=== PATIENT | male | born 1975 | race Caucasian/White ===

== ENCOUNTER 2022-06-12 15:41 | Outpatient (CLI) | payer BC, SELFPAY ==
--- OUTSIDE RECORDS SUMMARY | 2022-06-12 15:42 | XMS_ITS | Clinical Summary ---
:1975 Author Organization [facility] Address [address] [place] [address] Care Team Providers Name Role Phone Unavailable Primary Care Provider Unavailable Source Comments Patient records contain information from all sites at [facility]. For routine questions regarding patient records, call [phone] during business hours, M-F 8:00 AM - 5:00 PM Central Time. Record requests for emergency care only can be directed to [phone] at any time.[facility] Immunizations Name Administration Dates Next Due SARS-COV-2 (COVID-19) - PFIZER (12 years or older) Social History Tobacco Use Types Packs/Day Years Used Date Smoking Tobacco: Never Assessed Sex Assigned at Date Recorded Not on file Plan of Treatment Health Maintenance Due Date Last Done Comments CT Colonography 1973 Cologuard 1975 Colonoscopy 1973 Colorectal Cancer Screening 1973 FIT 1973 HIV Screening 1973 Hepatitis C Screening 1973 Pneumococcal vaccine (0-64 years) (1 1979 - PCV) COVID-19 Vaccine (3 - Pfizer risk 06/12/2021 05/15/2021, series) Depression Screening (Annual PHQ-2) 08/11/2021 Influenza Vaccine (#1) 2022 05/16/2020, 05/22/2019 Fasting Glucose for Diabetes 09/09/2022 09/09/2019, 019, Screening 05/04/2019 DTaP,Tdap,and Td Vaccines (2 - Td or 09/16/2022 09/16/2012 Tdap) Lipid (Cholesterol) Screening 05/04/2024 05/04/2019, 2018, 08/14/2018 Hepatitis B Vaccines Completed 01/21/2007, 04/18/2006, 03/18/2006 Insurance Payer Benefit Plan Subscriber ID Effective Dates Phone Address Type / Group [facility] [id number] 2020-Joshua [phone] [address] [address] [address] [facility] [address] [place] [id number]
--- OUTSIDE RECORDS SUMMARY | 2022-06-12 15:42 | XMS_ITS | Encounter Summary ---
:1975 Author Organization [facility] Address [address] [place] [address] Care Team Providers Name Role Phone Unavailable Primary Care Provider Unavailable Reason for Referral Specialty Diagnoses / Procedures Referred By Contact Refer red To Contact [facility] [address] [place], [place] [address] Referral ID Status Reason Start Date Expiration Date Visits Requ ested Visits Authorized Encounter Details Date Type Department Care Team Description 04/24/2021 Immunization Department of [facility] er For COVID-19 Medicine, [facility] Vaccine I [facility], (P rimary Dx) in [facility] [address] [place] [address] Social History Tobacco Use Types Packs/Day Years Used Date Smoking Tobacco: Never Assessed Sex Assigned at Date Recorded Not on file documented as of this encounter Plan of Treatment Scheduled Referrals Name Type Priority Associated Diagnoses Order S chedule Covid immunization Outpatient Referral Routine Encounter For E xpected: office visit COVID-19 Vaccine 05/15/2021, Subsequent; Pfizer Immunization Expires: 04/24/2024 documented as of this encounter Visit Diagnoses Diagnosis Encounter For COVID-19 Vaccine Immunizat ion - Primary documented in this encounter
--- OUTSIDE RECORDS SUMMARY | 2022-06-12 15:43 | XMS_ITS | Encounter Summary ---
:1975 Author Organization [facility] Address [address] [place] [address] Care Team Providers Name Role Phone No Ref-Primary, Physician Primary Care Provider Encounter Details Date Type Department Care Team Description 10/18/2020 Travel Social History Tobacco Use Types Packs/Day Years Used Date Smoking Tobacco: Every Day Cigarettes 0.5 Alcohol Use Standard Drinks/Week Comments Yes 0 (1 standard drink = 0.6 oz pure alcoho l) occasionally Sex Assigned at Date Recorded Not on file COVID-19 Exposure Response Date Recorded In the last month, have you been in contact with No / Unsure 10/18/2020 12:00 AM CHIEF RADIOLOGY someone who was confirmed or suspected to have Coronavirus / COVID-19? documented as of this encounter Plan of Treatment Not on filedocumented as of this encounter Visit Diagnoses Not on filedocumented in this encounter Care Teams Electrician Helper Relationship Specialty Start Date End Date No Ref-Primary, Physician PCP - General 09/03/19 10/28/21 documented as of this encounter
--- OUTSIDE RECORDS SUMMARY | 2022-06-12 15:43 | XMS_ITS | Encounter Summary ---
:1975 Author Organization [facility] Address [address] [place] [address] Care Team Providers Name Role Phone Bharat Yañez Primary Care Provider Encounter Details Date Type Department Care Team Description 01/13/2019 Travel Social History Tobacco Use Types Packs/Day [...] on filedocumented in this encounter Care Teams Generation Engineering Technologist Relationship Specialty Start Date End Date Bharat Yañez PCP - General Family Practice 04/30/16 09/02/19 documented as of this encounter
--- OUTSIDE RECORDS SUMMARY | 2022-06-12 15:43 | XMS_ITS | Clinical Summary ---
:1975 Author Organization [facility] Address [address] [place], [place] [address]. [place] [address] Care Team Providers Name Role Phone [facility] Provi velvet Clinics- Allergies No known active allergies Medications Medication Sig Dispensed Refills Start Date End Date Status ibuprofen Take 800 mg by mouth 0 Active (ADVIL,MOTRIN) 800 every morning MG tablet APREMILAST PO Take 1 tablet by 0 Active mouth 2 times daily Blinded study drug from [facility], Dr Karen Mathew COSENTYX 0 10/25/2021 Active SENSOREADY, 300 MG, 150 MG/ML SOAJ Active Problems Problem Noted Date Ankylosing spondylitis lumbar region 09/11/2012 Overview: Formatting of this note might be differe nt from the original. 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 Now occasional palpitations after ablati on 1995. ; ANOMALOUS AV EXCITATION (WPW) Immunizations Name Administration Dates Next Due COVID-19,PF,Pfizer (12+ Yrs) 05/15/2021, 04/24/2021 Family History Medical History Relation Comments Unknown/Adopted No family hx of unknown Relation Status Comments Father car accident Maternal Grandfather Maternal Grandmother Mother Alive Paternal Grandfather Paternal Grandmother Social History Tobacco Use Types Packs/Day Years Used Date Smoking Tobacco: Every Day Cigarettes 0.5 Alcohol Use Standard Drinks/Week Comments Yes 0 (1 standard drink = 0.6 oz pure alcoho l) occasionally Sex Assigned at Date Recorded Not on file Last Filed Vital Signs Vital Sign Reading Time Taken Comments Blood Pressure 141/97 11/10/2021 8:00 PM CDT Pulse 83 11/10/2021 8:00 PM CDT Temperature 37.2 ??C (98.9 ??F) 11/10/2021 7:01 PM CDT Respiratory Rate 14 11/10/2021 8:00 PM CDT Oxygen Saturation 98% 11/10/2021 8:00 PM CDT Inhaled Oxygen Concentration - - Weight 102.1 kg (225 lb) 11/06/2021 3:07 PM CDT Height 188 cm (6' 2) 09/10/2021 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 Body Mass Index 28.89 09/10/2021 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 Plan of Treatment Health Maintenance Due Date Last Done Comments ADVANCE CARE PLANNING 1975 ANNUAL REVIEW OF HM ORDERS 1973 CT COLONOGRAPHY 1973 FIT-DNA (Cologuard) 1973 FIT 1973 FLEX SIG 1973 NICOTINE/TOBACCO CESSATION 1973 COUNSELING Q 1 YR Pneumococcal Vaccine: 1979 Pediatrics (0 to 5 Years) and At-Risk Patients (6 to 64 Years) (1 - PCV) COLONOSCOPY 1983 COLORECTAL CANCER SCREENING 1983 HIV SCREENING 02/18/1988 HEPATITIS C SCREENING 1991 YEARLY PREVENTIVE VISIT 06/28/2011 06/28/2010, 01/21/2007, 03/18/2006 COVID-19 Vaccine (3 - 07/10/2021 05/15/2021, 04/24/2021 Booster for Pfizer series) PHQ-2 (once per calendar 08/11/2021 year) INFLUENZA VACCINE (#1) 2022 05/16/2020, 05/22/2019 DTAP/TDAP/TD IMMUNIZATION 09/16/2022 09/16/2012, 02/15/2003 (2 - Td or Tdap) ZOSTER IMMUNIZATION (1 of 2023 2) LIPID 05/04/2024 05/04/2019, 11/26/2018, 08/14/2018, Additional history exists HEPATITIS B IMMUNIZATION Completed 01/21/2007, 04/18/2006, 03/18/2006 IPV IMMUNIZATION Aged Out No longer eligi ble based on patient 's age to complete this topic MENINGITIS IMMUNIZATION Aged Out No longe r eligible based on patient 's age to complete this topic Insurance Payer Benefit Plan / Subscriber ID Effective Dates Phone Addre ss Type Group BC[place] [id number] 2016-Joshua [phone] [address] [address] Indemnity t 0 [place] [id number] Advance Directives For more information, please contact: [phone] Latest Code Status on File Code Status Date Activated Date Inactivated Comments Full Code 04/30/2016 3:58 PM 05/01/2016 11:18 AM Care Teams Ruling Machine Set Up Operator Relationship Specialty Start Date End Date [facility] And PCP - General 10/29/21 [facility]- [address] [place] [address]
--- OUTSIDE RECORDS SUMMARY | 2022-06-12 15:43 | XMS_ITS | Encounter Summary ---
:1975 Author Organization [facility] Address [address] [place] [address] Care Team Providers Name Role Phone Bharat Yañez Primary Care Provider Encounter Details Date Type Department Care Team Description 11/26/2018 [facility] Vitamin D deficiency [address] [facility] [place], [place] [address] [phone] [address] [place], [place] [id number] Social History Tobacco Use Types Packs/Day Years Used Date Smoking Tobacco: Every Day Cigarettes 0.5 Alcohol Use Standard Drinks/Week Comments Yes 0 (1 standard drink = 0.6 oz pure alcoho l) occasionally Sex Assigned at Date Recorded Not on file documented as of this encounter Medications at Time of Discharge Medication Sig Dispensed Refills Start Date End Date APREMILAST PO Take 1 tablet by mouth 2 0 times daily Blinded study drug from [facility], Dr Karen Mathew ibuprofen Take 800 mg by mouth 0 (ADVIL,MOTRIN) 800 MG every morning tablet documented as of this encounter Plan of Treatment Not on filedocumented as of this encounter Procedures Procedure Name Priority Date/Time Associated Comments Diagnosis VITAMIN D DEFICIENCY Routine 11/26/2018 7:15 AM Lipid di sorder Results for this SCREENING CDT Vitamin D procedure are i n deficiency the results section. LIPID PROFILE Routine 11/26/2018 7:15 AM Lipid disorde r Results for this CDT Vitamin D procedure are i n deficiency the results section. HEMOGLOBIN Routine 11/26/2018 7:15 AM Lipid disorde r Results for this CDT Vitamin D procedure are i n deficiency the results section. ERYTHROCYTE Routine 11/26/2018 7:15 AM Lipid disorde r Results for this SEDIMENTATION RATE CDT Vitamin D procedure are in AUTO deficiency the results section. CRP INFLAMMATION Routine 11/26/2018 7:15 AM Lipid disord er Results for this CDT Vitamin D procedure are i n deficiency the results section. CREATININE Routine 11/26/2018 7:15 AM Lipid disorde r Results for this CDT Vitamin D procedure are i n deficiency the results section. documented in this encounter Results Vitamin D Deficiency (11/26/2018 7:15 AM CDT) P athologist Signature Vitamin D 40 20 - 75 11/26/2018 [facility] Deficiency ug/L 3:19 PM CDT [facility] [place] Comment: Season, race, dietary intake, and treatm ent affect the concentration of 76-ykotmxa-Gvxysrh D. Values may decreas e during winter months and increase during summer months. Values 20-29 ug/L may indicate Vitamin D insufficiency and values <20 ug/L may indicate Vitamin D deficiency. Vitamin D determination is routinely per formed by an immunoassay specific for 25 hydroxyvitamin D3. ??If an individual is on vitamin D2 (ergocalciferol) supplementation, please specify 25 OH vi tamin D2 and D3 level determination by LCMSMS test VITD23. Specimen Anatomical Collection Method Collection Time Receive d Time (Source) Location / / Volume Laterality Blood specimen 11/26/2018 7:15 AM 019 7:17 (specimen) CDT AM CDT Karen Shrestha LAB - BLOOD ORDERABLES Performing Organization Address City/State/ZIP Code Phon e Number [facility] [address] [place], [place] [id number] [place] [address] (ABNORMAL) Lipid Profile (Chol, Trig, HDL, LDL calc) (11/26/2018 7:15 AM CDT) P athologist Signature Cholesterol 238 (H) <200 mg/dL 11/26/2018 [facility] 7:36 AM CDT [facility] Comment: Desirable: <200 mg/dl Triglycerides 136 <150 mg/dL 11/26/2018 7:[address] [facility] HDL Cholesterol 55 >39 mg/dL 11/26/2018 7:38 AM [facility]W [facility] LDL Cholesterol 156 (H) <100 mg/dL 11/26/2018 7:38 AM [facility] Comment: Above desirable: ??100-129 mg/dl Borderline High: ??130-159 mg/dL High: ? 160-189 mg/dL Very high: ? >189 mg/dl Non HDL Cholesterol 183 (H) <130 mg/dL 11/26/2018 7:38 AM [facility] Comment: Above Desirable: ??130-159 mg/dl Borderline high: ??160-189 mg/dl High: ? 190-219 mg/dl Very high: ? >219 mg/dl Specimen Anatomical Collection Method Collection Time Receive d Time (Source) Location / / Volume Laterality Blood specimen 11/26/2018 7:15 AM 019 7:17 (specimen) CDT AM CDT Karen Chakraborty Fady LAB - BLOOD ORDERABLES Performing Organization Address City/[facility]/ZIP [facility] Phon [place] Number [facility] [address] [place], [place] [address] [facility] [address] [phone] Hemoglobin (11/26/2018 7:15 AM CDT) P athologist Signature Hemoglobin 15.3 13.3 - 17.7 11/26/2018 [facility] g/dL 7:22 AM CDT HOSPITAL Specimen Anatomical Collection Method Collection Time Receive d Time (Source) Location / / Volume Laterality Blood specimen 11/26/2018 7:15 AM 019 7:17 (specimen) CDT AM CDT Karen G Fady LAB - BLOOD ORDERABLES Performing Organization Address City/[facility]/ZIP [facility] Phon e Number [facility] [address] [place] [address] [facility] [address] [place], [place] [address], [facility] [phone] CRP, inflammation (11/26/2018 7:15 AM CDT) athologist Signature CRP Inflammation <2.9 0.0 - 8.0 11/26/2018 [place] mg/L 7:36 AM [facility] Specimen Anatomical Collection Method Collection Time Receive d Time (Source) Location / / Volume Laterality Blood specimen 11/26/2018 7:15 AM 019 7:17 (specimen) CDT AM CDT Karen Calvertta LAB - BLOOD ORDERABLES Performing Organization Address City/[facility]/ZIP [facility] Phon ozzy Osman [facility] [address] [place], [place] [address] [facility] [address] [place], [place] [address], [facility] [phone] ESR FUTURE anytime (11/26/2018 7:15 AM CDT) athologist [facility] Sed Rate 10 0 - 15 mm/h 11/26/2018 [facility] 7:59 AM [facility] Specimen Anatomical Collection Method Collection Time Receive d Time (Source) Location / / Volume Laterality Blood specimen 11/26/2018 7:15 AM 019 7:17 (specimen) CDT AM CDT Karen G Fady LAB - BLOOD ORDERABLES Performing Organization Address City/[facility]/ZIP [facility] Ph[place] e Dawson [facility] [address] [place], [place] [address] [facility] [address] [place], [place] [address], [facility] [phone] Creatinine (11/26/2018 7:15 AM CDT) athologist Signature Creatinine 0.73 0.66 - 1.25 11/26/2018 [place] mg/dL 7:36 AM [facility] GFR Estimate >90 >60 11/26/2018 [place] mL/min/{1.7 7:36 AM [facility] 3_m2[facility] Comment: Non GFR Calc Starting 07/28/2018, serum creatinine ba sed estimated GFR (eGFR) will be calculated using the Chronic Kidney Dise [facility] Epidemiology Collaboration (CKD-EPI) equation. GFR Estimate If >90 >60 mL/min/{1.73_m2} 11/26/2018 7: 36 AM [facility] Comment: GFR Calc Starting 07/28/2018, serum creatinine ba sed estimated GFR (eGFR) will be calculated using the Chronic Kidney Dise [facility] Epidemiology Collaboration (CKD-EPI) equation. Specimen Anatomical Collection Method Collection Time Receive d Time (Source) Location / / Volume Laterality Blood specimen 11/26/2018 7:15 AM 019 7:17 (specimen) CDT CDT Karen Shrestha LAB - BLOOD ORDERABLES Performing Organization Address City/State/ZIP Code Phon e Number M [address] [place] [address] [phone] documented in this encounter Visit Diagnoses Diagnosis Lipid disorder Unspecified disorder of lipoid metabolis m Vitamin D deficiency Unspecified vitamin D deficiency documented in this encounter Care Teams Hybrid Corn Breeder Relationship Specialty Start Date End Date Bharat Yañez PCP - General Family Practice 04/30/16 09/02/19 documented as of this encounter
--- OUTSIDE RECORDS SUMMARY | 2022-06-12 15:43 | XMS_ITS | Encounter Summary ---
:1975 Author Organization [facility] Address [address] [place] [address] Care Team Providers Name Role Phone Bharat Yañez Primary Care Provider Encounter Details Date Type Department Care Team Description 11/30/2018 Orders Only [facility] Karen Shrestha Polyarticular psoriatic arthritis (H) (P rimary Dx); [facility] Vitamin D deficiency; [address] [facility] RHEUMATOLOGY [place] use of drug [place], [place] [address] [facility] [place] [address] [address] [place], [place] [id number] Social History Tobacco Use Types Packs/Day Years Used Date Smoking Tobacco: Every Day Cigarettes 0.5 Alcohol Use Standard Drinks/Week Comments Yes 0 (1 standard drink = 0.6 oz pure alcoho l) occasionally Sex Assigned at Date Recorded Not on file documented as of this encounter Plan of Treatment Not on filedocumented as of this encounter Visit Diagnoses Diagnosis Polyarticular psoriatic arthritis (H) - Primary Psoriatic arthropathy Vitamin D deficiency Unspecified vitamin D deficiency long-term use of drug Encounter for long-term (current) use of other medications documented in this encounter Care Teams Vehicle Check In Clerk Relationship Specialty Start Date End Date Bharat Yañez PCP - General Family Practice 04/30/16 09/02/19 documented as of this encounter
--- OUTSIDE RECORDS SUMMARY | 2022-06-12 15:43 | XMS_ITS | Encounter Summary ---
:1975 Author Organization [place] Address [address] [place] [address] Care Team Providers Name Role Phone No Ref-Primary, Physician Primary Care Provider Encounter Details Date Type Department Care Team Description 09/09/[address] [facility] Pso riatic arthropathy (H); [facility] Vitamin D deficiency; [facility] for long-term (current) use of other medications [address] [place] [address] Social History Tobacco Use Types Packs/Day Years [...] Associated Comments Diagnosis VITAMIN D DEFICIENCY Routine 09/09/2019 8:26 AM Psoriatic R esults for this SCREENING FURNITURE SHAMPOOER arthropathy (H) procedure are in Vitamin D the results deficiency section. Encounter for long-term (current) use of other medications ERYTHROCYTE Routine 09/09/2019 8:26 AM Psoriatic Results f or this SEDIMENTATION RATE FURNITURE SHAMPOOER arthropathy ( H) procedure are in AUTO Vitamin D the results deficiency section. Encounter for long-term (current) use of other medications CRP INFLAMMATION Routine 09/09/2019 8:26 AM Psoriatic Resul ts for this FURNITURE SHAMPOOER arthropathy (H) procedure are in Vitamin D the results deficiency section. Encounter for long-term (current) use of other medications COMPREHENSIVE Routine 09/09/2019 8:26 AM Psoriatic Results for this METABOLIC PANEL FURNITURE SHAMPOOER arthropathy (H) procedure are in Vitamin D the results deficiency section. Encounter for long-term (current) use of other medications CBC WITH PLATELETS Routine 09/09/2019 8:26 AM Psoriatic Res ults for this FURNITURE SHAMPOOER arthropathy (H) procedure are in Vitamin D the results deficiency section. Encounter for long-term (current) use of other medications documented in this encounter Results Vitamin D Deficiency (09/09/2019 8:26 AM FURNITURE SHAMPOOER) P athologist Signature Vitamin D 26 20 - 75 09/10/2019 [facility] Deficiency ug/L 9:52 AM FURNITURE SHAMPOOER [facility] Comment: Season, race, dietary intake, and treatm ent affect the concentration of 89-hpecjea-Cmfrkuo D. Values may decreas e during winter [...] Location / / Volume Laterality Blood specimen 09/09/2019 8:26 AM 020 8:27 (specimen) FURNITURE SHAMPOOER AM FURNITURE SHAMPOOER Noah Gill MD LAB - BLOOD ORDERABLES Performing Organization Address City/[facility]/ZIP Code Phon e Number [address] CRP inflammation (09/09/2019 8:26 AM FURNITURE SHAMPOOER) Analysis Performed At Patho logist Time Signature CRP Inflammation <2.9 0.0 - 8.0 09/09/2019 [place] O F mg/L 8:[address] [facility] Specimen Anatomical Collection Method Collection Time Receive d Time (Source) Location / / Volume Laterality Blood specimen 09/09/2019 8:26 AM 020 8:27 (specimen) FURNITURE SHAMPOOER AM FURNITURE SHAMPOOER Noah Gill MD LAB - BLOOD ORDERABLES Performing Organization Address City/[facility]/ZIP Code Phon e Number [address] Comprehensive metabolic panel (BMP + Alb, Alk Phos, ALT, AST, Total. Bili, TP) (09/09/2019 8:26 AM [facility]) athologist Signature Sodium 140 133 - 144 09/10/2019 [facility] mmol/L 9:31 AM [facility] Potassium 4.3 3.4 - 5.3 09/10/2019 [facility] mmol/L 9:31 AM [facility] Chloride 109 94 - 109 09/10/2019 [facility] mmol/L 9:31 AM [facility] Carbon Dioxide 23 20 - 32 09/10/2019 [facility] mmol/L 9:41 AM [facility] Anion Gap 8 3 - 14 09/10/2019 [place] mmol/L 9:41 AM [facility] Glucose 95 70 - 99 09/10/2019 [place] mg/dL 9:41 AM [facility] Urea Nitrogen 15 7 - 30 09/10/2019 [facility] mg/dL 9:41 AM [facility] Creatinine 0.78 0.66 - 09/10/2019 [facility] 1.25 mg/dL 9:41 AM [facility] GFR Estimate >90 >60 09/10/2019 [place] mL/min/{1. 9:41 AM [facility] 73_m2} [facility] Comment: Non GFR Calc Starting 07/28/2018, serum creatinine ba sed estimated GFR (eGFR) will be calculated using the Chronic Kidney Dise [facility] Epidemiology Collaboration (CKD-EPI) equation. GFR Estimate If >90 >60 mL/min/{1.73_m2} 09/10/2019 9: 41 AM [facility] Black [facility] Comment: GFR Calc Starting 07/28/2018, serum creatinine ba sed estimated GFR (eGFR) will be calculated using the Chronic Kidney Dise [facility] Epidemiology Collaboration (CKD-EPI) equation. Calcium 9.4 8.5 - 10.1 09/10/2019 9:41 AM [place] [facility] mg/dL [facility] Bilirubin Total 0.6 0.2 - 1.3 mg/dL 09/10/2019 9:48 AM [place] [facility] Albumin 4.1 3.4 - 5.0 g/dL 09/10/2019 9:48 AM [facility] Protein Total 7.3 6.8 - 8.8 g/dL 09/10/2019 9:48 AM [facility] Alkaline Phosphatase 86 40 - 150 U/L 09/10/2019 9:48 AM [facility] ALT 25 0 - 70 U/L 09/10/2019 9:[address] [facility] AST 14 0 - 45 U/L 09/10/2019 9:[address] [facility] Specimen Anatomical Collection Method Collection Time Receive d Time (Source) Location / / Volume Laterality Blood specimen 09/09/2019 8:26 AM 020 8:27 (specimen) FURNITURE SHAMPOOER AM FURNITURE SHAMPOOER Noah Gill MD LAB - BLOOD ORDERABLES Performing Organization Address City/State/ZIP Code Phon e Number M [facility] [address] [address] [facility] [address] [facility] [place] [address] [facility] [address] [address], U [phone] CBC with platelets (09/09/2019 8:26 AM FURNITURE SHAMPOOER) P athologist Signature WBC 7.8 4.0 - 11.0 09/09/2019 [facility] 10e9/L 10:23 AM [facility] RBC Count 5.20 4.4 - 5.9 09/09/2019 [facility] 10e12/L 10:23 AM [facility] Hemoglobin 15.1 13.3 - 09/09/2019 [facility] 17.7 g/dL 10:23 AM [facility] Hematocrit 45.1 40.0 - 09/09/2019 [facility] 53.0 % 10:23 AM [facility] MCV 87 78 - 100 09/09/2019 [facility] fl 10:23 AM [facility] MCH 29.0 26.5 - 09/09/2019 [facility] 33.0 pg 10:23 AM [facility] MCHC 33.5 31.5 - 09/09/2019 [facility] 36.5 g/dL 10:23 AM [facility] RDW 12.0 10.0 - 09/09/2019 [place] 15.0 % 10:23 AM [facility] Platelet Count 238 150 - 450 09/09/2019 [place] 10e9/L 10:23 AM [facility] Specimen Anatomical Collection Method Collection Time Receive d Time (Source) Location / / Volume Laterality Blood specimen 09/09/2019 8:26 AM 020 8:27 (specimen) FURNITURE SHAMPOOER AM FURNITURE SHAMPOOER Noah Gill MD LAB - BLOOD ORDERABLES Performing Organization Address City/State/ZIP Code Phon e Number [facility] [place] [address] ESR FUTURE anytime (09/09/2019 8:26 AM FURNITURE SHAMPOOER) P athologist Signature Sed Rate 8 0 - 15 mm/h 09/09/2019 [facility] 10:35 AM [facility] Specimen Anatomical Collection Method Collection Time Receive d Time (Source) Location / / Volume Laterality Blood specimen 09/09/2019 8:26 AM 020 8:27 (specimen) FURNITURE SHAMPOOER AM FURNITURE SHAMPOOER Noah Gill MD LAB - BLOOD ORDERABLES Performing Organization Address City/[facility]/ZIP Code Phon e Number [facility] [place] [address] documented in this encounter Visit Diagnoses Diagnosis Psoriatic arthropathy (H) Psoriatic arthropathy Vitamin D deficiency Unspecified vitamin D deficiency Encounter for long-term (current) use of other medications documented in this encounter Care Teams Rivet Tapping Machine Operator Relationship Specialty Start Date End Date No Ref-Primary, Physician PCP - General 09/03/19 10/28/21 documented as of this encounter
--- OUTSIDE RECORDS SUMMARY | 2022-06-12 15:43 | XMS_ITS | Encounter Summary ---
:1975 Author Organization [place] Address [address] [place] [address] Care Team Providers Name Role Phone Bharat Yañez Primary Care Provider Encounter Details Date Type Department Care Team Description 11/26/2018 Travel Social History Tobacco Use Types Packs/Day [...] on filedocumented in this encounter Care Teams Field Reimbursement Manager Relationship Specialty Start Date End Date Bharat Yañez PCP - General Family Practice 04/30/16 09/02/19 documented as of this encounter
--- OUTSIDE RECORDS SUMMARY | 2022-06-12 15:43 | XMS_ITS | Encounter Summary ---
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); Clinic [facility] Screening for thyroid disorder; Laboratory RHEUMATOLOGY Screening for diabetes mellitus; [address] [facility], [address] [place] [address] of lipoprotein and lipid metabolism; [address] Polyarticular psoriatic arthritis (H); [place], [place] [address] Avitaminosis D; [phone] Encounter for long-term (cur rent) use of other medications Social History Tobacco Use Types Packs/Day Years Used Date Smoking Tobacco: Every Day Cigarettes 0.5 Alcohol Use Standard Drinks/Week Comments Yes 0 (1 standard drink = 0.6 oz pure alcoho l) occasionally Sex Assigned at Date Recorded Not on file documented as of this encounter Plan of Treatment Not on filedocumented as of this encounter Results (ABNORMAL) Lipid panel reflex to direct LDL Fasting (05/04/2019 7:52 AM CDT) athologist Signature Cholesterol 211 (H) <200 mg/dL 05/05/2019 [facility] 10:00 AM CDT [facility] Comment: Desirable: <200 mg/dl Triglycerides 98 <150 mg/dL 05/05/2019 10:00 AM [facility] Comment: Fasting specimen HDL Cholesterol 53 >39 mg/dL 05/05/2019 10:02 AM [facility] LDL Cholesterol 138 (H) <100 mg/dL 05/05/2019 10:02 AM MARIBEL BAUER [facility] Comment: Above desirable: ??100-129 mg/dl Borderline High: ??130-159 mg/dL High: ? 160-189 mg/dL Very high: ? >189 mg/dl Non HDL Cholesterol 158 (H) <130 mg/dL 05/05/2019 10:02 AM [facility] Comment: Above Desirable: ??130-159 mg/dl Borderline high: ??160-189 mg/dl High: ? 190-219 mg/dl Very high: ? >219 mg/dl Specimen Anatomical Collection Method Collection Time Receive d Time (Source) Location / / Volume Laterality Blood specimen 05/04/2019 7:52 AM 019 7:57 (specimen) CDT AM CDT Karen Shrestha LAB - BLOOD ORDERABLES Performing Organization Address City/State/ZIP Code Phon e Number [facility] [address] [place] [address] Hemoglobin A1c (05/04/2019 7:52 AM CDT) P athologist Signature Hemoglobin A1C 5.1 0 - 5.6 % 05/04/2019 [place] 8:55 AM CDT [facility] Comment: Normal <5.7% Prediabetes 5.7-6.4% ??Diab etes 6.5% or higher - adopted from ADA consensus guidelines. Specimen Anatomical Collection Method Collection Time Receive d Time (Source) Location / / Volume Laterality Blood specimen 05/04/2019 7:52 AM 019 7:57 (specimen) CDT AM CDT Karen Shrestha LAB - BLOOD ORDERABLES Performing Organization Address City/State/ZIP Code Phon e Number [facility] [address] [place] [address] Testosterone Free and Total FUTURE anytime (05/04/2019 7:52 AM CDT) Analysis Performed At Patho logist Time Signature Testosterone 587 240 - 950 05/06/2019 [facility] ng/dL 10:26 AM T [facility] Comment: This test was developed and its performa nce characteristics determined by the [facility], ??Special Chemistry Laboratory. It has not been cleared or approved by the FDA. The laboratory is regulated under CLIA as qualified to perform high-comple xity testing. This test is used for clinical purposes. It should not be rega rded as investigational or for research. Sex Hormone Binding 32 11 - 80 nmol/L 05/05/2019 8:52 AM [facility] Globulin T [facility] Free Testosterone 12.88 4.7 - 24.4 05/06/2019 10:26 AM [facility] Calculated ng/dL T [facility] Specimen Anatomical Collection Method Collection Time Receive d Time (Source) Location / / Volume Laterality Blood specimen 05/04/2019 7:52 AM 019 7:57 (specimen) [facility]rest[facility] LAB - BLOOD ORDERABLES Performing Organization Address City/State/ZIP Code Phon e Number [facility] [address] [place], [place] [id number] [place] [address] documented in this encounter Visit Diagnoses Diagnosis 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
--- OUTSIDE RECORDS SUMMARY | 2022-06-12 15:43 | XMS_ITS | Encounter Summary ---
:1975 Author Organization [place] Address [address] [place] [address] Care Team Providers Name Role Phone [facility]- Reason for Visit Reason Onset Date Comments Results 11/07/2021 Encounter Details Date Type Department Care Team Description 11/07/2021 Telephone [facility] Chadwick Rutherford sa, RN Results Emergency Dept [address] [place] [phone] Social History Tobacco Use Types Packs/Day Years Used Date Smoking Tobacco: Every Day Cigarettes 0.5 Alcohol Use Standard Drinks/Week Comments Yes 0 (1 standard drink = 0.6 oz pure alcoho l) occasionally Sex Assigned at Date Recorded Not on file COVID-19 Exposure Response Date Recorded In the last month, have you been in contact with No / Unsure 11/10/2021 6:31 PM CDT someone who was confirmed or suspected to have Coronavirus / COVID-19? documented as of this encounter Miscellaneous Notes Telephone Encounter - Florencia Rutherford RN - 11/07/2021 3:[address] [facility] Emergency Department Lab result notification: Reason for call Synovial fluid culture Lab Result [facility] Emergency Dept discharge antibiotic prescribed: Clindamycin (Cleocin) 300 mg PO capsule, 1 capsule (300 mg) by mouth 3 times daily for 10 days Incision and Drainage performed in [facility] Emergency Dept [Yes or No]: aspiration Recommendations in treatment per [facility] ED Lab Result culture protocol ED visit Date: 11/06/21 Symptoms reported at ED visit Elbow Pain ? HPI Felix Coppola is a 46 year old male who has a history of ankylosing spondylitis lumbar region and presents with elbow pain. The patient was seen on 10/29 for cellulitis of the right upper extremity. He had swelling and pain in the right arm with the fever. The fever subsided on Friday. He alsojust finished his course of antibiotics. He now has redness and swelling in the back of his right elbow. He cannot fully extend his arm. He has not taken anything for the pain recently. Miscellaneous information Patient presents with ongoing right elbow pain. There is no picture of of prior elbow cellulitis but patient's iPhone did describe quite a bit of erythema and bogginess posteriorly to the right elbow. Clinical suspicions are for likely septic bursitis patient continues to have pain and erythema in this region but markedly improved. An attempted aspiration was performed only got a small amount of drainage that looked serosanguineous and this was swabbed and sent for culture we will continue antibiotics as patient was only treated with 7 days of Keflex recommend she switching to clindamycin. Culture is pending at the time of discharge recommended follow-up with orthopedics for further evaluation of ongoing pain and olecranon bursitis, likely septic Current symptoms 3:09 Spoke with patient Relayed preliminary culture report. Patient notes improvement to the elbow. Is able to move it better and feels better as well. Patient will continue current antibiotics. He is aware to be seen in ER if worsening symptoms. Patient is aware to follow up with orthopedics as needed as well. Will call with final culture report. Contact your PCP clinic or return to the Emergency department if your: ?? Symptoms return. ?? Symptoms do not improved after 3 days on antibiotic. ?? Symptoms do not resolve after completing antibiotic. ?? Symptoms worsen or other concerning symptom's. Florencia Rutherford RN [facility] Lab Result RN Copy of Lab result Synovial fluid Aerobic Bacterial Culture Routine Order: [id number] Status: Preliminary result ?? Visible to patient: No (not released) ?? Specimen Information: Elbow, Right; Synovial fluid ?? 1 Result Note Culture Culture in progress 1+ Staphylococcus aureus??Abnormal?? Identification is preliminary, confirmation in progress Resulting Agency: [facility] Specimen Collected: 11/06/21 ??5:11 PM Last Resulted: 11/07/21 ??2:47 PM documented in this encounter Plan of Treatment Not on filedocumented as of this encounter Visit Diagnoses Not on filedocumented in this encounter Care Teams Director Of Restaurants Relationship Specialty Start Date End Date [facility] And PCP - General 10/29/21 [facility] [address] [place] [address] documented as of this encounter
--- OUTSIDE RECORDS SUMMARY | 2022-06-12 15:43 | XMS_ITS | Encounter Summary ---
:1975 Author Organization [facility] Address [address] [place] [address] Care Team Providers Name Role Phone No Ref-Primary, Physician Primary Care Provider Reason for Visit Reason Comments Mass Encounter Details Date Type Department Care Team Description 10/17/2020 - Emergency [facility] Antony Naranjo, Sialadenitis 10/18/2020 [facility] Emergency Dep t [address] [facility] [place], [place] [address] [address] [facility] [phone] [place], [place] [address] (Wo rk) Social History Tobacco Use Types Packs/Day Years Used Date Smoking Tobacco: Every Day Cigarettes 0.5 Alcohol Use Standard Drinks/Week Comments Yes 0 (1 standard drink = 0.6 oz pure alcoho l) occasionally Sex Assigned at Date Recorded Not on file COVID-19 Exposure Response Date Recorded In the last month, have you been in contact with No / Unsure 10/18/2020 12:00 AM CARDIOPULMONARY TECHNOLOGIST CHIEF someone who was confirmed or suspected to have Coronavirus / COVID-19? documented as of this encounter Last Filed Vital Signs Vital Sign Reading Time Taken Comments Blood Pressure 159/105 10/17/2020 9:20 PM CARDIOPULMONARY TECHNOLOGIST CHIEF Pulse 100 10/17/2020 9:20 PM CARDIOPULMONARY TECHNOLOGIST CHIEF Temperature 36.3 ??C (97.3 ??F) 10/17/2020 9:20 PM CARDIOPULMONARY TECHNOLOGIST CHIEF Respiratory Rate 18 10/17/2020 9:20 PM CARDIOPULMONARY TECHNOLOGIST CHIEF Oxygen Saturation 95% 10/17/2020 9:20 PM CARDIOPULMONARY TECHNOLOGIST CHIEF Inhaled Oxygen Concentration - - Weight 102.1 kg (225 lb) 10/17/2020 9:20 PM CARDIOPULMONARY TECHNOLOGIST CHIEF Height 190.5 cm (6' 3) 10/17/2020 9:20 PM CARDIOPULMONARY TECHNOLOGIST CHIEF Body Mass Index 28.12 10/17/2020 9:20 PM CARDIOPULMONARY TECHNOLOGIST CHIEF documented in this encounter Discharge Instructions Discharge InstructionsGoAntony self MD - 10/17/2020 11:56 PM CARDIOPULMONARY TECHNOLOGIST CHIEF Please use ice or heat to the right jaw. Suck on salivary stimulants like lemon drops. Use nonsteroidal anti-inflammatories like ibuprofen if you see worsening redness or swelling in the right jaw or return to the emergency room to consider imaging. IOPULMONARY TECHNOLOGIST CHIEF AttachmentsThe following attachments cannot be sent through Care Everywhere. Salivary Gland Swelling, Uncertain Cause (Egyptian)Neck, Local Lymph Node Swelling in the, No Antibiotic Treatment (Egyptian)documented in this encounter Medications at Time of Discharge Medication Sig Dispensed Refills Start Date End Date APREMILAST PO Take 1 tablet by mouth 2 0 times daily Blinded study drug from [facility], Dr Karen Mathew ibuprofen Take 800 mg by mouth 0 (ADVIL,MOTRIN) 800 MG every morning tablet documented as of this encounter ED Notes Rufus Iraheta RN - 10/17/2020 9:19 PM CST Here for concern of lump/swelling to behind/below right ear about 45 minutes ago. ABCs intact. IOPULMONARY TECHNOLOGIST CHIEF Antony Naranjo MD - 10/17/2020 9:12 PM CST History Chief Complaint: Mass HPI Felix Coppola is a 45 year old male who presents to the emergency department for evaluation of a mass. Patient states tonight he was eating peanuts when he noticed some pain in the right side of his jaw and felt a mass next to his jaw. The pain could occasionally radiate to the right cheek. He sub sequently presents for evaluation. Review of Systems HENT: Positive for facial swelling. All other systems reviewed and are negative. Allergies: No known drug allergies Medications: Apremilast Past Medical History: Concussion Lumbar disc disorder Migraines WPW syndrome Past Surgical History: Appendectomy Heart ablation T&A Social History: The patient presents to the emergency department alone. Physical Exam Patient Vitals for the past 24 hrs: BP Temp Temp src Pulse Resp SpO2 Height Weight 10/17/20 2120 (!) 159/105 97.3 ??F (36.3 ??C) Temporal 100 18 95 % 1.905 m (6' 3) 102.1 kg (225 lb) Physical Exam Vitals signs reviewed. HENT: Head: Normocephalic. Right Ear: Tympanic membrane normal. Left Ear: Tympanic membrane normal. Nose: Nose normal. Mouth/Throat: Mouth: Mucous membranes are moist. Eyes: Pupils: Pupils are equal, round, and reactive to light. Neck: Comments: There is a small pea-like mass just at the base and the angle of the right mandible. It is mobile and mildly tender with palpation. No redness of the skin no fluctuance Cardiovascular: Rate and Rhythm: Normal rate and regular rhythm. Pulses: Normal pulses. Pulmonary: Effort: Pulmonary effort is normal. Breath sounds: Normal breath sounds. Neurological: Mental Status: He is alert. Emergency Department Course Emergency Department Course: Reviewed: I reviewed the patient's nursing notes, vitals, past medical records, Care Everywhere. Assessments: [id number] I assessed the patient. Exam findings described above. Disposition: Discharged to home. Impression & Plan Medical Decision Making: Patient presents with swelling at the angle of the right mandible. There is no signs of dental swelling the ear canal and eardrum is normal there is no mastoid tenderness. It seems low for the buccal sial tinnitus could be submandibular cellulitis or buccal or a salivary duct stone other possibilitiesinclude adenopathy. Supraclavicular region is normal patient has no other symptoms no pain with swallowing and no other localizing signs for cervical adenopathy. Care was discussed with the patient do not feel imaging is required is patient's had symptoms for 3 or 4 hours. Would recommend anti-inflammatory sucking on lemon drops and if swelling and pain is worse return to consider CT imaging. Diagnosis: ICD-10-CM 1. Sialadenitis K11.20 Joshua Saini 10/17/2020 EMERGENCY DEPARTMENT Scribe Disclosure: I, Joshua Parveen, am serving as a scribe at 11:58 PM on 10/17/2020 to document services personally performed by Antony Naranjo MD based on my observations and the provider's statements to me. Antony Naranjo MD 10/18/20 0443 IOPULMONARY TECHNOLOGIST CHIEF documented in this encounter Plan of Treatment Not on filedocumented as of this encounter Visit Diagnoses Diagnosis Sialadenitis Sialoadenitis documented in this encounter Care Teams Seater Grinder Relationship Specialty Start Date End Date No Ref-Primary, Physician PCP - General 09/03/19 10/28/21 documented as of this encounter
--- OUTSIDE RECORDS SUMMARY | 2022-06-12 15:43 | XMS_ITS | Encounter Summary ---
:1975 Author Organization [facility] Address [address] [place] [address] Care Team Providers Name Role Phone [facility] Clinics- Encounter Details Date Type Department Care Team Description 10/29/2021 [facility] [address] [facility] [address] [phone] [place], [place] [address] (Wo rk) Social History Tobacco Use Types Packs/Day Years Used Date Smoking Tobacco: Every Day Cigarettes 0.5 Alcohol Use Standard Drinks/Week Comments Yes 0 (1 standard drink = 0.6 oz pure alcoho l) occasionally Sex Assigned at Date Recorded Not on file COVID-19 Exposure Response Date Recorded In the last month, have you been in contact with No / Unsure 10/29/2021 12:51 PM CDT someone who was confirmed or suspected to have Coronavirus / COVID-19? documented as of this encounter Plan of Treatment Not on filedocumented as of this encounter Procedures Procedure Name Priority Date/Time Associated Diagnosis Comme nts POC US SOFT TISSUE STAT 10/29/2021 3:48 PM Res ults for this CDT procedure are i n the results section. documented in this encounter Results POC US SOFT TISSUE (10/29/2021 3:48 PM CDT) Anatomical Region Laterality Modality Other Specimen (Source) Anatomical Location Collection Method / Collectio n Time Received Time / Laterality Volume Narrative 10/29/2021 3:48 PM CDT [facility] Procedure Note Limited Bedside ED Ultrasound of Soft Ti ssue: PROCEDURE: PERFORMED BY: Dr. Chintan zhu MD INDICATIONS/SYMPTOM: Skin redness, evalu ate for abscess, cellulitis or foreign body PROBE: High frequency linear probe BODY LOCATION: Soft tissue located on ex tremity FINDINGS: Cobblestoning of soft tissue: present Hypoechoic fluid (ie abscess) identifie d: absent INTERPRETATION: ??The soft tissue and mu scle layers were evaluated. ?? Findings indicate cellulitis IMAGE DOCUMENTATION: Images could not be archived due to lack of link from US to PACS. Chintan Davis MD IMG POCUS documented in this encounter Visit Diagnoses Not on filedocumented in this encounter Care Teams Controls Design Engineer Relationship Specialty Start Date End Date [facility] PCP - General 10/29/21 [facility] [address] [place] [address] documented as of this encounter
--- OUTSIDE RECORDS SUMMARY | 2022-06-12 15:43 | XMS_ITS | Encounter Summary ---
:1975 Author Organization [facility] Address [address] [place] [address] Care Team Providers Name Role Phone [facility] Clinics- Reason for Visit Reason Comments Elbow Pain Encounter Details Date Type Department Care Team Description 11/06/2021 Emergency [facility] Antony Naranjo Septic b ursitis of [facility] Emergency Dep t MD Geronimo elbow, right [address] [facility] [place], [place] [address] [address] [facility] [address] [phone] [place], [place] [address] (Wo rk) Social History Tobacco Use Types Packs/Day Years Used Date Smoking Tobacco: Every Day Cigarettes 0.5 Alcohol Use Standard Drinks/Week Comments Yes 0 (1 standard drink = 0.6 oz pure alcoho l) occasionally Sex Assigned at Date Recorded Not on file COVID-19 Exposure Response Date Recorded In the last month, have you been in contact with No / Unsure 11/06/2021 2:54 PM CDT someone who was confirmed or suspected to have Coronavirus / COVID-19? documented as of this encounter Last Filed Vital Signs Vital Sign Reading Time Taken Comments Blood Pressure 142/90 11/06/2021 5:31 PM CDT Pulse 92 11/06/2021 5:31 PM CDT Temperature 36.6 ??C (97.9 ??F) 11/06/2021 3:07 PM CDT Respiratory Rate 18 11/06/2021 3:07 PM CDT Oxygen Saturation 98% 11/06/2021 5:31 PM CDT Inhaled Oxygen Concentration - - Weight 102.1 kg (225 lb) 11/06/2021 3:07 PM CDT Height - - Body Mass Index 28.89 09/10/2021 6:10 PM ENVIRONMENTAL SERVICES LEAD documented in this encounter Discharge Instructions Discharge InstructionsAntony Naranjo MD - 11/06/2021 5:02 PM CDT We suspect you had and continue to have septic bursitis of the elbow. We have take a swab from the fluid from the bursa, but suspect the ongoing pain is due to scar tissue and inflammation from the infection. Please take your cell phone picture, and follow up with orthopedics, if your elbow does not respond to the second course of antibitoics and antiinflammatories. Return to ER if fever again or swelling of the elbow worsens. AttachmentsThe following attachments cannot be sent through Care Everywhere. Bursitis (Dutch)documented in this encounter Medications at Time of Discharge Medication Sig Dispensed Refills Start Date End Date APREMILAST PO Take 1 tablet by mouth 0 2 times daily Blinded study drug from [facility], Dr Karen Mathew COSENTYEvon SENSOREADY, 0 10/25/2021 300 MG, 150 MG/ML SOAJ ibuprofen Take 800 mg by mouth 0 (ADVIL,MOTRIN) 800 MG every morning tablet clindamycin (CLEOCIN) Take 1 capsule (300 30 capsule 0 11/0611/16/2021 300 MG capsule mg) by mouth 3 times daily for 10 days naproxen (NAPROSYN) Take 1 tablet (500 mg) 16 tablet 0 10/1011/14/2021 500 MG tablet by mouth 2 times daily (with meals) for 8 days documented as of this encounter ED Notes Veronique Gutierrez RN - 11/06/2021 3:06 PM CDT Seen here on 10/29 with right elbow swelling and pain. Was placed on an antibiotic which he completed. Back today because of continued pain and swelling to the area. Antony Naranjo MD - 11/06/2021 2:53 PM CDT Images from the original note were not included. History Chief Complaint: Elbow Pain JULIO CÉSAR Coppola is a 46 year old male [...] not taken anything for the pain recently. Review of Systems Musculoskeletal: Positive for joint swelling (elbow pain and swelling). All other systems reviewed and are negative. 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 Cardiovascular: Rate and Rhythm: Normal rate. Pulmonary: Effort: Pulmonary effort is normal. Abdominal: General: Abdomen is flat. Musculoskeletal: Comments: As the image there is a area of erythema around the olecranon process posteriorly to the right elbow. There is slight bogginess and tenderness with palpation. There is no joint effusion. There is slight increase in pain with extension at the elbow Skin: Capillary Refill: Capillary refill takes less than 2 seconds. Neurological: Mental Status: He is alert. Emergency Department Course Procedures: Procedure: Aspiration Performed by: Goodman Hardy MD LOCATION: Right elbow ANESTHESIA: Local field block using Lidocaine 1% with epinephrine, total of 3 mLs PREPARATION: Cleansed with Betadine PROCEDURE: Using a 18-gauge needle a attempted aspiration was performed with minimal success there was some drainage from the open wound but did not aspirate into the syringe. Fluid was swabbed using aculture swab. Procedure was aborted. Patient Status: Patient tolerated the procedure moderately well. There were no complications evident Emergency Department Course: Reviewed: I reviewed nursing notes, vitals, past history and care everywhere Assessments: 1637 I obtained history and examined the patient as noted above. 1644 I performed an ultrasound on the affected area to see if there was fluid that could possibly bedrained. Disposition: The patient was discharged to home. Impression & Plan Medical Decision Making: Patient presents with ongoing right elbow pain. There is no picture of of prior elbow cellulitis butpatient's iPhone did describe quite a bit of [...] follow-up with orthopedics for further evaluation of o ngoing pain and olecranon bursitis, likely septic Diagnosis: ICD-10-CM 1. Septic bursitis of elbow, right M71.121 Discharge Medications: New Prescriptions CLINDAMYCIN (CLEOCIN) 300 MG CAPSULE Take 1 capsule (300 mg) by mouth 3 times daily for 10 days NAPROXEN (NAPROSYN) 500 MG TABLET Take 1 tablet (500 mg) by mouth 2 times daily (with meals) for 8 days Scribe Disclosure: [employer], am serving as a scribe at 4:35 PM on 11/06/2021 to document services personally performed by Antony Naranjo MD based on my observations and the provider's statements to me. Antony Naranjo MD 11/06/21 [id number] documented in this encounter Miscellaneous Notes Result Encounter Note - Elgin Romero RN - 11/06/2021 5:32 PM CDT [facility] Emergency Dept discharge antibiotic prescribed: Clindamycin (Cleocin) 300 mg PO capsule, 1 capsule (300 mg) by mouth 3 times daily for 10 days Incision and Drainage performed in [facility] Emergency Dept [Yes or No]: aspiration Recommendations in treatment per [facility] ED Lab Result culture protocol Result Encounter Note - Elgin Romero RN - 11/06/2021 5:32 PM CDT Await final culture report per [facility] ED Lab Result protocol. Result Encounter Note - Elgin Romero RN - 11/06/2021 5:32 PM CDT Final Synovial fluid Aerobic Bacterial Culture (specimen - elbow, right) report on 11/09/21 [facility] Emergency Dept discharge antibiotic prescribed: Clindamycin (Cleocin) 300 mg PO capsule, 1 capsule (300 mg) by mouth 3 times daily for 10 days #1. Bacteria, Staphylococcus aureus, is [SUSCEPTIBLE] to antibiotic. Incision and Drainage performed in the [facility] ED: aspiration Recommendations in treatment per [facility] ED lab result culture protocol documented in this encounter Plan of Treatment Not on filedocumented as of this encounter Procedures Procedure Name Priority Date/Time Associated Diagnosis Comme nts AEROBIC BACTERIAL STAT 11/06/2021 5:11 PM Resu lts for this CULTURE ROUTINE CDT procedure ar e in the results section. documented in this encounter Results (ABNORMAL) Synovial fluid Aerobic Bacterial Culture Routine (11/06/2021 5:11 PM CDT) [facility] Method Time Signature Culture 1+ Staphylococcus JEWELS 11/09/2021 [facility] aureus (A) 3:53 AM CDT LABORATORY Specimen Anatomical Collection Method Collection Time Receive d Time (Source) Location / / Volume Laterality Synovial fluid RIGHT ELBOW REGION Non-blood 11/06/2021 5:11 PM 0 11/06/2021 5:15 STRUCTURE / Collection / CDT PM CDT Unknown Unknown Organism Antibiotic Method Susceptibility Staphylococcus aureus Oxacillin JEWELS <=0.25 ug/ mL: Susceptible Comment: Oxacillin susceptib le isolates are susceptible to cephalosporins (example: cefazolin and cephalexin) an d beta lactam combination agents. Oxacillin resistant isolates are resistant to th willard agents. Staphylococcus aureus Gentamicin JEWELS <=0.5 ug/m L: Susceptible Staphylococcus aureus Erythromycin JEWELS <=0.25 ug/ mL: Susceptible Staphylococcus aureus Clindamycin JEWELS <=0.25 ug/ mL: Susceptible Staphylococcus aureus Vancomycin JEWELS 1.0 ug/mL: Susceptible Staphylococcus aureus Tetracycline JEWELS <=1.0 ug/m L: Susceptible Staphylococcus aureus Trimethoprim/Sulfamethoxazole JEWELS <=0.5/9.5 ug/mL: Susceptible Antony Naranjo MD LAB - MICRO GENERAL ORDERABL ES Performing Organization Address City/State/ZIP Code Phon e Number [facility] [place] [place] [address] Diag. Lab [address] [facility], [address] documented in this encounter Visit Diagnoses Diagnosis Septic bursitis of elbow, right documented in this encounter Active and Recently Administered Medications Care Teams Assistant Store Manager Trainee Relationship Specialty Start Date End Date [facility] PCP - General 10/29/21 [facility] [address] [place] [address] documented as of this encounter
--- OUTSIDE RECORDS SUMMARY | 2022-06-12 15:43 | XMS_ITS | Encounter Summary ---
:1975 Author Organization [facility] Address [address] [place] [address] Care Team Providers Name Role Phone Bharat Yañez Primary Care Provider Encounter Details Date Type Department Care Team Description 08/14/2018 Travel Social History Tobacco Use Types Packs/Day [...] on filedocumented in this encounter Care Teams Ladle Handler Relationship Specialty Start Date End Date Bharat Yañez PCP - General Family Practice 04/30/16 09/02/19 documented as of this encounter
--- OUTSIDE RECORDS SUMMARY | 2022-06-12 15:43 | XMS_ITS | Encounter Summary ---
:1975 Author Organization [facility] Address [address] [place] [address] Care Team Providers Name Role Phone No Ref-Primary, Physician Primary Care Provider Encounter Details Date Type Department Care Team Description 09/09/2019 Travel Social History Tobacco Use Types Packs/Day [...] on filedocumented in this encounter Care Teams Body Team Member Relationship Specialty Start Date End Date No Ref-Primary, Physician PCP - General 09/03/19 10/28/21 documented as of this encounter
--- OUTSIDE RECORDS SUMMARY | 2022-06-12 15:43 | XMS_ITS | Encounter Summary ---
:1975 Author Organization [facility] Address [address] [place] [address] Care Team Providers Name Role Phone [facility] Clinics- Encounter Details Date Type Department Care Team Description 10/29/2021 Travel Social History Tobacco Use Types Packs/Day [...] on filedocumented in this encounter Care Teams Manpower Development Manager Relationship Specialty Start Date End Date [facility] PCP - General 10/29/21 [facility] [address] [place] [address] documented as of this encounter
--- OUTSIDE RECORDS SUMMARY | 2022-06-12 15:43 | XMS_ITS | Encounter Summary ---
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; [facility] Screening for diabetes lami tus; [facility], Disor velvet of lipoprotein and lipid metabolism; [address] Screening for thyroid disord er; [place] [address] Polyarticular psoriatic arth ritis (H); [phone] Avitaminosis D; Encounter for l sary-term (current) use of other medications Social History Tobacco [...] Name Priority Date/Time Associated Diagnosis Comme nts TESTOSTERONE FREE AND Routine 05/04/2019 7:52 3-oxo-5 alpha-st eroid Results for this TOTAL AM CDT delta 4-dehydrogenase proced ure are in deficiency the results Screening for thyroid sectio n. disorder Screening for diabetes mellitu s Disorder of lipoprotein and lipid metabolism VITAMIN D DEFICIENCY Routine 05/04/2019 7:52 Polyarticular Res ults for this SCREENING AM CDT psoriatic arthritis procedur e are in (H) the results Avitaminosis D section. Encounter for long-term (current) use of other medications LIPID REFLEX TO Routine 05/04/2019 7:52 3-oxo-5 alpha-steroid Results for this DIRECT LDL PANEL AM CDT delta 4-dehydrogenase pr ocedure are in deficiency the results Screening for section. diabetes mellitu s Disorder of lipoprotein and lipid metabolism HEMOGLOBIN A1C Routine 05/04/2019 7:52 3-oxo-5 alpha-steroid R esults for this AM CDT delta 4-dehydrogenase proced ure are in deficiency the results Screening for thyroid sectio n. disorder Screening for diabetes mellitu s Disorder of lipoprotein and lipid metabolism ERYTHROCYTE Routine 05/04/2019 7:52 Polyarticular Results for this SEDIMENTATION RATE AM CDT psoriatic arthritis pr ocedure are in AUTO (H) the results Avitaminosis D section. Encounter for long-term (current) use of other medications CRP INFLAMMATION Routine 05/04/2019 7:52 Polyarticular Results for this AM CDT psoriatic arthritis procedur e are in (H) the results Avitaminosis D section. Encounter for long-term (current) use of other medications COMPREHENSIVE Routine 05/04/2019 7:52 Polyarticular Results fo r this METABOLIC PANEL AM CDT psoriatic arthritis proce dure are in (H) the results Avitaminosis D section. Encounter for long-term (current) use of other medications CBC WITH PLATELETS Routine 05/04/2019 7:52 Polyarticular Resul ts for this AM CDT psoriatic arthritis procedur e are in (H) the results Avitaminosis D section. Encounter for long-term (current) use of other medications documented in this encounter Results Vitamin D Deficiency (05/04/2019 7:52 AM CDT) P athologist Signature Vitamin D 23 20 - 75 05/05/2019 [facility] Deficiency ug/L 8:52 AM CDT [facility] Comment: Season, race, dietary intake, and treatm ent affect the concentration of 89-aocfusk-Lmppemp D. Values may decreas e during winter [...] LAB - BLOOD ORDERABLES Performing Organization Address City/[facility]/ZIP [facility] Phon e Number [address] CRP inflammation (05/04/2019 7:52 AM CDT) Analysis Performed At Path logist Time Signature CRP Inflammation <2.9 0.0 - 8.0 05/04/2019 [place] [facility] mg/L 7:24 PM CDT [facility] Specimen Anatomical Collection Method Collection Time Receive d Time (Source) Location / / Volume Laterality Blood specimen 05/04/2019 7:52 AM 019 7:57 (specimen) CDT AM CDT Karen Shrestha LAB - BLOOD ORDERABLES Performing Organization Address City/[facility] Code Phon e Number [address] (ABNORMAL) Comprehensive metabolic panel (BMP + Alb, Alk Phos, ALT, AST, Total. Bili, TP) (05/04/2019 7:52 AM CDT) Analysis Performed At [facility] Time Signature Sodium 139 133 - 144 05/05/2019 [facility] mmol/L 9:[address] [facility] [place] Potassium 4.3 3.4 - 5.3 05/05/2019 [facility] mmol/L 9:08 AM CDT [facility] Chloride 110 (H) 94 - 109 05/05/2019 [facility] mmol/L 9:[address] [facility] [place] Carbon Dioxide 23 20 - 32 05/05/2019 [facility] mmol/L 9:[address] [facility] [place] Anion Gap 6 3 - 14 05/05/2019 [facility] mmol/L 9:[address] [facility] [place] Glucose 80 70 - 99 05/05/2019 [facility] mg/dL 9:[address] [facility] [place] Comment: Fasting specimen Urea Nitrogen 16 7 - 30 mg/dL 05/05/2019 9:54 AM [facility] Creatinine 0.78 0.66 - 1.25 mg/dL 05/05/2019 9:54 AM [facility] GFR Estimate >90 >60 05/05/2019 9:54 AM [facility] mL/min/{1.73_m2} [place] Comment: Non GFR Calc Starting 07/28/2018, serum creatinine ba sed estimated GFR (eGFR) will be calculated using the Chronic Kidney Dise [facility] Epidemiology Collaboration (CKD-EPI) equation. GFR Estimate If >90 >60 mL/min/{1.73_m2} 05/05/2019 9: 54 AM [facility] Black [place] [facility] Comment: GFR Calc Starting 07/28/2018, serum creatinine ba sed estimated GFR (eGFR) will be calculated using the Chronic Kidney Dise [facility] Epidemiology Collaboration (CKD-EPI) equation. Calcium 8.7 8.5 - 10.1 05/05/2019 9:54 AM [facility] mg/dL [place] [facility] Bilirubin Total 0.6 0.2 - 1.3 mg/dL 05/05/2019 10:[address] [facility] Albumin 4.2 3.4 - 5.0 g/dL 05/05/2019 10:00 AM [facility] Protein Total 7.3 6.8 - 8.8 g/dL 05/05/2019 10:00 AM [facility] Alkaline Phosphatase 99 40 - 150 U/L 05/05/2019 10:[address] [facility] ALT 25 0 - 70 U/L 05/05/2019 10:[address] [facility] AST 15 0 - 45 U/L 05/05/2019 10:[address] [facility] Specimen Anatomical Collection Method Collection Time Receive d Time (Source) Location / / Volume Laterality Blood specimen 05/04/2019 7:52 AM 019 7:57 (specimen) CDT AM CDT Karen Shrestha LAB - BLOOD ORDERABLES Performing Organization Address City/State/ZIP Code Phon e Number [facility] [place] [address] [place] [address] ESR FUTURE anytime (05/04/2019 7:52 AM CDT) athologist Signature Sed Rate 9 0 - 15 mm/h 05/04/2019 [facility] 8:55 AM CDT [place] Specimen Anatomical Collection Method Collection Time Receive d Time (Source) Location / / Volume Laterality Blood specimen 05/04/2019 7:52 AM 019 7:57 (specimen) CDT AM CDT Karen Shrestha LAB - BLOOD ORDERABLES Performing Organization Address City/State/ZIP Code Phon e Number [facility] [place] [place] [address] CBC with platelets (05/04/2019 7:52 AM CDT) athologist Signature WBC 8.6 4.0 - 11.0 05/04/2019 [place] 10e9/L 8:56 AM CDT [facility] RBC Count 5.03 4.4 - 5.9 05/04/2019 [place] 10e12/L 8:56 AM CDT [facility] Hemoglobin 15.1 13.3 - 05/04/2019 [place] 17.7 g/dL 8:56 AM CDT [facility] Hematocrit 44.0 40.0 - 05/04/2019 [place] 53.0 % 8:56 AM CDT [facility] MCV 88 78 - 100 05/04/2019 [place] 8:56 AM CDT [facility] [place] MCH 30.0 26.5 - 05/04/2019 [place] 33.0 pg 8:56 AM CDT [facility] [place] MCHC 34.3 31.5 - 05/04/2019 [place] 36.5 g/dL 8:56 AM CDT [facility] RDW 11.7 10.0 - 05/04/2019 [place] 15.0 % 8:56 AM CDT [facility] Platelet Count 248 150 - 450 05/04/2019 [place] 10e9/L 8:56 AM CDT [facility] Specimen Anatomical Collection Method Collection Time Receive d Time (Source) Location / / Volume Laterality Blood specimen 05/04/2019 7:52 AM 019 7:57 (specimen) CDT AM CDT Karen Chakraborty F[facility] LAB - BLOOD ORDERABLES Performing Organization Address City/State/ZIP Code Phon e Number [facility] [place] [address] Testosterone Free and Total FUTURE anytime (05/04/2019 7:52 AM CDT) Analysis Performed At Patho logist Time Signature Testosterone 587 240 - 950 05/06/2019 [facility] ng/dL 10:26 AM CDT [facility] Comment: This test was developed and its performa nce characteristics determined by the [facility], ??Special Chemistry Laboratory. It has not been cleared or approved by the FDA. The laboratory is regulated under CLIA as qualified to perform high-comple xity testing. This test is used for clinical purposes. It should not be rega rded as investigational or for research. Sex Hormone Binding 32 11 - 80 nmol/L 05/05/2019 8:52 AM [facility] Globulin CDT [facility] Free Testosterone 12.88 4.7 - 24.4 05/06/2019 10:26 AM [facility] [place] Calculated ng/dL CDT [facility] Specimen Anatomical Collection Method Collection Time Receive d Time (Source) Location / / Volume Laterality Blood specimen 05/04/2019 7:52 AM 019 7:57 (specimen) CDT AM CDT Karen Chakraborty F[facility] LAB - BLOOD ORDERABLES Performing Organization Address City/State/ZIP Code Phon e Number [facility] [address] [place] [address] [facility] Hemoglobin A1c (05/04/2019 7:52 AM CDT) P athologist Signature Hemoglobin A1C 5.1 0 - 5.6 % 05/04/2019 [place] 8:55 AM CDT [facility] Comment: Normal <5.7% Prediabetes 5.7-6.4% ??Diab etes 6.5% or higher - adopted from ADA consensus guidelines. Specimen Anatomical Collection Method Collection Time Receive d Time (Source) Location / / Volume Laterality Blood specimen 05/04/2019 7:52 AM 019 7:57 (specimen) CDT AM CDT Karen Shrestha LAB - BLOOD ORDERABLES Performing Organization Address City/[facility]/ZIP Code Phon e Number [facility] [place] [address] (ABNORMAL) Lipid panel reflex to direct LDL Fasting (05/04/2019 7:52 AM CDT) athologist Signature Cholesterol 211 (H) <200 mg/dL 05/05/2019 [facility] 10:00 AM T [facility] Comment: Desirable: <200 mg/dl Triglycerides 98 <150 mg/dL 05/05/2019 10:00 AM CD [facility] Comment: Fasting specimen HDL Cholesterol 53 >39 mg/dL 05/05/2019 10:02 AM [facility] LDL Cholesterol 138 (H) <100 mg/dL 05/05/2019 10:02 AM [facility] Calculated CDT [facility] Comment: Above desirable: ??100-129 mg/dl Borderline High: ??130-159 mg/dL High: ? 160-189 mg/dL Very high: ? >189 mg/dl Non HDL Cholesterol 158 (H) <130 mg/dL 05/05/2019 10:02 AM [facility] Comment: Above Desirable: ??130-159 mg/dl Borderline high: ??160-189 mg/dl High: ? 190-219 mg/dl Very high: ? >219 mg/dl Specimen Anatomical Collection Method Collection Time Receive d Time (Source) Location / / Volume Laterality Blood specimen 05/04/2019 7:52 AM 7:57 (specimen) CDT AM CDT Karen Shrestha LAB - BLOOD ORDERABLES Performing Organization Address City/State/ZIP Code Phon e Number 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
--- OUTSIDE RECORDS SUMMARY | 2022-06-12 15:43 | XMS_ITS | Encounter Summary ---
:1975 Author Organization [facility] Address [address] [place] [address] Care Team Providers Name Role Phone No Ref-Primary, Physician Primary Care Provider [facility]- Encounter Details Date Type Department Care Team Description 09/10/2021 Documentation Only INTERFACED REPORT Unknown, Provider Social History Tobacco Use Types Packs/Day Years Used Date Smoking Tobacco: Every Day Cigarettes 0.5 Alcohol Use Standard Drinks/Week Comments Yes 0 (1 standard drink = 0.6 oz pure alcoho l) occasionally Sex Assigned at Date Recorded Not on file COVID-19 Exposure Response Date Recorded In the last month, have you been in contact with Yes 09/10/2021 6:09 PM [employer] someone who was confirmed or suspected to have Coronavirus / COVID-19? documented as of this encounter Plan of Treatment Not on filedocumented as of this encounter Visit Diagnoses Not on filedocumented in this encounter Care Teams Spring Coiler Relationship Specialty Start Date End Date No Ref-Primary, Physician PCP - General 09/03/19 10/28/21 [facility] P[facility] - General 10/29/21 [facility] [address] [place] [address] documented as of this encounter
--- OUTSIDE RECORDS SUMMARY | 2022-06-12 15:43 | XMS_ITS | Encounter Summary ---
:1975 Author Organization [facility] Address [address] [place] [address] Care Team Providers Name Role Phone No Ref-Primary, Physician Primary Care Provider Reason for Visit Reason Comments Chest Pain Encounter Details Date Type Department Care Team Description 09/10/2021 Emergency [facility] Giovany Brito hest pain, [facility] Emergency Dep shandra Alaniz MD unspecified type [address] [facility] [place], [place] [address] [address] [phone] [address] [place], [place] [id number] (Wo rk) Social History Tobacco Use Types Packs/Day Years Used Date Smoking Tobacco: Every Day Cigarettes 0.5 Alcohol Use Standard Drinks/Week Comments Yes 0 (1 standard drink = 0.6 oz pure alcoho l) occasionally Sex Assigned at Date Recorded Not on file COVID-19 Exposure Response Date Recorded In the last month, have you been in contact with Yes 09/10/2021 6:09 PM TRACTOR OPERATOR HELPER someone who was confirmed or suspected to have Coronavirus / COVID-19? documented as of this encounter Last Filed Vital Signs Vital Sign Reading Time Taken Comments Blood Pressure 135/94 09/10/2021 7:33 PM TRACTOR OPERATOR HELPER Pulse 78 09/10/2021 7:45 PM TRACTOR OPERATOR HELPER Temperature 36.6 ??C (97.8 ??F) 09/10/2021 6:10 PM TRACTOR OPERATOR HELPER Respiratory Rate 20 09/10/2021 7:45 PM TRACTOR OPERATOR HELPER Oxygen Saturation 96% 09/10/2021 7:45 PM TRACTOR OPERATOR HELPER Inhaled Oxygen Concentration - - Weight 102.1 kg (225 lb) 09/10/2021 6:10 PM TRACTOR OPERATOR HELPER Height 188 cm (6' 2) 09/10/2021 6:10 PM TRACTOR OPERATOR HELPER Body Mass Index 28.89 09/10/2021 6:10 PM TRACTOR OPERATOR HELPER documented in this encounter Discharge Instructions AttachmentsThe following attachments cannot be sent through Care Everywhere. Chest Pain, Uncertain Cause (Greek)documented in this encounter Medications at Time of Discharge Medication Sig Dispensed Refills Start Date End Date APREMILAST PO Take 1 tablet by mouth 2 0 times daily Blinded study drug from [facility], Dr Karen Mathew ibuprofen Take 800 mg by mouth 0 (ADVIL,MOTRIN) 800 MG every morning tablet documented as of this encounter ED Notes Joelle Naranjo RN - 09/10/2021 6:07 PM CST Pt. Presents to ED with complaints of chest pain that started last night. Reports he didn't feel normal at work today. Pt. Reports he can feel his heart beating too fast. Pt. Reports he was COVID + 1 month ago. Pt. Denies SOB, but reports some numbness and tingling in L arm intermittently. Reports heartburn since last night as well. Pt. Hypertensive, OVSS on RA. TOR OPERATOR HELPER Giovany Brito MD - 09/10/2021 6:04 PM CST History Chief Complaint: Chest Pain JULIO CÉSAR Coppola is a 46 year old male with history of obesity who presents with chest pain. Last night, the patient developed mild left sided, non- radiating, chest pain with accompanying GERD. This pain continued throughout the day today with 4-5 episodes of palpitations lasting several minutes each. Additionally, he states his left arm would occasionally feel numb. Due to his continued symptoms he presented here. Currently, he rates his chest pain at 2.5/10 with mild pain due to GERD. He denies any diaphoresis, nausea, emesis, shortness of breath, cough, fever, chills, leg pain or leg swelling.Of note, he is a current smoker. He does not have a history of cardiac problems or diabetes. He doesnot have a family history of cardiac problems. He does not take any medications for blood pressure or cholesterol control. Review of Systems Constitutional: Negative for chills, diaphoresis and fever. Respiratory: Negative for cough and shortness of breath. Cardiovascular: Positive for chest pain and palpitations. Negative for leg swelling. Gastrointestinal: Negative for nausea and vomiting. Musculoskeletal: No leg pain Neurological: Positive for numbness (left upper extremity). All other systems reviewed and are negative. Allergies: The patient has no known allergies. Medications: Apremilast Past Medical History: Lumbar disc herniation Ankylosing spondylitis lumbar region Obesity Migraine Anomalous atrioventricular excitation Hepatitis A Concussion Varicella Past Surgical History: Appendectomy Heart ablation for WPW Adenoidectomy Social History: The patient was unaccompanied to the ED. The patient is a current smoker. Physical Exam Patient Vitals for the past 24 hrs: BP Temp Temp src Pulse Resp SpO2 Height Weight 09/10/215 -- -- -- -- 30 98 % -- -- 09/10/21 193 (!) 135/94 -- -- 77 -- -- -- -- 09/10/21 1829 -- -- -- 84 19 -- -- -- 09/10/21 1810 (!) 180/110 97.8 ??F (36.6 ??C) Temporal 88 16 97 % 1.88 m (6' 2) 102.1 kg (225 lb) Physical Exam General: Patient is awake, alert and interactive when I enter the room Head: The scalp, face, and head appear normal Neck: Normal range of motion. CV: Regular rate and rhythm. Peripheral pulses including radial pulses are symmetric. Resp: Lungs are clear without wheezes or rales. No respiratory distress. GI: Abdomen is soft, no rigidity, guarding, or rebound. No distension. No tenderness to palpation inany quadrant. MS: Chest wall is non tender to palpation. No asymmetric leg swelling, calf or thigh tenderness. Skin: No rash or lesions noted. Normal capillary refill noted Neuro: Speech is normal and fluent. Face is symmetric. Moving all extremities. Psych: Normal affect. Appropriate interactions. Emergency Department Course ECG: ECG taken at 1845, ECG read at 1849 Normal sinus rhythm Normal ECG RBBB no longer present compared to EKG dated 04/30/2016 Rate 72 bpm. MI interval 136 ms. QRS duration 90 ms. QT/QTc 370/405 ms. P-R-T axes 56 43 29. Imaging: XR Chest 2 Views Final Result IMPRESSION: Negative chest. Laboratory: Labs Ordered and Resulted from Time of ED Arrival to Time of ED Departure BASIC METABOLIC PANEL - Abnormal Result Value Sodium 138 Potassium 4.0 Chloride 110 (*) Carbon Dioxide (CO2) 23 Anion Gap 5 Urea Nitrogen 16 Creatinine 0.75 Calcium 9.0 Glucose 101 (*) GFR Estimate >90 TROPONIN I - Normal Troponin I High Sensitivity 5 CRP INFLAMMATION - Normal CRP Inflammation <2.9 CBC WITH PLATELETS AND DIFFERENTIAL WBC Count 10.9 RBC Count 4.87 Hemoglobin 14.5 Hematocrit 42.4 MCV 87 MCH 29.8 MCHC 34.2 RDW 11.7 Platelet Count 232 % Neutrophils 54 % Lymphocytes 30 % Monocytes 10 % Eosinophils 4 % Basophils 1 % Immature Granulocytes 1 NRBCs per 100 WBC 0 Absolute Neutrophils 6.0 Absolute Lymphocytes 3.3 Absolute Monocytes 1.0 Absolute Eosinophils 0.4 Absolute Basophils 0.1 Absolute Immature Granulocytes 0.1 Absolute NRBCs 0.0 Emergency Department Course: Reviewed: I reviewed nursing notes, vitals, past medical history and care everywhere Assessments: 1815 I obtained history and examined the patient as noted above. 1935 I rechecked and updated the patient regarding the imaging results, laboratory results and the plan for care. Interventions: 1847 GI Cocktail 30mL PO Disposition: The patient was discharged to home. Impression & Plan Medical Decision Making: Felix Coppola is a 46 year old male who presents with chest pain. Upon initial evaluation, he is well appearing and has minimal symptoms. He is hypertensive but otherwise HDS. EKG shows no evidence of ischemia or dysrhythmia. Troponin drawn after multiple hours of symptoms is within a low range. Unlikely that this represents ACS. I considered a broad differential diagnosis in this patient including life-threatening etiologies such as acute coronary syndrome, myocardial infarction, pulmonary embolism, acute aortic dissection, myocarditis, pericarditis, acute valvular insufficiency amongst others. Other causes considered for this patient included pneumonia, pneumothorax, chest wall source, pericarditis, pleurisy, esophageal spasm, etc. No serious etiology for the chest pain were detected todayduring this visit. Symptoms improved with GI cocktail. Certainly could be element of of gastritis/GERD. Close follow up with primary care is indicated should the pain continue, as further work up may be performed; this was made clear to the patient, who understands. Diagnosis: ICD-10-CM 1. Chest pain, unspecified type R07.9 Scribe Disclosure: I, Jay Jimenez, am serving as a scribe at 6:23 PM on 09/10/2021 to document services personally performed by Giovany Brito MD based on my observations and the provider's statements to me. Giovany Brito MD 09/10/211955 TOR OPERATOR HELPER documented in this encounter Plan of Treatment Not on filedocumented as of this encounter Procedures Procedure Name Priority Date/Time Associated Comments Diagnosis EKG 12-LEAD, TRACING STAT 09/10/2021 6:45 PM R esults for this ONLY TRACTOR OPERATOR HELPER procedure are i n the results section. XR CHEST 2 VIEWS STAT 09/10/2021 6:40 PM Resul ts for this TRACTOR OPERATOR HELPER procedure are i n the results section. EXTRA TUBE STAT 09/10/2021 6:25 PM Results f or this TRACTOR OPERATOR HELPER procedure are i n the results section. EXTRA RED TOP TUBE STAT 09/10/2021 6:25 PM Res ults for this TRACTOR OPERATOR HELPER procedure are i n the results section. EXTRA BLUE TOP TUBE STAT 09/10/2021 6:25 PM Re sults for this TRACTOR OPERATOR HELPER procedure are i n the results section. CBC WITH PLATELETS STAT 09/10/2021 6:25 PM Res ults for this AND DIFFERENTIAL TRACTOR OPERATOR HELPER procedure a re in the results section. CBC WITH PLATELETS & STAT 09/10/2021 6:25 PM R esults for this DIFFERENTIAL TRACTOR OPERATOR HELPER procedure are i n the results section. TROPONIN I STAT 09/10/2021 6:25 PM Results f or this TRACTOR OPERATOR HELPER procedure are i n the results section. CRP INFLAMMATION STAT 09/10/2021 6:25 PM Resul ts for this TRACTOR OPERATOR HELPER procedure are i n the results section. BASIC METABOLIC PANEL STAT 09/10/2021 6:25 PM Results for this TRACTOR OPERATOR HELPER procedure are i n the results section. documented in this encounter Results EKG 12-lead, tracing only (09/10/2021 6:45 PM TRACTOR OPERATOR HELPER) [facility] gist Method Time Signature Systolic Blood mmHg RADIOLOGY Pressure RESULTS Diastolic Blood mmHg RADIOLOGY Pressure RESULTS Ventricular Rate 72 BPM RADIOLOGY RESULTS Atrial Rate 72 BPM RADIOLOGY RESULTS MI Interval 136 ms RADIOLOGY RESULTS QRS Duration 90 ms RADIOLOGY RESULTS QT 370 ms RADIOLOGY RESULTS QTc 405 ms RADIOLOGY RESULTS P [place] 56 degrees RADIOLOGY RESULTS R AXIS 43 degrees RADIOLOGY RESULTS T [place] 29 degrees RADIOLOGY RESULTS Interpretation Sinus rhythm RADIOLOGY ECG Normal ECG RESULTS When compared with ECG of 01-MAY-2016 07:12, Right bundle branch block is no longer Present Confirmed by - EMERGENCY TUCKER Clara PHYSICIAN ([id number]), supervising editor trailer JOE BERMEO ([id number]) on 09/11/2021 7:38:28 AM Specimen Anatomical Collection Method Collection Time Receive d Time (Source) Location / / Volume Laterality 09/10/2021 6:45 PM 7:38 TRACTOR OPERATOR HELPER AM TRACTOR OPERATOR HELPER Giovany Brito MD ECG ORDERABLES Performing Organization Address City/State/ZIP Code Phon e Number RADIOLOGY RESULTS XR Chest 2 Views (09/10/2021 6:40 PM TRACTOR OPERATOR HELPER) Anatomical Region Laterality Modality Chest Digital Radiography Specimen (Source) Anatomical Collection Method Collection Time Re ceived Time Location / / Volume Laterality 09/10/2021 6:40 PM TRACTOR OPERATOR HELPER Impressions 09/10/2021 6:44 PM TRACTOR OPERATOR HELPER IMPRESSION: Negative chest. Narrative 09/10/2021 6:44 PM TRACTOR OPERATOR HELPER EXAM: XR CHEST 2 VW LOCATION: [facility] DATE/TIME: 09/10/2021 6:40 PM INDICATION: chest pain COMPARISON: 04/30/2016 Procedure Note Chintan Medina MD - 09/10/2021Formatt ing of this note might be different from the original. EXAM: XR CHEST 2 VW LOCATION: [facility] DATE/TIME: 09/10/2021 6:40 PM INDICATION: chest pain COMPARISON: 04/30/2016 IMPRESSION: Negative chest. Giovany Brito MD IMG DIAGNOSTIC IMAGING ORDERABLES Extra Red Top Tube (09/10/2021 6:25 PM TRACTOR OPERATOR HELPER) P athologist Signature Hold Specimen JIC 09/10/2021 [facility] 7:31 PM TRACTOR OPERATOR HELPER Specimen Anatomical Collection Method / Collection Time Recei cuco Time (Source) Location / Volume Laterality Blood STRUCTURE OF RIGHT Venipuncture / 09/10/2021 6:25 /08/2021 6:30 UPPER LIMB / Unknown PM TRACTOR OPERATOR HELPER PM TRACTOR OPERATOR HELPER Unknown Giovany Brito MD LAB - BLOOD ORDERABLES Performing Organization Address City/State/[place] [address] [facility] [address] Lab (1st floor, no room number) Extra Blue Top Tube (09/10/2021 6:25 PM TRACTOR OPERATOR HELPER) P athologist Signature Hold Specimen JIC 09/10/2021 [facility] 7:31 PM TRACTOR OPERATOR HELPER Specimen Anatomical Collection Method / Collection Time Recei cuco Time (Source) Location / Volume Laterality Blood STRUCTURE OF RIGHT Venipuncture / 09/10/2021 6:25 08/13 6:30 UPPER LIMB / Unknown PM TRACTOR OPERATOR HELPER PM TRACTOR OPERATOR HELPER Unknown Giovany Brito MD LAB - BLOOD ORDERABLES Performing Organization Address City/[facility]/ZIP Code Phon [place] [address] [facility] [address] Lab (1st floor, no room number) CBC with platelets and differential (09/10/2021 6:25 PM TRACTOR OPERATOR HELPER) Analysis Performed At Patho logist Time Signature WBC Count 10.9 4.0 - 11.0 09/10/2021 [facility] 10e3/uL 6:33 PM TRACTOR OPERATOR HELPER RBC Count 4.87 4.40 - 09/10/2021 [facility] 5.90 6:33 PM TRACTOR OPERATOR HELPER 10e6/uL Hemoglobin 14.5 13.3 - 09/10/2021 [facility] 17.7 g/dL 6:33 PM TRACTOR OPERATOR HELPER Hematocrit 42.4 40.0 - 09/10/2021 [facility] 53.0 % 6:33 PM TRACTOR OPERATOR HELPER MCV 87 78 - 100 09/10/2021 [facility] fL 6:33 PM TRACTOR OPERATOR HELPER MCH 29.8 26.5 - 09/10/2021 [facility] 33.0 pg 6:33 PM TRACTOR OPERATOR HELPER MCHC 34.2 31.5 - 09/10/2021 [facility] 36.5 g/dL 6:33 PM TRACTOR OPERATOR HELPER RDW 11.7 10.0 - 09/10/2021 [facility] 15.0 % 6:33 PM TRACTOR OPERATOR HELPER Platelet Count 232 150 - 450 09/10/2021 [facility] 10e3/uL 6:33 PM TRACTOR OPERATOR HELPER % Neutrophils 54 % 09/10/2021 [facility] 6:33 PM TRACTOR OPERATOR HELPER % Lymphocytes 30 % 09/10/2021 [facility] 6:33 PM TRACTOR OPERATOR HELPER % Monocytes 10 % 09/10/2021 [facility] 6:33 PM TRACTOR OPERATOR HELPER % Eosinophils 4 % 09/10/2021 [facility] 6:33 PM TRACTOR OPERATOR HELPER % Basophils 1 % 09/10/2021 [facility] 6:33 PM TRACTOR OPERATOR HELPER % Immature 1 % 09/10/2021 [facility] Granulocytes 6:33 PM TRACTOR OPERATOR HELPER NRBCs per 100 WBC 0 <1 /100 09/10/2021 [facility] RY 6:33 PM TRACTOR OPERATOR HELPER Absolute 6.0 1.6 - 8.3 09/10/2021 [facility] Neutrophils 10e3/uL 6:33 PM TRACTOR OPERATOR HELPER Absolute 3.3 0.8 - 5.3 09/10/2021 [facility] Lymphocytes 10e3/uL 6:33 PM TRACTOR OPERATOR HELPER Absolute 1.0 0.0 - 1.3 09/10/2021 [facility] Monocytes 10e3/uL 6:33 PM TRACTOR OPERATOR HELPER Absolute 0.4 0.0 - 0.7 09/10/2021 [facility] Eosinophils 10e3/uL 6:33 PM TRACTOR OPERATOR HELPER Absolute 0.1 0.0 - 0.2 09/10/2021 [facility] Basophils 10e3/uL 6:33 PM TRACTOR OPERATOR HELPER Absolute Immature 0.1 <=0.4 09/10/2021 [facility] RY Granulocytes 10e3/uL 6:33 PM TRACTOR OPERATOR HELPER Absolute NRBCs 0.0 10e3/uL 09/10/2021 [facility] 6:33 PM TRACTOR OPERATOR HELPER Specimen Anatomical Collection Method / Collection Time Recei cuco Time (Source) Location / Volume Laterality Blood STRUCTURE OF RIGHT Venipuncture / 09/10/2021 6:25 /3 08/2021 6:30 UPPER LIMB / Unknown PM TRACTOR OPERATOR HELPER PM TRACTOR OPERATOR HELPER Unknown Giovany Brito MD LAB - BLOOD ORDERABLES Performing Organization Address City/State/ZIP Code Phon [place] [phone] Care [facility] [address] Lab (1st floor, no room number) CRP inflammation (09/10/2021 6:25 PM TRACTOR OPERATOR HELPER) Analysis Performed At Patho logist Time Signature CRP Inflammation <2.9 0.0 - 8.0 09/10/2021 [facility] Y mg/L 6:52 PM TRACTOR OPERATOR HELPER Specimen Anatomical Collection Method / Collection Time Recei cuco Time (Source) Location / Volume Laterality Blood STRUCTURE OF RIGHT Venipuncture / 09/10/2021 6:25 /08/2021 6:30 UPPER LIMB / Unknown PM TRACTOR OPERATOR HELPER PM TRACTOR OPERATOR HELPER Unknown Giovany Brito MD LAB - BLOOD ORDERABLES Performing Organization Address City/State/ZIP Code Phon [place] [phone] Care [facility] [address] Lab (1st floor, no room number) Troponin I (09/10/2021 6:25 PM TRACTOR OPERATOR HELPER) P athologist Signature Troponin I High 5 <79 ng/L 09/10/2021 [facility] Sensitivity 6:54 PM TRACTOR OPERATOR HELPER Comment: This Troponin-I result was obta ined using a Siemens Dimension Plaza High Sensitivity Troponin-I assay (TNIH). Eff ective 07/03/21, nine labs/sites in the [facility] switched from a Siemens Plaza Contemporary Troponin I assay (CTNI) to a Siemens Plaza High-Sensitivity Troponi n I assay (TNIH). Specimen Anatomical Collection Method / Collection Time Recei cuco Time (Source) Location / Volume Laterality Blood STRUCTURE OF RIGHT Venipuncture / 09/10/2021 6:25 08/13 6:30 UPPER LIMB / Unknown PM TRACTOR OPERATOR HELPER PM TRACTOR OPERATOR HELPER Unknown Giovany Brito MD LAB - BLOOD ORDERABLES Performing Organization Address City/State/ZIP Code Phon [place] [phone] Care [facility] [address] Lab (1st floor, no room number) (ABNORMAL) Basic metabolic panel (09/10/2021 6:25 PM TRACTOR OPERATOR HELPER) Analysis Performed At Patho logist Time Signature Sodium 138 133 - 144 09/10/2021 LABORATORY mmol/L 6:52 PM TRACTOR OPERATOR HELPER Potassium 4.0 3.4 - 5.3 09/10/2021 LAB[facility] mmol/L 6:52 PM TRACTOR OPERATOR HELPER Chloride 110 (H) 94 - 109 09/10/2021 [facility] mmol/L 6:52 PM TRACTOR OPERATOR HELPER Carbon Dioxide 23 20 - 32 09/10/2021 LAB[facility]ORY (CO2) mmol/L 6:52 PM TRACTOR OPERATOR HELPER Anion Gap 5 3 - 14 09/10/2021 [facility] mmol/L 6:52 PM TRACTOR OPERATOR HELPER Urea Nitrogen 16 7 - 30 09/10/2021 LAB[facility]ORY mg/dL 6:52 PM TRACTOR OPERATOR HELPER Creatinine 0.75 0.66 - 09/10/2021 LAB[facility] 1.25 mg/dL 6:52 PM TRACTOR OPERATOR HELPER Calcium 9.0 8.5 - 10.1 09/10/2021 LAB[facility]ORY mg/dL 6:52 PM TRACTOR OPERATOR HELPER Glucose 101 (H) 70 - 99 09/10/2021 LAB[facility] mg/dL 6:52 PM TRACTOR OPERATOR HELPER GFR Estimate >90 >60 09/10/2021 LAB[facility]ORY mL/min/1.7 6:52 PM TRACTOR OPERATOR HELPER 3m2 Comment: Effective July 31, 2021 eGF Rcr in adults is calculated using the 2020 CKD-EPI creatinine equation which includ es age and gender (Abdulkadir et al., NEJM, DOI: 10.1056/TBOOqm4833038) Specimen Anatomical Collection Method / Collection Time Recei cuco Time (Source) Location / Volume Laterality Blood STRUCTURE OF RIGHT Venipuncture / 09/10/2021 6:25 08/13 6:30 UPPER LIMB / Unknown PM TRACTOR OPERATOR HELPER PM TRACTOR OPERATOR HELPER Unknown Giovany Brito MD LAB - BLOOD ORDERABLES Performing Organization Address City/State/ZIP Code [place] [phone] [facility] [address] Lab (1st floor, no room number) documented in this encounter Visit Diagnoses Diagnosis Chest pain, unspecified type documented in this encounter Administered Medications Inactive Administered Medications - up to 3 most recent administrations Medication Order MAR Action Action Date Dose Rate Site lidocaine (viscous) (XYLOCAINE) 2 Given 09/10/2021 6:48 PM TRACTOR OPERATOR HELPER 3 0 mLs % 15 mL, alum & mag hydroxide-simethicone (MAALOX) 15 mL GI Cocktail 30 mL, Oral, ONCE, On Fri09/10/21 at 1825, For 1 dose documented in this encounter Active and Recently Administered Medications Times are shown in TRACTOR OPERATOR HELPER. Scheduled Medication Order 09/08/2021 09/09/2021 09/10/2021 lidocaine (viscous) (XYLOCAINE) 2 % 15 m L, alum & mag hydroxide-simethicone (MAALOX) 15 mL GI Cocktail (COMPLETED) 1 848 (Given - Provider: Madison Cruz RN) 30 mL, Oral, ONCE, On Fri09/10/21 at 1825, For 1 dose documented in this encounter Care Teams Staffing Branch Manager Relationship Specialty Start Date End Date No Ref-Primary, Physician PCP - General 09/03/19 10/28/21 documented as of this encounter
--- OUTSIDE RECORDS SUMMARY | 2022-06-12 15:43 | XMS_ITS | Encounter Summary ---
:1975 Author Organization [facility] Address [address] [place] [address] Care Team Providers Name Role Phone [facility], [facility]- Reason for Visit Reason Onset Date Comments Results 11/10/2021 culture Encounter Details Date Type Department Care Team Description 11/10/2021 Telephone [facility] César Rutledge RN Results (culture) Emergency Dept [address] [place] [phone] Social History Tobacco Use Types Packs/Day Years [...] this encounter Miscellaneous Notes Telephone Encounter - César Rutledge RN - 11/10/2021 4:11 PM CDT [facility] Lab result notification: [facility] ED lab result protocol used Culture Protocol Reason for call Notify of lab results, assess symptoms, review ED providers recommendations/discharge instructions (if necessary) and advise per ED lab result f/u protocol Lab Result Final Synovial fluid Aerobic Bacterial Culture (specimen - elbow, right) report on 11/09/21 [facility] Emergency Dept discharge antibiotic prescribed: Clindamycin (Cleocin) 300 mg PO capsule, 1 capsule (300 mg) by mouth 3 times daily for 10 days #1. Bacteria, Staphylococcus aureus, ??is [SUSCEPTIBLE] to antibiotic. Incision and Drainage performed in the [facility] ED: aspiration Recommendations in treatment per [facility] ED lab result culture protocol Information table from Emergency Dept Provider visit on 11/06/21 Symptoms reported at ED visit (Chief complaint, HPI) Chief Complaint: Elbow Pain ?? HPI Felix Coppola is a 46 year [...] not taken anything for the pain recently. ED providers Impression and Plan (applicable information) Medical Decision Making: Patient presents with ongoing [...] ngoing pain and olecranon bursitis, likely septic Miscellaneous information NA residence director (Patient???s current Symptoms), include time called. 5:19A - elbow is still swollen, hurts a little bit, red, hard Fever: No Redness: Initially improved day 1 but for last week has continued to be the same, not spreading Pain: Has improved since Friday but otherwise the same Warmth: Warmer than other areas of skin Drainage: None Swelling: same Antibiotic start date: 11/06/21 RN Recommendations/Instructions per [facility] ED lab result protocol 5:46P - Patient notified of lab result and treatment recommendations. Per recommendations given by Dr. Best advised patient to please return to ED today 11/10/2021 for assessment - patient verbalizedunderstanding and is in agreement with this plan. S: Patient seen in ED 11/06 dx with olecranon bursitis, likely septic - Final Synovial fluid Aerobic bacterial culture of right elbow growing staphylococcus aureus susceptible to clindamycin - patient continues with persistent symptoms of infection seeking recommendation on treatment B: 46 yr male, NKA, . The patient was seen on 10/29 for cellulitis of the right upper extremity. A: see above Recommendation: Patient needs close follow up - If patient is not improving and no follow up has been scheduled he is appropriate candidate for return to ED for assessment and ED can then help facilitate appropriate follow up as needed Order: None Provider: Cate Best MD Date & Time: 11/10/2021 5:34 PM Please Contact your PCP clinic or return to the Emergency department if your: ??? Symptoms return. ??? Symptoms do not improve after 3 days on antibiotic. ??? Symptoms do not resolve after completing antibiotic. ??? Symptoms worsen or other concerning symptom's. PCP follow-up Questions asked: YES César Rutledge RN [facility] Emergency Dept Lab Result RN # [phone] Copy of Lab result Synovial fluid Aerobic Bacterial Culture Routine Order: [id number] Status: Final result ?? Visible to patient: Yes (not seen) ?? Specimen Information: Elbow, Right; Synovial fluid ?? 4 Result Notes Culture 1+ Staphylococcus aureus??Abnormal?? Resulting Agency: [facility] Susceptibility Staphylococcus aureus (1) Antibiotic Interpretation Sensitivity Method Status Oxacillin Susceptible <=0.25 ug/mL JEWELS Final Oxacillin susceptible isolates are susceptible to cephalosporins (example: cefazolin and cephalexin) and beta lactam combination agents. Oxacillin resistant isolates are resistant to these agents. Gentamicin Susceptible <=0.5 ug/mL JEWELS Final Erythromycin Susceptible <=0.25 ug/mL JEWELS Final Clindamycin Susceptible <=0.25 ug/mL JEWELS Final Vancomycin Susceptible 1.0 ug/mL JEWELS Final Tetracycline Susceptible <=1.0 ug/mL JEWELS Final Trimethoprim/Sulfamethoxazole Susceptible <=0.5/9.5 ug/mL JEWELS Final Specimen Collected: 11/06/21 ??5:11 PM Last Resulted: 11/09/21 ??3:53 AM documented in this encounter Plan of Treatment Not on filedocumented as of this encounter Visit Diagnoses Not on filedocumented in this encounter Care Teams Merchandise Clerk Relationship Specialty Start Date End Date [facility] And PCP - General 10/29/21 [facility]- [address] [place] [id number] documented as of this encounter
--- OUTSIDE RECORDS SUMMARY | 2022-06-12 15:43 | XMS_ITS | Encounter Summary ---
:1975 Author Organization [place] Address [address] [place] [address] Care Team Providers Name Role Phone Bharat Yañez Primary Care Provider Encounter Details Date Type Department Care Team Description 08/24/2019 Orders Only [facility] Noah Gill, Psoria tic arthropathy (H) (Primary Dx); Clinic Jamie KELLER Vitamin D deficiency; Laboratory [facility] Encounter for long-term (cur rent) use of other medications [facility], [address] [facility] [address] [place], [place] [address] [place], [place] [id number] Social History Tobacco Use Types Packs/Day Years Used Date Smoking Tobacco: Every Day Cigarettes 0.5 Alcohol Use Standard Drinks/Week Comments Yes 0 (1 standard drink = 0.6 oz pure alcoho l) occasionally Sex Assigned at Date Recorded Not on file documented as of this encounter Plan of Treatment Not on filedocumented as of this encounter Visit Diagnoses Diagnosis Psoriatic arthropathy (H) - Primary Psoriatic arthropathy Vitamin D deficiency Unspecified vitamin D deficiency Encounter for long-term (current) use of other medications documented in this encounter Care Teams Machine Repairer Maintenance Relationship Specialty Start Date End Date Bharat Yañez PCP - General Family Practice 04/30/16 09/02/19 documented as of this encounter
--- OUTSIDE RECORDS SUMMARY | 2022-06-12 15:43 | XMS_ITS | Encounter Summary ---
:1975 Author Organization [place] Address [address] [place] [address] Care Team Providers Name Role Phone [facility]- Reason for Visit Reason Comments Call Back Encounter Details Date Type Department Care Team Description 11/10/2021 Emergency [facility] Christopher Mojica, Cellulitis of right [facility] [facility] t DO elbow [address] [facility] [place] [address] 4307 Active EndpointsArnold STOKES [phone] [place], [place] [phone] (Wo rk) Social History Tobacco Use Types [...] CDT Inhaled Oxygen Concentration - - Weight - - Height - - Body Mass Index - - documented in this encounter Discharge Instructions Discharge Aura Morelos PA-C - 11/10/2021 7:40 PM CDT Please continue to take the clindamycin you were prescribed earlier. Follow-up with your primary care clinic in 2 days (on Friday) for a wound recheck. Return to the emergency department sooner if you have worsening symptoms including fever, nausea, vomiting, spreading redness, streaking up the arm, and increased pain with moving your arm. Discharge Instructions Cellulitis Cellulitis is an infection of the skin that occurs when bacteria enter the skin. Symptoms are generally redness, swelling, warmth and pain. Your infection appeared to be appropriate to treat at home with antibiotics. However, sometimes your infection may be worse than it seemed at first, or may worsenwith time. If you have new or worse symptoms, you may need to be seen again in the Emergency Department or by your primary provider. Generally, every Emergency Department visit should have a follow-up clinic visit with either a primary or a specialty clinic/provider. Please follow-up as instructed by your emergency provider today. Return to the Emergency Department if: The redness, pain, or swelling gets a lot worse. If the red area was marked, return if it is red significantly beyond the marked area. You are unable to get your antibiotics, or are vomiting (throwing up) these pills, or you cannot take them. You are feeling more ill, weak or lightheaded. You start to run a new fever (temperature >101??F). Anything else about the infection worries or concerns you. Treatment: Start your antibiotics right away, and take them as prescribed. Be sure to finish the whole prescription, even if you are better. Apply a heating pad, warm packs, or warm water soaks to the infected area for 15 minutes at a time, at least 3 times a day. Do not use a heating pad on your feet or legs if you have diabetes. Do not sleep with a heating pad on, since this can cause mojica or skin injury. Rest your injured area for at least 1-2 days. After that you may start using your extremity again aslong as there is not too much pain. Raise the injured area above the level of your heart as much as possible in the first 1-2 days. Tylenol?? (acetaminophen), Motrin?? (ibuprofen), or Advil?? (ibuprofen) may help may help reduce pain and fever and may help you feel more comfortable. Be sure to read and follow the package directions, and ask your provider if you have questions. If you were given a prescription for medicine here today, be sure to read all of the information (including the package insert) that comes with your prescription. This will include important information about the medicine, its side effects, and any warnings that you need to know about. The pharmacist who fills the prescription can provide more information and answer questions you may have about the medicine. If you have questions or concerns that the pharmacist cannot address, please call or return to the Emergency Department. Remember that you can always come back to the Emergency Department if you are not able to see your regular provider in the amount of time listed above, if you get any new symptoms, or if there is anything that worries you. documented in this encounter Medications at Time of Discharge Medication Sig Dispensed Refills Start Date End Date APREMILAST PO Take 1 tablet by mouth 0 2 times daily Blinded study drug from [facility], Dr Karen Mathew COSENTYX SENSOREADY, 0 10/25/2021 300 MG, 150 MG/ML [...] documented as of this encounter ED Notes Brenda Brewer, RN - 11/10/2021 6:33 PM CDT Patient called back to ER d/t positive blood cultures. Patient states infection is in right elbow. ABCs intact. Christopher Mojica, DO - 11/10/2021 6:31 PM CDT Images from the original note were not included. Emergency Department Attending Supervision Note 11/10/2021 7:07 PM I evaluated this patient in conjunction with Aura Oscar PA-C. I have participated in the care of the patient and personally performed lama elements of the history, exam, and medical decision making. Briefly, the patient presented with a positive culture (bursa aspiration). Was seen here on 10/29 forelbow pain/redness/swelling and fever. US did not show fluid collection. No aspiration attempted then. Placed on Keflex. Then patient returned on 11/06. Fever resolved. Had finished Abx. Still felt there was redness. Had pain with extension of the extremity. Aspiration attempted on 11/06, but did not get fluid aside from some bloody drainage which was sent for culture. He was ultimately discharged on Clindamycin. Culture returned positive for Staph aureus today. The patient was contacted and told that if he did not have reliable follow up or had other concerns, that he should return here. He notes more medial right elbow pain today compared with the 11/06 visit (there was more olecranon area pain then). On my exam, Patient Vitals for the past 24 hrs: BP Temp Temp src Pulse Resp SpO2 11/10/21 1901 -- 98.9 ??F (37.2 ??C) Oral 90 -- -- 11/10/21 1835 (!) 141/95 -- -- -- -- -- 11/10/21 1834 -- 97.4 ??F (36.3 ??C) Temporal 95 18 97 % HEENT: mmm. Normal phonation. Eyes: PERRL B/L CV: Peripheral pulses in tact and regular Resp: Speaking in full sentences without any respiratory distress Musculoskeletal: RUE Right olecranon tenderness. No severe medial or lateral elbow tenderness. Able to straighten and flex the elbow. Skin: Warm, dry, well perfused. Mild erythema at the right elbow. No streaking erythema noted. No drainage noted. See clinical image below. Neuro: Alert, no gross motor or sensory deficits Psych: Calm Results: No orders to display Labs Ordered and Resulted from Time of ED Arrival to Time of ED Departure - No data to display ED course: Medications - No data to display ED Course as of 11/10/211952 Sat Nov 10, [id number] Aura Chu PA-C, evaluation 1901 Dr. Mojica discussed the case with Aura Oscar PA-C. Discussed presentation, exam, ddx, plan. 1921 Dr. Sierra evaluation. 1942 Dr. Mojica' rechecked the patient. Based on my evaluation as well as chart review, I think this is likely a finding related to cellulitis rather than bursitis or septic arthritis. When the patient was seen on the , they were not able to aspirate any fluid. Findings that day indicated cobblestoning consistent with cellulitis on [id number] ultrasound. The wound created while attempting aspiration was then swabbed and that was sent to the lab for evaluation. This should indicate this is more of a skin and soft tissue infection rather than bursitis or septic arthritis. I think the patient can be safely discharged to continue his clindamycin as the culture shows sensitivity to it. I think that following up outpatient with primarycare and/orthopedics is very reasonable and the patient should continue to watch his wound for spreading redness or uncontrollable fever. Tylenol and ibuprofen can be taken for pain control and he should return if there are worsening symptoms such as uncontrollable fever, rapidly spreading redness, streaking redness up the arm, severe pain with range of motion, etc. Impression: ICD-10-CM 1. Cellulitis of right elbow L03.113 Christopher Mojica DO 11/10/2021 [facility] EM[facility] Christopher Mojica DO 11/10/211952 Christopher Mojica DO 11/10/212229 Christopher Mojica DO - 11/10/2021 6:31 PM CDT Images from the original note were not included. History Chief Complaint: Call Back The history is provided by the patient and the spouse. Felix Coppola is a 46 year old male who was called back to the ED for positive wound culture. patient was initially evaluated on 10/29/2021 for right elbow pain. He had a fever, tachycardia, and mild leukocytosis. He was treated with fluids and antibiotics in the department, and he was ultimately discharged home and was initiated on Keflex. Patient was evaluated again in the on ED 11/06/21, and patient had decreased range of motion of the right elbow. Tap of the right elbow was attempted, however only some bloody discharge was able to be cultured, and joint aspiration was unsuccessful. He was provided with a course of clindamycin and ultimately discharged home again. His cultures returned positive today for Streptococcus aureus. Patient says that in the days since his most recent visit, he has gained increased mobility of this elbow. Hereports the pain is now in the medial elbow rather than the olecranon area, as before. Patient was contacted earlier this evening that the aerobic culture of his synovial fluid from 11/06 showed 1+ Staph ylococcus aureus, and was instructed to return to the ED if he did not have reliable follow up or ifhe had other concerns. Patient has six days remaining of his Clindamycin course. Patient denies any fever, chills, shortness of breath, chest pain, nausea, vomiting, abdominal pain, confusion, weakness, numbness, and palpitations. Review of Systems Constitutional: Negative for chills and fever. Respiratory: Negative for shortness of breath. Cardiovascular: Negative for chest pain and palpitations. Gastrointestinal: Negative for abdominal pain, nausea and vomiting. Musculoskeletal: + elbow pain Neurological: Negative for weakness and numbness. Psychiatric/Behavioral: Negative for confusion. All other systems reviewed and are negative. Allergies: The patient has no known allergies. Medications: Apremilast Cleocin Cosentyx sensoready Naproyn Past Medical History: Ankylosing spondylitis of lumbar Lumbar disc herniation Anomalous atrioventricular excitation Obesity Migraines Concussion Hepatitis A Past Surgical History: Appendectomy open Heart radiofrequency ablation for WPW Adenoidectomy appendectomy Tonsillectomy Social History: Presents with . Physical Exam Patient Vitals for the past 24 hrs: BP Temp Temp src Pulse Resp SpO2 11/10/211999 (!) 141/97 -- -- 83 14 98 % 11/10/211929 -- -- -- -- -- 97 % 04/02/22 1901 -- 98.9 ??F (37.2 ??C) Oral 90 -- -- 11/10/21 1835 (!) 141/95 -- -- -- -- -- 11/10/21 1834 -- 97.4 ??F (36.3 ??C) Temporal 95 18 97 % Physical Exam Vitals: Reviewed, as above. General: Alert and oriented, in mild distress. Resting on bed. Skin: Warm and well-perfused. Erythema to right elbow with mild edema. HEENT: Head: Normocephalic, atraumatic. Facial features symmetric. Eyes: Conjunctiva pink, sclera white. EOMs grossly intact.Ears: Auricles without lesion, erythema, or edema. Mouth and throat: Lips are moist with no chapping, lesions, or edema, Buccal mucosa is pink and moist without lesions. Orophary ngeal mucosa is pink and moist with no erythema, edema, or exudate. Neck: Supple with no lymphadenopathy. Full ROM. Pulmonary: Chest wall expansion symmetric with no increased work of breathing. Lungs clear to auscultation bilaterally. Cardiovascular: Heart RRR with no murmurs, rubs, or gallops. 2+ radial and tibialis posterior pulsesbilaterally. No peripheral edema. Abdominal: Bowel sounds present and physiologic. Musculoskeletal: Moves all extremities spontaneously. Mildly tender to palpation of right elbow. No pain with ROM. Psych: Affect appropriate. Answers questions appropriately. Patient appears calm. Emergency Department Course Emergency Department Course: Reviewed: I reviewed nursing notes, vitals, past history and care everywhere Assessments/Consults: ED Course as of 11/10/21 2145 Sat Nov 10, 2021 185 Aura Chu PA-C, evaluation 1901 Dr. Mojica discussed the case with Aura Oscar PA-C. Discussed presentation, exam, ddx, plan. 1921 Dr. Mojica' evaluation. 1942 Dr. Mojica' rechecked the patient. Disposition: The patient was discharged to home. Impression & Plan Medical Decision Making: Felix is a 46 year old male who was called back to the ED for positive wound culture. Differential diagnosis included cellulitis, abscess, septic bursitis, septic arthritis, among others. Patient is vitally stable. He is afebrile and not tachycardic. He has had improvement in his pain and symptoms since initial evaluation on 10/29/2021 and interval evaluation on 11/06/2021. Based on my evaluation as well as chart review, I think this is likely a finding related to cellulitis rather than bursitis or septic arthritis. When the patient was seen on the , they were not able to aspirate any fluid. POC US findings indicated cobblestoning consistent with cellulitis. The wound created while attempting aspiration was then swabbed and that was sent to the lab for evaluation. This should indicate this is more of a skin and soft tissue infection rather than bursitis or septic arthritis. I think the patient can be safely discharged to continue his clindamycin as the culture shows sensitivity to it. I think that following up outpatient with primary care and/orthopedics is very reasonable and the patient should continue to watch his wound for spreading redness or uncontrollablefever. Tylenol and ibuprofen can be taken for pain control and he should return if there are worsening symptoms such as uncontrollable fever, rapidly spreading redness, streaking redness up the arm, severe pain with range of motion, etc. Patient expressed understanding of this plan. He was discharged to home in stable condition. Critical Care time: none Diagnosis: ICD-10-CM 1. Cellulitis of right elbow L03.113 Discharge Medications: None. Scribe Disclosure: I, Sharan Luis, am serving as a scribe at 6:46 PM on 11/10/2021 to document services personally performed by Aura Oscar PA-C based on my observations and the provider's statements to me. Aura Oscar PA-C 11/10/212144 Christopher Mojica DO 11/10/212230 documented in this encounter Plan of Treatment Not on filedocumented as of this encounter Visit Diagnoses Diagnosis Cellulitis of right elbow documented in this encounter Care Teams Director Speech And Hearing Relationship Specialty Start Date End Date [facility] And PCP - General 10/29/21 [facility]- [address] [place] [address] documented as of this encounter
--- OUTSIDE RECORDS SUMMARY | 2022-06-12 15:43 | XMS_ITS | Encounter Summary ---
:1975 Author Organization [place] Address [address] [place] [address] Care Team Providers Name Role Phone [facility] Clin[facility]- Encounter Details Date Type Department Care Team Description 10/29/2021 Documentation Only INTERFACED REPORT Unknown, Provider Social [...] on filedocumented in this encounter Care Teams Personnel Clerks Supervisor Relationship Specialty Start Date End Date [facility] And PCP - General 10/29/21 [facility]- [address] [place] [address] documented as of this encounter
--- OUTSIDE RECORDS SUMMARY | 2022-06-12 15:43 | XMS_ITS | Encounter Summary ---
:1975 Author Organization [place] Address [address] [place] [address]. [place] [address] Care Team Providers Name Role Phone No Ref-Primary, Physician Primary Care Provider Reason for Visit Reason Comments Back Pain Encounter Details Date Type Department Care Team Description 04/03/2021 Emergency [facility] Josselyn Barclay MD Acute bilateral [facility] [address] [place] [address] thoracic back pain [address] [place] [id number] [phone] Social History Tobacco Use Types Packs/Day Years Used Date Smoking Tobacco: Every Day Cigarettes 0.5 Alcohol Use Standard Drinks/Week Comments Yes 0 (1 standard drink = 0.6 oz pure alcoho l) occasionally Sex Assigned at Date Recorded Not on file documented as of this encounter Last Filed Vital Signs Vital Sign Reading Time Taken Comments Blood Pressure 128/94 04/03/2021 10:01 AM CDT Pulse 102 04/03/2021 10:01 AM CDT Temperature 36.3 ??C (97.4 ??F) 04/03/2021 10:01 AM CDT Respiratory Rate 18 04/03/2021 10:01 AM CDT Oxygen Saturation 98% 04/03/2021 10:01 AM CDT Inhaled Oxygen Concentration - - Weight - - Height - - Body Mass Index - - documented in this encounter Discharge Instructions Discharge InstructionsAlbina Barclay MD - 04/03/2021 10:33 AM CDT Discharge Instructions Back Pain You were seen today for back pain. Back pain can have many causes, but most will get better without surgery or other specific treatment. Sometimes there is a herniated (???slipped?? ) disc. We do not usually do MRI scans to look for these right away, since most herniated discs will get better on theirown with time. Today, we did not find any evidence that your back pain was caused by a serious condition. However, sometimes symptoms develop over time and cannot be found during an emergency visit, soit is very important that you follow up with your primary provider. Generally, every Emergency Department visit should have a follow-up clinic visit with either a primary or a specialty clinic/provider. Please follow-up as instructed by your emergency provider today. Return to the Emergency Department if: You develop a fever with your back pain. You have weakness or change in sensation in one or both legs. You lose control of your bowels or bladder, or cannot empty your bladder (cannot pee). Your pain gets much worse. Follow-up with your provider: Unless your pain has completely gone away, please make an appointment with your provider within one week. Most of the routine care for back pain is available in a clinic and not the Emergency Department. You may need further management of your back pain, such as more pain medication, imaging such as an X-ray or MRI, or physical therapy. What can I do to help myself? Remain Active -- People are often afraid that they will hurt their back further or delay recovery byremaining active, but this is one of the best things you can do for your back. In fact, staying in bed for a long time to rest is not recommended. Studies have shown that people with low back pain recover faster when they remain active. Movement helps to bring blood flow to the muscles and relieve muscle spasms as well as preventing loss of muscle strength. Heat -- Using a heating pad can help with low back pain during the first few weeks. Do not sleep with a heating pad, as you can be burned. Pain medications - You may take a pain medication such as Tylenol?? (acetaminophen), Advil??, Motrin?? (ibuprofen) or Aleve?? (naproxen). If you were given a prescription for [...] Date APREMILAST PO Take 1 tablet by 0 mouth 2 times daily Blinded study drug from [facility], Dr Karen Mathew ibuprofen (ADVIL,MOTRIN) Take 800 mg by mouth 0 800 MG tablet every morning cyclobenzaprine Take 1 tablet (10 mg) 20 tablet 0 1 04/10/2021 (FLEXERIL) 10 MG tablet by mouth 3 times daily as needed for muscle spasms lidocaine (LIDODERM) 5 % Place 1 patch onto 10 patch 0 04/13/2021 patch the skin every 24 hours for 10 days documented as of this encounter ED Notes Tita Cade RN - 04/03/2021 10:41 AM CDT All patient questions have been answered, no further questions at this time. Discharge paperwork wasgone over with patient. Patient verbalizes understanding of discharge teaching, medications, when toreturn and the importance of follow up. Patient verbalizes feeling safe returning home at this time. Jo-Ann Gutierrez RN - 04/03/2021 10:01 AM CDT Patient presents to the ED with mid back pain. Began last night. Denies known injury. Albina Barclay MD - 04/03/2021 9:58 AM CDT History Chief Complaint: Back Pain HPI Felix Coppola is a 46 year old male with history of ankylosing spondylitis of the lumbar regionwho presents with back pain. Patient complains of mid-back pain which began yesterday evening. He took an ibuprofen and Flexeril had had left from a past back pain exacerbation which mildly reduced hispain. He woke up this morning to worsening back pain and was unable to move without exacerbating thepain. He states he can feel the muscles in his back tighten. He did not take any muscle relaxant today. He denies any fevers, numbness, or recent trauma. Review of Systems Musculoskeletal: Positive for back pain. All other systems reviewed and are negative. Allergies: No known drug allergies Medications: Flexeril Past Medical History: Lumbar Disc Herniation, 2010 Ankylosing Spondylitis Lumbar Region Past Surgical History: Heart Ablation for WPW Appendectomy Social History: Arrives to the emergency department unaccompanied. Physical Exam Patient Vitals for the past 24 hrs: BP Temp Pulse Resp SpO2 04/03/21 1001 (!) 128/94 97.4 ??F (36.3 ??C) 102 18 98 % Physical Exam General: Patient is alert and interactive when I enter the room Head: The scalp, face, and head appear normal Eyes: Conjunctivae are normal ENT: The nose is normal Pinnae are normal External acoustic canals are normal Neck: Trachea midline CV: Pulses are normal RRR Resp: No respiratory distress, CTAB Musc: Normal muscular tone No major joint effusions No asymmetric leg swelling Mild mid thoracic tenderness in the paraspinal region Skin: No rash or lesions noted Neuro: Speech is normal and fluent. Face is symmetric. Moving all extremities well. 5/5 strength in upper and lower extremities. Psych: Awake. Alert. Normal affect. Appropriate interactions. Emergency Department Course Emergency Department Course: Reviewed: I reviewed nursing notes and vitals Assessments: 1030 I obtained history and examined the patient as noted above. Disposition: The patient was discharged to home. Impression & Plan Medical Decision Making: Felix Coppola is a 46 year old male who presents for evaluation of mid back pain. Findings on exam and by history are most consistent with back strain. With no direct trauma to the back and no midline tenderness, I do not feel x-rays are indicated and no findings to suggest the need for emergencyMRI. No evidence at this time to suggest any type of acute cord compromise or cauda equina syndrome. The patient has a normal neurologic exam of the lower extremities. The patient was counseled regarding the need for supportive care and close follow up with primary care.. Prescriptions for flexeril and lidocaine patches were provided. Discussed following up with PCP. Diagnosis: ICD-10-CM 1. Acute bilateral thoracic back pain M54.6 Discharge Medications: New Prescriptions CYCLOBENZAPRINE (FLEXERIL) 10 MG TABLET Take 1 tablet (10 mg) by mouth 3 times daily as needed for muscle spasms LIDOCAINE (LIDODERM) 5 % PATCH Place 1 patch onto the skin every 24 hours for 10 days Scribe Disclosure: Carlitos Bernal, am serving as a scribe at 10:33 AM on 04/03/2021 to document services personally performed by Albina Barclay MD based on my observations and the provider's statements to me. Albina Barclay MD 04/04/21 0724 documented in this encounter Plan of Treatment Not on filedocumented as of this encounter Visit Diagnoses Diagnosis Acute bilateral thoracic back pain documented in this encounter Care Teams Property Man Relationship Specialty Start Date End Date No Ref-Primary, Physician PCP - General 09/03/19 10/28/21 documented as of this encounter
--- OUTSIDE RECORDS SUMMARY | 2022-06-12 15:43 | XMS_ITS | Encounter Summary ---
:1975 Author Organization [place] Address [address] [place] [address] Care Team Providers Name Role Phone Bharat Yañez Primary Care Provider Encounter Details Date Type Department Care Team Description 01/13/2019 Hospital Encounter [facility] Karen Shrestha psoriatic arthritis (H); [facility] Laboratory G Vitamin D deficiency; [address] [facility] terminal operator use of drug [place], [place] [facility] [id number] [address] [facility] [address] [place] [address] Social History Tobacco Use Types Packs/Day Years [...] 0 times daily Blinded study drug from [facility], Dr Karen Mathew ibuprofen Take 800 mg by mouth 0 (ADVIL,MOTRIN) 800 MG every morning tablet documented as of this encounter Plan of Treatment Not on filedocumented as of this encounter Procedures Procedure Name Priority Date/Time Associated Diagnosis Comme nts VITAMIN D DEFICIENCY Routine 01/13/2019 7:29 Polyarticular Res ults for this SCREENING AM CDT psoriatic arthritis procedur e are in (H) the results Vitamin D defici ency section. [facility] use of drug ERYTHROCYTE Routine 01/13/2019 7:29 Polyarticular Results for this SEDIMENTATION RATE AM CDT psoriatic arthritis pr ocedure are in AUTO (H) the results Vitamin D defici ency section. terminal operator use of drug CRP INFLAMMATION Routine 01/13/2019 7:29 Polyarticular Results for this AM CDT psoriatic arthritis procedur e are in (H) the results Vitamin D defici ency section. terminal operator use of drug CREATININE Routine 01/13/2019 7:29 Polyarticular Results for this AM CDT psoriatic arthritis procedur e are in (H) the results Vitamin D defici ency section. terminal operator use of drug CALCIUM Routine 01/13/2019 7:29 Polyarticular Results for this AM CDT psoriatic arthritis procedur e are in (H) the results Vitamin D defici ency section. terminal operator use of drug AST Routine 01/13/2019 7:29 Polyarticular Results for this AM CDT psoriatic arthritis procedur e are in (H) the results Vitamin D defici ency section. [facility] use of drug ALT Routine 01/13/2019 7:29 Polyarticular Results for this AM CDT psoriatic arthritis procedur e are in (H) the results Vitamin D defici ency section. terminal operator use of drug ALBUMIN LEVEL Routine 01/13/2019 7:29 Polyarticular Results fo r this AM CDT psoriatic arthritis procedur e are in (H) the results Vitamin D defici ency section. [facility] use of drug CBC WITH PLATELETS Routine 01/13/2019 7:29 Polyarticular Resul ts for this AM CDT psoriatic arthritis procedur e are in (H) the results Vitamin D defici ency section. [facility] use of drug documented in this encounter Results Vitamin D Deficiency (01/13/2019 7:29 AM CDT) P athologist Signature Vitamin D 25 20 - 75 01/13/2019 [facility] Deficiency ug/L 4:24 PM CDT [place] MEDICAL screening [facility] Comment: Season, race, dietary intake, and treatm ent affect the concentration of 62-mgfurvl-Urbcidr D. Values may decreas e during winter [...] Location / / Volume Laterality Blood specimen 01/13/2019 7:29 AM 019 7:30 (specimen) CDT AM CDT Noah Gill MD LAB - BLOOD ORDERABLES Performing Organization Address City/State/ZIP Code Phon e Number [id number] [place] [address] ESR: Erythrocyte sedimentation rate (01/13/2019 7:29 AM CDT) athologist Signature Sed Rate 8 0 - 15 mm/h 01/13/2019 [facility] 7:46 AM [facility] Specimen Anatomical Collection Method Collection Time Receive d Time (Source) Location / / Volume Laterality Blood specimen 01/13/2019 7:29 AM 7:30 (specimen) CDT AM CDT Noah Gill MD LAB - BLOOD ORDERABLES Performing Organization Address City/[facility]/ZIP [facility] Phon e Number M [facility] [address] [place], [place] [address] [facility] [address] [place], [place] [address], [facility] [phone] CRP, inflammation (01/13/2019 7:29 AM CDT) athologist Signature CRP Inflammation <2.9 0.0 - 8.0 01/13/2019 [place] mg/L 7:51 AM T [facility] Specimen Anatomical Collection Method Collection Time Receive d Time (Source) Location / / Volume Laterality Blood specimen 01/13/2019 7:29 AM 019 7:30 (specimen) CDT AM CDT Noah Gill MD LAB - BLOOD ORDERABLES Performing Organization Address City/[facility]/ZIP Code Phon e Number M [facility] [address] [place], [place] [address] [facility] [address] [place], [place] [address] [phone] Creatinine (01/13/2019 7:29 AM CDT) athologist Signature Creatinine 0.82 0.66 - 1.25 01/13/2019 [place] mg/dL 7:51 AM [facility] GFR Estimate >90 >60 01/13/2019 [place] mL/min/{1.7 7:51 AM [facility] 3_m2} HOSPITAL Comment: Non GFR Calc Starting 07/28/2018, serum creatinine ba sed estimated GFR (eGFR) will be calculated using the Chronic Kidney Dise [facility] Epidemiology Collaboration (CKD-EPI) equation. GFR Estimate If >90 >60 mL/min/{1.73_m2} 01/13/2019 7: 51 AM [facility] Comment: GFR Calc Starting 07/28/2018, serum creatinine ba sed estimated GFR (eGFR) will be calculated using the Chronic Kidney Dise [facility] Epidemiology Collaboration (CKD-EPI) equation. Specimen Anatomical Collection Method Collection Time Receive d Time (Source) Location / / Volume Laterality Blood specimen 01/13/2019 7:29 AM 019 7:30 (specimen) CDT AM CDT Noah Gill MD LAB - BLOOD ORDERABLES Performing Organization Address City/State/ZIP Code Phon e Number [place] [address] [place], [place] [address] [facility] [address] [place], [place] [address] [facility] [phone] CBC with platelets (01/13/2019 7:29 AM CDT) athologist Signature WBC 8.7 4.0 - 11.0 01/13/2019 [place] 10e9/L 7:32 AM [facility] RBC Count 5.38 4.4 - 5.9 01/13/2019 [place] 10e12/L 7:32 AM [facility] Hemoglobin 16.1 13.3 - 01/13/2019 [place] 17.7 g/dL 7:32 AM [facility] Hematocrit 48.9 40.0 - 01/13/2019 [place] 53.0 % 7:32 AM [facility] MCV 91 78 - 100 01/13/2019 [facility] fl 7:32 AM [facility] MCH 29.9 26.5 - 01/13/2019 [facility] 33.0 pg 7:32 AM [facility] MCHC 32.9 31.5 - 01/13/2019 [facility] 36.5 g/dL 7:32 AM [facility] RDW 12.1 10.0 - 01/13/2019 [facility] 15.0 % 7:32 AM [facility] Platelet Count 232 150 - 450 01/13/2019 [place] 10e9/L 7:32 AM [facility] Specimen Anatomical Collection Method Collection Time Receive d Time (Source) Location / / Volume Laterality Blood specimen 01/13/2019 7:29 AM 019 7:30 (specimen) CDT AM CDT Noah Gill MD LAB - BLOOD ORDERABLES Performing Organization Address City/[facility]/ZIP [facility] Phon e Number [facility] [address] [place] [address] [facility] [address] [place], [place] [address], [facility] [phone] Calcium (01/13/2019 7:29 AM CDT) P athologist Signature Calcium 8.7 8.5 - 10.1 01/13/2019 [facility] mg/dL 7:51 AM T HOSPITAL Specimen Anatomical Collection Method Collection Time Receive d Time (Source) Location / / Volume Laterality Blood specimen 01/13/2019 7:29 AM 019 7:30 (specimen) CDT AM CDT Noah Gill MD LAB - BLOOD ORDERABLES Performing Organization Address City/State/ZIP [facility] Phon e Number [facility] [address] [place], [place] [address] [facility] [address] [place], [place] [address], [facility] [phone] AST (01/13/2019 7:29 AM CDT) P athologist Signature AST 15 0 - 45 U/L 01/13/2019 [facility] 7:51 AM CDT HOSPITAL Specimen Anatomical Collection Method Collection Time Receive d Time (Source) Location / / Volume Laterality Blood specimen 01/13/2019 7:29 AM 019 7:30 (specimen) CDT AM CDT Noah Gill MD LAB - BLOOD ORDERABLES Performing Organization Address City/[facility]/ZIP Code Phon e Number M [facility] [address] [place], [place] [address] [facility] [address] [place], [place] [address], [facility] [phone] ALT (01/13/2019 7:29 AM CDT) P athologist Signature ALT 25 0 - 70 U/L 01/13/2019 [facility] 7:51 AM CDT HOSPITAL Specimen Anatomical Collection Method Collection Time Receive d Time (Source) Location / / Volume Laterality Blood specimen 01/13/2019 7:29 AM 019 7:30 (specimen) CDT AM CDT Noah Gill MD LAB - BLOOD ORDERABLES Performing Organization Address City/[facility]/ZIP Code Phon e Number [facility] [address] [place], [place] [address] [facility] [address] [place], [place] [address], [facility] [phone] Albumin level (01/13/2019 7:29 AM CDT) P athologist Signature Albumin 4.0 3.4 - 5.0 01/13/2019 [facility] g/dL 7:51 AM CDT HOSPITAL Specimen Anatomical Collection Method Collection Time Receive d Time (Source) Location / / Volume Laterality Blood specimen 01/13/2019 7:29 AM 019 7:30 (specimen) CDT AM CDT Noah Gill MD LAB - BLOOD ORDERABLES Performing Organization Address City/[facility]/ZIP Code Phon e Number M [facility] [address] [place], [place] [address] [facility] [address] [place], [place] [address], [place] [phone] documented in this encounter Visit Diagnoses Diagnosis Polyarticular psoriatic arthritis (H) Psoriatic arthropathy Vitamin D deficiency Unspecified vitamin D deficiency [facility] use of drug Encounter for long-term (current) use of other medications documented in this encounter Care Teams Candles Pourer Relationship Specialty Start Date End Date Bharat Yañez PCP - General Family Practice 04/30/16 09/02/19 documented as of this encounter
--- OUTSIDE RECORDS SUMMARY | 2022-06-12 15:43 | XMS_ITS | Encounter Summary ---
:1975 Author Organization [facility] Address [address] [place] [address] Care Team Providers Name Role Phone [facility], [facility] Clinics- Reason for Visit Reason Comments Wound Check Encounter Details Date Type Department Care Team Description 10/29/2021 Emergency [facility] joe Graham MD [facility] [address] [place], [place] [id number] Cellulitis of right [place] [facility] Antony Hughes MD [facility] [address] [facility] [address] [place] [phone] upper extremity [address] [place] [address] Social History Tobacco Use Types Packs/Day Years [...] Sign Reading Time Taken Comments Blood Pressure 123/75 10/29/2021 5:21 PM CDT Pulse 100 10/29/2021 5:21 PM CDT Temperature 37.4 ??C (99.3 ??F) 10/29/2021 5:21 PM CDT Respiratory Rate 18 10/29/2021 12:59 PM CDT Oxygen Saturation 95% 10/29/2021 5:21 PM CDT Inhaled Oxygen Concentration - - Weight - - Height - - Body Mass Index - - documented in this encounter Discharge Instructions Discharge InstructionsAura Oscar PA-C - 10/29/2021 3:58 PM CDT Discharge Instructions Cellulitis Cellulitis is an infection [...] 2 times daily Blinded study drug from [facility], Dr Karen Mathew COSENTYX SENSOREADY, 0 10/25/2021 300 MG, 150 MG/ML SOAJ ibuprofen Take 800 mg by mouth 0 (ADVIL,MOTRIN) 800 MG every morning tablet cephALEXin (KEFLEX) Take 1 capsule (500 mg) 28 capsule 0 11/05/2021 500 MG capsule by mouth 4 times daily for 7 days documented as of this encounter ED Notes Jo-Ann Gutierrez RN - 10/29/2021 12:58 PM CDT Patient presents to the ED with right elbow swelling and redness. Symptoms x 24 hours. Also reports fever and chills. Chintan Davis MD - 10/29/2021 12:51 PM CDT Images from the original note were not included. Emergency Department Attending Supervision Note I evaluated this patient with [facility]. Briefly, the patient presented with ~24 hours of painful redness to the right elbow and proximal ulnar forearm associated with a healing excoriation ~2.5 weeks old. He has no history of MRSA or other soft tissue infection. Notably, exam shows no evidence of bursitis and there is no ultrasound evidenceof abscess or fluid collection at the olecranon bursa. It is concerning that the patient presents with fever tachycardia and mild leukocytosis. However he is adamant that he wished to be discharged. After initiation of antipyretics and fluid bolus, tachycardia is improving. I am reassured by his nontoxic appearance, that he is well-hydrated, well-appearing, and he has a normal lactic acid. Patient will be handed off to my partner pending recheck with plan for admission should patient remain persistently tachycardic or decompensate, and discharge. Patient strongly wishes to be discharged if tachycardia continues to improve. He understands he must return immediately for spreading redness, persistentfever, weakness, or any other concerns. Plan outpatient treatment for MSSA given absence of purulentdrainage and history of MRSA. No systemic toxicity, pain or proportion to exam, or other findings suggest necrotizing infection. In summary, my impression is Visit Diagnosis, Associated Orders, and Comments ICD-10-CM 1. Cellulitis of right upper extremity L03.113 Chintan Davis MD [facility] Emergency Department History Chief Complaint: Wound Check JULIO CÉSAR Coppola is a 46 year old male who presents with right elbow pain and redness. Patient reports he first noted the redness on his right elbow yesterday, and 24 hours prior to arrival. He denies trauma or history of gout or cellulitis. He does have a 2 mm scab on the right elbow, which he states is from an injury on October 10. He does note he had a pimple on the right elbow last night, which he attempted to pop. He developed chills and fevers today. He reports pain with range of motion of the right elbow. Denies nausea, vomiting, abdominal pain, or diarrhea. Denies recent illness. ROS: Review of Systems Constitutional: Positive for chills and fever. HENT: Negative for rhinorrhea and sore throat. Respiratory: Negative for cough and shortness of breath. Cardiovascular: Negative for chest pain and leg swelling. Gastrointestinal: Negative for abdominal pain, blood in stool, nausea and vomiting. Genitourinary: Negative for hematuria. Musculoskeletal: Positive for arthralgias (right elbow) and joint swelling (right elbow). Negative for back pain. Skin: Positive for color change (erythema to right elbow). Neurological: Negative for light-headedness and numbness. All other systems reviewed and are negative. Allergies: No Known Allergies Medications: cephALEXin (KEFLEX) 500 MG capsule APREMILAST PO COSENTYX SENSOREADY, 300 MG, 150 MG/ML SOAJ ibuprofen (ADVIL,MOTRIN) 800 MG tablet Past Medical History: No past medical history on file. Patient Active Problem List Diagnosis ??? Lumbar disc herniation ??? Ankylosing spondylitis lumbar region (H) ??? Anomalous atrioventricular excitation Past Surgical History: Past Surgical History: Procedure Laterality Date ??? APPENDECTOMY OPEN ??? heart ablation for WPW 1995 Family History: family history is not on file. Social History: reports that he has been smoking cigarettes. He has been smoking about 0.50 packs per day. He does not have any smokeless tobacco history on file. He reports current alcohol use. He reports that he does not use drugs. PCP: No Ref-Primary, Physician Physical Exam Patient Vitals for the past 24 hrs: BP Temp Temp src Pulse Resp SpO2 10/29/21 1555 -- (!) 102.6 ??F (39.2 ??C) Oral 108 -- -- 10/29/21 1437 -- (!) 103 ??F (39.4 ??C) Oral -- -- -- 10/29/21 1259 (!) 167/97 (!) 100.8 ??F (38.2 ??C) Temporal 118 18 96 % Physical Exam Vitals: Reviewed, as above. Notable for fever and tachycardia. General: Alert and oriented, in moderate distress. Resting on bed. Skin: Warm and well-perfused. 10 cm x 8 cm area of erythema to left elbow with warmth and tenderness. 2 mm scab medial to olecranon process. Please see wound photo. HEENT: Head: Normocephalic, atraumatic. Facial features symmetric. Eyes: Conjunctiva pink, sclera white. EOMs grossly intact. Mouth and throat: Lips are moist with no chapping, lesions, or edema, Buccal mucosa is pink and moist without lesions. Oropharyngeal mucosa is pink and moist with no erythema, edema, or exudate. Neck: Supple with no lymphadenopathy. Full ROM. Pulmonary: Chest wall expansion symmetric with no increased work of breathing. Lungs clear to auscultation bilaterally. Cardiovascular: Heart RRR with no murmurs, rubs, or gallops. 2+ radial and tibialis posterior pulsesbilaterally. No peripheral edema. Abdominal: Bowel sounds present and physiologic. Abdomen is soft and nontender to palpation in all 4quadrants with no guarding or rebound. No masses or organomegaly. Musculoskeletal: Moves all extremities spontaneously. Pain with ROM of right elbow. Mildly edematousdiffusely around the right olecranon process. Psych: Affect appropriate. Answers questions appropriately. Patient appears calm. Emergency Department Course Imaging: POC US SOFT TISSUE Final Result FINDINGS: Cobblestoning of soft tissue: present Hypoechoic fluid (ie abscess) identified: absent INTERPRETATION: The soft tissue and muscle layers were evaluated. Findings indicate cellulitis Report per Dr. Davis Laboratory: Labs Ordered and Resulted from Time of ED Arrival to Time of ED Departure CBC WITH PLATELETS AND DIFFERENTIAL - Abnormal Result Value WBC Count 12.2 (*) RBC Count 4.84 Hemoglobin 14.5 Hematocrit 43.6 MCV 90 MCH 30.0 MCHC 33.3 RDW 12.2 Platelet Count 191 % Neutrophils 79 % Lymphocytes 11 % Monocytes 8 % Eosinophils 1 % Basophils 0 % Immature Granulocytes 1 NRBCs per 100 WBC 0 Absolute Neutrophils 9.7 (*) Absolute Lymphocytes 1.3 Absolute Monocytes 0.9 Absolute Eosinophils 0.1 Absolute Basophils 0.0 Absolute Immature Granulocytes 0.1 Absolute NRBCs 0.0 ISTAT GASES LACTATE VENOUS POCT - Abnormal Lactic Acid POCT 1.8 Bicarbonate Venous POCT 23 O2 Sat, Venous POCT 85 (*) pCO2V Venous POCT 33 (*) pH Venous POCT 7.44 (*) pO2 Venous POCT 47 BASIC METABOLIC PANEL - Normal Sodium 138 Potassium 3.8 Chloride 106 Carbon Dioxide (CO2) 23 Anion Gap 9 Urea Nitrogen 16 Creatinine 0.94 Calcium 8.8 Glucose 98 GFR Estimate >90 ISTAT GASES LACTATE VENOUS POCT BLOOD CULTURE BLOOD CULTURE Emergency Department Course: Reviewed: I reviewed nursing notes, vitals and past medical history Assessments: 1438 I obtained history and examined the patient as noted above. 1442 Dr. Davis's evaluation. 1553 I rechecked the patient. He reports he feels better. Temperature 102.6. HR 108. Interventions: Medications 0.9% sodium chloride BOLUS (1,000 mLs Intravenous New Bag 10/29/21 1530) acetaminophen (TYLENOL) tablet 1,000 mg (1,000 mg Oral Given 10/29/21 1529) ceFAZolin (ANCEF) intermittent infusion 2 g in 100 mL dextrose PRE-MIX (2 g Intravenous New Bag 10/29/21 1543) ibuprofen (ADVIL/MOTRIN) tablet 600 mg (600 mg Oral Given 10/29/21 1608) Disposition: Care of the patient was transferred to my colleague Dr. Hughes pending completion of fluids and IVantibiotics. Impression & Plan [facility] Diagnoses: None Medical Decision Making: Felix is a 46-year-old male who presents for evaluation of right elbow pain and erythema. Please seeHPI and physical exam for full details. Differential diagnosis included gout, septic bursitis, cellulitis, MRSA cellulitis, abscess, necrotizing fasciiitis etc. [id number] ultrasound was negative for abscess or bursitis. Exam is consistent with cellulitis. There are no findings concerning for necrotizing fasciitis. Patient has no history of MRSA, and there is no purulence on exam. Patient is treated in the department with Tylenol, ibuprofen, and Ancef, and he was rehydrated with 1 L normal saline. Laboratory evaluation revealed a mild leukocytosis of 12.2. Lactate is not elevated. Patient's vitals have begun to stabilize following initiation of IV antibiotics and fluids. The patient was signed out to Dr. Hughes pending completion of IV fluids and antibiotics. If he remains vitally stable, patient is stable for discharge home for outpatient treatment with Keflex. Please see note from Dr. Hughes for final disposition. Critical Care time: was 0 minutes for this patient excluding procedures. Diagnosis: ICD-10-CM 1. Cellulitis of right upper extremity L03.113 Discharge Medications: New Prescriptions CEPHALEXIN (KEFLEX) 500 MG CAPSULE Take 1 capsule (500 mg) by mouth 4 times daily for 7 days Aura Oscar PA-C 10/29/21 2969 Aura Oscar PA-C 10/29/21 1614 Chintan Davis MD 10/29/21 1837 documented in this encounter Plan of Treatment Not on filedocumented as of this encounter Procedures Procedure Name Priority Date/Time Associated Comments Diagnosis POC US SOFT TISSUE STAT 10/29/2021 3:48 PM Res ults for this CDT procedure are i n the results section. BLOOD CULTURE STAT 10/29/2021 3:44 PM Results for this CDT procedure are i n the results section. ISTAT GASES LACTATE STAT 10/29/2021 3:34 PM Re sults for this VENOUS POCT CDT procedure are i n the results section. CBC WITH PLATELETS STAT 10/29/2021 3:21 PM Res ults for this AND DIFFERENTIAL CDT procedure a re in the results section. CBC WITH PLATELETS & STAT 10/29/2021 3:21 PM R esults for this DIFFERENTIAL CDT procedure are i n the results section. BLOOD CULTURE STAT 10/29/2021 3:21 PM Results for this CDT procedure are i n the results section. BASIC METABOLIC PANEL STAT 10/29/2021 3:21 PM Results for this CDT procedure are i n the results section. documented in this encounter Results POC US SOFT TISSUE (10/29/2021 3:48 PM CDT) Anatomical Region Laterality Modality Other Specimen (Source) Anatomical Location Collection Method / Collectio n Time Received Time / Laterality Volume Narrative 10/29/2021 3:48 PM CDT [facility] Procedure Note Limited Bedside ED Ultrasound of Soft Ti ssue: PROCEDURE: PERFORMED BY: Dr. Chintna zhu MD INDICATIONS/SYMPTOM: Skin redness, evalu ate [...] to PACS. Chintan Davis MD IMG POCUS Blood Culture Arm, Right (10/29/2021 3:44 PM CDT) P athologist Signature Culture No Growth 11/03/2021 [facility] 7:16 PM CDT LABORATORY Specimen Anatomical Collection Method / Collection Time Recei cuco Time (Source) Location / Volume Laterality Blood STRUCTURE OF RIGHT Venipuncture / 10/29/2021 3:44 /2 08/2021 3:47 UPPER LIMB / Unknown PM CDT PM CDT Unknown Aura Oscar PA-C LAB - MICRO GENERAL ORDERABL ES Performing Organization Address City/State/ZIP Code Phon e Number [facility]ORATORY [facility] [place] [place] [phone] [facility], Room [address]297 (ABNORMAL) iStat Gases (lactate) venous, POCT (10/29/2021 3:34 PM CDT) Patholo gist Method Time Signature Lactic Acid POCT 1.8 <=2.0 10/29/2021 [facility] Y mmol/L 3:38 PM CDT POC Bicarbonate 23 21 - 28 10/29/2021 [facility] Venous POCT mmol/L 3:38 PM CDT POC O2 Sat, Venous 85 (L) 94 - 100 10/29/2021 [facility] POCT % 3:38 PM CDT POC pCO2V Venous 33 (L) 40 - 50 10/29/2021 [facility] POCT mm Hg 3:38 PM CDT POC pH Venous POCT 7.44 (H) 7.32 - 10/29/2021 [facility] 7.43 3:38 PM CDT POC pO2 Venous POCT 47 25 - 47 10/29/2021 [facility] mm Hg 3:38 PM CDT POC Specimen Anatomical Collection Method Collection Time Receive d Time (Source) Location / / Volume Laterality Blood, venous BLOOD SPECIMEN / 10/29/2021 3:34 PM 10/10 3:38 Unknown CDT PM CDT Chintan Davis MD LAB - BEAKER POCT Performing Organization Address City/State/ZIP Code Phon e Number [facility] [place] [address] Care Lab [address] Lab (1st floor, no room number) (ABNORMAL) CBC with platelets and differential (10/29/2021 3:21 PM CDT) [facility] Method Time Signature WBC Count 12.2 (H) 4.0 - 10/29/2021 [facility] 11.0 3:29 PM CDT 10e3/uL RBC Count 4.84 4.40 - 10/29/2021 [facility] 5.90 3:29 PM CDT 10e6/uL Hemoglobin 14.5 13.3 - 10/29/2021 [facility] 17.7 g/dL 3:29 PM CDT Hematocrit 43.6 40.0 - 10/29/2021 [facility] 53.0 % 3:29 PM CDT MCV 90 78 - 100 10/29/2021 [facility] fL 3:29 PM CDT MCH 30.0 26.5 - 10/29/2021 [facility] 33.0 pg 3:29 PM CDT MCHC 33.3 31.5 - 10/29/2021 [facility] 36.5 g/dL 3:29 PM CDT RDW 12.2 10.0 - 10/29/2021 [facility] 15.0 % 3:29 PM CDT Platelet Count 191 150 - 450 10/29/2021 [facility] 10e3/uL 3:29 PM CDT % Neutrophils 79 % 10/29/2021 [facility] 3:29 PM CDT % Lymphocytes 11 % 10/29/2021 [facility] 3:29 PM CDT % Monocytes 8 % 10/29/2021 [facility] 3:29 PM CDT % Eosinophils 1 % 10/29/2021 [facility] 3:29 PM CDT % Basophils 0 % 10/29/2021 [facility] 3:29 PM CDT % Immature 1 % 10/29/2021 [facility] Granulocytes 3:29 PM CDT NRBCs per 100 0 <1 /100 10/29/2021 [facility] WBC 3:29 PM CDT Absolute 9.7 (H) 1.6 - 8.3 10/29/2021 [facility] Neutrophils 10e3/uL 3:29 PM CDT Absolute 1.3 0.8 - 5.3 10/29/2021 [facility] Lymphocytes 10e3/uL 3:29 PM CDT Absolute 0.9 0.0 - 1.3 10/29/2021 [facility] Monocytes 10e3/uL 3:29 PM CDT Absolute 0.1 0.0 - 0.7 10/29/2021 [facility] Eosinophils 10e3/uL 3:29 PM CDT Absolute 0.0 0.0 - 0.2 10/29/2021 [facility] Basophils 10e3/uL 3:29 PM CDT Absolute 0.1 <=0.4 10/29/2021 [facility] Immature 10e3/uL 3:29 PM CDT Granulocytes Absolute NRBCs 0.0 10e3/uL 10/29/2021 [facility] 3:29 PM CDT Specimen Anatomical Collection Method / Collection Time Recei cuco Time (Source) Location / Volume Laterality Blood STRUCTURE OF LEFT Venipuncture / 10/29/2021 3:21 10/29 3:27 UPPER LIMB / Unknown PM CDT PM CDT Unknown Aura Oscar PA-C LAB - BLOOD ORDERABLES Performing Organization Address City/State/ZIP Code [place] [address] Care Lab [address] Lab (1st floor, no room number) Blood Culture Peripheral Blood (10/29/2021 3:21 PM CDT) athologist Signature Culture No Growth 11/03/2021 [facility] 7:16 PM CDT LABORATORY Specimen Anatomical Collection Method / Collection Time Recei cuco Time (Source) Location / Volume Laterality Blood BLOOD SPECIMEN / Venipuncture / 10/29/2021 3:21 2021 3:27 Unknown Unknown PM CDT PM CDT Aura Oscar PA-C LAB - MICRO GENERAL ORDERABL ES Performing Organization Address City/State/ZIP Code Phon e Number [facility] [place] [place] [address] [facility], [address] Basic metabolic panel (10/29/2021 3:21 PM CDT) P athologist Signature Sodium 138 133 - 144 10/29/2021 [facility] mmol/L 3:48 PM CDT Potassium 3.8 3.4 - 5.3 10/29/2021 LABORATORY mmol/L 3:48 PM CDT Chloride 106 94 - 109 10/29/2021 LABORATORY mmol/L 3:48 PM CDT Carbon Dioxide 23 20 - 32 10/29/2021 LABORATORY (CO2) mmol/L 3:48 PM CDT Anion Gap 9 3 - 14 10/29/2021 LABORATORY mmol/L 3:48 PM CDT Urea Nitrogen 16 7 - 30 10/29/2021 LABORATORY mg/dL 3:48 PM CDT Creatinine 0.94 0.66 - 10/29/2021 LABORATORY 1.25 mg/dL 3:48 PM CDT Calcium 8.8 8.5 - 10.1 10/29/2021 LABORATORY mg/dL 3:48 PM CDT Glucose 98 70 - 99 10/29/2021 LABORATORY mg/dL 3:48 PM CDT GFR Estimate >90 >60 10/29/2021 LABORATORY mL/min/1.7 3:48 PM CDT 3m2 Comment: Effective July 31, 2021 eGF Rcr in adults is calculated using the 2020 CKD-EPI creatinine equation which includ es age and gender (Abdulkadir et al., NEJM, DOI: 10.1056/BVOZkb9712072) Specimen Anatomical Collection Method / Collection Time Recei cuco Time (Source) Location / Volume Laterality Blood STRUCTURE OF LEFT Venipuncture / 10/29/2021 3:21 10/29 3:27 UPPER LIMB / Unknown PM CDT PM CDT Unknown Aura Oscar PA-C LAB - BLOOD ORDERABLES Performing Organization Address City/State/ZIP Code [place] [phone] Care Lab [address] Lab (1st floor, no room number) documented in this encounter Visit Diagnoses Diagnosis Cellulitis of right upper extremity Cellulitis and abscess of upper arm and forearm documented in this encounter Administered Medications Inactive Administered Medications - up to 3 most recent administrations Medication Order MAR Action Action Date Dose Rate Site 0.9% sodium chloride BOLUS New Bag 10/29/2021 3:30 PM CDT 1,000 mLs 1000 mL/hr Intravenous, 1,000 mL, ONCE, at 1,000 mL/hr, Administer over 1 Hours, On Fri10/29/21 at 1445, For 1 dose acetaminophen (TYLENOL) tablet 1,000 mg Given 10/29/2021 3:29 PM CDT 1,000 mg 1,000 mg, Oral, EVERY 4 HOURS PRN, fever, Starting on Fri10/29/21 at 1442, Maximum acetaminophen dose from all sources = 75 mg/kg/day not to exceed 4 gram ceFAZolin (ANCEF) intermittent New Bag 10/29/2021 3:43 PM CDT 2 g 200 mL/hr infusion 2 g in 100 mL dextrose PRE-MIX STAT, 2 g, Intravenous, ONCE, On Fri10/29/21 at 1450, For 1 dose, Indications: Skin and Soft Tissue Infection ibuprofen (ADVIL/MOTRIN) tablet 600 mg Given 10/29/2021 4:08 PM CDT 600 mg 600 mg, Oral, ONCE, On Fri10/29/21 at 1600, For 1 dose, Give with food. documented in this encounter Active and Recently Administered Medications Times are shown in CDT. Scheduled Medication Order 10/27/2021 10/28/2021 10/29/2021 0.9% sodium chloride BOLUS (COMPLETED) 1530 (New Bag - Provider: Chloé Evans RN)1723 (Stopped - Provider: Chloé Evans RN) Intravenous, 1,000 mL, ONCE, at 1,000 mL /hr, Administer over 1 Hours, On Fri10/29/21 at 1445, For 1 dose ceFAZolin (ANCEF) intermittent infusion 2 g in 100 mL dextrose PRE-MIX (COMPLETED) 1543 (New Bag - Prov ider: Chloé Evans RN)1723 (Stopped - Provider: Chloé Evans RN) STAT, 2 g, Intravenous, ONCE, On 10/10 at 1450, For 1 dose, Indications: Skin and Soft Tissue Infection ibuprofen (ADVIL/MOTRIN) tablet 600 mg (COMPLETED) 1608 (Given - Provider: Chloé Evans RN) 600 mg, Oral, ONCE, On Fri10/29/21 at 1600, For 1 dose, Give wit h food. PRN Medication Order 10/27/2021 10/28/2021 10/29/2021 acetaminophen (TYLENOL) tablet 1,000 mg 1529 (Given - Provider: Chloé Evans RN) 1,000 mg, Oral, EVERY 4 HOURS PRN, fever , Starting on Fri10/29/21 at 1442, Maximum acetaminophen dose from all sources = 75 mg/kg/day not to exceed 4 gram documented in this encounter Care Teams Health Care Facilities Inspector Relationship Specialty Start Date End Date [facility] PCP - General 10/29/21 [facility]- [address] [place] [id number] documented as of this encounter
--- OUTSIDE RECORDS SUMMARY | 2022-06-12 15:43 | XMS_ITS | Encounter Summary ---
:1975 Author Organization [facility] Address [address] [place] [address] Care Team Providers Name Role Phone Bharat Yañez Primary Care Provider Encounter Details Date Type Department Care Team Description 04/28/2019 Travel Social History Tobacco Use Types Packs/Day [...] on filedocumented in this encounter Care Teams Communications Equipment Supervisor Relationship Specialty Start Date End Date Bharat Yañez PCP - General Family Practice 04/30/16 09/02/19 documented as of this encounter
--- OUTSIDE RECORDS SUMMARY | 2022-06-12 15:43 | XMS_ITS | Encounter Summary ---
:1975 Author Organization [facility] Address [address] [place] [address] Care Team Providers Name Role Phone No Ref-Primary, Physician Primary Care Provider Encounter Details Date Type Department Care Team Description 09/10/2021 Travel Social History Tobacco Use Types Packs/Day Years Used Date Smoking Tobacco: Every Day Cigarettes 0.5 Alcohol Use Standard Drinks/Week Comments Yes 0 (1 standard drink = 0.6 oz pure alcoho l) occasionally Sex Assigned at Date Recorded Not on file COVID-19 Exposure Response Date Recorded In the last month, have you been in contact with Yes 09/10/2021 6:09 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 documented as of this encounter Plan of Treatment Not on filedocumented as of this encounter Visit Diagnoses Not on filedocumented in this encounter Care Teams Demand Planning Manager Relationship Specialty Start Date End Date No Ref-Primary, Physician PCP - General 09/03/19 10/28/21 documented as of this encounter
--- OUTSIDE RECORDS SUMMARY | 2022-06-12 15:43 | XMS_ITS | Encounter Summary ---
:1975 Author Organization [facility] Address [address] [place] [address] Care Team Providers Name Role Phone [facility]- Encounter Details Date Type Department Care Team Description 11/06/2021 Travel Social History Tobacco Use Types Packs/Day [...] on filedocumented in this encounter Care Teams Visual Supervisor Relationship Specialty Start Date End Date [facility] And PCP - General 10/29/21 [facility]- [address] [place] [address] documented as of this encounter
--- OUTSIDE RECORDS SUMMARY | 2022-06-12 15:43 | XMS_ITS | Encounter Summary ---
:1975 Author Organization [facility] Address [address] [place] [address] Care Team Providers Name Role Phone Bharat Yañez Primary Care Provider Encounter Details Date Type Department Care Team Description 05/04/2019 Travel Social History Tobacco Use Types Packs/Day [...] on filedocumented in this encounter Care Teams Lead Generator Relationship Specialty Start Date End Date Bharat Yañez PCP - General Family Practice 04/30/16 09/02/19 documented as of this encounter
--- OUTSIDE RECORDS SUMMARY | 2022-06-12 15:43 | XMS_ITS | Encounter Summary ---
:1975 Author Organization [facility] Address [address] [place] [address] Care Team Providers Name Role Phone [facility] Primary [facility] Clin[facility]- Encounter Details Date Type Department Care Team Description 11/10/2021 Travel Social History Tobacco Use Types Packs/Day [...] on filedocumented in this encounter Care Teams Dental Hygienist Mobile Coordinator Relationship Specialty Start Date End Date [facility] And PCP - General 10/29/21 [facility]- [address] [place] [address] documented as of this encounter
--- OUTSIDE RECORDS SUMMARY | 2022-06-12 15:44 | XMS_ITS | Clinical Summary ---
:1975 [facility] Address [address] [place] [address] Care Team Providers Name Role Phone Rigoberto Lira PA-C Primary Care Provider Source Comments You are receiving this document as you are listed as the primary care provider,follow-up provider, or the patient has been referred to you for consultation.This is in compliance with the Medicare and Medicaid EHR Incentive Program,which states Providers who transition their patient to another setting of careor provider of care or refers their patient to another provider of care shouldprovide summarycare record for each transition of care or referral. 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 Allow it without mention of to dissolve, then status migrainosus swallow with saliva. May repeat with one tablet in 2 hours if headache recurs. VICODIN 5-500 MG OR Take 1-2 tablets 0 Active TABS by mouth every 4-6 hours as needed for pain. Do not take more than 8 tablets in one day. ibuprofen (AKA MOTRIN) Take 800 mg by 0 10/03/2015 Active 800 MG tablet mouth 2 times daily. DRUG NOT IN Take 1 Dose by 0 10/03/2015 Ac tive COMPUTERIndications: mouth 2 times celgene daily. Indications: celgene OTEZLA 30 MG TABS 0 01/23/2021 A ctive atorvastatin (LIPITOR) 0 11/13/2020 Active 20 MG tablet gemfibrozil (LOPID) 0 01/19/2021 Active 600 MG tablet erythromycin 5 MG/GM Place 0.5 Inches 3.5 g 0 02/06/2021 Active (0.5%) eye ointment into right eye every 6 hours. Active Problems Problem Noted Date Ankylosing spondylitis lumbar region 09/11/2012 Overview: Followed by non-[facility] ticket marker Disc disorder of lumbar region 01/09/2011 Overview: L5/S1 disc herniation no surgery ; Lumbar Disc Disorder NOS Last Assessment & Plan: Lumbar Disc Disorder NOS - Assessment & Plan Note by Rigoberto Lira PA-C at 09/16/12917 Author: Rigoberto Lira PA-C Service: (no ne) Author Type: Physician Painter Mirror Filed: 09/16/12917 Note Time: 917 Status: Written Drawer In: Rigoberto Lira PA-C (Physician Melinda gan) Has been seeing a chiropractor for a few years now for his chronic back pain. Recently had a LS MRI, and the Radiologist found pathology suggestive of ankylosing spondylitis. He has a consult appointmen t with a non-[facility] ticket marker on , and was asked to get an HLA-B27 prior to his appointment. Obesity 03/18/2006 Overview: Ht: 6' 1.75 Body Mass Index (BMI) 32.3 at 250 pounds on 03/18/2006. 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 ; ANOMALOUS AV EXCITATION (WPW) Immunizations Name Administration Dates Next Due HepB Adult (Engerix-B, 20+ yrs, 3 dose 01/21/2007, 6, 03/18/2006 09/18/2006 series) TDAP (BOOSTRIX) 09/16/2012 Td 02/15/2003 Family History Medical History Relation Name Comments Cancer, Breast Maternal Aunt Cancer, Breast Other aunt Alcohol/Drug Abuse Negative Family History Anesthesia Reaction Negative Family History Asthma Negative Family History Bleeding Disorder Negative Family History Cerebrovascular Disease Negative Family History Coronary Artery Disease Negative Family History Diabetes Negative Family History Diabetes, Type II Negative Family History Hyperlipidemia Negative Family History Hypertension Negative Family History Relation Name Status Comments Father (Age 58) MVA in 2004 Mother Alive Born 1948 Brother 1 Alive Born 1974 Brother 2 Alive Born 1978 Daughter 1 Alive Cristina, born 1993 Daughter 2 Alive Camila, born 19 97 Maternal Aunt Other Social History Tobacco Use Types Packs/Day Years Used Date Smoking Tobacco: Every Day Cigarettes 0.5 13 Smokeless Tobacco: Never Comments: Smoking History Packs/day: Alcohol Use Standard Drinks/Week Comments Yes 5 (1 standard drink = 0.6 oz pure alcoho l) Sex Assigned at Date Recorded Not on file Last Filed Vital Signs Vital Sign Reading Time Taken Comments Blood Pressure 141/87 02/06/2021 8:08 AM CDT Pulse 84 02/06/2021 8:08 AM CDT Temperature 36.8 ??C (98.2 ??F) 02/06/2021 8:08 AM CDT Respiratory Rate 20 02/06/2021 8:08 AM CDT Oxygen Saturation 97% 02/06/2021 8:08 AM CDT Inhaled Oxygen Concentration - - Weight 103.9 kg (229 lb) 10/03/2015 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 Height 188 cm (6' 2) 10/03/2015 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 Body Mass Index 29.4 10/03/2015 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 Plan of Treatment Health Maintenance Due Date Last Done Comments Colon Cancer Screening Plan 1975 Due Hep C Screening (Preventive 1975 Services) COVID-19 Vaccine (#1) 1975 Pneumococcal (1 - PCV) 1979 HIV Screening (Preventive 1989 Services) Adult Preventive Visit 01/22/2008 01/21/2007, 03/18/2006 Cholesterol 10/03/2020 10/03/2015, 09/16/2012, 01/14/2011, Additional history exists Influenza (#1) 2022 DTaP/Tdap/Td (2 - Tdap) 09/16/2022 09/16/2012, 02/15/2003 Zoster/Shingles (1 of 2) 2023 HepB Completed 01/21/2007, 04/18/2006, 03/18/2006 HepA Aged Out No longer eligib le based on patient 's age to complete this topic Hib Aged Out No longer eligib le based on patient 's age to complete this topic IPV (Polio) Aged Out No longer eligib le based on patient 's age to complete this topic MCV4 Aged Out No longer eligib le based on patient 's age to complete this topic Insurance Payer Benefit Plan / Subscriber ID Effective Dates Phone Addre ss Type Group [place] [id number] 2020-Present [address] [address] [place] [address] (Work) [id number] Felix Coppola Personal/Famil Self 1975 [address] [phone] [place] (Work) [id number] Felix Coppola Personal/Famil Self 1975 [address] [phone] [place] (Work) [phone] Felix Coppola Workers Comp Self 1975 [address] [phone] [place], [place] (Work) [phone] Care Teams Project Manager Relationship Specialty Start Date End Date Rigoberto Lira PA-C PCP - General 04/11/16 [address] [place] [id number]
--- OUTSIDE RECORDS SUMMARY | 2022-06-12 15:44 | XMS_ITS | Encounter Summary ---
:1975 Author Organization [facility] Address [address] [place] [id number] Care Team Providers Name Role Phone Bharat Yañez Primary Care Provider Reason for Visit Reason Comments Chest Pain Encounter Details Date Type Department Care Team Description 04/30/2016 - Emergency [facility] Shawn Gordon MD [facility] [address] [place], [place] [id number] Chest pain, 05/01/2016 Reece Lind MD [address] [place] [address] unspecified type Dept [address] [place] [address] Social History Tobacco Use Types Packs/Day Years Used Date Smoking Tobacco: Every Day Cigarettes 0.5 Alcohol Use Standard Drinks/Week Comments Yes 0 (1 standard drink = 0.6 oz pure alcoho l) occasionally Sex Assigned at Date Recorded Not on file documented as of this encounter Last Filed Vital Signs Vital Sign Reading Time Taken Comments Blood Pressure 140/90 05/01/2016 8:44 AM CDT Pulse 82 05/01/2016 8:44 AM CDT Temperature 35.8 ??C (96.5 ??F) 05/01/2016 8:44 AM CDT Respiratory Rate 16 05/01/2016 8:44 AM CDT Oxygen Saturation 94% 05/01/2016 8:44 AM CDT Inhaled Oxygen Concentration - - Weight - - Height - - Body Mass Index - - documented in this encounter Discharge Summaries Breanna Roblero PA-C - 05/01/2016 9:11 AM CDT [facility] Outpatient / Observation Unit Discharge Summary Felix Coppola Date of : 1975 Age: [age] year old Date of Admission: 04/30/2016 Date of Discharge: 05/01/2016 9:11 AM Admitting Physician: Reece Mas MD Discharge Physician: Breanna Roblero PA-C Discharging Service: Hospitalist Primary Provider: Bharat Yañez Primary Care Physician Phone Number: None Primary Discharge Diagnoses: Felix Coppola was admitted on 04/30/2016 for concerns of acute chest pain. 1. Chest pain: Ruled out ACS. -Suspect non-cardiac in nature, possibly musculoskeletal spasm as patient reports some left chest wall soreness, though not tender to palpation on exam. Recommended trial of ibuprofen and tylenol to take as needed for pain to see if it helps. Secondary Discharge Diagnoses: History reviewed. No pertinent past medical history. Code Status: Full Code Brief Hospital Summary: Reason for your hospital stay You were evaluated in the hospital for left arm and chest pain/tightness. There is not a cardiac reason for your pain. Based on your labs and stress test, you have not had a heart attack and there is no evidence of coronary artery disease contributing to your chest pain. This may have been a muscle spasm or may be related to a pinched nerve. You can take up to 600 mg ibuprofen every 8 hours and 1000 mg tylenol every 8 hours for muscle pain, so you can try taking this if the pain is bothersome. Follow up with your primary care physician in the next 1-2 weeks. Please refer to initial admission history and physical for further details. Briefly, Felix Coppola was admitted on 04/30/2016 for concerns of acute chest pain. Initial work up in the ED did not reveal evidence of STEMI or findings consistent with unstable angina or acute coronary ischemia. Pt was registered to the Observation Unit for further evaluation. Pt ruled out with serial troponins, underwent Stress Echo that did not show evidence of significant coronary ischemia. Labs were reviewed and significant results addressed. On the day of discharge, pt was pain free, with no complaints of pain. Medications were reviewed and adjustments made as necessary. Pt is instructed to follow up as below. Significant Labs & Imaging During Hospitalization: Results for orders placed or performed during the hospital encounter of 04/30/16 XR Chest 2 Views Narrative XR CHEST 2 VW 04/30/2016 12:26 PM HISTORY: Chest pain. COMPARISON: None. FINDINGS: No airspace consolidation, pleural effusion or pneumothorax. Normal heart size. Impression IMPRESSION: No acute cardiopulmonary abnormality. FLASH BURDEN MD CBC with platelets differential Result Value Ref Range WBC 7.8 4.0 - 11.0 10e9/L RBC Count 4.87 4.4 - 5.9 10e12/L Hemoglobin 14.3 13.3 - 17.7 g/dL Hematocrit 42.5 40.0 - 53.0 % MCV 87 78 - 100 fl MCH 29.4 26.5 - 33.0 pg MCHC 33.6 31.5 - 36.5 g/dL RDW 11.6 10.0 - 15.0 % Platelet Count 243 150 - 450 10e9/L Diff Method Automated Method % Neutrophils 57.6 % % Lymphocytes 30.8 % % Monocytes 8.1 % % Eosinophils 2.6 % % Basophils 0.5 % % Immature Granulocytes 0.4 % Nucleated RBCs 0 0 /100 Absolute Neutrophil 4.5 1.6 - 8.3 10e9/L Absolute Lymphocytes 2.4 0.8 - 5.3 10e9/L Absolute Monocytes 0.6 0.0 - 1.3 10e9/L Absolute Eosinophils 0.2 0.0 - 0.7 10e9/L Absolute Basophils 0.0 0.0 - 0.2 10e9/L Abs Immature Granulocytes 0.0 0 - 0.4 10e9/L Absolute Nucleated RBC 0.0 Troponin I Result Value Ref Range Troponin I ES 0.000 - 0.045 ug/L <0.015 The 99th percentile for upper reference range is 0.045 ug/L. Troponin values in the range of 0.045 - 0.120 ug/L may be associated with risks of adverse clinical events. Comprehensive metabolic panel Result Value Ref Range Sodium 136 133 - 144 mmol/L Potassium 3.7 3.4 - 5.3 mmol/L Chloride 105 94 - 109 mmol/L Carbon Dioxide 24 20 - 32 mmol/L Anion Gap 7 3 - 14 mmol/L Glucose 93 70 - 99 mg/dL Urea Nitrogen 17 7 - 30 mg/dL Creatinine 0.78 0.66 - 1.25 mg/dL GFR Estimate >90 Non GFR Calc >60 mL/min/1.7m2 GFR Estimate If Black >90 GFR Calc >60 mL/min/1.7m2 Calcium 9.0 8.5 - 10.1 mg/dL Bilirubin Total 0.6 0.2 - 1.3 mg/dL Albumin 4.1 3.4 - 5.0 g/dL Protein Total 7.4 6.8 - 8.8 g/dL Alkaline Phosphatase 82 40 - 150 U/L ALT 35 0 - 70 U/L AST 19 0 - 45 U/L Troponin I - Now then in 4 hours x 2 Result Value Ref Range Troponin I ES 0.000 - 0.045 ug/L <0.015 The 99th percentile for upper reference range is 0.045 ug/L. Troponin values in the range of 0.045 - 0.120 ug/L may be associated with risks of adverse clinical events. Troponin I - Now then in 4 hours x 2 Result Value Ref Range Troponin I ES 0.000 - 0.045 ug/L <0.015 The 99th percentile for upper reference range is 0.045 ug/L. Troponin values in the range of 0.045 - 0.120 ug/L may be associated with risks of adverse clinical events. EKG 12 lead Result Value Ref Range Interpretation ECG Click View Image link to view waveform and result Troponin POCT Result Value Ref Range Troponin I 0.00 0.00 - 0.10 ug/L Exercise Stress Echocardiogram Narrative Interpretation Summary [facility] [address] [place] [id number] Name: FELIX COPPOLA : 1975 Study Date: 05/01/2016 07:05 AM Age: 41 yrs Gender: Male Patient Location: [facility] Reason For Study: Chest Pain Ordering Physician: JUANA TIDWELL Performed By: Obed Muniz RDCS BSA: 2.3 m2 Height: 74.5 in Weight: 230 lb HR: 85 BP: 110/72 mmHg Procedure Stress Echo Complete. Interpretation Summary The Austin treadmill score was low risk ( >5 Austin score). This was a normal stress echocardiogram with no evidence of stress-induced ischemia. Stress The patient exhibited no chest pain during exercise. Exercise was stopped due to fatigue. There was a normal BP response to exercise. The patient did not exhibit any symptoms during exercise. The Austin treadmill score was low risk ( >5 Austin score). Target Heart Rate was achieved. The EKG portion of this stress test was negative for inducible ischemia (see echo results below). A treadmill exercise test according to the Donta protocol was performed. There were no ST segment changes observed with stress. Normal resting wall motion and no stress-induced wall motion abnormality. The visual ejection fraction is estimated at >70%. Left ventricular cavity size decreases with exercise. Global LV systolic function augments with exercise. Baseline The patient is in normal sinus rhythm. RBBB Normal resting blood pressure. No regional wall motion abnormalities noted. The visual ejection fraction is estimated at 55-60%. No hemodynamically significant valvular abnormalities on 2D or color flow imaging. Stress Results Protocol: Donta Maximum Predicted HR: 177 bpm Target HR: 150 bpm % Maximum Predicted HR: 88 % +---------+--------+ +------+ + : Stage :Duration:Heart Rate: BPCom ment : : :(mm:ss) : (bpm) : : : +---------+--------+ +------+ + : Stage 1 : 3:00 11 1 :140/72: : +---------+--------+ +------+ + : Stage 2 : 3:00 12 2 :148/72: : +---------+--------+ +------+ + : Stage 3 : 3:00 14 6 :152/72: : +---------+--------+ +------+ + : Stage 4 : 1:01 15 5 : / RPP : 32491: +---------+--------+ +------+ + :Recovery : 6:00 10 6 :122/80: : +---------+--------+ +------+ + Stress Duration: 10:01 mm:ss * Recovery Time: 6:00 mm:ss Maximum Stress HR: 155 bpm *ME TS: 11 Aortic Valve No aortic regurgitation is present. Report approved by: Eduardo Simmons 05/01/2016 08:09 AM Pending Results: Unresulted Labs Ordered in the Past 30 Days of this Admission No orders found from 03/02/2016 to 05/01/2016. Consultations This Hospital Stay: No consultations were requested during this admission Discharge Instructions and Follow-Up: Follow-up Appointments Follow-up and recommended labs and tests Follow up with primary care provider, Bharat Morales, within 7-14 days for hospital follow- up. No follow up labs or test are needed. Pt instructed to follow up with PCP in 7 days and with House Cleaner if indicated. Follow-up Labs None Discharge Disposition: Discharged to home Discharge Medications: Discharge Medication List as of 05/01/2016 9:01 AM CONTINUE these medications which have NOT CHANGED Details ibuprofen (ADVIL,MOTRIN) 800 MG tablet Take 800 mg by mouth every morning, Historical APREMILAST PO Take 1 tablet by mouth 2 times daily Blinded study drug from [facility], Dr Karen Mathew, Historical Allergies: No Known Allergies Condition and Physical on Discharge: Discharge condition: Stable Vitals: Blood pressure 140/90, pulse 82, temperature 96.5 ??F (35.8 ??C), temperature source Oral, resp. rate 16, SpO2 94 %. 0 lbs 0 oz GENERAL: Comfortable. PSYCH: pleasant, oriented, No acute distress. HEENT: PERRLA. Normal conjunctiva, normal hearing, nasal mucosa and Oropharynx are normal. NECK: Supple, no neck vein distention, adenopathy or bruits, normal thyroid. HEART: Normal S1, S2 with no murmur, no pericardial rub, gallops or S3 or S4. LUNGS: Clear to auscultation, normal Respiratory effort. No wheezing, rales or ronchi. ABDOMEN: Soft, no hepatosplenomegaly, normal bowel sounds. Non-tender, non distended. EXTREMITIES: No pedal edema, +2 pulses bilateral and equal. SKIN: Dry to touch, No rash, wound or ulcerations. NEUROLOGIC: CN 2-12 intact, BL 5/5 symmetric upper and lower extremity strength, sensation is intactwith no focal deficits. Associated attestation - Reece Mas MD - 05/02/2016 1:49 PM CDT Physician Attestation I, Reece Mas, have reviewed and discussed with the advanced practice provider their discharge plan for Felix Coppola. I did not participate in a shared visit by interviewing or examining thepatient and this should be billed as an advanced practice provider only discharge. Reece Mas Date of Service (when I saw the patient): I did not personally see this patient today. documented in this encounter Medications at Time of Discharge Medication Sig Dispensed Refills Start Date End Date APREMILAST PO Take 1 tablet by mouth 2 0 times daily Blinded study drug from [facility], Dr Karen Mathew ibuprofen Take 800 mg by mouth 0 (ADVIL,MOTRIN) 800 MG every morning tablet documented as of this encounter Progress Notes Aleyda Narvaez - 05/01/2016 9:11 AM CDT Stress echo completed. documented in this encounter H&P Notes Juana Tidwell PA-C - 04/30/2016 3:58 PM CDT History and Physical Felix Coppola Date of : 1975 Age: [age] year old Date of Admission: 04/30/2016 Primary care provider: Bharat Yañez Assessment and Plan: Felix Coppola is a 41 year old male with a PMH significant for ankylosing spondylitis who presents with atypical chest dullness. ED sign out by Dr. Gordon and chart review performed: Afebrile, non tachycardic pressure 141/87 and normal respirations with no hypoxia. Labs completely unremarkable including negative troponin. Care everywhere at revealed total cholesterol of 223 and fasting glucose 102. 1. 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 The discomfort would radiated into his left chest and left jaw lasting seconds. This happened multiple times and then the discomfort started to only be in his left chest and left jaw line. There was some lightheadedness with this but no diaphoresis, nausea or shortness of breath. Symptoms started at 930 am and came went until this afternoon. He has never had this happen before and can not reproduce it. He slightly high chol at 223 but no dx of HTN or DM II. He denies family hx but smokes about 5 cigs per day. ECG shows a RBBB and we are unsure if it is new. If this is non cardiac possible that sxs areoriginating from cervical etiology given symptoms into arms?? -Tele -Aspirin -Trend troponins -Stress echo in AM 2. Ankylosing spondylitis Followed by rheumatology and has been on a study drug for 2+ years. Will continue here. Code: Full code discussed with patient VTE prophylaxis: Ambulation Disposition: Observation Chief Complaint: Atypical chest pain History of Present Illness: Felix Coppola is a 41 year old male who presents with dull aching in chest. 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 This happened a few times only lasting seconds but then the chest dullness started lingering and radiated into his left jaw. He felt lightheaded with this but no shortness of breath, nausea or diaphoresis. Symptoms began at 9:30 and have been intermittent since. He says sometimes he has chest pains but he has never thought about them before because they last seconds. He has never had pain like today before. He denies hx of GERD and recent heavy lifting. He does not exercise currentlybut when he did he had no chest pains. He has no recent infections, cough, diarrhea, vomiting or urinary symptoms. He has been on a study drug for ankylosing spondylitis for 2 years but otherwise denies new meds. Past Medical History: Ankylosing spondylitis Past Surgical History: Past Surgical History Procedure Laterality Date ??? Appendectomy open ??? Heart ablation for wpw 1995 Social History: Social History Social History ??? Marital Status: Spouse Name: N/A ??? Number of Children: N/A ??? Years of Education: N/A Occupational History ??? Not on file. Social History Main Topics ??? Smoking status: Current Every Day Smoker -- 0.50 packs/day Types: Cigarettes ??? Smokeless tobacco: Not on file ??? Alcohol Use: Yes Comment: occasionally ??? Drug Use: No ??? Sexual Activity: Not on file Other Topics Concern ??? Not on file Social History Narrative Family History: Family History Problem Relation Age of Onset ??? Unknown/Adopted No family hx of unknown Allergies: No Known Allergies Medications: Prior to Admission medications Medication Sig Last Dose Taking? Auth Provider ibuprofen (ADVIL,MOTRIN) 800 MG tablet Take 800 mg by mouth every morning 04/30/2016 at am Yes Unknown, Entered By History APREMILAST PO Take 1 tablet by mouth 2 times daily Blinded study drug from [facility], Dr Karen aMthew 04/30/2016 at am Yes Unknown, Entered By History Review of Systems: A Comprehensive greater than 10 system review of systems was carried out. Pertinent positives and negatives are noted above. Otherwise negative for contributory information. Physical Exam: Blood pressure 141/87, temperature 96.6 ??F (35.9 ??C), temperature source Oral, resp. rate 16, RrK124 %. Exam: GENERAL: Comfortable. PSYCH: pleasant, oriented, No acute distress. HEENT: PERRLA. Normal conjunctiva, normal hearing, nasal mucosa and Oropharynx are normal. NECK: Supple, no neck vein distention, adenopathy or bruits, normal thyroid. HEART: Normal S1, S2 with no murmur, no pericardial rub, gallops or S3 or S4. LUNGS: Clear to auscultation, normal Respiratory effort. No wheezing, rales or ronchi. ABDOMEN: Soft, no hepatosplenomegaly, normal bowel sounds. Non-tender, non distended. EXTREMITIES: No pedal edema, +2 pulses bilateral and equal. SKIN: Dry to touch, No rash, wound or ulcerations. NEUROLOGIC: CN 2-12 intact, BL 5/5 symmetric upper and lower extremity strength, sensation is intactwith no focal deficits. Data: Recent Labs Lab 04/30/16 1156 WBC 7.8 HGB 14.3 HCT 42.5 MCV 87 PLT 243 Recent Labs Lab 04/30/16 1156 NA 136 POTASSIUM 3.7 CHLORIDE 105 CO2 24 ANIONGAP 7 GLC 93 BUN 17 CR 0.78 GFRESTIMATED >90Non GFR Calc GFRESTBLACK >90African Bahamian GFR Calc ARCHANA 9.0 Recent Labs Lab 04/30/16 1207 04/30/16 1156 TROPONIN 0.00 -- TROPI -- <0.015The 99th percentile for upper reference range is 0.045 ug/L. Troponin values in the range of 0.045 - 0.120 ug/L may be associated with risks of adverse clinical events. Recent Results (from the past 24 hour(s)) XR Chest 2 Views Narrative XR CHEST 2 VW 04/30/2016 12:26 PM HISTORY: Chest pain. COMPARISON: None. FINDINGS: No airspace consolidation, pleural effusion or pneumothorax. Normal heart size. Impression IMPRESSION: No acute cardiopulmonary abnormality. MD Juana WHALEN PA-C Associated attestation - Reece Mas MD - 05/02/2016 1:50 PM CDT Physician Attestation I, Reece Mas, have reviewed and discussed with the advanced practice provider their history, physical and plan for Felix Y Tomasevich. I did not participate in a shared visit by interviewing or examining the patient and this should be billed as an advanced practice provider only visit. Reece Mas Date of Service (when I saw the patient): I did not personally see this patient today. documented in this encounter ED Notes Deandra Heller RN - 05/01/2016 9:10 AM CDT Discharge instructions discussed and given to pt. Questions answered. Pt ready for discharge. OBSERVATION patient END time: 909 Deandra Heller RN - 05/01/2016 9:02 AM CDT Expand All Collapse All PRIMARY DIAGNOSIS: CHEST PAIN OUTPATIENT/OBSERVATION GOALS TO BE MET BEFORE DISCHARGE: 1. Negative Serial Troponin: Negative x 3 2. Resolution of chest pain: Yes, denies now 3. Pain status: denies chest pain 4. Negative stress test:Yes 5. Stable vital signs: yes 6. ADLs back to baseline? Yes 7. Activity and level of assistance: independent with cares 8. Barriers to discharge noted: stress test and troponin results 9.Interpretation of rhythm per occupational health technician: NSR, HR 79 Is patient a falls risk? No Falls armband on? No Within Arm's Reach? No Bed alarm turned on? NA Personal alarm in place and turned on? NA Vitals stable. Pt alert and oriented x4. Independent with cares. Denies chest pain/SOB/dizziness/numbness or tingling. Troponin negative x3. Stress test complete, see results. Plan for discharge this am. Will continue to monitor and provide supportive cares. Cammie Feldman RN - 05/01/2016 4:00 AM CDT Cammie Feldman, RN Registered Nurse Signed ED Notes 05/01/2016 12:00 AM Expand All Collapse All PRIMARY DIAGNOSIS: CHEST PAIN OUTPATIENT/OBSERVATION GOALS TO BE MET BEFORE DISCHARGE: 1. Negative Serial Troponin: Negative x 3 2. Resolution of chest pain: Yes, denies now 3. Pain status: denies chest pain ?? 4. Negative stress test: stress test scheduled in am 5. Stable vital signs: yes 6. ADLs back to baseline? Yes 7. Activity and level of assistance: independent with cares 8. Barriers to discharge noted: stress test and troponin results 9.Interpretation of rhythm per occupational health technician: NSR, HR 79 ? Is patient a falls risk? No Falls armband on? No Within Arm's Reach? No Bed alarm turned on? NA Personal alarm in place and turned on? NA Vitals stable. Pt alert and oriented x4. Independent with cares. Denies chest pain/SOB/dizziness/numbness or tingling. Troponin negative x1. Pt resting comfortably, ordering lunch. Plan for stress testin the am. Will continue to monitor and provide supportive cares. ?? Cammie Feldman RN - 05/01/2016 12:00 AM CDT PRIMARY DIAGNOSIS: CHEST PAIN OUTPATIENT/OBSERVATION GOALS TO BE MET BEFORE DISCHARGE: 1. Negative Serial Troponin: Negative x 3 2. Resolution of chest pain: Yes, denies now 3. Pain status: denies chest pain ?? 4. Negative stress test: stress test scheduled in am 5. Stable vital signs: yes 6. ADLs back to baseline? Yes 7. Activity and level of assistance: independent with cares 8. Barriers to discharge noted: stress test and troponin results 9.Interpretation of rhythm per occupational health technician: NSR, HR 79 ? Is patient a falls risk? No Falls armband on? No Within Arm's Reach? No Bed alarm turned on? NA Personal alarm in place and turned on? NA Vitals stable. Pt alert and oriented x4. Independent with cares. Denies chest pain/SOB/dizziness/numbness or tingling. Troponin negative x1. Pt resting comfortably, ordering lunch. Plan for stress testin the am. Will continue to monitor and provide supportive cares. Cammie Feldman RN - 04/30/2016 8:00 PM CDT PRIMARY DIAGNOSIS: CHEST PAIN OUTPATIENT/OBSERVATION GOALS TO BE MET BEFORE DISCHARGE: 1. Negative Serial Troponin: Negative x2 2. Resolution of chest pain: Yes, denies now 3. Pain status: denies chest pain ?? 4. Negative stress test: stress test scheduled for tomorrow 5. Stable vital signs: yes 6. ADLs back to baseline? Yes 7. Activity and level of assistance: independent with cares 8. Barriers to discharge noted: stress test and troponin results 9.Interpretation of rhythm per occupational health technician: NSR, HR 79 ? Is patient a falls risk? No Falls armband on? No Within Arm's Reach? No Bed alarm turned on? NA Personal alarm in place and turned on? NA Vitals stable. Pt alert and oriented x4. Independent with cares. Denies chest pain/SOB/dizziness/numbness or tingling. Troponin negative x1. Pt resting comfortably, ordering lunch. Plan for stress testin the am. Will continue to monitor and provide supportive cares. Deandra Heller RN - 04/30/2016 4:03 PM CDT PRIMARY DIAGNOSIS: CHEST PAIN OUTPATIENT/OBSERVATION GOALS TO BE MET BEFORE DISCHARGE: 1. Negative Serial Troponin: Negative x1 2. Resolution of chest pain: Yes, denies now 3. Pain status: denies chest pain 4. Negative stress test: stress test scheduled for tomorrow 5. Stable vital signs: yes 6. ADLs back to baseline? Yes 7. Activity and level of assistance: independent with cares 8. Barriers to discharge noted: stress test and troponin results 9.Interpretation of rhythm per occupational health technician: NSR, HR 79 Is patient a falls risk? No Falls armband on? No Within Arm's Reach? No Bed alarm turned on? NA Personal alarm in place and turned on? NA Vitals stable. Pt alert and oriented x4. Independent with cares. Denies chest pain/SOB/dizziness/numbness or tingling. Troponin negative x1. Pt resting comfortably, ordering lunch. Plan for stress testin the am. Will continue to monitor and provide supportive cares. Dayna Farah RN - 04/30/2016 3:25 PM CDT Bed: 0227-01 Expected date: 04/30/16 Expected time: Means of arrival: Comments: Ed admit Deandra Heller RN - 04/30/2016 3:25 PM CDT OBSERVATION patient IN TIME: 1525 ROOM # 227 Living Situation (if not independent, order SW consult): with family Facility name: NA Activity level at baseline: independent Activity level on admit: independent Is patient a falls risk? No Falls armband on? No Within Arm's Reach? No Bed alarm turned on? No Personal alarm in place and turned on? NA Patient registered to observation; given Patient Bill of Rights; given the opportunity to ask questions about observation status and their plan of care. Patient has been oriented to the observation room, bathroom, and call light is in place. personnel clerk: Yomaira Grewal RN - 04/30/2016 2:33 PM CDT Pt shown obs video and given handout Jaz Bhardwaj RN - 04/30/2016 12:34 PM CDT Patient with complete resolution of left sided chest pain that was 3/10 after nitro 0.4 mg x 1 dose.BP 125/70. Shawn Gordon MD - 04/30/2016 11:45 AM CDT History Chief Complaint: Chest Pain The history is provided by the patient. Felix Coppola is a 41 year old male who presents to the emergency department today for evaluation of left sided chest pain. 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 It started in his left elbow and upper arm but has now radiated to chest. He went to urgent care before the ED and was given 324 mg aspirin. In the ED he reports his pain is only about a 3/10 and down from a 7/10 before. However, he does have some lightheadedness but denies nausea or shortness of breath. Allergies: No Known Drug Allergies Medications: Robaxin Ultram Past Medical History: History reviewed. No pertinent past medical history. Past Surgical History: Appendectomy Heart ablation Family History: History reviewed. No pertinent family history. Social History: Smoking Status: current every day smoker Alcohol Use: positive, occasionally Marital Status: [2] Review of Systems Respiratory: Negative for shortness of breath. Cardiovascular: Positive for chest pain. Gastrointestinal: Negative for nausea. Neurological: Positive for light-headedness. All other systems reviewed and are negative. Physical Exam Vitals: Patient Vitals for the past 24 hrs: BP Temp Temp src Heart Rate Resp SpO2 04/30/16 1245 124/75 mmHg - - 76 16 96 % 04/30/16 1234 - - - 85 20 95 % 04/30/16 1233 125/70 mmHg - - - - 96 % 04/30/16 1230 143/76 mmHg - - - - - 04/30/16 1215 (!) 152/102 mmHg - - 79 - 94 % 04/30/16 1200 (!) 152/99 mmHg - - 86 - 96 % 04/30/16 1156 (!) 158/104 mmHg - - 88 - 98 % 04/30/16 1146 (!) 170/108 mmHg 98.1 ??F (36.7 ??C) Oral 88 16 98 % 04/30/16 1145 - - - - - 96 % Physical Exam Constitutional: Oriented to person, place, and time. Well appearing. HENT: Head: Normocephalic. Mouth/Throat: Oropharynx is clear and moist. Eyes: EOM are normal. Pupils are equal, round, and reactive to light. Neck: Neck supple. Cardiovascular: Normal rate, regular rhythm and normal heart sounds. Exam reveals no gallop and no friction rub. No murmur heard. Pulmonary/Chest: Effort normal and breath sounds normal. No respiratory distress. No wheezes. No rales. No reproducible chest wall pain. Abdominal: Soft. No distension. No tenderness. No rebound and no guarding. Musculoskeletal: Normal range of motion. 2+ distal equal pulses. No leg calf tenderness, swelling or edema. Neurological: Alert and oriented to person, place, and time. Moves all 4 extremities spontaneously Skin: No rash noted. No pallor. Emergency Department Course ECG: ECG taken at 1142, ECG read at 1143 Normal sinus rhythm Right bundle branch block Possible inferior infarct, age undetermined Abnormal ECG Rate 81 bpm. MI interval 140. QRS duration 140. QT/QTc 406/471. P-R-T axes 55 23 4. Imaging: Radiology findings were communicated with the patient who voiced understanding of the findings. Chest x-ray: IMPRESSION: No acute cardiopulmonary abnormality. Reading per radiology Laboratory: Laboratory findings were communicated with the patient who voiced understanding of the findings. Troponin (Collected 1207): 0.00 CBC: AWNL. (WBC 7.8, HGB 14.3, PLT 243) CMP: AWNL (Creatinine: 0.78) Interventions: 1228 Nitrostat 0.4 mg sublingual Emergency Department Course: Nursing notes and vitals reviewed. I performed an exam of the patient as documented above. IV was inserted and blood was drawn for laboratory testing, results above. The patient was sent for a chest x-ray while in the emergency department, results above. I discussed the treatment plan with the patient. They expressed understanding of this plan and consented to admission. I discussed the patient with PA , who will admit the patient to a monitored bed for further evaluation and treatment. I personally reviewed the laboratory results with the patient and answered all related questions prior to admission. Impression & Plan Medical Decision Making: The patient is a 41 year old male who presents to the ED with complaints of chest pain. Differentialincludes ACS, PE, pneumothorax, costochondritis and other causes . He is PERC negative therefore PE work up was not done. He did get relief after Nitroglycerin. He is known to by hypertensive here, andis a smoker with typical symptoms for potential ACS. Troponin is negative. I do believe he is a goodcandidate for observation for repeat troponin and consideration of stress testing. Patient will be admitted to observation. Diagnosis: ICD-10-CM 1. Chest pain, unspecified type R07.9 Disposition: Admit Scribe Disclosure: I, Humphrey Gutiérrez, am serving as a scribe at 11:46 AM on 04/30/2016 to document services personally performed by Shawn Gordon MD, based on my observations and the provider's statements to me. 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 Sharp pain in left chest that radiated to left jaw and left elbow also noticed some lightheadedness. No SOB or nausea. CP 11/18. Went to [facility], given ASA 324 mg at clinic. Hx WPW, had ablation done in 1995. ABC intact. A&O x4. documented in this encounter Miscellaneous Notes Pharmacy-Admission Medication History - Valerie Curtis RPH - 04/30/2016 2:05 PM CDT Admission medication history interview status for this patient is complete. See [facility] admission navigator for allergy information, prior to admission medications and immunization status. Medication history interview source(s):Patient Medication history resources (including written lists, pill bottles, clinic record):None Primary pharmacy:[facility] Changes made to [employer] medication list: Added: ibuprofen, apremilast Deleted: methocarbamol tid prn, tramadol 50mg qhs prn Changed: --- Actions taken by pharmacist (provider contacted, etc): Phone rheumatology clinic. pt on blinded study med through [facility], dr Karen Mathew is his MD. Clinic number [phone]. Spoke to Jl Cota RN, pt is on either apremilast 20 or 30mg po bid (blinded study). Indication :ankylosing spondylitis. Additional medication history information:None Medication reconciliation/reorder completed by provider prior to medication history? No Prior to Admission medications Medication Sig Last Dose Taking? Auth Provider ibuprofen (ADVIL,MOTRIN) 800 MG tablet Take 800 mg by mouth every morning 04/30/2016 at am Yes Unknown, Entered By History APREMILAST PO Take 1 tablet by mouth 2 times daily Blinded study drug from [facility], Dr Karen Mathew 04/30/2016 at am Yes Unknown, Entered By History documented in this encounter Plan of Treatment Not on filedocumented as of this encounter Procedures Procedure Name Priority Date/Time Associated Comments Diagnosis ECHO STRESS TEST Routine 05/01/2016 7:21 AM Resul ts for this CDT procedure are i n the results section. TROPONIN I Timed 04/30/2016 8:17 PM Chest pain, Results f or this CDT unspecified type procedure a re in the results section. TROPONIN I Timed 04/30/2016 4:25 PM Chest pain, Results f or this CDT unspecified type procedure a re in the results section. EKG 12-LEAD, TRACING Routine 04/30/2016 4:06 PM R esults for this ONLY CDT procedure are i n the results section. XR CHEST 2 VIEWS STAT 04/30/2016 12:26 Results for this PM CDT procedure are i n the results section. TROPONIN POCT Routine 04/30/2016 12:07 Results fo r this PM CDT procedure are i n the results section. CBC WITH PLATELETS & STAT 04/30/2016 11:56 Res ults for this DIFFERENTIAL AM CDT procedure are i n the results section. TROPONIN I STAT 04/30/2016 11:56 Results for this AM CDT procedure are i n the results section. COMPREHENSIVE STAT 04/30/2016 11:56 Results fo r this METABOLIC PANEL AM CDT procedure ar e in the results section. EKG 12-LEAD, TRACING STAT 04/30/2016 11:42 Res ults for this ONLY AM CDT procedure are i n the results section. documented in this encounter Results Exercise Stress Echocardiogram (05/01/2016 7:21 AM CDT) Anatomical Region Laterality Modality Echocardiography Specimen (Source) Anatomical Collection Method Collection Time Re ceived Time Location / / Volume Laterality 05/01/2016 7:05 AM CDT Narrative 05/01/2016 8:09 AM CDT Interpretation Summary [facility] Echocardiography Laboratory [address] [place] [id number] Name: FELIX COPPOLA : 1975 Study Date: 05/01/2016 07:05 AM Age: 41 yrs Gender: Male Patient Location: [facility] Reason For Study: Chest Pain Ordering Physician: JUANA TIDWELL Performed By: Obed Muniz RDCS BSA: 2.3 m2 Height: 74.5 in Weight: 230 lb HR: 85 BP: 110/72 mmHg Procedure Stress Echo Complete. Interpretation Summary The Austin treadmill score was low risk ( >5 Austin score). This was a normal stress echocardiogram with no evidence of stress-induced ischemia. Stress The patient exhibited no chest pain duri ng exercise. Exercise was stopped due to fatigue. There was a normal BP response to exerci se. The patient did not exhibit any symptoms during exercise. The Austin treadmill score was low risk ( >5 Austin score). Target Heart Rate was achieved. The EKG portion of this stress test was negative for inducible ischemia (see echo results below). A treadmill exercise test according to t he Donta protocol was performed. There were no ST segment changes observe d with stress. Normal resting wall motion and no stress -induced wall motion abnormality. The visual ejection fraction is estimate d at >70%. Left ventricular cavity size decreases w ith exercise. Global LV systolic function augments wit h exercise. Baseline The patient is in normal sinus rhythm. RBBB Normal resting blood pressure. No regional wall motion abnormalities no linda. The visual ejection fraction is estimate d at 55-60%. No hemodynamically significant valvular abnormalities on 2D or color flow imaging. Stress Results ?Protocol: ?? Donta ?Maximum Predicted HR: ??177 bpm ?Target HR: 150 bpm ?% Maximum Predicted HR: ??88 % ?+---------+-------- + +------+ + ?: ??Stage ??:[place] on:Heart Rate: ??BPCom ?ment ??: ?: ? :(mm: ss) : ??(bpm) ?? : ?: ?: ?+---------+-------- + +------+ + ?: Stage 1 : ??3:00 11 ? 1 ?:140/72: ?: ?+---------+-------- + +------+ + ?: Stage 2 : ??3:00 12 ? 2 ?:148/72: ?: ?+---------+-------- + +------+ + ?: Stage 3 : ??3:00 14 ? 6 ?:152/72: ?: ?+---------+-------- + +------+ + ?: Stage 4 : ??1:01 15 ? 5 ?: ??/ RPP ?? : 258[address]: ?+---------+-------- + +------+ + ?:Recovery : ??6:00 10 ? 6 ?:122/80: ?: ?+---------+-------- + +------+ + ? Stress Duration: ??10:01 mm:ss * ?Recovery Time: 6:00 mm:ss ?Maximum Stress HR: ?? 155 bpm * ME ?TS: ?11 Aortic Valve No aortic regurgitation is present. Report approved by: Eduardo Simmons 05/01 08:09 AM Procedure Note Antony Díaz MD - 05/01/2016Forma tting of this note might be different from the original. Interpretation Summary [facility] Echocardiography Laboratory [address] [facility] [place] [address] Name: FELIX COPPOLA : 1975 Study Date: 05/01/2016 07:05 AM Age: 41 yrs Gender: Male Patient Location: [facility] Reason For Study: Chest Pain Ordering Physician: JUANA TIDWELL Performed By: Obed Muniz RDCS BSA: 2.3 m2 Height: 74.5 in Weight: 230 lb HR: 85 BP: 110/72 mmHg Procedure Stress Echo Complete. Interpretation Summary The Austin treadmill score was low risk ( >5 Austin score). This was a normal stress echocardiogram with no evidence of stress-induced ischemia. Stress The patient exhibited no chest pain duri ng exercise. Exercise was stopped due to fatigue. There was a normal BP response to exerci se. The patient did not exhibit any symptoms during exercise. The Austin treadmill score was low risk ( >5 Austin score). Target Heart Rate was achieved. The EKG portion of this stress test was negative for inducible ischemia (see echo results below). A treadmill exercise test according to shandra jean Donta protocol was performed. There were no ST segment changes observe d with stress. Normal resting wall motion and no stress -induced wall motion abnormality. The visual ejection fraction is estimate d at >70%. Left ventricular cavity size decreases w ith exercise. Global LV systolic function augments wit h exercise. Baseline The patient is in normal sinus rhythm. RBBB Normal resting blood pressure. No regional wall motion abnormalities no linda. The visual ejection fraction is estimate d at 55-60%. No hemodynamically significant valvular abnormalities on 2D or color flow imaging. Stress Results Protocol: Donta Maximum Predicted HR: 1 77 bpm Target HR: 150 bpm % Maximum Predicted HR: 88 % +---------+--------+ +------+- ---------+ : Stage :Duration:Heart Rate: BPCom men t : : :(mm:ss) : (bpm) : : : +---------+--------+ +------+- ---------+ : Stage 1 : 3:00 11 1 :140/72: : +---------+--------+ +------+- ---------+ : Stage 2 : 3:00 12 2 :148/72: : +---------+--------+ +------+- ---------+ : Stage 3 : 3:00 14 6 :152/72: : +---------+--------+ +------+- ---------+ : Stage 4 : 1:01 15 5 : / [facility] : [address]: +---------+--------+ +------+- ---------+ :Recovery : 6:00 10 6 :122/80: : +---------+--------+ +------+- ---------+ Stress Duration: 10:01 mm:ss * Recovery Time: 6:00 mm:ss Maximum Stress HR: 155 bpm *ME TS: 11 Aortic Valve No aortic regurgitation is present. Report approved by: Eduardo Simmons 05/01 08:09 AM Juana Tidwell PA-C CV ECHO ORDERABLES Troponin I - Now then in 4 hours x 2 (04/30/2016 8:17 PM CDT) [facility] Method Time Signature Troponin I ES <0.015 0.000 - [facility] The 99th percentile for uppe r reference range is 0.045 ug/L. ??Troponin values in 0.045 [place] the range of 0.045 - 0.120 ug/L may be associated wit h risks of adverse ug/L HOSPITAL clinical events. Specimen Anatomical Collection Method Collection Time Receive d Time (Source) Location / / Volume Laterality Blood specimen 04/30/2016 8:17 PM 016 8:21 (specimen) CDT PM CDT Juana Tidwell PA-C LAB - BLOOD ORDERABLES Performing Organization Address City/State/ZIP Code Phon e Number [facility] [address], [place] [address] [facility] [address] [place], [place] [address], [facility] [phone] Troponin I - Now then in 4 hours x 2 (04/30/2016 4:25 PM CDT) [facility] Method Time Signature Troponin I ES <0.015 0.000 - [place] The 99th percentile for uppe r reference range is 0.045 ug/L. ??Troponin values in 0.045 [place] the range of 0.045 - 0.120 ug/L may be associated wit h risks of adverse ug/L HOSPITAL clinical events. Specimen Anatomical Collection Method Collection Time Receive d Time (Source) Location / / Volume Laterality Blood specimen 04/30/2016 4:25 PM 016 4:47 (specimen) CDT PM CDT Juana Tidwell PA-C LAB - BLOOD ORDERABLES Performing Organization Address City/[facility]/ZIP Code Phon e Number [facility] [address], [place] [address] [facility] [address] [place], [place] [address], [facility] [phone] EKG 12-lead, tracing only (04/30/2016 4:06 PM CDT) [facility] Method Time Signature Interpretation ECG Click View RADIOLOGY Image link RESULTS to view waveform and result Specimen (Source) Anatomical Collection Method Collection Time Re ceived Time Location / / Volume Laterality 04/30/2016 4:06 PM CDT Juana EMMANUEL-Carolyn ECG ORDERABLES Performing Organization Address City/[facility]/ZIP [facility] Phon e Number RADIOLOGY RESULTS XR Chest 2 Views (04/30/2016 12:26 PM CDT) Anatomical Region Laterality Modality Chest Computed Radiography Specimen (Source) Anatomical Location Collection Method / Collectio n Time Received Time / Laterality Volume Impressions 04/30/2016 12:39 PM CDT IMPRESSION: No acute cardiopulmonary abnormality. FLASH BURDEN MD Narrative 04/30/2016 12:39 PM CDT XR CHEST 2 VW 04/30/2016 12:26 PM HISTORY: Chest pain. COMPARISON: None. FINDINGS: No airspace consolidation, ple ural effusion or pneumothorax. Normal heart size. Procedure Note Flash Burden MD - 04/30/2016For matting of this note might be different from the original. XR CHEST 2 VW 04/30/2016 12:26 PM HISTORY: Chest pain. COMPARISON: None. FINDINGS: No airspace consolidation, ple ural effusion or pneumothorax. Normal heart size. IMPRESSION: No acute cardiopulmonary abn ormality. FLASH BURDEN MD Shawn Gordon MD IMG DIAGNOSTIC IMAGING ORDER LO Troponin POCT (04/30/2016 12:07 PM CDT) athologist Signature Troponin I 0.00 0.00 - 0.10 POINT OF CARE ug/L TEST, HANDHELD METER Specimen Anatomical Collection Method Collection Time Receive d Time (Source) Location / / Volume Laterality 04/30/2016 12:07 04/30/2016 PM CDT 12:19 PM CDT Shawn Gordon MD LAB - ENTER/EDIT POCT Performing Organization Address City/State/ZIP Code Phon e Number [facility] POINT OF CARE TEST, HANDHELD METER POINT OF CARE TEST, HANDHELD METER Comprehensive metabolic panel (04/30/2016 11:56 AM CDT) [facility] gist Method Time Signature Sodium 136 133 - 144 [place] mmol/L [facility] Potassium 3.7 3.4 - 5.3 [place] mmol/L [facility] Chloride 105 94 - 109 [place] mmol/L [facility] Carbon Dioxide 24 20 - 32 [place] mmol/L [facility] Anion Gap 7 3 - 14 [place] mmol/L [facility] Glucose 93 70 - 99 [place] mg/dL [facility] Urea Nitrogen 17 7 - 30 [place] mg/dL [facility] Creatinine 0.78 0.66 [facility].25 [facility] mg/dL HOSPITAL GFR Estimate >90 >60 [place] Non GFR Calc mL/min/1. [place] [address] [facility] GFR Estimate If >90 >60 [place] Black GFR Calc mL/min/1. [place] ES 7m2 [facility] Calcium 9.0 8.5 - [place] 10.1 [facility] mg/dL [facility] Bilirubin Total 0.6 0.2 - 1.3 [place] mg/dL [facility] Albumin 4.1 3.4 - 5.0 [place] g/dL [facility] Protein Total 7.4 6.8 - 8.8 [place] g/dL [facility] Alkaline 82 40 - 150 [place] Phosphatase U/L [facility] ALT 35 0 - 70 [place] U/L [facility] AST 19 0 - 45 [place] U/L [facility] Specimen Anatomical Collection Method Collection Time Receive d Time (Source) Location / / Volume Laterality Blood specimen 04/30/2016 11:56 6 (specimen) AM CDT 12:12 PM CDT Shawn Gordon MD LAB - BLOOD ORDERABLES Performing Organization Address [facility] e Number [facility] [address], [place] [address] [place] [address] [address] [place], [place] [address], [facility] [phone] Troponin I (04/30/2016 11:56 AM CDT) [facility] Method Time [facility] Troponin I ES <0.015 0.000 - [place] The 99th percentile for uppe r reference range is 0.045 ug/L. ??Troponin values in 0.045 [facility] the range of 0.045 - 0.120 ug/L may be associated wit h risks of adverse ug/L HOSPITAL clinical events. Specimen Anatomical Collection Method Collection Time Receive d Time (Source) Location / / Volume Laterality Blood specimen 04/30/2016 11:56 6 (specimen) AM CDT 12:12 PM CDT Shawn Gordon MD LAB - BLOOD ORDERABLES Performing Organization Address [facility] e Number [facility] [address], [place] [address] [place] [address] [address] [place], [place] [address], [facility] [phone] CBC with platelets differential (04/30/2016 11:56 AM CDT) [facility] gist Method Time Signature WBC 7.8 4.0 - [place] 11.0 [facility] RBC Count 4.87 4.4 - 5.9 [place] 10e12/L [facility] Hemoglobin 14.3 13.3 - [place] 17.7 g/dL [facility] Hematocrit 42.5 40.0 - [place] 53.0 % [facility] MCV 87 78 - 100 [place] fl [facility] MCH 29.4 26.5 - [place] 33.0 pg [facility] MCHC 33.6 31.5 - [place] 36.5 g/dL [facility] RDW 11.6 10.0 - [place] 15.0 % [facility] Platelet Count 243 150 - [address] Diff Method Automated [facility] % Neutrophils 57.6 % [facility] % Lymphocytes 30.8 % [facility] % Monocytes 8.1 % [facility] % Eosinophils 2.6 % [facility] % Basophils 0.5 % [facility] % Immature 0.4 % [place] Granulocytes [facility] Nucleated RBCs 0 0 /100 [facility] Absolute 4.5 1.6 - 8.3 [place] Neutrophil [facility] Absolute 2.4 0.8 - 5.[address] [place] Lymphocytes [address] [place] [address] Absolute 0.6 0.0 - 1.[address] [place] Monocytes [address] [place] [address] Absolute 0.2 0.0 - 0.7 [place] Eosinophils [address] [place] [address] Absolute 0.0 0.0 - 0.2 [place] Basophils [address] [place] [address] Abs Immature 0.0 0 - 0.4 [place] Granulocytes [address] [place] [address] Absolute 0.0 [place] Nucleated RBC [facility] Specimen Anatomical Collection Method Collection Time Receive d Time (Source) Location / / Volume Laterality Blood specimen 04/30/2016 11:56 6 (specimen) AM CDT 12:12 PM CDT Shawn Gordon MD LAB - BLOOD ORDERABLES Performing Organization Address City/State/ZIP Code Phon e Number [facility] [address] [place] [address] [facility] [address] [place] [id number] [facility] [phone] EKG 12 lead (04/30/2016 11:42 AM CDT) [facility] gist Method Time Signature Interpretation ECG Click View RADIOLOGY Image link RESULTS to view waveform and result Specimen (Source) Anatomical Collection Method Collection Time Re ceived Time Location / / Volume Laterality 04/30/2016 11:42 AM CDT Shawn Gordon MD ECG ORDERABLES Performing Organization Address City/State/ZIP Code Phon e Number RADIOLOGY RESULTS documented in this encounter Visit Diagnoses Diagnosis Chest pain, unspecified type documented in this encounter Administered Medications Inactive Administered Medications - up to 3 most recent administrations Medication Order MAR Action Action Date Dose Rate Site nitroglycerin (NITROSTAT) SL Given 04/30/2016 12:28 PM CDT 0.4 m g tablet 0.4 mg 0.4 mg, Sublingual, EVERY 5 MIN PRN, chest pain, Maximum 3 doses in 15 minutes, if needed., Starting on Fri04/30/16 at 1159, Notify provider if no relief after 3 doses. Hold for Systolic Blood Pressure less than 90 mmHg (Hold nitroglycerin if sildenafil (VIAGRA/REVATIO) or avanafil (STENDRA) has been taken within 8 hours; vardenafil (LEVITRA/STAXYN)has been taken within 18 hours;tadalafil (CIALIS/ADCIRCA) has been taken within 36 hours). sodium chloride (PF) 0.9% PF flush 3 mL Given 04/30/2016 6:10 PM CDT 3 mLs 3 mL, Intracatheter, EVERY 8 HOURS, First dose on Fri04/30/16 at 1559, And Q1H PRN, to lock peripheral IV dormant line. documented in this encounter Active and Recently Administered Medications Times are shown in CDT. Scheduled Medication Order 04/29/2016 04/30/2016 05/01/2016 sodium chloride (PF) 0.9% PF flush 3 mL (CANCELED) 1810 (Given - Provider: Deandra Heller, FRANCIS) 0365 (Not Given - Provider: Cammie pacheco RN - Reason: Patient sleeping)0857 (Not Given - Provider: Deandra Heller RN - Reason: Loss of IV access) 3 mL, Intracatheter, EVERY 8 HOURS, Firs t dose on Fri04/30/16 at 1559, And Q1H PRN, to lock peripheral IV dormant line. PRN Medication Order 04/29/2016 04/30/2016 05/01/2016 nitroglycerin (NITROSTAT) SL tablet 0.4 mg (CANCELED) 1228 (Given - Provider: Jaz Bhardwaj RN - Comment: 10/18, BP 152/102) 0.4 mg, Sublingual, EVERY 5 MIN PRN, siri st pain, Maximum 3 doses in 15 minutes, if needed., Starting Fri04/30/16 at 1159, Notify provider if no relief after 3 doses. Hold for Systolic Blood Pressure les s than 90 mmHg (Hold nitroglycerin if si ldenafil (VIAGRA/REVATIO) or avanafil (STENDRA) has been taken within 8 hours; vardenafil (LEVITRA/STAXYN)has been taken within 18 hours;tadalafil (CIALIS/ADCIRCA) has been taken within 36 hours). documented in this encounter Care Teams Pipe Fitter Marine Relationship Specialty Start Date End Date Bharat Yañez PCP - General Family Practice 04/30/16 09/02/19 documented as of this encounter
--- OUTSIDE RECORDS SUMMARY | 2022-06-12 15:44 | XMS_ITS | Encounter Summary ---
:1975 Author Organization [facility] Address [address] [place] [address] Care Team Providers Name Role Phone Bharat Yañez Primary Care Provider Encounter Details Date Type Department Care Team Description 03/09/2018 Orders Only [facility] Karen Shrestha Polyarticular psoriatic arthritis (H) (P rimary Dx); [facility] Vitamin D deficiency; [address] [facility] RHEUMATOLOGY Encounter for long-term (current) use of medications [place] [id number] [address] [facility] [phone] [place], [place] [id number] Social History Tobacco Use Types Packs/Day Years [...] deficiency Encounter for long-term (current) use of medications Encounter for long-term (current) use of other medications documented in this encounter Care Teams Mill Crane Operator Relationship Specialty Start Date End Date Bharat Yañez PCP - General Family Practice 04/30/16 09/02/19 documented as of this encounter
--- OUTSIDE RECORDS SUMMARY | 2022-06-12 15:44 | XMS_ITS | Encounter Summary ---
:1975 Author Organization [facility] Address [address] [place] [address] Care Team Providers Name Role Phone Bharat Yañez Primary Care Provider Encounter Details Date Type Department Care Team Description 06/02/2018 [facility] Avitaminosis D; [address] RHEUMATOLOGY Lipid disorder; [place], [place] [address] [place] Encounter for long-term (current) use of medications [id number] [address] [place] [id number] Social History Tobacco Use Types Packs/Day Years Used Date Smoking Tobacco: Every Day Cigarettes 0.5 Alcohol Use Standard Drinks/Week Comments Yes 0 (1 standard drink = 0.6 oz pure alcoho l) occasionally Sex Assigned at Date Recorded Not on file documented as of this encounter Plan of Treatment Not on filedocumented as of this encounter Results ESR: Erythrocyte sedimentation rate (08/14/2018 8:10 AM TRADE SHOW MANAGER) athologist Signature Sed Rate 8 0 - 15 mm/h 08/14/2018 [facility] 10:03 AM TRADE SHOW MANAGER HOSPITAL Specimen Anatomical Collection Method Collection Time Receive d Time (Source) Location / / Volume Laterality Blood specimen 08/14/2018 8:10 AM 019 8:18 (specimen) TRADE SHOW MANAGER AM TRADE SHOW MANAGER Karen Shrestha LAB - BLOOD ORDERABLES Performing Organization Address City/State/[facility] Phon e Number Clara [facility] [address], [place] [address] [place] [address] [address] [place], [place] [address], [facility] [phone] Creatinine (08/14/2018 8:10 AM TRADE SHOW MANAGER) athologist Signature Creatinine 0.81 0.66 - 1.25 08/14/2018 [place] mg/dL 8:37 AM [facility] GFR Estimate >90 >60 08/14/2018 [place] mL/min/{1.7 8:37 AM [facility] 3_m2} [facility] Comment: Non GFR Calc Starting 07/28/2018, serum creatinine ba sed estimated GFR (eGFR) will be calculated using the Chronic Kidney Dise [facility] Epidemiology Collaboration (CKD-EPI) equation. GFR Estimate If >90 >60 mL/min/{1.73_m2} 08/14/2018 8: [address] [facility] Comment: GFR Calc Starting 07/28/2018, serum creatinine ba sed estimated GFR (eGFR) will be calculated using the Chronic Kidney Dise [facility] Epidemiology Collaboration (CKD-EPI) equation. Specimen Anatomical Collection Method Collection Time Receive d Time (Source) Location / / Volume Laterality Blood specimen 08/14/2018 8:10 AM 019 8:18 (specimen) TRADE SHOW MANAGER AM TRADE SHOW MANAGER Karentrent Shrestha LAB - BLOOD ORDERABLES Performing Organization Address City/[facility]/ZIP [facility] Phon e Dawson Elizabeth [facility] [address], [place] [address] [place] [address] [address] [place], [place] [address], [facility] [phone] Hemoglobin (08/14/2018 8:10 AM TRADE SHOW MANAGER) athologist Signature Hemoglobin 15.8 13.3 - 17.7 08/14/2018 [facility] g/dL 8:22 AM [facility] Specimen Anatomical Collection Method Collection Time Receive d Time (Source) Location / / Volume Laterality Blood specimen 08/14/2018 8:10 AM 019 8:18 (specimen) TRADE SHOW MANAGER AM TRADE SHOW MANAGER Karen Shrestha LAB - BLOOD ORDERABLES Performing Organization Address City/[facility]/ZIP Code Phon e Number M [facility] [address], [place] [address] [facility] [address] [place], [place] [address] [phone] (ABNORMAL) Lipid Profile (Chol, Trig, HDL, LDL calc) (08/14/2018 8:10 AM TRADE SHOW MANAGER) athologist Signature Cholesterol 248 (H) <200 mg/dL 08/14/2018 [place] 8:37 AM [facility] Comment: Desirable: <200 mg/dl Triglycerides 286 (H) <150 mg/dL 08/14/2018 8:37 AM [facility] Comment: Borderline high: ??150-199 mg/dl High: ? 200-499 mg/dl Very high: ? >499 mg/dl HDL Cholesterol 64 >39 mg/dL 08/14/2018 8:38 AM [facility] LDL Cholesterol 127 (H) <100 mg/dL 08/14/2018 8:38 AM [facility] Comment: Above desirable: ??100-129 mg/dl Borderline High: ??130-159 mg/dL High: ? 160-189 mg/dL Very high: ? >189 mg/dl Non HDL Cholesterol 184 (H) <130 mg/dL 08/14/2018 8:38 AM [facility] Comment: Above Desirable: ??130-159 mg/dl Borderline high: ??160-189 mg/dl High: ? 190-219 mg/dl Very high: ? >219 mg/dl Specimen Anatomical Collection Method Collection Time Receive d Time (Source) Location / / Volume Laterality Blood specimen 08/14/2018 8:10 AM 019 8:18 (specimen) TRADE SHOW MANAGER AM TRADE SHOW MANAGER Karen Calvertta LAB - BLOOD ORDERABLES Performing Organization Address City/[facility]/ZIP Code Phon e Number M [facility] [address], [place] [address] [place] [address] [address] [place], [place] [address], [facility] [phone] CRP, inflammation (08/14/2018 8:10 AM TRADE SHOW MANAGER) P athologist Signature CRP Inflammation <2.9 0.0 - 8.0 08/14/2018 [place] mg/L 8:37 AM [facility] Specimen Anatomical Collection Method Collection Time Receive d Time (Source) Location / / Volume Laterality Blood specimen 08/14/2018 8:10 AM 019 8:18 (specimen) TRADE SHOW MANAGER AM TRADE SHOW MANAGER Karen Shrestha LAB - BLOOD ORDERABLES Performing Organization Address City/State/ZIP Code Phon e Number Clara [facility] [address], [place] [address] [place] [address] [address] [place], [place] [address], [facility] [phone] documented in this encounter Visit Diagnoses Diagnosis Psoriasis - Primary Other psoriasis Avitaminosis D Unspecified vitamin D deficiency Lipid disorder Unspecified disorder of lipoid metabolis m Encounter for long-term (current) use of medications Encounter for long-term (current) use of other medications documented in this encounter Care Teams Clinical Biochemical Geneticist Relationship Specialty Start Date End Date Bharat Yañez PCP - General Family Practice 04/30/16 09/02/19 documented as of this encounter
--- OUTSIDE RECORDS SUMMARY | 2022-06-12 15:44 | XMS_ITS | Encounter Summary ---
:1975 Author Organization [facility] Address [address] [place] [address]. [place] [address] Care Team Providers Name Role Phone Unavailable Primary Care Provider Unavailable Reason for Referral Referral not Required - Closed Specialty Diagnoses / Procedures Referred By Contact Refer red To Contact Diagnoses Lumbar disc herniation Jacqueline Xiong [facility] [address] [address] [address] [place] [address] [address] [place] [address] Phone: Referral ID Status Reason Start Date Expiration Date Visits Requ ested Visits Authorized [id number] Closed 06/28/2010 06/28/2010 1 1 DECK TENDER Reason for Visit Reason Comments Physical Blood Draw Labs. Patient is fasting. Encounter Details Date Type Department Care Team Description [facility]/28[facility] Routine general medical examination at a health care facility (Primary Dx); Clinic Jamie Hinojosa MD Fatigue; [place] [address] [address], [address] [place] [address] [place], [place] [phone] (Wo rk) [address] [phone] Social History Tobacco Use Types Packs/Day Years Used Date Smoking Tobacco: Every Day Cigarettes 0.5 Alcohol Use Standard Drinks/Week Comments Yes 0 (1 standard drink = 0.6 oz pure alcoho l) occasionally Sex Assigned at Date Recorded Not on file documented as of this encounter Last Filed Vital Signs Vital Sign Reading Time Taken Comments Blood Pressure 122/86 06/28/2010 8:13 AM LOG DECK TENDER Pulse 82 06/28/2010 8:13 AM LOG DECK TENDER Temperature 36.5 ??C (97.7 ??F) 06/28/2010 8:13 AM LOG DECK TENDER Respiratory Rate 16 06/28/2010 8:13 AM LOG DECK TENDER Oxygen Saturation 96% 06/28/2010 8:13 AM LOG DECK TENDER Inhaled Oxygen Concentration - - Weight 104.7 kg (230 lb 12.8 oz) 06/28/2010 8:13 AM LOG DECK TENDER Height 188.6 cm (6' 2.25) 06/28/2010 8:13 AM LOG DECK TENDER Body Mass Index 29.43 06/28/2010 8:13 AM LOG DECK TENDER documented in this encounter Progress Notes Jacqueline Xiong - 06/28/2010 8:11 AM CST CC: Felix Coppola is an 35 year old male who presents for preventative health visit. Besides routine health maintenance, he would like to discuss Lower/Upper back pain x1-2 years. Hx ofherniated disc-lower back. Healthy Habits: Do you get at least three servings of dairy daily (milk, cheese, yogurt, etc.)? yes and no, taking calcium and/or vitamin D supplement: no Outside of work or daily activities, how many days per week do you exercise for 30 minutes or longer? 2-3 Have you had an eye exam in the past two years? no Do you see a dentist twice per year? yes Staff Signature Ora Camargo CMA PHQ-2 Over the last two weeks- Have you been bothered by little interest or pleasure in doing things? No Over the last two weeks- Have you been feeling down, depressed, or hopeless? No Abuse: Current or Past(Physical, Sexual or Emotional)- NO Do you feel safe in your environment - YES History Substance Use Topics ??? Tobacco Use: Not on file ??? Alcohol Use: Not on file The patient does not drink >3 drinks per day nor >7 drinks per week. Reviewed orders with patient. Reviewed health maintenance and updated orders accordingly - No Staff Signature Ora Camargo CMA All Histories reviewed and updated in [facility]. ROS: C: NEGATIVE for fever, chills, change in weight I: NEGATIVE for worrisome rashes, moles or lesions E: NEGATIVE for vision changes or irritation ENT: NEGATIVE for ear, mouth and throat problems R: NEGATIVE for significant cough or SOB CV: NEGATIVE for chest pain, palpitations or peripheral edema GI: NEGATIVE for nausea, abdominal pain, heartburn, or change in bowel habits male: negative for dysuria, hematuria, decreased urinary stream, erectile dysfunction, urethral discharge M: NEGATIVE for significant arthralgias or myalgia N: NEGATIVE for weakness, dizziness or paresthesias P: NEGATIVE for changes in mood or affect OBJECTIVE: There were no vitals taken for this visit. GENERAL APPEARANCE: healthy, alert and no distress EYES: Eyes grossly normal to inspection, PERRL and conjunctivae and sclerae normal HENT: ear canals and TM's normal, nose and mouth without ulcers or lesions, oropharynx clear and oral mucous membranes moist NECK: no adenopathy, no asymmetry, masses, or scars and thyroid normal to palpation RESP: lungs clear to auscultation - no rales, rhonchi or wheezes CV: regular rates and rhythm, normal S1 S2, no S3 or S4, no murmur, click or rub, no peripheral edema and peripheral pulses strong ABDOMEN: soft, nontender, no hepatosplenomegaly, no masses and bowel sounds normal MS: no musculoskeletal defects are noted and gait is age appropriate without ataxia SKIN: no suspicious lesions or rashes NEURO: Normal strength and tone, sensory exam grossly normal, mentation intact and speech normal PSYCH: mentation appears normal and affect normal/bright Counseling: regular exercise weight management self testicular exam ATP III Guidelines ICSI Preventive Guidelines ASSESSMENT/PLAN: 1. Routine general medical examination at a health care facility (V70.0) Lipid panel reflex to direct LDL 2. Fatigue (780.79B) TSH with free T4 reflex, CBC with platelets, Basic metabolic panel 3. Lumbar disc herniation (722.10AT) ORTHO WOOD LAST MAKER REFERRAL, methocarbamol (ROBAXIN) 750 MG tablet, tramadol (ULTRAM) 50 MG tablet Jacqueline Xiong Family Medicine, DECK TENDER documented in this encounter Nursing Notes 06/28/2010 8:15 AM CST >> ORA CAMARGO [facility] Jun 28, 2010 8:19 AM Patient presents with: Physical Blood Draw - Labs. Patient is fasting. Initial BP 122/86 Pulse 82 Temp(Src) 97.7 ??F (36.5 ??C) (Oral) Resp 16 Ht 6' 2.25 (1.886 m) Wt 230 lb 12.8 oz (104.69 kg) SpO2 96% Estimated Body mass index is 29.43 kg/(m^2) as calculated from the following: Height as of this encounter: 6' 2.25(1.886 m). Weight as of this encounter: 230 lb 12.8 oz(104.69 kg). BP completed using cuff size large right arm. Ora Camargo CMA documented in this encounter Plan of Treatment Pending Results Name Type Priority Associated Diagnoses Date/Ti me ORTHO WOOD LAST MAKER REFERRAL Referral Routine Lumbar disc mik iation 07/04/2010 documented as of this encounter Procedures Procedure Name Priority Date/Time Associated Diagnosis Comme nts TSH WITH FREE T4 Routine 06/28/2010 8:57 AM [place] Resul ts for this REFLEX LOG DECK TENDER procedure are i n the results section. LIPID REFLEX TO Routine 06/28/2010 8:57 AM Routine general Res ults for this DIRECT LDL PANEL LOG DECK TENDER medical examination proc edure are in at a [facility] the results facility section. BASIC METABOLIC Routine 06/28/2010 8:57 AM [place] Result s for this PANEL LOG DECK TENDER procedure are i n the results section. CBC WITH PLATELETS Routine 06/28/2010 8:57 AM [place] Res ults for this LOG DECK TENDER procedure are i n the results section. documented in this encounter Results Basic metabolic panel (06/28/2010 8:57 AM LOG DECK TENDER) athologist Signature Sodium 142 133 - 144 [place] [facility] mmol/L [facility] Potassium 4.5 3.4 - 5.3 [place] [facility] mmol/L [facility] Chloride 107 94 - 109 [place] [facility] mmol/L [facility] Carbon Dioxide 24 20 - 32 [facility] mmol/L [facility] Anion Gap 12 6 - 17 [facility] mmol/L [facility] Glucose 93 60 - 99 [place] [facility] mg/dL [facility] Urea Nitrogen 12 5 - 24 [place] [facility] mg/dL [facility] Creatinine 0.74 0.66 - [facility] 1.25 mg/dL CLINIC LAB Comment: New IDMS-traceable calibration beginning 12/10/07 GFR Estimate >90 >60 mL/min/1.7m2 [facility] GFR Estimate If Black >90 >60 mL/min/1.7m2 [facility] Calcium 9.0 8.5 - 10.4 mg/dL [place] [facility] Specimen Anatomical Collection Method Collection Time Receive d Time (Source) Location / / Volume Laterality Blood specimen 06/28/2010 8:57 AM 010 8:59 (specimen) LOG DECK TENDER AM LOG DECK TENDER Jacqueline Xiong MD LAB - BLOOD ORDERABLES Performing Organization Address City/[facility]/ZIP Code Phon e Number [facility] [address] [place] [address] [facility] CBC with platelets (06/28/2010 8:57 AM LOG DECK TENDER) P athologist Signature WBC 8.8 4.0 - 11.0 [place] 10e9/L [facility] RBC Count 5.03 4.4 - 5.9 [place] 10e12/L [facility] Hemoglobin 14.8 13.3 - [facility] 17.7 g/dL [facility] Hematocrit 43.7 40.0 - [place] 53.0 % [facility] MCV 87 78 - 100 [facility] MCH 29.4 26.5 - [facility] 33.0 pg [facility] MCHC 33.9 31.5 - [place] 36.5 g/dL [facility] RDW 11.8 10.0 - [place] 15.0 % [facility] Platelet Count 294 150 - 450 [place] 10e9/L [facility] Specimen Anatomical Collection Method Collection Time Receive d Time (Source) Location / / Volume Laterality Blood specimen 06/28/2010 8:57 AM 010 8:59 (specimen) LOG DECK TENDER AM LOG DECK TENDER Jacqueline Xiong MD LAB - BLOOD ORDERABLES Performing Organization Address City/State/ZIP Code Phon e Number [facility] [place] [address] [facility] TSH with free T4 reflex (06/28/2010 8:57 AM LOG DECK TENDER) athologist Signature TSH 0.78 0.4 - 5.0 [facility] mU/L [facility] Specimen Anatomical Collection Method Collection Time Receive d Time (Source) Location / / Volume Laterality Blood specimen 06/28/2010 8:57 AM 010 8:59 (specimen) LOG DECK TENDER AM LOG DECK TENDER Jacqueline Xiong MD LAB - BLOOD ORDERABLES Performing Organization Address City/[facility]/ZIP Code Phon e Number [facility] [address] [place] [address] [facility] LAB (ABNORMAL) Lipid panel reflex to direct LDL (06/28/2010 8:57 AM LOG DECK TENDER) athologist Signature Cholesterol 221 (H) 0 - 200 [facility] mg/dL CLINIC LAB Comment: LDL Cholesterol is the primary guide to therapy. The NCEP recommends further evaluation of: patients with cholesterol <200 mg/dL if additional risk factors are present, cholesterol >240 mg/dL, triglycerides >150 mg/dL, or HDL <40 mg/dL. Triglycerides 109 0 - 150 mg/dL [facility] HDL Cholesterol 54 40 - 110 mg/dL [facility] LDL Cholesterol Calculated 146 (H) 0 - 129 mg/dL [facility] Comment: LDL Cholesterol is the primary guide to therapy: LDL-cholesterol goal in high risk patients is <100 mg/dL and in very high risk patients is <70 mg/dL. VLDL-Cholesterol 22 0 - 30 mg/dL [facility] Cholesterol/HDL Ratio 4.1 0.0 - 5.0 [facility] Specimen Anatomical Collection Method Collection Time Receive d Time (Source) Location / / Volume Laterality Blood specimen 06/28/2010 8:57 AM 010 8:59 (specimen) LOG DECK TENDER AM LOG DECK TENDER Jacqueline Xiong MD LAB - BLOOD ORDERABLES Performing Organization Address City/State/ZIP Code Phon e Number [facility] [address] [place] [address] [facility] documented in this encounter Visit Diagnoses Diagnosis Routine general medical examination at a health care facility - Primary Fatigue Other malaise and fatigue Lumbar disc herniation Displacement of lumbar intervertebral di sc without myelopathy documented in this encounter
--- OUTSIDE RECORDS SUMMARY | 2022-06-12 15:44 | XMS_ITS | Encounter Summary ---
:1975 Author Organization [facility] Address [address] [place] [address] Care Team Providers Name Role Phone Bharat Yañez Primary Care Provider Encounter Details Date Type Department Care Team Description 08/14/2018 [facility] G Psoriasis; [address] [facility] Avitaminosis D; [place], [place] RHEUMATOLOGY Lipid disorder; [phone] Encounter for long-term (cur rent) use of medications; [phone] [address] Vitamin D deficiency [address] [address] Social History Tobacco Use Types Packs/Day Years [...] 0 times daily Blinded study drug from [facility], Dr Karen Mathew ibuprofen Take 800 mg by mouth 0 (ADVIL,MOTRIN) 800 MG every morning tablet documented as of this encounter Plan of Treatment Not on filedocumented as of this encounter Procedures Procedure Name Priority Date/Time Associated Comments Diagnosis VITAMIN D DEFICIENCY Routine 08/14/2018 8:10 AM Psoriasis R esults for this SCREENING FITTER TYPE BAR AND SEGMENT procedure are i n the results section. LIPID PROFILE Routine 08/14/2018 8:10 AM Psoriasis Results for this FITTER TYPE BAR AND SEGMENT Avitaminosis D procedure are in Lipid disorder the results Encounter for section. long-term (current) use of medications HEMOGLOBIN Routine 08/14/2018 8:10 AM Psoriasis Results for this FITTER TYPE BAR AND SEGMENT Avitaminosis D procedure are in Lipid disorder the results Encounter for section. long-term (current) use of medications ERYTHROCYTE Routine 08/14/2018 8:10 AM Psoriasis Results for this SEDIMENTATION RATE FITTER TYPE BAR AND SEGMENT Avitaminosis D procedure are in AUTO Lipid disorder the results Encounter for section. long-term (current) use of medications CRP INFLAMMATION Routine 08/14/2018 8:10 AM Psoriasis Results for this FITTER TYPE BAR AND SEGMENT Avitaminosis D procedure are in Lipid disorder the results Encounter for section. long-term (current) use of medications CREATININE Routine 08/14/2018 8:10 AM Psoriasis Results for this FITTER TYPE BAR AND SEGMENT Avitaminosis D procedure are in Lipid disorder the results Encounter for section. long-term (current) use of medications documented in this encounter Results (ABNORMAL) Vitamin D Deficiency (08/14/2018 8:10 AM FITTER TYPE BAR AND SEGMENT) athologist Signature Vitamin D 77 (H) 20 - 75 08/14/2018 [facility] ug/L 1:58 PM [facility] Comment: Season, race, dietary intake, and treatm ent affect the concentration of 11-ljetwjq-Sjqcgzs D. Values may decreas e during winter [...] Time (Source) Location / / Volume Laterality 08/14/2018 8:10 AM 9 8:18 FITTER TYPE BAR AND SEGMENT AM FITTER TYPE BAR AND SEGMENT Karen Shrestha LAB - BLOOD ORDERABLES Performing Organization Address City/State/ZIP Code Phon e Number [facility] [address] [place], [place] [id number] [place] [address] CRP, inflammation (08/14/2018 8:10 AM FITTER TYPE BAR AND SEGMENT) athologist Signature CRP Inflammation <2.9 0.0 - 8.0 08/14/2018 YANDEL mg/L 8:37 AM [facility] Specimen Anatomical Collection Method Collection Time Receive d Time (Source) Location / / Volume Laterality Blood specimen 08/14/2018 8:10 AM 019 8:18 (specimen) FITTER TYPE BAR AND SEGMENT AM FITTER TYPE BAR AND SEGMENT Karen Shrestha LAB - BLOOD ORDERABLES Performing Organization Address City/State/ZIP Code Phon e Number [facility] [address] [address] [facility] [address] [phone] (ABNORMAL) Lipid Profile (Chol, Trig, HDL, LDL calc) (08/14/2018 8:10 AM FITTER TYPE BAR AND SEGMENT) athologist Signature Cholesterol 248 (H) <200 mg/dL 08/14/2018 YANDEL 8:37 AM [facility] Comment: Desirable: <200 mg/dl Triglycerides 286 (H) <150 mg/dL 08/14/2018 8:37 AM [facility] Comment: Borderline high: ??150-199 mg/dl High: ? 200-499 mg/dl Very high: ? >499 mg/dl HDL Cholesterol 64 >39 mg/dL 08/14/2018 8:38 AM [facility] LDL Cholesterol 127 (H) <100 mg/dL 08/14/2018 8:[address] [facility] Comment: Above desirable: ??100-129 mg/dl Borderline High: ??130-159 mg/dL High: ? 160-189 mg/dL Very high: ? >189 mg/dl Non HDL Cholesterol 184 (H) <130 mg/dL 08/14/2018 8:38 AM [facility] Comment: Above Desirable: ??130-159 mg/dl Borderline high: ??160-189 mg/dl High: ? 190-219 mg/dl Very high: ? >219 mg/dl Specimen Anatomical Collection Method Collection Time Receive d Time (Source) Location / / Volume Laterality Blood specimen 08/14/2018 8:10 AM 019 8:18 (specimen) FITTER TYPE BAR AND SEGMENT AM FITTER TYPE BAR AND SEGMENT Karen Shrestha LAB - BLOOD ORDERABLES Performing Organization Address City/[facility]/ZIP [facility] Phon e Number [facility] [address], [place] [address] [facility] [address] [place], [place] [address], [facility] [phone] Hemoglobin (08/14/2018 8:10 AM FITTER TYPE BAR AND SEGMENT) athologist Signature Hemoglobin 15.8 13.3 - 17.7 08/14/2018 [facility] g/dL 8:22 AM [facility] Specimen Anatomical Collection Method Collection Time Receive d Time (Source) Location / / Volume Laterality Blood specimen 08/14/2018 8:10 AM 019 8:18 (specimen) FITTER TYPE BAR AND SEGMENT AM FITTER TYPE BAR AND SEGMENT Karen Shrestha LAB - BLOOD ORDERABLES Performing Organization Address City/[facility] Phon e Number [facility] [address], [place] [address] [facility] [address] [place], [place] [address], [facility] [phone] Creatinine (08/14/2018 8:10 AM FITTER TYPE BAR AND SEGMENT) athologist Signature Creatinine 0.81 0.66 - 1.25 08/14/2018 [place] mg/dL 8:37 AM [facility] GFR Estimate >90 >60 08/14/2018 [place] mL/min/{1.7 8:37 AM [facility] 3_m2} HOSPITAL Comment: Non GFR Calc Starting 07/28/2018, serum creatinine ba sed estimated GFR (eGFR) will be calculated using the Chronic Kidney Dise ase Epidemiology Collaboration (CKD-EPI) equation. GFR Estimate If >90 >60 mL/min/{1.73_m2} 08/14/2018 8: 37 AM [facility] Comment: GFR Calc Starting 07/28/2018, serum creatinine ba sed estimated GFR (eGFR) will be calculated using the Chronic Kidney Dise ase Epidemiology Collaboration (CKD-EPI) equation. Specimen Anatomical Collection Method Collection Time Receive d Time (Source) Location / / Volume Laterality Blood specimen 08/14/2018 8:10 AM 019 8:18 (specimen) FITTER TYPE BAR AND SEGMENT AM FITTER TYPE BAR AND SEGMENT Karen Calvertta LAB - BLOOD ORDERABLES Performing Organization Address City/[facility]/ZIP [facility] Phon e Number [facility] [address], [place] [address] [address], [facility] [phone] ESR: Erythrocyte sedimentation rate (08/14/2018 8:10 AM FITTER TYPE BAR AND SEGMENT) P athologist Signature Sed Rate 8 0 - 15 mm/h 08/14/2018 [facility] 10:03 AM FITTER TYPE BAR AND SEGMENT HOSPITAL Specimen Anatomical Collection Method Collection Time Receive d Time (Source) Location / / Volume Laterality Blood specimen 08/14/2018 8:10 AM 019 8:18 (specimen) FITTER TYPE BAR AND SEGMENT AM FITTER TYPE BAR AND SEGMENT Karen Shrestha LAB - BLOOD ORDERABLES Performing Organization Address City/[facility] Phon e Number 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
--- OUTSIDE RECORDS SUMMARY | 2022-06-12 15:44 | XMS_ITS | Encounter Summary ---
:1975 Author Organization [facility] Address [address] [place] [address] Care Team Providers Name Role Phone Bharat Yañez Primary Care Provider Encounter Details Date Type Department Care Team Description 05/28/2018 Hospital Encounter [facility] Karen Shresthartjoe psoriatic arthritis (H); [facility] Laboratory G Vitamin D deficiency; [address] [facility] Encounter for long-term (cur rent) use of medications [place], [place] RHEUMATOLOGY [address] 285[address] [facility] [address] [place], [place] [id number] Social History Tobacco Use Types Packs/Day Years [...] 0 times daily Blinded study drug from [facility], Dr Karen Mathew ibuprofen Take 800 mg by mouth 0 (ADVIL,MOTRIN) 800 MG every morning tablet documented as of this encounter Plan of Treatment Not on filedocumented as of this encounter Procedures Procedure Name Priority Date/Time Associated Diagnosis Comme nts VITAMIN D DEFICIENCY Routine 05/28/2018 7:24 Polyarticular Res ults for this SCREENING AM CDT psoriatic arthritis procedur e are in (H) the results Vitamin D defici ency section. Encounter for long-term (current) use of medications ERYTHROCYTE Routine 05/28/2018 7:24 Polyarticular Results for this SEDIMENTATION RATE AM CDT psoriatic arthritis pr ocedure are in AUTO (H) the results Vitamin D defici ency section. Encounter for long-term (current) use of medications CRP INFLAMMATION Routine 05/28/2018 7:24 Polyarticular Results for this AM CDT psoriatic arthritis procedur e are in (H) the results Vitamin D defici ency section. Encounter for long-term (current) use of medications CREATININE Routine 05/28/2018 7:24 Polyarticular Results for this AM CDT psoriatic arthritis procedur e are in (H) the results Vitamin D defici ency section. Encounter for long-term (current) use of medications CALCIUM Routine 05/28/2018 7:24 Polyarticular Results for this AM CDT psoriatic arthritis procedur e are in (H) the results Vitamin D defici ency section. Encounter for long-term (current) use of medications AST Routine 05/28/2018 7:24 Polyarticular Results for this AM CDT psoriatic arthritis procedur e are in (H) the results Vitamin D defici ency section. Encounter for long-term (current) use of medications ALT Routine 05/28/2018 7:24 Polyarticular Results for this AM CDT psoriatic arthritis procedur e are in (H) the results Vitamin D defici ency section. Encounter for long-term (current) use of medications ALBUMIN LEVEL Routine 05/28/2018 7:24 Polyarticular Results fo r this AM CDT psoriatic arthritis procedur e are in (H) the results Vitamin D defici ency section. Encounter for long-term (current) use of medications CBC WITH PLATELETS Routine 05/28/2018 7:24 Polyarticular Resul ts for this AM CDT psoriatic arthritis procedur e are in (H) the results Vitamin D defici ency section. Encounter for long-term (current) use of medications documented in this encounter Results Erythrocyte sedimentation rate auto (05/28/2018 7:24 AM CDT) P athologist Signature Sed Rate 10 0 - 15 mm/h 05/28/2018 [facility] 7:54 AM CDT HOSPITAL Specimen Anatomical Collection Method Collection Time Receive d Time (Source) Location / / Volume Laterality Blood specimen 05/28/2018 7:24 AM 018 7:27 (specimen) CDT AM CDT Karen Shrestha LAB - BLOOD ORDERABLES Performing Organization Address City/[facility] Phon e Number [facility] [address] [place], [place] [address] [facility] [address] [place], [place] [address] [place] [address] CBC with platelets (05/28/2018 7:24 AM CDT) athologist Signature WBC 7.1 4.0 - 11.0 05/28/2018 [facility] 10e9/L 7:36 AM [facility] RBC Count 5.24 4.4 - 5.9 05/28/2018 [facility] 10e12/L 7:36 AM [facility] Hemoglobin 15.0 13.3 - 05/28/2018 [facility] 17.7 g/dL 7:36 AM [facility] Hematocrit 46.3 40.0 - 05/28/2018 [facility] 53.0 % 7:36 AM [facility] MCV 88 78 - 100 05/28/2018 [facility] fl 7:36 AM [facility] MCH 28.6 26.5 - 05/28/2018 [facility] 33.0 pg 7:36 AM [facility] MCHC 32.4 31.5 - 05/28/2018 [facility] 36.5 g/dL 7:36 AM [facility] RDW 11.6 10.0 - 05/28/2018 [facility] 15.0 % 7:36 AM [facility] Platelet Count 244 150 - 450 05/28/2018 [facility] 10e9/L 7:36 AM [facility] Specimen Anatomical Collection Method Collection Time Receive d Time (Source) Location / / Volume Laterality Blood specimen 05/28/2018 7:24 AM 018 7:27 (specimen) CDT AM CDT Karen Shrestha LAB - BLOOD ORDERABLES Performing Organization Address City/[facility] Phon e Number M [facility] [address] [place], [place] [address] [facility] [address] [place], [place] [address], [facility] [phone] Albumin level (05/28/2018 7:24 AM CDT) athologist Signature Albumin 4.0 3.4 - 5.0 05/28/2018 [facility] g/dL 7:47 AM CDT HOSPITAL Specimen Anatomical Collection Method Collection Time Receive d Time (Source) Location / / Volume Laterality Blood specimen 05/28/2018 7:24 AM 018 7:27 (specimen) CDT AM CDT Karen Palmer Fady LAB - BLOOD ORDERABLES Performing Organization Address City/[facility]/ZIP [facility] [place]on [place] Number [facility] [address] [place], [place] [address] [place] [address] [address] [place], [place] [address], [facility] [phone] Creatinine (05/28/2018 7:24 AM CDT) athologist Signature Creatinine 0.87 0.66 - 1.25 05/28/2018 [place] mg/dL 7:47 AM [facility] GFR Estimate >90 >60 05/28/2018 [place] mL/min/1.7m 7:[address] Comment: Non GFR Calc GFR Estimate If >90 >60 mL/min/1.7m2 05/28/2018 7:[address] [facility] Comment: GFR Calc Specimen Anatomical Collection Method Collection Time Receive d Time (Source) Location / / Volume Laterality Blood specimen 05/28/2018 7:24 AM 018 7:27 (specimen) CDT AM CDT Karen Calvertta LAB - BLOOD ORDERABLES Performing Organization Address [facility] Phon e Number M [facility] [address] [place], [place] [address] [facility] [address] [place], [place] [address], [facility] [phone] AST (05/28/2018 7:24 AM CDT) athologist Signature AST 17 0 - 45 U/L 05/28/2018 [facility] 7:47 AM CDT HOSPITAL Specimen Anatomical Collection Method Collection Time Receive d Time (Source) Location / / Volume Laterality Blood specimen 05/28/2018 7:24 AM 018 7:27 (specimen) CDT AM CDT Karentonny Calvertta LAB - BLOOD ORDERABLES Performing Organization Address City/[facility] Phon e Number M [facility] [address] [place], [place] [address] [place] [address] [address] [place] [id number] [address], [facility] [phone] ALT (05/28/2018 7:24 AM CDT) athologist Signature ALT 35 0 - 70 U/L 05/28/2018 [facility] 7:47 AM CDT HOSPITAL Specimen Anatomical Collection Method Collection Time Receive d Time (Source) Location / / Volume Laterality Blood specimen 05/28/2018 7:24 AM 018 7:27 (specimen) CDT AM CDT Karen Palmer Calvertta LAB - BLOOD ORDERABLES Performing Organization Address City/[facility] Code Phon e Number [facility] [address] [place], [place] [address] [place] [address] [address] [place], [place] [address], [facility] [phone] CRP, inflammation (05/28/2018 7:24 AM CDT) athologist Signature CRP Inflammation <2.9 0.0 - 8.0 05/28/2018 [place] mg/L 7:47 AM CDT [facility] Specimen Anatomical Collection Method Collection Time Receive d Time (Source) Location / / Volume Laterality Blood specimen 05/28/2018 7:24 AM 018 7:27 (specimen) CDT AM CDT Karen Palmer Calvertta LAB - BLOOD ORDERABLES Performing Organization Address City/[facility] Phon e Number M [facility] [address] [place], [place] [address] [facility] [address] [place], [place] [address], [facility] [phone] (ABNORMAL) Vitamin D Deficiency (05/28/2018 7:24 AM CDT) athologist Signature Vitamin D 18 (L) 20 - 75 05/28/2018 [facility] ug/L 3:26 PM CDT [place] [facility] Comment: Season, race, dietary intake, and treatm ent affect the concentration of 15-coszsaw-Yhtruod D. Values may decreas e during winter [...] Location / / Volume Laterality Blood specimen 05/28/2018 7:24 AM 018 7:27 (specimen) CDT AM CDT Karen Shrestha LAB - BLOOD ORDERABLES Performing Organization Address City/State/ZIP Code Phon e Number [address] [address] [facility] Calcium (05/28/2018 7:24 AM CDT) athologist Signature Calcium 8.5 8.5 - 10.1 05/28/2018 [facility] mg/dL 7:47 AM CDT HOSPITAL Specimen Anatomical Collection Method Collection Time Receive d Time (Source) Location / / Volume Laterality Blood specimen 05/28/2018 7:24 AM 018 7:27 (specimen) CDT AM CDT Karen Shrestha LAB - BLOOD ORDERABLES Performing Organization Address City/State/ZIP Code Phon e Number [facility] [address] [place], [place] [address] [facility] [address] [place], [place] [address], [facility] [phone] documented in this encounter Visit Diagnoses Diagnosis Polyarticular psoriatic arthritis (H) Psoriatic arthropathy Vitamin D deficiency Unspecified vitamin D deficiency Encounter for long-term (current) use of medications Encounter for long-term (current) use of other medications documented in this encounter Care Teams Leather Coater Relationship Specialty Start Date End Date Bharat Yañez PCP - General Family Practice 04/30/16 09/02/19 documented as of this encounter
--- OUTSIDE RECORDS SUMMARY | 2022-06-12 15:45 | XMS_ITS | Encounter Summary ---
:1975 [address] [facility] Address [address] [place] [address] Care Team Providers Name Role Phone Veronique Oneill MD Primary Care Provider Encounter Details Date Type Department Care Team Description 01/09/2011 PN Conversion Only CONVERSION CONVERSION Social History Tobacco Use Types Packs/Day Years Used Date Smoking Tobacco: Former Cigarettes 0.5 13 Quit : 12/08/2005 Alcohol Use Standard Drinks/Week Comments Yes 0 (1 standard drink = 0.6 oz pure alcoho l) couple drinks per week Sex Assigned at Date Recorded Not on file documented as of this encounter Plan of Treatment Not on filedocumented as of this encounter Visit Diagnoses Not on filedocumented in this encounter Care Teams Workers' Compensation Magistrate Relationship Specialty Start Date End Date Veronique Oneill MD PCP - General 02/17/07 10/02/[address] [place] [address] documented as of this encounter
--- OUTSIDE RECORDS SUMMARY | 2022-06-12 15:45 | XMS_ITS | Encounter Summary ---
:1975 Author Organization [facility] Address [address] [place] [address] Care Team Providers Name Role Phone Otoniel Nevarez MD Primary Care Provider [phone] Encounter Details Date Type Department Care Team Description 10/10/2003 Correspondence None Unknown, Physici an CONSENT AND RELEASE [address] [place], [place] [address] (Wo rk) Social History Tobacco Use Types Packs/Day Years Used Date Smoking Tobacco: Every Day Cigarettes 0.5 13 Alcohol Use Standard Drinks/Week Comments Not Asked 0 (1 standard drink = 0.6 oz pure alcoho l) Sex Assigned at Date Recorded Not on file documented as of this encounter Progress Notes Unknown, Physician - 10/10/2003 12:00 AM CUSTOMER SOLUTIONS COORDINATOR documented in this encounter Plan of Treatment Not on filedocumented as of this encounter Visit Diagnoses Not on filedocumented in this encounter Care Teams Student Truck Driver Relationship Specialty Start Date End Date Otoniel Nevarez MD PCP - General 03/15/03 02/25/[address] [place], [place] [address] documented as of this encounter
--- OUTSIDE RECORDS SUMMARY | 2022-06-12 15:45 | XMS_ITS | Encounter Summary ---
:1975 Author Organization [facility] Address [address] [place] [address] Care Team Providers Name Role Phone Veronique Oneill MD Primary Care Provider Encounter Details Date Type Department Care Team Description 01/14/2011 PN Conversion Only SUSAN CONVERSION Flavia Cid, [address], [place] [id number] [address] [place] [address] (Wo rk) Social History Tobacco Use Types [...] Name Priority Date/Time Associated Diagnosis Comme nts LIPID PANEL AND Routine 01/14/2011 10:33 AM Resul ts for this DIRECT LDL(IF CDT procedure are in NEEDED) the results section. documented in this encounter Results (ABNORMAL) Lipid Panel and Direct LDL(If Needed) (01/14/2011 10:33 AM CDT) [facility] Method Time Signature Cholesterol 187 0 - 200 HP CONVERSION mg/dL Triglycerides 151 (H) 0 - 149 HP CONVERSION mg/dL HDL Cholesterol 43 >39 mg/dL HP CONVERSION Cholesterol/HDL 4.3 No normal HP CONVERSION Ratio Screen range LDL Calculated 114 19 - 130 HP CONVERSION mg/dL Length Of Fast 12 No normal HP CONVERSION range Specimen (Source) Anatomical Collection Method Collection Time Re ceived Time Location / / Volume Laterality 01/14/2011 10:33 AM CDT Flavia Cid PA-C LAB_1 Performing Organization Address City/State/ZIP Code Phon e Number [facility] CONVERSION documented in this encounter Visit Diagnoses Not on filedocumented in this encounter Care Teams Fitness Services Manager Relationship Specialty Start Date End Date Veronique Oneill MD PCP - General 02/17/07 10/02/[address] [place] [address] documented as of this encounter
--- OUTSIDE RECORDS SUMMARY | 2022-06-12 15:45 | XMS_ITS | Encounter Summary ---
:1975 Author Organization [facility] Address [address] [place] [address] Care Team Providers Name Role Phone Ronen Alvarado MD Primary Care Provider Encounter Details Date Type Department Care Team Description 01/28/2007 Orders Only [facility] Screening for Endocrine, Nut ritional, Metabolic and Immunity Disorder; [address] [facility] [place], [place] [address] Social History Tobacco Use Types Packs/Day Years [...] Priority Date/Time Associated Diagnosis Comme nts LIPID PANEL, FAST > Routine 01/28/2007 8:18 AM Screening for R esults for this 12 HOUR CDT Endocrine, procedure are i n Nutritional, the results Metabolic and section. Immunity Disorde r OBESITY GLUCOSE - FASTING > Routine 01/28/2007 8:18 AM Screening for R esults for this 8 HRS FASTING CDT Endocrine, procedure are in Nutritional, the results Metabolic and section. Immunity Disorde r OBESITY documented in this encounter Results (ABNORMAL) CHOLESTEROL LIPID PANEL FAST >12HR (01/28/2007 8:18 AM CDT) athologist Signature Cholesterol 225 (H) <200 mg/dl [facility] Comment: Result should not be interpreted without the patient's history of cardiovascular risk factors. Triglyceride 160 <200 mg/dl [facility] HDL 43 >35 mg/dl [facility] LDL, Calc. 150 mg/dl [facility] Hours Fasting 12 hours [facility] Specimen Anatomical Collection Method Collection Time Receive d Time (Source) Location / / Volume Laterality 01/28/2007 8:18 AM 7 8:19 CDT AM CDT Veronique Oneill MD LAB_1 Performing Organization Address City/[facility]/ZIP Code Phon e Number [facility] [employer] [phone] [facility] [address] [place] [phone] GLUCOSE - FASTING > 8 HRS FASTING (V77.1) (01/28/2007 8:18 AM CDT) P athologist Signature Glucose 96 70 - 100 [facility] mg/dl Hours Fasting 12 hours [facility] Specimen Anatomical Collection Method Collection Time Receive d Time (Source) Location / / Volume Laterality 01/28/2007 8:18 AM 7 8:19 CDT AM CDT Veronique Oneill MD LAB_1 Performing Organization Address City/[facility] Phon e Number [facility] [phone] [phone] documented in this encounter Visit Diagnoses Diagnosis Screening for endocrine, nutritional, me tabolic and immunity disorder Screening for other and unspecified endo crine, nutritional, metabolic, and immunity disorders OBESITY Obesity, unspecified documented in this encounter Care Teams Botany Technician Relationship Specialty Start Date End Date Ronen Alvarado MD PCP - General 02/26/05 02/16/[address] [place] [address] documented as of this encounter
--- OUTSIDE RECORDS SUMMARY | 2022-06-12 15:45 | XMS_ITS | Encounter Summary ---
:1975 Author Organization [facility] Address [address] [place] [address] Care Team Providers Name Role Phone Otoniel Nevarez MD Primary Care Provider [phone] Encounter Details Date Type Department Care Team Description 11/15/2003 Office Visit [facility] [facility] [address] [address] [address] [place] [place] [address] [place], [place] [phone] (Wo rk) Social History Tobacco Use Types Packs/Day Years Used Date Smoking Tobacco: Every Day Cigarettes 0.5 13 Alcohol Use Standard Drinks/Week Comments Not Asked 0 (1 standard drink = 0.6 oz pure alcoho l) Sex Assigned at Date Recorded Not on file documented as of this encounter Last Filed Vital Signs Vital Sign Reading Time Taken Comments Blood Pressure 116/78 11/15/2003 12:40 PM CDT Pulse 96 11/15/2003 12:40 PM CDT Temperature - - Respiratory Rate - - Oxygen Saturation - - Inhaled Oxygen Concentration - - Weight 110.2 kg (243 lb) 11/15/2003 12:40 PM CDT Height - - Body Mass Index 31.63 03/16/2003 1:20 PM CDT documented in this encounter Progress Notes 11/15/2003 12:40 PM CDT Felix Coppola is here today forf/u of back and leg pain unrelieved with PT who are suggesting MRI. . Are you having other pain today, that you want to discuss with the provider? -NO Do you need refills on any of your medications today? -NO Preventive Services up to date? -NO Immunizations up to date? -YES Do you ever feel physically threatened or emotionally afraid? -NOT ASKED Tobacco Status reviewed? (see History Social-Substance) -YES slide attendant offered? 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 Aspirin taken daily? -NO BP was taken on the RIGHT arm. BP cuff size used? -Adult Large Health Education given? -NO. Contact phone number [phone] (home) [phone] (work), alternate phone number- Yesenia HALEIGH Donohue 11/15/2003 12:50 PM Current outpatient prescriptions: NAPROXEN (NAPROSYN) 500MG ORAL TABS,1 Tab PO BID for LB,Disp: 60,Rfl: 12 Jenny Ronen G - 11/15/2003 12:00 AM CDTCHIEF COMPLAINT: Chronic low back pain. S: Patient as noted previously, has had chronic low back pain for approximately 80 years, now with intermittent right sciatica. Sometimes occasionally also left. Has completed a course of physical therapy without much improvement and therapist herself feels that this is probably discogenic pain. He is currently taking Naprosyn 500 mg b.i.d. and started this after his previous appointment with me on 10/10/03. He himself notes minimal change either in the back pain or radiation into his legs. There is no problem with bowels, urination, abdominal pain, weakness or numbness of the legs. 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 OBJECTIVE: No apparent distress. 243 pounds, a bit overweight but he is also above average height. Blood pressure 116/78. Moves about freely. There is minimal tenderness in the right low paraspinal muscle region. Spine itself normal contours and no direct tenderness. Fairly good range of motion. Rotation towards the left causes him increased pain on the right, otherwise he has no particular pain on movement. Abdomen is benign. Negative straight leg raising aside from some pain in the right lumbar region when raising the left leg. Normal sensation and deep tendon reflexes in knees and ankles. 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 P: Will limit to no more than 40 pounds lifting. Continue Naprosyn 500 mg b.i.d. Discontinue the physical therapy and order an MRI scan of the lumbar spine, follow up after the scan is completed. 11:08 A cc: Ronen Alvarado - 11/15/2003 12:00 AM CDT documented in this encounter Plan of Treatment Not on filedocumented as of this encounter Visit Diagnoses Diagnosis Thoracic or lumbosacral neuritis or radi culitis, unspecified documented in this encounter Care Teams Wall Washer Relationship Specialty Start Date End Date Otoniel Nevarez MD PCP - General 03/15/03 02/25/05 [facility] [place] [address] [place] [address] documented as of this encounter
--- OUTSIDE RECORDS SUMMARY | 2022-06-12 15:45 | XMS_ITS | Encounter Summary ---
:1975 Author Organization [facility] Address [address] [place] [address] Care Team Providers Name Role Phone Veronique Oneill MD Primary Care Provider Encounter Details Date Type Department Care Team Description 11/10/2003 Therapy External to Ronen Alvarado MD [address] [place] [address] (Wo rk) Social History Tobacco Use Types Packs/Day Years Used Date Smoking Tobacco: Every Day Cigarettes 0.5 13 Alcohol Use Standard Drinks/Week Comments Not Asked 0 (1 standard drink = 0.6 oz pure alcoho l) Sex Assigned at Date Recorded Not on file documented as of this encounter Progress Notes Ronen Alvarado - 11/10/2003 12:00 AM RESTAURANT MANAGING PARTNER AURANT MANAGING PARTNER documented in this encounter Plan of Treatment Not on filedocumented as of this encounter Visit Diagnoses Not on filedocumented in this encounter Care Teams Housekeeping Attendant Relationship Specialty Start Date End Date Veronique Oneill MD PCP - General 02/17/07 10/02/[address] [id number] documented as of this encounter
--- OUTSIDE RECORDS SUMMARY | 2022-06-12 15:45 | XMS_ITS | Encounter Summary ---
:1975 Author Organization [facility] Address [address] [place] [address] Care Team Providers Name Role Phone Ronen Alvarado MD Primary Care Provider Reason for Referral Specialty Diagnoses / Procedures Referred By Contact Refer red To Contact Ronen Alvarado M D [address] [place], [place] [address] Referral ID Status Reason Start Date Expiration Date Visits Requ ested Visits Authorized Reason for Visit Reason Comments REFERRAL REQUEST acupuncture for low back so reness for 2 months Encounter Details Date Type Department Care Team Description 03/05/2005 Office Visit [facility] Ronen Alvarado LO W BACK PAIN Practice MD (CHRONIC)>6 WEEKS [address] [facility] [address] (Primary Dx) [place] [address] [phone] Social History Tobacco Use Types Packs/Day Years Used Date Smoking Tobacco: Every Day Cigarettes 0.5 13 Alcohol Use Standard Drinks/Week Comments Not Asked 0 (1 standard drink = 0.6 oz pure alcoho l) Sex Assigned at Date Recorded Not on file documented as of this encounter Last Filed Vital Signs Vital Sign Reading Time Taken Comments Blood Pressure 132/86 03/05/2005 9:25 AM CDT Pulse 80 03/05/2005 9:25 AM CDT Temperature - - Respiratory Rate 20 03/05/2005 9:25 AM CDT Oxygen Saturation - - Inhaled Oxygen Concentration - - Weight 104.3 kg (230 lb) 03/05/2005 9:25 AM CDT Height - - Body Mass Index 29.93 03/16/2003 1:20 PM CDT documented in this encounter Patient Instructions Patient Azfagqeypqyw22/26/2005 9:20 AM CDT Rx Naproxen. Back care book. Ice as needed. Refer to Acupuncture at Pt request. Call or return to clinic if these symptoms worsen or fail to improve as anticipated. documented in this encounter Progress Notes 03/05/2005 9:20 AM CDT Chief complaint: Chronic low back pain SUBJECTIVE: Chronic low back pain several months. No injury or unusual activity. 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 Intensity, mild. No radiation. Worst in AM for 1-2 hours. No weakness or numbness. No meds taken. OBJECTIVE: BP 132/86 Pulse 80 Resp 20 Wt 230 lbs (104.3kg) no apparent distress Abdomen: the abdomen is soft without tenderness, guarding, mass, rebound or organomegaly. Bowel sounds are normal. No CVA tenderness or inguinal adenopathy noted. Lumbar spine has full painless range of motion without local tenderness or masses. SI joints nontender. Straight leg raise negative bilaterally. Neurologic: DTRs symmetric; Sensation intact to light touch ASSESSMENT: Chronic muscular low back pain PLAN: Rx Naproxen. Back care book. Refer to Acupuncture at Pt request. documented in this encounter Nursing Notes 03/05/2005 9:20 AM CDT >> KRISTY GOMES 03/05/2005 9:28 am Pulse is irregular documented in this encounter Plan of Treatment Scheduled Referrals Name Type Priority Associated Diagnoses Order S chedule ACUPUNCTURE Referral Routine Low Back Pain (Chronic)>6 We eks Ordered: 03/05/2005 documented as of this encounter Visit Diagnoses Diagnosis Other unspecified back disorder - Primar y documented in this encounter Care Teams Seed Expert Relationship Specialty Start Date End Date Ronen Alvarado MD PCP - General 02/26/05 02/16/07 [address] [place] [address] documented as of this encounter
--- OUTSIDE RECORDS SUMMARY | 2022-06-12 15:45 | XMS_ITS | Encounter Summary ---
:1975 Author Organization [facility] Address [address] [place] [address] Care Team Providers Name Role Phone Veronique Oneill MD Primary Care Provider Reason for Visit Reason Comments Annual Exam Encounter Details Date Type Department Care Team Description 09/16/2012 Office Visit Rigoberto Marcelino, Annual physical exam (Primar y Dx); [address] [place] [address] PA-C Chronic low back pain; [address] [address] [address] Need for dvgmncwsba-xhuydrv-zgxwveqry (T dap) vaccine; [phone] [address] [address] Screening cholesterol level; [phone] Screening for d iabetes mellitus (Work) Social History Tobacco Use Types Packs/Day Years Used Date Smoking Tobacco: Former Cigarettes 0.5 13 Quit : 12/08/2005 Alcohol Use Standard Drinks/Week Comments Yes 0 (1 standard drink = 0.6 oz pure alcoho l) couple drinks per week Sex Assigned at Date Recorded Not on file documented as of this encounter Last Filed Vital Signs Vital Sign Reading Time Taken Comments Blood Pressure 128/78 09/16/2012 8:48 AM BONE CHAR KILN TENDER Pulse 56 09/16/2012 8:48 AM BONE CHAR KILN TENDER Temperature - - Respiratory Rate - - Oxygen Saturation - - Inhaled Oxygen Concentration - - Weight 109.8 kg (242 lb) 09/16/2012 8:48 AM BONE CHAR KILN TENDER Height 188 cm (6' 2) 09/16/2012 8:48 AM BONE CHAR KILN TENDER Body Mass Index 31.07 09/16/2012 8:48 AM BONE CHAR KILN TENDER documented in this encounter Patient Instructions Patient InstructionsDara Nova LPN - 09/16/2012 8:50 AM CST Patient Followup Plan: Provided patient with Healthy Weight Matters brochure. CHAR KILN TENDER documented in this encounter Progress Notes Rigoberto Lira PA-C - 09/16/2012 9:21 AM CST Male Preventive Exam IMPRESSION: Encounter Diagnoses Name Primary? Annual physical exam Yes ??? Chronic low back pain ??? Need for ckladbpaft-sbzbprd-yrsppgxtc (Tdap) vaccine ??? Screening cholesterol level ??? Screening for diabetes mellitus SUBJECTIVE: 37 y/o patient presents for a routine preventive physical exam. Lumbar Disc Disorder NOS - Rigoberto Lira PA-C 09/16/12 09:18 AM Signed Has been seeing a chiropractor for a few years now for his chronic back pain. Recently had a LS MRI,and the Radiologist found pathology suggestive of ankylosing spondylitis. He has a consult appointment with a non-[facility] carbon sequestration plant manager on 10/15/2012, and was asked to get an HLA-B27 prior to his appointment. Medications Requested: Prescription Refills No medications selected for refill. Past Medical/Surgical/Family History: Reviewed and updated today under History tab in Electronic Medical Record. STD History: He has not been diagnosed with STD. Social History: History Social History ??? Marital Status: Spouse Name: Renae Coppola Number of Children: 2 ??? 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 Smoking status: Current Everyday Smoker Types: Cigarettes ??? Smokeless tobacco: Never Used Comment: Smoking History Packs/day: ??? Alcohol Use: 6.0 oz/week 10 Shots of liquor per week ??? Drug Use: No ??? Sexually Active: Yes -- Female partner(s) Other Topics Concern ??? None Social History Narrative ??? None Preventive Health Assessment: Exercise: He does not report regular physical activity, though his job is very active. Calcium intake is adequate. He does perform monthly self testicular exam. He, his friend, and his are all talking about quitting smoking together. They are thinking of setting a quit date in a couple of weeks. His plan is to quit cold turkey, does not desire any cessation aids. Written brochure on quitting smoking is given. Review of Systems: A comprehensive review of systems is reviewed and negative except for what is noted above. OBJECTIVE: BP 128/78 Pulse 56 Ht 6' 2 (1.88 m) Wt 242 lb (109.77 kg) BMI 31.07 kg/m2 General appearance: alert, cooperative, no distress, appears stated age, Eyes: conjunctivae/corneas clear. PERRL, EOM's intact. Fundi benign, Ears: normal TM's and external ear canals AU, Throat: lips,mucosa, and tongue normal; teeth and gums normal, Neck: supple, symmetrical, trachea midline, no adenopathy, thyroid: not enlarged, symmetric, no tenderness/mass/nodules and no carotid bruit, Lungs: clear to auscultation bilaterally, Heart: regular rate and rhythm, S1, S2 normal, no murmur, click, rubor gallop, Abdomen: soft, non-tender; bowel sounds normal; no masses, no organomegaly, Extremities: extremities normal, atraumatic, no cyanosis or edema, Pulses: 2+ and symmetric, Skin: Skin color, texture, turgor normal. No rashes or lesions and Lymph nodes: Cervical, supraclavicular, and axillary nodes normal. ASSESSMENTPLAN: Felix was seen today for annual exam. Diagnoses and associated orders for this visit: Annual physical exam Chronic low back pain - HLA B27; Future Need for fxvafmshnb-bctcajb-chtsoqqpn (tdap) vaccine - Tdap (BOOSTRIX) Screening cholesterol level - Cholesterol Fraction-LDLD If Trig High; Future Screening for diabetes mellitus - Glucose; Future Counseling completed for all immunization components that were given to the patient today. Patient Active Problem List Diagnoses Code ??? Lumbar Disc Disorder NOS 722.93 Discharged ambulatory and in stable condition. documented in this encounter Miscellaneous Notes Assessment & Plan Note - Rigoberto Lira PA-C - 09/16/2012 9:18 AM CST Lumbar Disc Disorder NOS - Assessment & Plan Note by Rigoberto Lira PA-C at 09/16/12917 Author: Rigoberto Lira PA-C Service: (none) Author Type: Physician Remote Sensing Technician Filed: 09/16/12917 Note Time: 09/16/12917 Status: Written Bacon Skinner: Rigoberto Lira PA-C (Physician Remote Sensing Technician) Has been seeing a chiropractor for a few years now for his chronic back pain. Recently had a LS MRI,and the Radiologist found pathology suggestive of ankylosing spondylitis. He has a consult appointment with a non-[facility] carbon sequestration plant manager on 10/15/2012, and was asked to get an HLA-B27 prior to his appointment. CHAR KILN TENDER documented in this encounter Plan of Treatment Not on filedocumented as of this encounter Visit Diagnoses Diagnosis Annual physical exam - Primary Routine general medical examination at a health care facility Chronic low back pain Lumbago Need for kmxgsxiybt-rblibub-zedbkyipy (T dap) vaccine Need for prophylactic vaccination with c ombined uozkiyurui-gcevqrd-yrxiilonp (DTP) vaccine Screening cholesterol level Screening for lipoid disorders Screening for diabetes mellitus documented in this encounter Care Teams Abe Teacher Relationship Specialty Start Date End Date Veronique Oneill MD PCP - General 02/17/07 10/02/[address] [place] [address] documented as of this encounter
--- OUTSIDE RECORDS SUMMARY | 2022-06-12 15:45 | XMS_ITS | Encounter Summary ---
:1975 Author Organization [facility] Address [address] [place] [address] Care Team Providers Name Role Phone Ronen Alvarado MD Primary Care Provider Reason for Visit Reason Comments ARM PAIN arm muscle strain from [facility] ER 06-04-05 W/C right arm Encounter Details Date Type Department Care Team Description 06/07/2005 Office Visit [facility] Ronen Alvarado EL B/FOREARM/WRST Practice INJURY NOS (Primary [address] [facility] [address] Dx) [place] [id number] Social History Tobacco Use Types Packs/Day Years Used Date Smoking Tobacco: Every Day Cigarettes 0.5 13 Alcohol Use Standard Drinks/Week Comments Not Asked 0 (1 standard drink = 0.6 oz pure alcoho l) Sex Assigned at Date Recorded Not on file documented as of this encounter Last Filed Vital Signs Vital Sign Reading Time Taken Comments Blood Pressure 104/72 06/07/2005 11:24 AM CDT Pulse 76 06/07/2005 11:24 AM CDT Temperature - - Respiratory Rate 24 06/07/2005 11:24 AM CDT Oxygen Saturation - - Inhaled Oxygen Concentration - - Weight 106.4 kg (234 lb 9.6 oz) 06/07/2005 11:24 AM CDT Height - - Body Mass Index 30.53 03/16/2003 1:20 PM CDT documented in this encounter Patient Instructions Patient Tngtlomcabvf49/28/2005 11:20 AM CDT Avoid heavy lifting as much as possible although no specific work restrictions. Ice area as needed. over the counter (non-prescription) ibuprofen as needed. Not fully recovered but with such a minor injury I expect full recovery soon. No follow up requiredunless pain persists beyond next 2 weeks. documented in this encounter Progress Notes 06/07/2005 11:20 AM CDT Chief complaint: arm injury SUBJECTIVE: Several days (06/04/05) ago at work was manipulating a large mandril with a roll of paper. Weight was about 120# lifted by right hand and arm. [place] pain in distal upper arm and elbow about an hour later. Seen at [facility] ER and X-ray taken was reported negative. OBJECTIVE: BP 104/72 Pulse 76 Resp 24 Wt 234 lbs 10 oz (106.4kg) No apparent distress Very well muscled. Right arm: appears normal. Slight tenderness in soft tissue at medial aspect of elbow. Normal stability and range of motion of elbow. Normal distal sensation, strength, and DTRs. ASSESSMENT: Minor strain muscles around right elbow. PLAN: Avoid heavy lifting as much as possible although no specific work restrictions. Ice area as needed. over the counter (non-prescription) ibuprofen as needed. Not fully recovered but with such a minor injury I expect full recovery soon. No follow up requiredunless pain persists beyond next 2 weeks. documented in this encounter Plan of Treatment Not on filedocumented as of this encounter Visit Diagnoses Diagnosis Injury, other and unspecified, elbow, fo rearm, and wrist - Primary documented in this encounter Care Teams Chief Marketing Officer Relationship Specialty Start Date End Date Ronen Alvarado MD PCP - General 02/26/05 02/16/[address] [place] [address] documented as of this encounter
--- OUTSIDE RECORDS SUMMARY | 2022-06-12 15:45 | XMS_ITS | Encounter Summary ---
:1975 Author Organization [email or web address] Address [address] [place] [address] Care Team Providers Name Role Phone Rigoberto Lira PA-C Primary Care Provider Encounter Details Date Type Department Care Team Description 10/03/2015 Imaging [facility] [address] [place] [address] Social History Tobacco Use Types Packs/Day Years [...] Name Priority Date/Time Associated Diagnosis Comme nts XR CHEST 2 VIEWS Routine 10/03/2015 11:28 AM Cough Resu lts for this DECK CADET procedure are i n the results section. documented in this encounter Results XR Chest 2 Views (10/03/2015 11:28 AM DECK CADET) Anatomical Region Laterality Modality Chest, Lung Other Specimen (Source) Anatomical Location Collection Method / Collectio n Time Received Time / Laterality Volume Narrative 10/03/2015 11:45 AM DECK CADET COMPARISON: ??None. FINDINGS: ??Two views were obtained. ??T he lungs and costophrenic angles are clear. ??Heart size and pulmonary vascularity are within normal limits. ??There is no evidence of pneumothorax or pleural effusion. Bony thorax is unremarkable. Procedure Note Gal Carmona MD - 01/28/2016Formatti ng of this note might be different from the original. COMPARISON: None. FINDINGS: Two views were obtained. The l ungs and costophrenic angles are clear. Heart size and pulmonary vascularity are within normal limits. There is no evidence of pneumothorax or pleural effusion. Bony thorax is unremarkable. Rigoberto Lira PA-C RAD GD documented in this encounter Visit Diagnoses Diagnosis Cough documented in this encounter Care Teams Orthopaedic General Relationship Specialty Start Date End Date Rigoberto Lira PA-C PCP - General 10/03/15 04/10/16 [address], [address] [address] documented as of this encounter
--- OUTSIDE RECORDS SUMMARY | 2022-06-12 15:45 | XMS_ITS | Encounter Summary ---
:1975 Author Organization [employer] Address [address] [place] [address] Care Team Providers Name Role Phone Otoniel Nevarez MD Primary Care Provider [phone] Reason for Visit Reason Onset Date Comments REFERRAL REQUEST 02/20/2005 Encounter Details Date Type Department Care Team Description 02/20/2005 Telephone [facility] Mikhail Alvarado MD REFERRAL REQUEST Practice [address] [address] [place] [address] [place], [place] [address] [phone] Social History Tobacco Use Types Packs/Day Years Used Date Smoking Tobacco: Every Day Cigarettes 0.5 13 Alcohol Use Standard Drinks/Week Comments Not Asked 0 (1 standard drink = 0.6 oz pure alcoho l) Sex Assigned at Date Recorded Not on file documented as of this encounter Nursing Notes 02/20/2005 11:59 PM CDT >> ELISE BALLESTEROS [facility] Feb 21, 2005 3:50 PM Pt returned call, informed he needs to sched appt with phys. before a referral is given for acupunct ure. Pt needs a sched'g order for acupuncture, and he will contact [facility] when ready to make appt. >> YELITZA VEGAS [facility] Feb 21, 2005 2:42 PM LM TO CALL CLINIC BACK FOR MESSAGE FROM >> YAKOV ALVARADO [facility] Feb 20, 2005 5:10 PM MOA please call and schedule clinic appointment. Last visit was in 11/12. Needs to be seen in clinic prior to any additional referrals. >> POPPY HOWELL FriFeb 20, 2005 1:38 PM Patient is requesting a referral to accupuncture at [place] to see Awa Carlos as back pain and has been to PT documented in this encounter Plan of Treatment Not on filedocumented as of this encounter Visit Diagnoses Not on filedocumented in this encounter Care Teams Computer Help Desk Representative Relationship Specialty Start Date End Date Geri, Otoniel Orellana MD PCP - General 03/15/03 02/25/05 [facility] [place], [place] [id number] documented as of this encounter
--- OUTSIDE RECORDS SUMMARY | 2022-06-12 15:45 | XMS_ITS | Encounter Summary ---
:1975 Author Organization [facility] Address [address] [place] [address] Care Team Providers Name Role Phone Veronique Oneill MD Primary Care Provider Encounter Details Date Type Department Care Team Description 03/26/2006 Notes/Orders [facility] Ronen Alvarado [place] REEN FOR LIPID DISORDERS; Practice MD PREVENTIVE CARE EXAM [address] [place] [address] [place] [address] [phone] Social History Tobacco Use Types Packs/Day Years Used Date Smoking Tobacco: Former Cigarettes 0.5 13 Quit : 12/08/2005 Alcohol Use Standard Drinks/Week Comments Not Asked 0 (1 standard drink = 0.6 oz pure alcoho l) Sex Assigned at Date Recorded Not on file documented as of this encounter Plan of Treatment Not on filedocumented as of this encounter Procedures Procedure Name Priority Date/Time Associated Diagnosis Comme nts LIPID PANEL, FAST > Routine 03/26/2006 8:47 AM Screen For Lipi d Results for this 12 HOUR CDT Disorders procedure are in Preventive Care Exam the res ults section. documented in this encounter Results (ABNORMAL) Fasting Lipid Panel (03/26/2006 8:47 AM CDT) P athologist Signature Cholesterol 211 (H) <200 mg/dl [facility] Comment: Result should not be interpreted without the patient's history of cardiovascular risk factors. Triglyceride 190 <200 mg/dl [facility] HDL 45 >35 mg/dl [facility] LDL, Calc. 128 mg/dl [facility] Hours Fasting 12 hours [facility] Specimen Anatomical Collection Method Collection Time Receive d Time (Source) Location / / Volume Laterality 03/26/2006 8:47 AM 6 8:49 CDT AM CDT Ronen Alvarado MD LAB_1 Performing Organization Address City/State/ZIP Code Phon e Number [facility] [phone] [facility] [address] [address] documented in this encounter Visit Diagnoses Diagnosis Screening for lipoid disorders Routine general medical examination at [facility] Routine general medical examination at [facility] documented in this encounter Care Teams Production Grip Relationship Specialty Start Date End Date Veronique Oneill MD PCP - General 02/17/07 10/02/[address] [place] [address] documented as of this encounter
--- OUTSIDE RECORDS SUMMARY | 2022-06-12 15:45 | XMS_ITS | Encounter Summary ---
:1975 Author Organization [employer] Address [address] [place] [address] Care Team Providers Name Role Phone Yakov Alvarado MD Primary Care Provider Reason for Visit Reason Comments PE Encounter Details Date Type Department Care Team Description 03/18/2006 Office Visit [facility] Yakov Alvarado, [place] EVENTIVE CARE EXAM (Primary Dx); Practice MD SCREEN FOR LIPID DISORDERS; [address] [facility] [address] VACCINE FOR VIRAL HEPATITIS; [place], [place] OBESITY; [id number] MIGRAINE; [phone] LUMBAR DISC DIS PLACEMENT; (Work) ANOMALOUS AV EXCITATION (WPW) Social History Tobacco Use Types Packs/Day Years Used Date Smoking Tobacco: Former Cigarettes 0.5 13 Quit : 12/08/2005 Alcohol Use Standard Drinks/Week Comments Not Asked 0 (1 standard drink = 0.6 oz pure alcoho l) Sex Assigned at Date Recorded Not on file documented as of this encounter Last Filed Vital Signs Vital Sign Reading Time Taken Comments Blood Pressure 104/76 03/18/2006 8:00 AM CDT Pulse 92 03/18/2006 8:00 AM CDT Temperature 36.4 ??C (97.5 ??F) 03/18/2006 8:00 AM CDT Respiratory Rate 20 03/18/2006 8:00 AM CDT Oxygen Saturation - - Inhaled Oxygen Concentration - - Weight 113.4 kg (250 lb) 03/18/2006 8:00 AM CDT Height 187.3 cm (6' 1.75) 03/18/2006 8:00 AM CDT Body Mass Index 32.32 03/18/2006 8:00 AM CDT documented in this encounter Patient Instructions Patient Zjlhtbnsuypx72/08/2006 8:00 AM CDT EKG today. Fasting lipids in near future (requires 12 hour fast). Discussed the importance of: Low fat, high fiber diet, Regular exercise and weight loss. For migraine Maxalt WILLOW ANALYST tabs for Migraine and Vicodin for extreme LBP. Follow-up in 1 Years for preventive care and as needed for problems. 45 of the Smartest Diet Tips Ever By Top Dietitians of the [employer] 1. Add just one fruit or veggie serving daily. Get comfortable with that, and then add an extra serving until you reach 8 to 10 a day. 2. Eat at least two servings of a fruit or veggie at every meal. 3. Resolve never to supersize your food portions--unless you want to supersize your clothes. 4. Make eating purposeful, not mindless. Whenever you put food in your mouth, peel it, unwrap it, plate it, and sit. Engage all of the senses in the pleasure of nourishing your body. 5. Start eating a big breakfast. It helps you eat fewer total calories throughout the day. 6. Make sure your plate is half veggies and/or fruit at both lunch and dinner. Are there Any Easy Tricks to Help Me Cut Calories? 7. Eating out? Halve it, and bag the rest. A typical restaurant entree has 1,000 to 2,000 calories,not even counting the bread, appetizer, beverage, and dessert. 8. When dining out, make it automatic: Order one dessert to share. 9. Use a salad plate instead of a dinner plate. 10. See what you eat. Plate your food instead of eating out of the jar or bag. 11. Eat the low-raquel items on your plate first, and then graduate. Start with salads, veggies, and broth soups, and eat meats and starches last. By the time you get to them, you'll be full enough to becontent with smaller portions of the high-calorie choices. 12. Instead of whole milk, switch to 1 percent. If you drink one 8-oz glass a day, you'll lose 5 lbin a year. 13. Juice has as many calories, ounce for ounce, as soda. Set a limit of one 8- oz glass of fruit juice a day. 14. Get calories from foods you chew, not beverages. Have fresh fruit instead of fruit juice. 15. Keep a food journal. It really works wonders. 16. Follow the Omani saying: Eat until you are eight tenths full. 17. Use mustard instead of yanez. 18. Eat more soup. The non-creamy ones are filling but low-raquel. 19. Cut back on or cut out caloric drinks such as soda, sweet tea, lemonade, etc. People have lost weight by making just this one change. If you have a 20-oz bottle of Coca-Cola every day, switch to Diet Coke. You should lose 25 lb in a year. 20. Take your lunch to work. 21. Sit when you eat. 22. Dilute juice with water. 23. Have mostly veggies for lunch. 24. Eat at home. 25. Limit alcohol to weekends. How Can I Eat More Veggies? 26. Have a V8 or tomato juice instead of a Diet Coke at 3 pm. 27. Doctor your veggies to make them delicious: Dribble maple syrup over carrots, and sprinkle chopped nuts on green beans. 28. Mix three different cans of beans and some diet Icelandic dressing. Eat this three-russell salad allweek. 29. Don't forget that vegetable soup counts as a vegetable. 30. Rediscover the sweet potato. 31. Use pre-bagged baby spinach everywhere: as lettuce in sandwiches, heated in soups, wilted in hot pasta, and added to salads. 32. Spend the extra few dollars to buy vegetables that are already washed and cut up. 33. Really hate veggies? Relax. If you love fruits, eat plenty of them; they are just as healthy (especially colorful ones such as oranges, mangoes, and melons). 34. Keep seven bags of your favorite frozen vegetables on hand. Mix any combination, microwave, andtop with your favorite low-fat dressing. Enjoy 3 to 4 cups a day. Makes a great quick dinner. Can You Give Me a Mantra that will Help Me Stick to My Diet? 35. The best portion of high-calorie foods is the smallest one. The best portion of vegetables is the largest one. Period. 36. I'll ride the wave. My cravings will disappear after 10 minutes if I turn my attention elsewhere. 37. I want to be around to see my grandchildren, so I can forgo a cookie now. 38. I am a work in progress. 39. It's more stressful to continue being fat than to stop overeating. I Eat Healthy, but I'm Overweight. What Mistakes Could I Be Making without Realizing It? 40. Skipping meals. Many healthy eaters diet by day and binge by night. 41. Don't graze yourself fat. You can easily munch 600 calories of pretzels or cereal without realizing it. 42. Eating pasta like crazy. A serving of pasta is 1 cup, but some people routinely eat 4 cups. 43. Eating supersize bagels of 400 to 500 calories for snacks. 44. Ignoring Serving Size on the Nutrition Facts panel. 45. Snacking on bowls of nuts. Nuts are healthy but dense with calories. Put those bowls away, and use nuts as a garnish instead of a snack. The [employer] RDs serve as media spokespersons or heads of specialty practice groups for the ADA. URL: http://articles.health.[employer].com/id/040941793/?EJ8=6424 documented in this encounter Progress Notes 03/18/2006 8:00 AM CDT Addended by: YAKOV ALVARADO on: 03/18/2006 12:53:47 PM Comment: EKG reviewed: normal Chief complaint: HME and complaint of headache S: Felix Coppola is in for routine checkup. He feels generally well. Current concerns: HME and headache. Headaches: occasional MUNIZ, dull ache. Recently developed more severe frontal, unilateral with photophobia and some accustaphobia. Pain can be very severe. Some nausea, no vomiting. No aura. Onset in about 30 mins. Will last up to hours never more than a day. Gets this type MUNIZ about every other month. Denies visual changes or paralysis, or sensory changes. Sexual activity: monogamous in a stable relationship and heterosexual . Cardiovascular risk factors: Total # of Risk Factors for this patient = zero Nutrition/diet/weight concerns: wants to weigh about 200 pounds Present dietary habits: does not pay much attention to dietary recommendations. Present exercise habits: does some activities which elevate heart rate several times a week. Domestic violence concerns (per ICSI guideline): denies any concern I have asked the patient and reviewed the following history(ies): Family, Medical, Social and Surgical Review of systems include: CONSTITUTIONAL: Negative EYES: no visual blurring, no double vision, no glaucoma, no cataracts, no eye pain, no color blindness ENT: no abnormally frequent URIs, no decrease in hearing, no persistently sore throat RESPIRATORY: no shortness of breath, no cough, no sputum, no wheezing CARDIOVASCULAR: no tachycardia, no irregular heart beats, no chest pain, no exertional chest pain or pressure, (Positive for palpitations and with history of WPW and ablation) GASTROINTESTINAL: normal appetite, no dysphagia, no nausea, no abdominal pain, no melena GENITOURINARY: no dysuria, no frequency, no hematuria MUSCULOSKELETAL: no weakness, no nocturnal cramping, no muscle pains, no arthritis, (Positive for chronic or episodic back pain, herniated disc, some sciatica to legs) SKIN: no rash, no itch, no scaling, no hair changes, no nail changes, no pigmentation change, (Positive for small bump right forearm, lipoma) NEUROLOGIC: no numbness or tingling of hands, no numbness or tingling of feet, no tremor, no syncope, (Positive for headaches) O: BP 104/76 Pulse 92 Temp (Src) 97.5 (Oral) Resp 20 Ht 6' 1.75 (1.87m) Wt 250 lbs (113.4kg) General: 31 yr pleasant male who appears his stated age. Eyes: no lesions of lids, mattering or redness Head: normocephalic Mouth and throat: without erythema or lesions of the mucosa Nose: without septal or mucosal abnormalities Ears: external canals and TMs free of lesions or abnormalities Neck: supple, without adenopathy or thyromegaly. Lungs: clear to auscultation, no wheezes or rales CV: regular rate and rhythm, normal S1 and S2 without murmur or click, femoral pulses present and carotids without bruits Abd: soft, non-tender, no masses, no hepatomegaly or splenomegaly. : Negative scrotum and testicles are non tender, no masses or enlargement noted, uncircumcised and testes descended MS: extremities: no sign of deformity, atrophy, tenderness, asymmetry or edema, normal muscle tone & symmetry, normal alignment of lower extremities Skin: No lesions on visual exam or to palpation and small lipoma right forearm Neuro: motor and sensory function grossly normal with cranial nerves intact. EKG: normal EKG, normal sinus rhythm, unchanged from previous tracings. A: V70.0 PREVENTIVE CARE EXAM V77.91 SCREEN FOR LIPID DISORDERS V05.3 VACCINE FOR VIRAL HEPATITIS 278.00 OBESITY 346.90 MIGRAINE 722.10 LUMBAR DISC DISPLACEMENT 426.7 ANOMALOUS AV EXCITATION (WPW) P: EKG today. Fasting lipids in near future (requires 12 hour fast). Discussed the importance of: Low fat, high fiber diet, Regular exercise and weight loss. For migraine Maxalt WILLOW ANALYST tabs for Migraine and Vicodin for extreme LBP. Follow-up in 1 Years for preventive care and as needed for problems. Yakov Alvarado MD 03/18/2006 documented in this encounter Plan of Treatment Not on filedocumented as of this encounter Results (ABNORMAL) Fasting Lipid Panel (03/26/2006 8:47 AM CDT) P athologist Signature Cholesterol 211 (H) <200 mg/dl [facility] Comment: Result should not be interpreted without the patient's history of cardiovascular risk factors. Triglyceride 190 <200 mg/dl [facility] HDL 45 >35 mg/dl [facility] LDL, Calc. 128 mg/dl [facility] Hours Fasting 12 hours [facility] Specimen Anatomical Collection Method Collection Time Receive d Time (Source) Location / / Volume Laterality 03/26/2006 8:47 AM 6 8:49 CDT AM CDT Yakov Alvarado MD LAB_1 Performing Organization Address City/State/ZIP Code Phon e Number [facility] [phone] [facility] [address] [address] documented in this encounter Visit Diagnoses Diagnosis Routine general medical examination at [facility] - Primary Routine general medical examination at [facility] facility Screening for lipoid disorders Need for prophylactic vaccination and in oculation against viral hepatitis OBESITY Obesity, unspecified MIGRAINE Migraine, unspecified, without mention o f intractable migraine without mention of status migrainosus Displacement of lumbar intervertebral di sc without myelopathy (HRC) Displacement of lumbar intervertebral di sc without myelopathy 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
--- OUTSIDE RECORDS SUMMARY | 2022-06-12 15:45 | XMS_ITS | Encounter Summary ---
:1975 Author Organization [facility] Address [address] [place] [address] Care Team Providers Name Role Phone Rigoberto Lira PA-C Primary Care Provider Reason for Visit Reason Comments Annual Exam Encounter Details Date Type Department Care Team Description 10/03/2015 Office Visit [facility] Rigoberto Lira, Annual physical exam (Primar y Dx); [address] PA-C Cough; [place] [address] [address] Cutaneous skin tags [phone] [place] [id number] Social History Tobacco Use Types Packs/Day Years Used Date Smoking Tobacco: Former Cigarettes 0.5 13 Quit : 12/08/2005 Alcohol Use Standard Drinks/Week Comments Yes 0 (1 standard drink = 0.6 oz pure alcoho l) couple drinks per week Sex Assigned at Date Recorded Not on file documented as of this encounter Last Filed Vital Signs Vital Sign Reading Time Taken Comments Blood Pressure 132/82 10/03/2015 10:36 AM CHERRY DIPPER Pulse - - Temperature - - Respiratory Rate - - Oxygen Saturation - - Inhaled Oxygen Concentration - - Weight 103.9 kg (229 lb) 10/03/2015 10:36 AM CHERRY DIPPER Height 188 cm (6' 2) 10/03/2015 10:36 AM CHERRY DIPPER Body Mass Index 29.4 10/03/2015 10:36 AM CHERRY DIPPER documented in this encounter Progress Notes Rigoberto Lira PA-C - 10/03/2015 1:05 PM CST Male Preventive Exam IMPRESSION: Encounter Diagnoses Name Primary? Annual physical exam Yes ??? Cough SUBJECTIVE: 40 y/o patient presents for a routine preventive physical exam. Patient voices the following concern(s): 1. Has had a cough since July. Started off with cold symptoms, which have resolved. Cough has been persistent, though has improved a bit over time. No wheezing, but chest sounds a little raspy or rattly when he is lying down. He has been able to complete his normal cardio work-outs without difficulty. No coughing up blood, no chest pain, no shortness of breath, no fever, no night sweats. Currently smokes about 1/2 ppd. 2. Multiple skin tags that get caught on clothing and on his necklace/chain. Would like them removed. Since our last visit, in 2012, he has been definitively diagnosed with Ankylosing spondylitis. He isfollowed by [facility], and feels much better on his medication regimen than he did prior to diagnosis and treatment. Maintains current weight by exercising consistently, which also helps decrease his chronic back pain. Medications Requested: Requested Prescriptions No prescriptions requested or ordered in this encounter Past Medical/Surgical/Family History: Reviewed and updated today [...] 0.50 packs/day Types: Cigarettes ??? Smokeless tobacco: Never Used Comment: Smoking History Packs/day: ??? Alcohol Use: 3.0 oz/week 5 Shots of liquor per week ??? Drug Use: No ??? Sexual Activity: Partners: Female Other Topics Concern ??? None Social History Narrative Preventive Health Assessment: Exercise: He does report regular physical activity. Calcium intake is adequate. He does perform monthly self testicular exam. Screening cholesterol: Due Screening PSA: N/A Screening colonoscopy: N/A Review of Systems: A comprehensive review of systems is reviewed and negative except for what is noted above. OBJECTIVE: BP 132/82 mmHg Ht 6' 2 (1.88 m) Wt 229 lb (103.874 kg) BMI 29.39 kg/m2 General appearance: alert, cooperative, no distress, [...] or edema, Pulses: 2+ and symmetric, Skin: Benign-appearing skin tags posterior neck, and under each arm and Lymph nodes: Cervical, supraclavicular, and axillary nodes normal. ASSESSMENTPLAN: Felix was seen today for annual exam. Diagnoses and associated orders for this visit: Annual physical exam - Cholesterol Fraction-LDLD If Trig High; Future - Glucose; Future Cough - XR Chest * PA and Left Lateral (Standard); Future - I will let him know results as soon as available. Reassurance given that lungs sound clear. Discussed smoking cessation, and he would like to quit, but is not ready to quit currently. Cutaneous skin tags - DESTRUCT BENIGN SKIN LESIONS UP TO 14 [id number] - Each of his skin tags is treated in two 10-second freeze-thaw cycles with liquid nitrogen. Discussed course of recovery from this type of procedure. Return for re-treatment as needed. Patient Active Problem List Diagnosis ??? Lumbar Disc Disorder NOS ??? Ankylosing spondylitis lumbar region (HRC) Discharged ambulatory and in stable condition. RY DIPPER documented in this encounter Plan of Treatment Not on filedocumented as of this encounter Visit Diagnoses Diagnosis Annual physical exam - Primary Routine general medical examination at a health care facility Cough Cutaneous skin tags Unspecified hypertrophic and atrophic co ndition of skin documented in this encounter Care Teams Radiology Nurse Relationship Specialty Start Date End Date Rigoberto Lira PA-C PCP - General 10/03/15 04/[address] [place] [address] documented as of this encounter
--- OUTSIDE RECORDS SUMMARY | 2022-06-12 15:45 | XMS_ITS | Encounter Summary ---
:1975 Author Organization [facility] Address [address] [place] [address] Care Team Providers Name Role Phone Rigoberto Lira PA-C Primary Care Provider Encounter Details Date Type Department Care Team Description 02/09/2020 Orders Only Initial Department Provider, Isidro, [facility] MIKEL BACON MD [place], [place] [address] Interface provider [phone] [place] [address] Social History Tobacco Use Types Packs/Day Years [...] Name Priority Date/Time Associated Diagnosis Comme nts BONE DENSITY 02/09/2020 Results for thi s procedure are in the resu lts section. documented in this encounter Results BONE DENSITY (02/09/2020) Anatomical Region Laterality Modality Other Narrative This result has an attachment that is no t available. Interface Provider DUMMY/OTHER/AR documented in this encounter Visit Diagnoses Not on filedocumented in this encounter Care Teams Street Inspector Relationship Specialty Start Date End Date Rigoberto Lira PA-C PCP - General 04/11/16 [address] [place] [id number] documented as of this encounter
--- OUTSIDE RECORDS SUMMARY | 2022-06-12 15:45 | XMS_ITS | Encounter Summary ---
:1975 Author Organization [facility] [address] [facility] [place] [address] Care Team Providers Name Role Phone Veronique Oneill MD Primary Care Provider Encounter Details Date Type Department Care Team Description 12/22/2003 Therapy [facility] [place] [id number] [place], [place] [address] [place] [address] [phone] (Wo rk) Social History Tobacco Use Types Packs/Day Years Used Date Smoking Tobacco: Every Day Cigarettes 0.5 13 Alcohol Use Standard Drinks/Week Comments Not Asked 0 (1 standard drink = 0.6 oz pure alcoho l) Sex Assigned at Date Recorded Not on file documented as of this encounter Progress Notes Ronen Alvarado - 12/22/2003 12:00 AM CDT documented in this encounter Plan of Treatment Not on filedocumented as of this encounter Visit Diagnoses Not on filedocumented in this encounter Care Teams Airline Ticket Agent Relationship Specialty Start Date End Date Veronique Oneill MD PCP - General 02/17/07 10/02/[address] [id number] documented as of this encounter
--- OUTSIDE RECORDS SUMMARY | 2022-06-12 15:45 | XMS_ITS | Encounter Summary ---
:1975 Author Organization [facility] Address [address] [place] [address] Care Team Providers Name Role Phone Ronen Alvarado MD Primary Care Provider Reason for Visit Reason Comments PE IMMUNIZATIONS Encounter Details Date Type Department Care Team Description 01/21/2007 Office Visit [facility] Veronique Oneill [facility] (Primary Dx); MD Ivan Romano; [address] [facility] [address] [place] [address] [address] [place]; [place], [place] [address] Screening for Endocrine, Nutritional, Me tabolic and Immunity Disorder; [address] OBESITY; Vacc for Viral Hepatitis Social History Tobacco Use Types Packs/Day Years Used Date Smoking Tobacco: Former Cigarettes 0.5 13 Quit : 12/08/2005 Alcohol Use Standard Drinks/Week Comments Yes 0 (1 standard drink = 0.6 oz pure alcoho l) couple drinks per week Sex Assigned at Date Recorded Not on file documented as of this encounter Last Filed Vital Signs Vital Sign Reading Time Taken Comments Blood Pressure 124/92 01/21/2007 8:20 AM CDT Pulse 92 01/21/2007 8:20 AM CDT Temperature 36.2 ??C (97.1 ??F) 01/21/2007 8:20 AM CDT Respiratory Rate 20 01/21/2007 8:20 AM CDT Oxygen Saturation - - Inhaled Oxygen Concentration - - Weight 112.9 kg (249 lb) 01/21/2007 8:20 AM CDT Height 188 cm (6' 2) 01/21/2007 8:20 AM CDT Body Mass Index 31.97 01/21/2007 8:20 AM CDT documented in this encounter Progress Notes Veronique Oneill - 01/21/2007 9:09 AM CDT Patient Active Problem List Diagnoses Code ??? OBESITY 278.00 ??? MIGRAINE 346.90 ??? LUMBAR DISC DISPLACEMENT 722.10 ??? 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 He feels generally well. Current concerns: 1) history of chronic sciatica, interested in participating in a study. 2) recently has developed multiple small flat bumps on hands over the last couple weeks, not painfulor irritating 3) small lump on right forearm, present for years, stable in size Sexual activity: monogamous in a stable relationship . Cardiovascular risk factors: obesity Nutrition/diet/weight concerns: wants a healthier diet Present dietary habits: does not pay much attention to dietary recommendations. Present exercise habits: does some activities which elevate heart rate several times a week. Domestic violence concerns (per LISA briseno):denies any concern I have asked the patient and reviewed the following history(ies): Family, Medical, Social and Surgical Review of systems include: CONSTITUTIONAL: Negative RESPIRATORY: no shortness of breath, no cough, no sputum CARDIOVASCULAR: no palpitations, no irregular heart beats, no chest pain, no exertional chest pain or pressure All other Review of Systems negative O> General: 31 yr pleasant male who appears his stated age. Today's vital signs were reviewed by me. HEENT: Eyes: no lesions of lids, mattering or redness Head: normocephalic Mouth and throat: without erythema or lesions of the mucosa Nose: without septal or mucosal abnormalities Ears: external canals and TMs free of lesions or abnormalities Neck: supple, without adenopathy or thyromegaly. Lungs: clear to auscultation, no wheezes or rales CV: regular rate and rhythm, normal S1 and S2 without murmur or click Abd: soft, non-tender, no masses, no hepatomegaly or splenomegaly. : not examined MS: normal muscle tone & symmetry, right forearm with fleshy subcutaneous lump which is mobile, nontender, no surrounding or overlying abnormalities Skin: A few scattered benign appearing nevi and multiple flat skin colored papules on hands which disrupt normal skin lines, several in clusters, consistent with warts Neuro: motor and sensory function grossly normal with cranial nerves intact. A> 1) Preventive Evaluation and Exam 2) flat warts on hands 3) chronic sciatica 4) lipoma on forearm 5) overweight, Body mass index is 31.97 kg/(m^2). P> See today's orders for details Discussed the importance of: Low fat, high fiber diet and Regular exercise Follow-up in 2 Years for preventive care. Wart etiology, prognosis, and treatment options discussed. He opts to have warts frozen with liquid nitrogen and follow up with home wart compound. Warts frozen for 10-15 seconds x2, tolerated well Reassured regarding lipoma, no action needed Encouraged patient to call regarding study if he is interested. Veronique Oneill MD 9:01 AM 01/21/2007 documented in this encounter Plan of Treatment Not on filedocumented as of this encounter Results (ABNORMAL) CHOLESTEROL LIPID PANEL FAST >12HR (01/28/2007 8:18 AM CDT) P athologist Signature Cholesterol 225 (H) <200 mg/dl [facility] Comment: Result should not be interpreted without the patient's history of cardiovascular risk factors. Triglyceride 160 <200 mg/dl [facility] HDL 43 >35 mg/dl [facility] LDL, Calc. 150 mg/dl [facility] Hours Fasting 12 hours [facility] Specimen Anatomical Collection Method Collection Time Receive d Time (Source) Location / / Volume Laterality 01/28/2007 8:18 AM 7 8:19 CDT AM CDT Veronique Oneill MD LAB_1 Performing Organization Address City/State/ZIP Code Phon e Number [facility] [phone] [facility] [address] [address] GLUCOSE - FASTING > 8 HRS FASTING (V77.1) (01/28/2007 8:18 AM CDT) P athologist Signature Glucose 96 70 - 100 [facility] mg/dl Hours Fasting 12 hours [facility] Specimen Anatomical Collection Method Collection Time Receive d Time (Source) Location / / Volume Laterality 01/28/2007 8:18 AM 7 8:19 CDT AM CDT Veronique Oneill MD LAB_1 Performing Organization Address City/State/ZIP Code Phon e Number [facility] [phone] [facility] [address] [address] documented in this encounter Visit Diagnoses Diagnosis Preventative health care - Primary Routine general medical examination at a health care facility Flat wart Other specified viral warts Lipoma Lipoma of unspecified site Screening for endocrine, nutritional, me tabolic and immunity disorder Screening for other and unspecified endo crine, nutritional, metabolic, and immunity disorders OBESITY Obesity, unspecified Need for prophylactic vaccination and in oculation against viral hepatitis documented in this encounter Care Teams Skates Operator Relationship Specialty Start Date End Date Ronen Alvarado MD PCP - General 02/26/05 02/16/07 [address], [place] [address] documented as of this encounter
--- OUTSIDE RECORDS SUMMARY | 2022-06-12 15:45 | XMS_ITS | Encounter Summary ---
:1975 Author [facility] Address [address] [place] [address] Care Team Providers Name Role Phone Rigoberto Lira PA-C Primary Care Provider Encounter Details Date Type Department Care Team Description 02/18/2020 Orders Only Initial Department Provider, Isidro, [facility] MIKEL BACON MD [place], [place] [address] Interface provider [phone] [place] [address] Social History Tobacco Use Types Packs/Day Years [...] Name Priority Date/Time Associated Diagnosis Comme nts LABORATORY REPORT 02/18/2020 Results fo r this procedure are in the resu lts section. documented in this encounter Results LABORATORY REPORT (02/18/2020) Narrative This result has an attachment that is no t available. Interface Provider DUMMY/OTHER/AR documented in this encounter Visit Diagnoses Not on filedocumented in this encounter Care Teams Tariff Inspector Relationship Specialty Start Date End Date Rigoberto Lira PA-C PCP - General 04/11/16 [address] [place] [id number] documented as of this encounter
--- OUTSIDE RECORDS SUMMARY | 2022-06-12 15:45 | XMS_ITS | Encounter Summary ---
:1975 Author Organization [facility] Address [address], [place] [address] Care Team Providers Name Role Phone Veronique Oneill MD Primary Care Provider Encounter Details Date Type Department Care Team Description [facility] [place] [address] [address] [phone] [place], [place] [address] (Wo rk) Social History Tobacco Use Types Packs/Day Years Used Date Smoking Tobacco: Former Cigarettes 0.5 13 Quit : 12/08/2005 Alcohol Use Standard Drinks/Week Comments Yes 0 (1 standard drink = 0.6 oz pure alcoho l) couple drinks per week Sex Assigned at Date Recorded Not on file documented as of this encounter Progress Notes Flavia Cid PA-C - 01/09/2011 12:01 AM CDT Subjective: 35-year-old male presents to the clinic today for routine health maintenance examination. Additional concerns: 3 months ago he slipped down the stairs. After the fall he had some left-sided low back pain. Sometimes he feels like he has a lump in the low back. It does not radiate down the legs. It has gradually improved. He has a medical history of having a herniated disc at the L5-S1 area. Again he denies radicular symptoms. Denies loss of bladder or bowel control. 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 He is happily . Children are 17 and 14. He is a smoker. Alcohol use is minimal. ROS: complete review of systems is negative today Vital Signs: Reviewed and current in todays [facility] Health Profile Objective: Psyche: Patient is pleasant and oriented to person place and time. Skin is warm and dry to touch without lesions or abnormal nevi. HEENT: head normocephalic, External ears, canals and TMS are normal, Eyes Perrla, nose normal, posterior oropharnyx is clear. Neck: without thyroid enlargement ,adenopathy or carotid bruits Lungs: Without rhonchi, rales or wheezes heart: RRR, w/o mm, gallops or rubs : Both testicals are descended without masses bilaterally, no inguinal hernias noted. No sores or penile lesions. Rectal: Deferred. Muscoloskelatal and neruo exams: unremarkable. He is mildly tender to palpation of the soft tissue in the left low back area. No gross deformities are appreciated. No spinous process tenderness is noted. Reflexes and strength in the lower extremities are equal bilaterally. Assessment: Routine health maintenance examination. Left-sided low back pain. Plan: Patient is refusing tetanus shot. Cholesterol with fractionation is currently pending. Recommend gentle range of motion exercises and stretching for the low back. Followup p.r.n. *SH~DNS~SOAP documented in this encounter Plan of Treatment Not on filedocumented as of this encounter Visit Diagnoses Not on filedocumented in this encounter Care Teams Jackhammer Operator Relationship Specialty Start Date End Date Veronique Oneill MD PCP - General 02/17/07 10/02/[address] [place] [address] documented as of this encounter
--- OUTSIDE RECORDS SUMMARY | 2022-06-12 15:45 | XMS_ITS | Encounter Summary ---
:1975 Author [facility] Address [address] [place] [address] Care Team Providers Name Role Phone Rigoberto Lira PA-C Primary Care Provider Encounter Details Date Type Department Care Team Description 02/18/2020 Orders Only Initial Department Provider, Isidro, [facility] MIKEL BACON MD [place], [place] [address] Interface provider [phone] [place] [address] Social History Tobacco Use Types Packs/Day Years [...] on filedocumented in this encounter Care Teams Head Sugar Reprocess Operator Relationship Specialty Start Date End Date Rigoberto Lira PA-C PCP - General 04/11/16 [address] [place] [id number] documented as of this encounter
--- OUTSIDE RECORDS SUMMARY | 2022-06-12 15:45 | XMS_ITS | Encounter Summary ---
:1975 Author Organization [facility] Address [address] [place] [address] Care Team Providers Name Role Phone Rigoberto Lira PA-C Primary Care Provider Encounter Details Date Type Department Care Team Description 10/03/2015 Lab Visit [facility] Annual physical exam [address] [place] [address] Social History Tobacco Use Types Packs/Day Years [...] Name Priority Date/Time Associated Diagnosis Comme nts GLUCOSE Routine 10/03/2015 11:06 AM Annual physical exam Results for this TRANSIT SURVEY WORKER procedure are i n the results section. LIPID PANEL AND Routine 10/03/2015 11:06 AM Annual physical ex am Results for this DIRECT LDL(IF TRANSIT SURVEY WORKER procedure are in NEEDED) the results section. documented in this encounter Results (ABNORMAL) GLUCOSE (10/03/2015 11:06 AM TRANSIT SURVEY WORKER) P athologist Signature Lab Glucose 102 (H) 60 - 100 HP CONVERSION mg/dL Specimen Anatomical Collection Method Collection Time Receive d Time (Source) Location / / Volume Laterality 10/03/2015 11:06 10/03/2015 2:32 AM TRANSIT SURVEY WORKER PM TRANSIT SURVEY WORKER Narrative HP CONVERSION - 10/03/2015 3:34 PM TRANSIT SURVEY WORKER Performed at [facility], [address] [place] [address] CLIA number [id number] Rigoberto Lira PA-C LAB_1 Performing Organization Address [facility] Phon e Number HP CONVERSION (ABNORMAL) Lipid Panel and Direct LDL(If Needed) (10/03/2015 11:06 AM TRANSIT SURVEY WORKER) [facility] gist Method Time Signature Cholesterol 223 (H) 0 - 199 HP CONVERSION mg/dL Triglycerides 150 (H) 4 - 149 HP CONVERSION mg/dL HDL Cholesterol 50 >39 mg/dL HP CONVERSION Cholesterol/HDL 4.5 HP CONVERSION Ratio Screen LDL Calculated 143 (H) 19 - 130 HP CONVERSION mg/dL Length Of Fast 12.0 HP CONVERSION Specimen Anatomical Collection Method Collection Time Receive d Time (Source) Location / / Volume Laterality 10/03/2015 11:06 10/03/2015 2:32 AM TRANSIT SURVEY WORKER PM TRANSIT SURVEY WORKER Narrative HP CONVERSION - 10/03/2015 3:34 PM TRANSIT SURVEY WORKER Performed at [facility], [facility] [address] [place] [address] CLIA number [id number] Rigoberto Lira PA-C LAB_1 Performing Organization Address [facility] Phon e Number HP CONVERSION documented in this encounter Visit Diagnoses Diagnosis Annual physical exam Routine general medical examination at a health care facility documented in this encounter Care Teams Wardrobe Mistress Relationship Specialty Start Date End Date Rigoberto Lira PA-C PCP - General 10/03/15 04/10/16 [address] [place] [address] documented as of this encounter
--- OUTSIDE RECORDS SUMMARY | 2022-06-12 15:45 | XMS_ITS | Encounter Summary ---
:1975 Author Organization [facility] Address [address] [place] [address] Care Team Providers Name Role Phone Ronen Alvarado MD Primary Care Provider Encounter Details Date Type Department Care Team Description 03/18/2006 Correspondence None Edie, Provider consent to release Social History Tobacco Use Types Packs/Day Years Used Date Smoking Tobacco: Former Cigarettes 0.5 13 Quit : 12/08/2005 Alcohol Use Standard Drinks/Week Comments Not Asked 0 (1 standard drink = 0.6 oz pure alcoho l) Sex Assigned at Date Recorded Not on file documented as of this encounter Progress Notes Dejan Irizarry Provider - 03/18/2006 12:00 AM CDT documented in this encounter Plan of Treatment Not on filedocumented as of this encounter Visit Diagnoses Not on filedocumented in this encounter Care Teams Business Trainer Relationship Specialty Start Date End Date Ronen Alvarado MD PCP - General 02/26/05 02/16/[address] [place] [address] documented as of this encounter
--- OUTSIDE RECORDS SUMMARY | 2022-06-12 15:45 | XMS_ITS | Encounter Summary ---
:1975 Author Organization [facility] Address [address] [place] [address] Care Team Providers Name Role Phone Ronen Alvarado MD Primary Care Provider Reason for Visit Reason Comments IMMUNIZATIONS Encounter Details Date Type Department Care Team Description 04/18/2006 Office Visit [facility], Adult Av Vacc for Viral Department Hepatitis (Primary Dx) [address] [place], [place] [address] Social History Tobacco Use [...] Reading Time Taken Comments Blood Pressure 104/76 04/18/2006 9:00 AM CDT Pulse - - Temperature 37.1 ??C (98.7 ??F) 04/18/2006 9:00 AM CDT Respiratory Rate - - Oxygen Saturation - - Inhaled Oxygen Concentration - - Weight 113.4 kg (250 lb) 04/18/2006 9:00 AM CDT Height - - Body Mass Index 32.32 03/18/2006 8:00 AM CDT documented in this encounter Progress Notes 04/18/2006 9:00 AM CDT Felix Coppola here for injection(s). ordered per Jenny. See orders. Contraindications and side effects discussed with patient patient verbalized understanding of risks, possible side effects, and benefits of the injection andgave permission to administer the stated immunization(s). No precautions or contraindications noted. Tolerated injection well. See immunization/injection report for administration documentation. Brianda Arrieta LPN 04/18/2006 9:31 AM' documented in this encounter Plan of Treatment Not on filedocumented as of this encounter Visit Diagnoses Diagnosis Need for prophylactic vaccination and in oculation against viral hepatitis - Primary documented in this encounter Care Teams Cnc Supervisor Relationship Specialty Start Date End Date Ronen Alvarado MD PCP - General 02/26/05 02/16/[address] [place] [address] documented as of this encounter
--- OUTSIDE RECORDS SUMMARY | 2022-06-12 15:45 | XMS_ITS | Encounter Summary ---
:1975 Author Organization [facility] Address [address] [place] [address] Care Team Providers Name Role Phone Veronique Oneill MD Primary Care Provider Encounter Details Date Type Department Care Team Description 01/08/2011 PN Conversion Only [place] CONVERSION [address] [address] Social History Tobacco Use Types Packs/Day Years [...] on filedocumented in this encounter Care Teams Blade Bender Furnace Tender Relationship Specialty Start Date End Date Veronique Oneill MD PCP - General 02/17/07 10/02/[address] [place] [address] documented as of this encounter
--- OUTSIDE RECORDS SUMMARY | 2022-06-12 15:45 | XMS_ITS | Encounter Summary ---
:1975 Author Organization [facility] Address [address] [place] [address] Care Team Providers Name Role Phone Rigoberto Lira PA-C Primary Care Provider Reason for Visit Reason Comments Eye Problem Encounter Details Date Type Department Care Team Description 02/06/2021 Hospital Encounter [facility] Garrison Christianson MD Coloboma of lid of [place] [facility] [address] [facility] [address] [address] [place], [place] [address] [address] [place], [place] [phone] (Work) [phone] Social History Tobacco Use Types Packs/Day Years [...] Index - - documented in this encounter Medications at Time of Discharge Medication Sig Dispensed Refills Start Date End Date atorvastatin (LIPITOR) 20 0 11/13/2020 MG tablet DRUG NOT IN Take 1 Dose by mouth 0 10/03/2015 COMPUTERIndications: 2 times daily. celgene Indications: celgene erythromycin 5 MG/GM Place 0.5 Inches into 3.5 g 0 01/10 (0.5%) eye ointment right eye every 6 hours. gemfibrozil (LOPID) 600 MG 0 1 tablet ibuprofen (AKA MOTRIN) 800 Take 800 mg by mouth 0 10/03/2015 MG tablet 2 times daily. MAXALT-PREVENTIVE MEDICINE OFFICER [address] one tablet 6 03/18/2006 TBDPIndications: Migraine, placed on the tongue unspecified, without at the onset of a mention of intractable headache. Allow it to migraine without mention dissolve, then of status migrainosus swallow with saliva. May repeat with one tablet in 2 hours if headache recurs. OTEZLA 30 MG TABS 0 01/23/2021 VICODIN 5-500 MG OR TABS Take 1-2 tablets by 0 mouth every 4-6 hours as needed for pain. Do not take more than 8 tablets in one day. documented as of this encounter ED Notes Garrison Diaz MD - 02/06/2021 8:32 AM CDT Pt has right eye redness and swelling. Eye feels irritated. Pt notices pimple like lesion under upper lid. Pt noticed sx Friday. Denies fb or injury. SUBJECTIVE: Felix Coppola is a 45 y.o.male Chief Complaint: Chief Complaint Patient presents with ??? Eye Problem HPI: 45 years old [place] descended male presented today to clinic with concern about his under his rightupper eyelid redness is swollen irritation it looked like pimple inside of his eyelid. Symptom persist duration 3-4 days no headache no fever no vision change. Vision on the both side 2019. He did not use any medication patient stated it gets irritated with the son but no itching or tearing. His smoker. ROS: Complete ROS was negative other than what was cited above. Social History: Social History Tobacco Use ??? Smoking status: Current Every Day Smoker Packs/day: 0.50 Years: 13.00 Pack years: 6.50 Types: Cigarettes ??? Smokeless tobacco: Never Used ??? Tobacco comment: Smoking History Packs/day: Substance Use Topics ??? Alcohol use: Yes Alcohol/week: 5.0 standard drinks Types: 5 Shots of liquor per week ??? Drug use: No Past Medical History: Patient Active Problem List Diagnosis ??? Obesity (HRC) ??? Migraine ??? Displacement of lumbar intervertebral disc without myelopathy (HRC) ??? Anomalous atrioventricular excitation ??? Disc disorder of lumbar region (HRC) ??? Ankylosing spondylitis lumbar region (HRC) Adverse Drug Reactions: Patient has no known allergies. Medications: Apremilast, HYDROcodone-acetaminophen, atorvastatin, drug not in computer, erythromycin, gemfibrozil, ibuprofen, and rizatriptan OBJECTIVE: Vital Signs: BP (!) 141/87 (BP Location: Left Arm, BP Cuff Size: Large) Pulse 84 Temp 36.8 ??C (98.2 ??F) (Oral) Resp 20 SpO2 97% . General: Vital signs stable alert oriented no distress, facial symmetrical, eye pupil equal round reactive to the light extraocular muscle intact conjunctiva both side clear. Under his right upper eyelid on the lateral side kind of irritated swollen the cranial plan tissue type. No purulent discharge the left side is clear again no headache no any other symptom. He denied that he know any allergy HEENT: Negative Lymphatic: Negative Chest: No enlarged lymph Heart: Clear Abdomen: Benign Musculoskeletal: Upper and lower extremity joints symmetrical for range of motion Skin: No rash Neurological: No focal deficits normal reflex Psychiatric: Negative Labs: Labs Reviewed - No data to display X-Rays: No results found. ASSESSMENT: 1. Coloboma of lid of eye PLAN: I am going to use erythromycin eye ointment and use the sunglasses as protection and avoid irritation. Avoid itching . If not improved additional symptom concern we will send him to eye doctors there is no indication of abscess. He understands except that Medications - No data to display Medications Prescribed this Visit Disp Refills Start End erythromycin 5 MG/GM (0.5%) eye ointment 3.5 g 0 02/06/2021 Place 0.5 Inches into right eye every 6 hours. Right Eye Discharge instructions are on file. The patient was discharged ambulatory and in stable condition. 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 Eye feels irritated. Pt notices pimple like lesion under upper lid. Pt noticed sx Friday. Denies fb or injury. documented in this encounter Care Teams Cnc Router Operator Relationship Specialty Start Date End Date Rigoberto Lira PA-C PCP - General 04/11/16 [address] [place] [address] documented as of this encounter
--- OUTSIDE RECORDS SUMMARY | 2022-06-12 15:45 | XMS_ITS | Encounter Summary ---
:1975 Author Organization On license of [facility] Address [address] [place] [address] Care Team Providers Name Role Phone Ronen Alvarado MD Primary Care Provider Encounter Details Date Type Department Care Team Description 03/18/2006 Orders Only [facility] Unknown, Physician [address] [facility] [address] [place], [place] [address] [place] [address] [phone] (Wo rk) Social History Tobacco Use Types Packs/Day Years Used Date Smoking Tobacco: Former Cigarettes 0.5 13 Quit : 12/08/2005 Alcohol Use Standard Drinks/Week Comments Not Asked 0 (1 standard drink = 0.6 oz pure alcoho l) Sex Assigned at Date Recorded Not on file documented as of this encounter Procedure Notes Ronen Alvarado - 03/18/2006 12:00 AM CDTAssociated Order(s): EKG documented in this encounter Plan of Treatment Not on filedocumented as of this encounter Procedures Procedure Name Priority Date/Time Associated Diagnosis Comme nts EKG 03/18/2006 12:00 AM Results for this CDT procedure are i n the results section . ECG TRACING 03/18/2006 Results for thi s procedure are i n the results section . documented in this encounter Results EKG (03/18/2006 12:00 AM CDT) Narrative 03/18/2006 12:00 AM CDT This result has an attachment that is no t available. Ordered by an unspecified provider. Transcriptions Ronen Alvarado - 03/18/2006 12:00 AM CDT Physician Unknown EKG documented in this encounter Visit Diagnoses Not on filedocumented in this encounter Care Teams Vamp Wetter Relationship Specialty Start Date End Date Ronen Alvarado MD PCP - General 02/26/05 02/16/[address] [place] [address] documented as of this encounter
--- OUTSIDE RECORDS SUMMARY | 2022-06-12 15:45 | XMS_ITS | Encounter Summary ---
:[address] [facility] Address [address] [place] [address] Care Team Providers Name Role Phone Veronique Oneill MD Primary Care Provider Encounter Details Date Type Department Care Team Description 11/17/2003 Orders Only External to Unknown, Physici an [address] [place], [place] [address] (Wo rk) Social History Tobacco Use Types Packs/Day Years Used Date Smoking Tobacco: Every Day Cigarettes 0.5 13 Alcohol Use Standard Drinks/Week Comments Not Asked 0 (1 standard drink = 0.6 oz pure alcoho l) Sex Assigned at Date Recorded Not on file documented as of this encounter Procedure Notes Ronen Alvarado - 11/17/2003 12:00 AM CDTAssociated Order(s): MRI SPINE SC documented in this encounter Plan of Treatment Not on filedocumented as of this encounter Procedures Procedure Name Priority Date/Time Associated Diagnosis Comme nts MRI SPINE SC 11/17/2003 12:00 AM Results for this CDT procedure are i n the results section . documented in this encounter Results MRI SPINE SC (11/17/2003 12:00 AM CDT) Anatomical Region Laterality Modality Other Narrative 11/17/2003 12:00 AM CDT This result has an attachment that is no t available. Ordered by an unspecified provider. Transcriptions Ronen Alvarado - 11/17/2003 12:00 AM CDT Physician Unknown DUMMY/OTHER/AR documented in this encounter Visit Diagnoses Not on filedocumented in this encounter Care Teams Garbage Stoker Relationship Specialty Start Date End Date Veronique Oneill MD PCP - General 02/17/07 10/02/[address] [place] [address] documented as of this encounter
--- OUTSIDE RECORDS SUMMARY | 2022-06-12 15:45 | XMS_ITS | Encounter Summary ---
:1975 Author Organization [facility] Address [address] [place] [address] Care Team Providers Name Role Phone Veronique Oneill MD Primary Care Provider Encounter Details Date Type Department Care Team Description 10/27/2003 Therapy External to Ronen Alvarado MD [address] [place] [address] (Wo rk) Social History Tobacco Use Types Packs/Day Years Used Date Smoking Tobacco: Every Day Cigarettes 0.5 13 Alcohol Use Standard Drinks/Week Comments Not Asked 0 (1 standard drink = 0.6 oz pure alcoho l) Sex Assigned at Date Recorded Not on file documented as of this encounter Progress Notes Ronen Alvarado - 10/27/2003 12:00 AM RELEASE OF INFORMATION SPECIALIST ASE OF INFORMATION SPECIALIST documented in this encounter Plan of Treatment Not on filedocumented as of this encounter Visit Diagnoses Not on filedocumented in this encounter Care Teams Sound Controller Relationship Specialty Start Date End Date Veronique Oneill MD PCP - General 02/17/07 10/02/[address] [id number] documented as of this encounter
--- OUTSIDE RECORDS SUMMARY | 2022-06-12 15:45 | XMS_ITS | Encounter Summary ---
:1975 Author Organization [facility] [employer] Address [address] [place] [address] Care Team Providers Name Role Phone Veronique Oneill MD Primary Care Provider Encounter Details Date Type Department Care Team Description 09/16/2012 Lab Visit [facility] Chronic low back pain; [address] Screening cholesterol level; [place] [address] Screening for diabetes [facility] [phone] Social History Tobacco Use Types Packs/Day Years [...] Date/Time Associated Diagnosis Comme nts GLUCOSE Routine 09/16/2012 9:36 AM Screening for Results for this CAR RESTORER diabetes mellitus procedure are in the results section. HLA B27 Routine 09/16/2012 9:36 AM Chronic low back Resul ts for this CAR RESTORER pain procedure are i n the results section. LIPID PANEL AND Routine 09/16/2012 9:36 AM Screening Result s for this DIRECT LDL(IF CAR RESTORER cholesterol level procedure are in NEEDED) the results section. documented in this encounter Results GLUCOSE (09/16/2012 9:36 AM CAR RESTORER) athologist Signature Lab Glucose 87 60 - 100 HP CONVERSION mg/dL Specimen Anatomical Collection Method Collection Time Receive d Time (Source) Location / / Volume Laterality 09/16/2012 9:36 AM 3 3:51 CAR RESTORER PM CAR RESTORER Rigoberto Crow Soraya [facility] Performing Organization Address [facility] Code Phon e Number HP CONVERSION (ABNORMAL) Lipid Panel and Direct LDL(If Needed) (09/16/2012 9:36 AM CAR RESTORER) Patholo gist Method Time Signature Cholesterol 196 0 - 200 HP CONVERSION mg/dL Triglycerides 206 (H) 0 - 149 HP CONVERSION mg/dL HDL Cholesterol 52 >39 mg/dL HP CONVERSION Cholesterol/HDL 3.8 HP CONVERSION Ratio Screen LDL Calculated 103 19 - 130 HP CONVERSION mg/dL Length Of Fast 11.0 HP CONVERSION Specimen Anatomical Collection Method Collection Time Receive d Time (Source) Location / / Volume Laterality 09/16/2012 9:36 AM 3 3:51 CAR RESTORER PM CAR RESTORER Rigoberto L Soraya [facility] Performing Organization Address [facility] Phon e Number HP CONVERSION (ABNORMAL) HLA B27 (09/16/2012 9:36 AM CAR RESTORER) Analysis Performed At Patho logist Time Signature HLA B27 Positive (A) HP CONVERSION Comment: Reference range: ??Negative A positive HLA B27 is associated with an kylosing spondylitis. Note: ??This test was developed and its performance characteristics determined by [facility]. It has not been cleared or approved by the [place] and Drug administration. The FDA has determined that such clearan ce or approval is not necessary. This test is used for cli nical purposes. It should not be regarded as investigationa l or for research. Specimen Anatomical Collection Method Collection Time Receive d Time (Source) Location / / Volume Laterality 09/16/2012 9:36 AM 3 1:35 CAR RESTORER PM CAR RESTORER Rigoberto Tristin Soraya [facility] Performing Organization Address [facility] Phon e Number HP CONVERSION documented in this encounter Visit Diagnoses Diagnosis Chronic low back pain Lumbago Screening cholesterol level Screening for lipoid disorders Screening for diabetes mellitus documented in this encounter Care Teams Maritime Guard Relationship Specialty Start Date End Date Veronique Oneill MD PCP - General 02/17/07 10/02/[address] [place] [address] documented as of this encounter
--- OUTSIDE RECORDS SUMMARY | 2022-06-12 15:46 | XMS_ITS | Encounter Summary ---
:1975 Author Organization [employer] Address [address] [place] [address] Care Team Providers Name Role Phone Otoniel Nevarez MD Primary Care Provider [phone] Encounter Details Date Type Department Care Team Description 03/16/2003 Office Visit [facility] Otoniel Nevarez GASTRKRISTIAN S/DUODEN NOS W/O HEMORRH; Practice MD Esteban LIPOMA NOS; [address] ABDOMINAL PAIN UNSPEC SITE [place], [place] [address] [facility] [address] [place], [place] [address] Social History Tobacco Use Types Packs/Day Years Used Date Smoking Tobacco: Every Day Cigarettes 0.5 Alcohol Use Standard Drinks/Week Comments Not Asked 0 (1 standard drink = 0.6 oz pure alcoho l) Sex Assigned at Date Recorded Not on file documented as of this encounter Last Filed Vital Signs Vital Sign Reading Time Taken Comments Blood Pressure 122/70 03/16/2003 1:20 PM CDT Pulse 100 03/16/2003 1:20 PM CDT Temperature 36.7 ??C (98 ??F) 03/16/2003 1:20 PM CDT Respiratory Rate 12 03/16/2003 1:20 PM CDT Oxygen Saturation - - Inhaled Oxygen Concentration - - Weight 104.3 kg (230 lb) 03/16/2003 1:20 PM CDT Height 186.7 cm (6' 1.5) 03/16/2003 1:20 PM CDT Body Mass Index 29.93 03/16/2003 1:20 PM CDT documented in this encounter Progress Notes 03/16/2003 1:20 PM CDT Felix Coppola is here today for a physical. no medications/no drug allergies Are you having other pain today, that you want to discuss with the provider? -NO Preventive Services up to date? -YES Immunizations up to date? -YES Do you ever feel physically threatened or emotionally afraid? -NO Tobacco Status reviewed? 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 Aspirin taken daily? -NO BP was taken on the RIGHT arm. BP cuff size used? -Adult Large Health Education given? -NO. Contact phone number [phone] (home) [phone] (work), alternate phone number . Ronaldo Hamilton, [place] 03/16/2003 1:18 PM Otoniel Nevarez - 03/16/2003 12:00 AM CDTS: New patient to [facility], initially here for PE. However, he wishes instead to discuss his stomach problems. He states over the last 3 years he has had intermittent upset stomach on a wkly basis. Denies any significant change with food or activity. When he does get the upset stomach, he will have small bowel movements 2-3X and then symptoms will resolve. Denies any bloody diarrhea, fever or chills. No vomiting. States he has heartburn type symptoms perhaps once a month. He smokes 1/2 pack of cigarettes a day. Drinks very little alcohol. Is on no medications. Has no allergies. Otherwise states he has been in good health. Also wishes to have his skin lesions checked. He states he has had lumps on his right arm, right leg and abdomen for quite some time. These have been unchanged. They are not painful. O: Alert, no acute distress. Weight 230. Blood pressure 122/70. Afebrile. Throat is clear. Neck is supple without adenopathy. Examination of the right arm reveals a freely movable, subcutaneous 2 centimeter diameter lesion consistent with lipoma. No overlying skin changes. Examination of the abdomen reveals no distention, no tenderness to palpation, no hepatosplenomegaly. There are two similar 2 centimeter diameter subcutaneous lesions in the epigastric and right upper quadrant areas. Similar lesion on the anterior right thigh. A: 1. Nonspecific abdominal symptoms of uncertain etiology. Possibilities include gastritis or irritable bowel. 2. Lipomas right arm, mid abdomen, right thigh. P: Extensive discussion with the patient with regards to his symptoms. Screening labs today. He is to follow-up in 2 weeks with diary of his symptoms as well as recheck of his labs. [place] diet. P cc: documented in this encounter Plan of Treatment Not on filedocumented as of this encounter Visit Diagnoses Diagnosis Unspecified gastritis and gastroduodenit is without mention of hemorrhage Lipoma of unspecified site Abdominal pain, unspecified site documented in this encounter Care Teams Stamping Mill Tender Relationship Specialty Start Date End Date Otoniel Nevarez MD PCP - General 03/15/03 02/25/[address] [place] [address] [place] [address] documented as of this encounter
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
--- OUTSIDE RECORDS SUMMARY | 2022-06-12 15:46 | XMS_ITS | Encounter Summary ---
:1975 Author Organization [facility] [address], [place] [address] Care Team Providers Name Role Phone Otoniel Nevarez MD Primary Care Provider [phone] Encounter Details Date Type Department Care Team Description 08/23/2003 Telephone [facility] [place] [address] [address] [address] [address] [place], [place] [address] [place] [address] [phone] (Wo rk) Social History Tobacco Use Types Packs/Day Years Used Date Smoking Tobacco: Every Day Cigarettes 0.5 13 Alcohol Use Standard Drinks/Week Comments Not Asked 0 (1 standard drink = 0.6 oz pure alcoho l) Sex Assigned at Date Recorded Not on file documented as of this encounter Nursing Notes Ronen Alvarado - 08/23/2003 12:00 AM CSTPHONE MESSAGE: Regarding lumbar spine disease. S: The patient has had chronic low back pain with radiation into the legs, particularly the right. Just had an MRI scan done after my last visit with him. Scan was completed on 11/17/03 and report is now available. He continues with pain with the pain unchanged. O: Herniated L5, S1 disk with particularly impingement at the right S1 nerve root origin and also lesser degenerative changes at L4-5. A: L5-S1 disk herniation and secondary sciatica. P: As he has already completed physical therapy and been taking medications and work restrictions. Will now refer to orthopedic consultants. Specifically Dr. Clyde Solorio. Patient may make his own appointment. Should have films taken with him. 

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
--- OUTSIDE RECORDS SUMMARY | 2022-06-12 15:46 | XMS_ITS ---
:1975 Author Care Team Providers Name Role Phone Mika Grayson Primary Care Provider Unavailable Allergies Code Code System Name Reaction Severity Status Onset NKDA ? Medications None recorded. Problems None recorded. Procedures None recorded. Results Lab Results None recorded. Past Encounters 04/04/2021 Mika Grayson MD: [address] [facility] [address] [facility], [facility] [address], [place] [address], Ph. Social History Tobacco Smoking Status Heavy Tobacco Smoker (1/2 pack per da y) Vaccine List None recorded. Plan of Care Reminders Provider Appointments None recorded. ? ? Lab None recorded. ? ? Referral None recorded. ? ? Procedures None recorded. ? ? Surgeries None recorded. ? ? Imaging None recorded. ? ? Vitals Height Weight BMI Blood Pressure 6 ft 2 in 220 lbs 28.2 kg/m2 123/82 mm[Hg]
--- OUTSIDE RECORDS SUMMARY | 2022-06-12 15:46 | XMS_ITS | Encounter Summary ---
:1975 Author [facility] Address [address] [place] [address] Care Team Providers Name Role Phone Otoniel Nevarez MD Primary Care Provider [phone] Encounter Details Date Type Department Care Team Description 03/16/2003 Correspondence None Unknown, Physici an ERICA [address] [place], [place] [address] (Wo rk) Social History Tobacco Use Types Packs/Day Years Used Date Smoking Tobacco: Every Day Cigarettes 0.5 Alcohol Use Standard Drinks/Week Comments Not Asked 0 (1 standard drink = 0.6 oz pure alcoho l) Sex Assigned at Date Recorded Not on file documented as of this encounter Progress Notes Unknown, Physician - 03/16/2003 12:00 AM CDT documented in this encounter Plan of Treatment Not on filedocumented as of this encounter Visit Diagnoses Not on filedocumented in this encounter Care Teams Ring Cutter Lathe Operator Relationship Specialty Start Date End Date Otoniel Nevarez MD PCP - General 03/15/03 02/25/[address] [place], [place] [id number] documented as of this encounter
--- OUTSIDE RECORDS SUMMARY | 2022-06-12 15:46 | XMS_ITS | Encounter Summary ---
:[address] Address [address] [place] [address] Care Team Providers Name Role Phone Otoniel Nevarez MD Primary Care Provider [phone] Encounter Details Date Type Department Care Team Description 03/22/2003 Correspondence Rocío Wang [facility] Otoniel Nevarez LIPID RESULTS Practice MD [place] [address] [place]ío [place] [address] [address] [place], [place] [address] (Wo rk) Social History Tobacco Use Types Packs/Day Years Used Date Smoking Tobacco: Every Day Cigarettes 0.5 Alcohol Use Standard Drinks/Week Comments Not Asked 0 (1 standard drink = 0.6 oz pure alcoho l) Sex Assigned at Date Recorded Not on file documented as of this encounter Progress Notes Otoniel Nevarez - 03/22/2003 12:00 AM CDT documented in this encounter Plan of Treatment Not on filedocumented as of this encounter Visit Diagnoses Not on filedocumented in this encounter Care Teams Pedigree Tracer Relationship Specialty Start Date End Date Otoniel Nevarez MD PCP - General 03/15/03 02/25/[address] [place] [address] [address] [place] [address] documented as of this encounter
--- OUTSIDE RECORDS SUMMARY | 2022-06-12 15:46 | XMS_ITS | Encounter Summary ---
:1975 Author Organization [facility] Address [address] [place] [address] Care Team Providers Name Role Phone Otoniel Nevarez MD Primary Care Provider [phone] Encounter Details Date Type Department Care Team Description 10/10/2003 Office Visit [facility], OLEG Mann BACK PAIN Practice MD (CHRONIC)>6 WEEKS [address] [place] [address] [phone] Social History Tobacco Use Types Packs/Day Years Used Date Smoking Tobacco: Every Day Cigarettes 0.5 13 Alcohol Use Standard Drinks/Week Comments Not Asked 0 (1 standard drink = 0.6 oz pure alcoho l) Sex Assigned at Date Recorded Not on file documented as of this encounter Last Filed Vital Signs Vital Sign Reading Time Taken Comments Blood Pressure 134/78 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 -NO Do you need refills on any of your medications today? -NO Preventive Services up to date? no Immunizations up to date? -YES Do you ever feel physically threatened or emotionally afraid? -NOT ASKED Tobacco Status reviewed? (see History Social-Substance) -YES attraction attendant offered? 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 Aspirin taken daily? -NO BP was taken on the RIGHT arm. BP cuff size used? -Adult Large Health Education given? -NO. Contact phone number [phone] (home) [phone] (work), alternate phone number- Yeseniagamaliel Donohue LPN 10/10/2003 5:08 PM Ibuprofen 800mg every 4 hrs Muscle relaxer Ronen Alvarado - 10/10/2003 12:00 AM CSTCHIEF COMPLAINT: Chronic low back pain. SUBJECTIVE: This gentleman has had low back pain intermittently over about the last 5 years. There was no specific injury or cause for the pain but just developed and has given him discomfort intermittently, generally without radiation into the legs. Now over the last half-year or 8 months the pain has increased particularly on the left side and now within the last month is stronger on the right side which had previously been spared and there is radiation of the pain at least as far as the knee on the right side with some sense of numbness and general discomfort in the right leg. OBJECTIVE: No apparent distress. Walks without limp. Pulse 92. Weight 235 pounds. Blood pressure 134/78. Spine normal contours. Minimal tenderness across the right low paraspinous lumbar region and also directly over the low lumbar segment of the spine. Range of motion is normal but there is increased pain on forward flexion and rotation to either side as well as flexion to either side. Abdomen is entirely benign with no abnormal mass nor tenderness. Pulses 2+ femorals, dorsalis pedis and posterior tibial arteries. Questionably positive straight leg raising at about 60 degrees on the right side. ASSESSMENT: Probable sciatica with chronic low back pain. PLAN: Naprosyn 500 mg p.o. b.i.d. and refer to [facility] for physical therapy. Follow-up in a couple of weeks. If not markedly improved, will probably need imaging. 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
--- OUTSIDE RECORDS SUMMARY | 2022-06-12 15:46 | XMS_ITS | Encounter Summary ---
:1975 [address] [facility] Address [address], [place] [address] Care Team Providers Name Role Phone Otoniel Nevarez MD Primary Care Provider [phone] Encounter Details Date Type Department Care Team Description 05/04/2003 Office Visit [facility] Chris Cyr MD [facility] [address] [place] [id number] [place] [address] [address] [place] [address] [phone] (Wo rk) Social History Tobacco Use Types Packs/Day Years Used Date Smoking Tobacco: Every Day Cigarettes 0.5 Alcohol Use Standard Drinks/Week Comments Not Asked 0 (1 standard drink = 0.6 oz pure alcoho l) Sex Assigned at Date Recorded Not on file documented as of this encounter Progress Notes Corbin Cyr - 05/04/2003 12:00 AM CDT documented in this encounter Plan of Treatment Not on filedocumented as of this encounter Visit Diagnoses Not on filedocumented in this encounter Care Teams Stunt Woman Relationship Specialty Start Date End Date Otoniel Nevarez MD PCP - General 03/15/03 02/25/[address] [place] [address] documented as of this encounter
--- OUTSIDE RECORDS SUMMARY | 2022-06-12 15:46 | XMS_ITS | Encounter Summary ---
:1975 Author Organization [facility] Address [address] [address] Care Team Providers Name Role Phone Unavailable Primary Care Provider Unavailable Encounter Details Date Type Department Care Team Description 09/28/1999 Emergency [facility] Nish Cox MD [address] [facility] [address] Social History Tobacco Use Types Packs/Day Years Used Date Smoking Tobacco: Never Assessed Sex Assigned at Date Recorded Not on file documented as of this encounter ED Notes Nish Cox MD - 09/28/1999 12:01 AM CST ED Provider Notes signed by Nish Cox MD at 10/02/99 [id number] Author: Nish Cox MD Service: (none) Author Type: Physician Filed: 11/28/10 1449 Note Time: 09/28/991924 Status: Signed Contract Assistant: Nish Cox MD (Physician) NAME: FELIX COPE MR#: [id number] JOB: [id number] EMERGENCY CENTER REPORT - EPPA This is a Workers Compensation summary as well as ER visit. CHIEF COMPLAINT: Nose injury. HISTORY OF PRESENT ILLNESS: This 24-year-old man works at [employer] in [place]. He was bent over and when he stood up, he accidentally bumped the top of the bridge of his nose on another machine. He developed swelling and he was sent in for further evaluation and treatment. PAST MEDICAL HISTORY/PAST SURGICAL HISTORY: PAST MEDICAL HISTORY: Negative. MEDICATIONS: None. ALLERGIES: NONE. SOCIAL HISTORY/FAMILY HISTORY: REVIEW OF SYSTEMS: PHYSICAL EXAMINATION: BP1: 153/95. T: 98.4. P: 100. R: 16. PULSE OXIMETRY: 95% on room air. This 24-year-old man is a muscular, large man. He has small abrasion with minimal contusion on the bridge of his nose. There is no crepitants or nasal bone deviation. There is minimal nasal bone tenderness. Internasal examination is normal. The remainder of the facial bones are normal. The patient is alert and oriented times three. EMERGENCY DEPARTMENT COURSE: IMPRESSION: Abrasion and contusion of nose. PLAN: Reassured. Return to work FridayOctober 01 with full duties. 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
--- OUTSIDE RECORDS SUMMARY | 2022-06-12 15:46 | XMS_ITS | Encounter Summary ---
:1975 Author Organization [facility] Address [address] [place] [address] Care Team Providers Name Role Phone Otoniel Nevarez MD Primary Care Provider [phone] Encounter Details Date Type Department Care Team Description 03/16/2003 Orders Only [facility] Otoniel Nevarez, [address] Keena Hernandez MD [place], [place] [address]32 [facility] [phone] [facility] [address] [place], [place] [address] (Wo rk) Social History Tobacco Use [...] Procedure Name Priority Date/Time Associated Comments Diagnosis BILIRUBIN, TOTAL & Routine 03/16/2003 1:43 PM Res ults for this DIRECT CDT procedure are i n the results section. COMPLETE BLOOD Routine 03/16/2003 1:43 PM Results for this COUNT-NO DIFF CDT procedure are in the results section. CHOLESTEROL, TOTAL Routine 03/16/2003 1:43 PM Res ults for this AND HDL CDT procedure are i n the results section. TSH, SENSITIVE (WITH Routine 03/16/2003 1:43 PM R esults for this REFLEX) CDT procedure are i n the results section. ALT (SGPT) Routine 03/16/2003 1:43 PM Results f or this CDT procedure are i n the results section. AST Routine 03/16/2003 1:43 PM Results f or this CDT procedure are i n the results section. SODIUM Routine 03/16/2003 1:43 PM Results f or this CDT procedure are i n the results section. POTASSIUM Routine 03/16/2003 1:43 PM Results f or this CDT procedure are i n the results section. GLUCOSE Routine 03/16/2003 1:43 PM Results f or this CDT procedure are i n the results section. CREATININE Routine 03/16/2003 1:43 PM Results f or this CDT procedure are i n the results section. ALKALINE Routine 03/16/2003 1:43 PM Results f or this PHOSPHATASE, TOTAL CDT procedure are in the results section. UA MICRO IF Routine 03/16/2003 1:43 PM Results f or this CDT procedure are i n the results section. documented in this encounter Results TSH, SENSITIVE (03/16/2003 1:43 PM CDT) athologist Signature TSH 0.84 0.30 - 5.00 [facility] uIU/ml Thyroid Meds No [facility] Specimen Anatomical Collection Method Collection Time Receive d Time (Source) Location / / Volume Laterality 03/16/2003 1:43 PM 3 1:44 CDT PM CDT Otoniel Nevarez MD LAB_1 Performing Organization Address City/State/ZIP Code Phon e Number [facility] [phone] [facility] [address] [address] HEMOGRAM/PLTS (03/16/2003 1:43 PM CDT) athologist Signature WBC 8.9 3.6 - 11.0 [facility] k/ul RBC 4.96 4.5 - 5.9 [facility] M/ul Hemoglobin 14.8 13.5 - 17.5 [facility] g/dl HCT 43.1 41.0 - 53.0 [facility] % MCV 86.8 80 - 100 fl [facility] MCH 29.8 26 - 34 pg [facility] MCHC 34.3 32 - 36 % [facility] RDW 12.3 11.5 - 14.5 [facility] % Platelets 258 150 - 450 [facility] k/ul Specimen Anatomical Collection Method Collection Time Receive d Time (Source) Location / / Volume Laterality 03/16/2003 1:43 PM 3 1:44 CDT PM CDT Otoniel Nevarez MD LAB_1 Performing Organization Address [facility] Phon e Number [facility] [phone] [facility] [address] [place] [address] [phone] SODIUM (03/16/2003 1:43 PM CDT) athologist Signature Sodium 142 135 - 145 [facility] mmol/L Specimen Anatomical Collection Method Collection Time Receive d Time (Source) Location / / Volume Laterality 03/16/2003 1:43 PM 3 1:44 CDT PM CDT Otoniel Nevarez MD LAB_1 Performing Organization Address [facility] Phon e Number [facility] [phone] [facility] [address] [place] [address] [phone] POTASSIUM (03/16/2003 1:43 PM CDT) athologist Signature Potassium 4.1 3.5 - 5.3 [facility] mmol/L Specimen Anatomical Collection Method Collection Time Receive d Time (Source) Location / / Volume Laterality 03/16/2003 1:43 PM 3 1:44 CDT PM CDT Otoniel Nevarez MD LAB_1 Performing Organization Address [facility] Phon e Number [facility] [phone] [facility] [address] [place] [address] [phone] GLUCOSE - RANDOM < 8HR FASTING) (03/16/2003 1:43 PM CDT) athologist Signature Glucose 114 65 - 115 [facility] mg/dl Hours Fasting 2 hours [facility] Specimen Anatomical Collection Method Collection Time Receive d Time (Source) Location / / Volume Laterality 03/16/2003 1:43 PM 3 1:44 CDT PM CDT Otoniel Nevarez MD LAB_1 Performing Organization Address [facility] Phon e Number [facility] [phone] [facility] [address] [place] [phone] CREATININE (03/16/2003 1:43 PM CDT) athologist Signature Creatinine 0.9 0.5 - 1.2 [facility] mg/dl Specimen Anatomical Collection Method Collection Time Receive d Time (Source) Location / / Volume Laterality 03/16/2003 1:43 PM 3 1:44 CDT PM CDT Otoniel Nevarez MD LAB_1 Performing Organization Address [facility] Phon e Number [facility] [phone] [phone] (ABNORMAL) CHOLESTEROL, TOTAL AND HDL (03/16/2003 1:43 PM CDT) Component Value Ref Test Analysis Performed At [facility] Range Method Time Signature Cholesterol 205 (H) <200 [facility] mg/dl Cholesterol Result should not be interpreted without [facility] the patient's history of cardiovascular risk factors. HDL 37 >35 [facility] mg/dl Specimen Anatomical Collection Method Collection Time Receive d Time (Source) Location / / Volume Laterality 03/16/2003 1:43 PM 3 1:44 CDT PM CDT Otoniel Nevarez MD LAB_1 Performing Organization Address [facility] Phon e Number [facility] [phone] [facility] [address] [place] [phone] BILIRUBIN, TOTAL & DIRECT (03/16/2003 1:43 PM CDT) athologist Signature Bilirubin, 0.8 0.2 - 1.2 [facility] Total mg/dl Bilirubin, 0.1 0.1 - 0.4 [facility] Direct mg/dl Specimen Anatomical Collection Method Collection Time Receive d Time (Source) Location / / Volume Laterality 03/16/2003 1:43 PM 3 1:44 CDT PM CDT Otoniel Nevarez MD LAB_1 Performing Organization Address [facility] Code Phon e Number [facility] [phone] [facility] [address] [place] [phone] AST (SGOT) (03/16/2003 1:43 PM CDT) P athologist Signature AST (SGOT) 20 <45 U/L [facility] Specimen Anatomical Collection Method Collection Time Receive d Time (Source) Location / / Volume Laterality 03/16/2003 1:43 PM 3 1:44 CDT PM CDT Otoniel Nevarez MD LAB_1 Performing Organization Address [facility] Phon e Number [facility] [phone] [phone] ALT (SGPT) (03/16/2003 1:43 PM CDT) P athologist Signature ALT (SGPT) 24 0 - 55 U/L [facility] Specimen Anatomical Collection Method Collection Time Receive d Time (Source) Location / / Volume Laterality 03/16/2003 1:43 PM 3 1:44 CDT PM CDT Otoniel Nevarez MD LAB_1 Performing Organization Address [facility] Code Phon e Number [facility] [phone] [phone] ALK P'TASE, TOTAL (03/16/2003 1:43 PM CDT) Analysis Performed At Patho logist Time Signature Alkaline 92 31 - 115 [facility] Phosphatase U/L Specimen Anatomical Collection Method Collection Time Receive d Time (Source) Location / / Volume Laterality 03/16/2003 1:43 PM 3 1:44 CDT PM CDT Otoniel Nevarez MD LAB_1 Performing Organization Address [facility] Phon e Number [facility] [phone] [facility] [address] [phone] (ABNORMAL) UA MICRO IF (03/16/2003 1:43 PM CDT) [facility] Method Time Signature Appr Yellow [facility] Appr Hazy [facility] Sp Gr 1.026 1.005 - [facility] 1.030 Leuk Neg [facility] Nitr Neg [facility] pH 5.5 4.5 - 8.0 [facility] Prot Neg mg/dl [facility] Gluc Neg mg/dl [facility] Ket Tr (A) mg/dl [facility] Urob 1.0 0.2 - 1.0 [facility] EU/dl Bili Neg [facility] Blood Neg [facility] Comment Micro Not [facility] Indicated Specimen Anatomical Collection Method Collection Time Receive d Time (Source) Location / / Volume Laterality 03/16/2003 1:43 PM 3 1:44 CDT PM CDT Otoniel Nevarez MD LAB_1 Performing Organization Address [facility] Phon e Number [facility] [phone] [facility] [address] [phone] documented in this encounter Visit Diagnoses Not on filedocumented in this encounter Care Teams Call Center Dispatcher Relationship Specialty Start Date End Date Otoniel Nevarez MD PCP - General 03/15/03 02/25/05 [facility] [place] [address] [place], [place] [address] documented as of this encounter
--- NOTE | 2022-06-12 16:00 | CRLHL7_ITS ---
For Patients: As a result of the Century Cures Act, medical imaging exams and procedure reports are released immediately into your electronic medical record. You may view this report before your referring provider. If you have questions, please contact your health care provider. INDICATION: Chronic sinusitis. TECHNIQUE: Noncontrast CT images acquired through the paranasal sinuses. COMPARISON: None. FINDINGS: No air-fluid levels to suggest acute sinusitis. Moderate lobulated mucosal thickening in the maxillary sinuses. The ethmoid infundibula are opacified. Mild mucosal thickening in the frontal recesses. The frontal sinuses are otherwise clear. Moderate opacification of the anterior and posterior ethmoid air cells. Mild mucosal thickening in the sphenoid sinuses. The sphenoethmoidal recesses are opacified. Mild sinusoidal nasal septal deviation with slight leftward bowing of the anterior osseous septum and slight rightward bowing of the posterior osseous septum. Ovoid soft tissue attenuation within the mid right nasal cavity measuring up to 1.5 cm. Trace right mastoid fluid. IMPRESSION: 1. Moderate lobulated mucosal thickening in the maxillary sinuses and moderate opacification of the ethmoid air cells. There is opacification of the ethmoid infundibula. No air-fluid levels to suggest acute sinusitis. 2. Mild sinusoidal nasal septal deviation. Ovoid soft tissue attenuation within the mid right nasal cavity raises the possibility of underlying lesion, such as polyp, and could be further assessed with direct inspection. Please note that all CT scans at this facility use dose modulation, iterative reconstruction, and/or weight-based dosing when appropriate to reduce radiation dose to as low as reasonably achievable. Dictated by Yakov Parham MD @ 06/12/2022 5:48:18 PM (Electronically Signed)
== END 2022-06-12 15:42 | disposition home or self-care (01) ==
LOC: CT 15:41
PROVIDERS: PCP Physician Assistant Medical; Visit Provider Otolaryngology
DX: J32.9 Chronic sinusitis, unspecified (principal); J32.0 Chronic maxillary sinusitis; J34.2 Deviated nasal septum
CPT/HCPCS: 70486

== ENCOUNTER 2022-06-17 19:20 | Outpatient (CLI) | payer BC, SELFPAY ==
--- OUTSIDE RECORDS SUMMARY | 2022-06-17 19:23 | XMS_ITS | Encounter Summary ---
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 documented as of this encounter Plan of Treatment Not on filedocumented as of this encounter Visit Diagnoses Not on filedocumented in this encounter Care Teams Fruit Coordinator Relationship Specialty Start Date End Date No Ref-Primary, Physician PCP - General 09/03/19 10/28/21 documented as of this encounter
--- OUTSIDE RECORDS SUMMARY | 2022-06-17 19:23 | XMS_ITS | Encounter Summary ---
:[address] Address [address] [place] [address]. [place] [address] Care Team Providers Name Role Phone No Ref-Primary, Physician Primary Care Provider Reason for Visit Reason Comments Back Pain Encounter Details Date Type Department Care Team Description 04/03/2021 Emergency [facility] Josselyn Barclay MD Acute bilateral [facility] [address] [place] [address] thoracic back pain [address] [place] [address] [phone] Social History Tobacco Use Types Packs/Day Years [...] 2 times daily Blinded study drug from [facility], Dr Karen Mathew ibuprofen (ADVIL,MOTRIN) [...] pain documented in this encounter Care Teams Disaster Recovery Coordinator Relationship Specialty Start Date End Date No Ref-Primary, Physician PCP - General 09/03/19 10/28/21 documented as of this encounter
--- OUTSIDE RECORDS SUMMARY | 2022-06-17 19:23 | XMS_ITS | Encounter Summary ---
:1975 Author Organization [place] Address [address] [place] [address] Care Team Providers Name Role Phone No Ref-Primary, Physician Primary Care Provider Encounter Details Date Type Department Care Team Description 09/09/2019 Orders Only [facility] Pso riatic arthropathy (H); [facility] Vitamin D deficiency; [facility] for long-term (current) use of other medications [address] [place] [address] Social History Tobacco Use [...] AM Psoriatic R esults for this SCREENING AUTOMATIC SERGING MACHINE OPERATOR arthropathy (H) procedure are in Vitamin D the results deficiency section. Encounter for long-term (current) use of other medications ERYTHROCYTE Routine 09/09/2019 8:26 AM Psoriatic Results f or this SEDIMENTATION RATE AUTOMATIC SERGING MACHINE OPERATOR arthropathy ( H) procedure are in AUTO Vitamin D the results deficiency section. Encounter for long-term (current) use of other medications CRP INFLAMMATION Routine 09/09/2019 8:26 AM Psoriatic Resul ts for this AUTOMATIC SERGING MACHINE OPERATOR arthropathy (H) procedure are in Vitamin D the results deficiency section. Encounter for long-term (current) use of other medications COMPREHENSIVE Routine 09/09/2019 8:26 AM Psoriatic Results for this METABOLIC PANEL AUTOMATIC SERGING MACHINE OPERATOR arthropathy (H) procedure are in Vitamin D the results deficiency section. Encounter for long-term (current) use of other medications CBC WITH PLATELETS Routine 09/09/2019 8:26 AM Psoriatic Res ults for this AUTOMATIC SERGING MACHINE OPERATOR arthropathy (H) procedure are in Vitamin D the results deficiency section. Encounter for long-term (current) use of other medications documented in this encounter Results Vitamin D Deficiency (09/09/2019 8:26 AM AUTOMATIC SERGING MACHINE OPERATOR) P athologist Signature Vitamin D 26 20 - 75 09/10/2019 [facility] Deficiency ug/L 9:52 AM AUTOMATIC SERGING MACHINE OPERATOR [facility] Comment: Season, race, dietary intake, and treatm ent affect the concentration of 86-zbtkvri-Qzxdolq D. Values may decreas e during winter [...] specimen 09/09/2019 8:26 AM 020 8:27 (specimen) AUTOMATIC SERGING MACHINE OPERATOR AM AUTOMATIC SERGING MACHINE OPERATOR Noah Gill MD LAB - BLOOD ORDERABLES Performing Organization Address City/[facility]/ZIP Code Phon e Number [address] CRP inflammation (09/09/2019 8:26 AM AUTOMATIC SERGING MACHINE OPERATOR) Analysis Performed At Patho logist Time Signature CRP Inflammation <2.9 0.0 - 8.0 09/09/2019 [place] [facility] F mg/L 8:00 PM AUTOMATIC SERGING MACHINE OPERATOR [facility] Specimen Anatomical Collection Method Collection Time Receive d Time (Source) Location / / Volume Laterality Blood specimen 09/09/2019 8:26 AM 020 8:27 (specimen) AUTOMATIC SERGING MACHINE OPERATOR AM AUTOMATIC SERGING MACHINE OPERATOR Noah Gill MD LAB - BLOOD ORDERABLES Performing Organization Address City/[facility]/ZIP Code Phon e Number [address] Comprehensive metabolic panel (BMP + Alb, Alk Phos, ALT, AST, Total. Bili, TP) (09/09/2019 8:26 AM [facility]) athologist Signature Sodium 140 133 - 144 09/10/2019 [facility] mmol/L 9:31 AM [facility] Potassium 4.3 3.4 - 5.3 09/10/2019 [facility] mmol/L 9:31 AM [facility] Chloride 109 94 - 109 09/10/2019 [facility] mmol/L 9:31 AM [facility] Carbon Dioxide 23 20 - 32 09/10/2019 [facility] mmol/L 9:41 AM [facility] Anion Gap 8 3 - 14 09/10/2019 [facility] mmol/L 9:41 AM [facility] Glucose 95 70 - 99 09/10/2019 [facility] mg/dL 9:41 AM [facility] Urea Nitrogen 15 7 - 30 09/10/2019 [facility] mg/dL 9:41 AM [facility] Creatinine 0.78 0.66 - 09/10/2019 [facility] 1.25 mg/dL 9:41 AM [facility] GFR Estimate >90 >60 09/10/2019 [facility] mL/min/{1. 9:41 AM [facility] 73_m2} [facility] Comment: Non GFR Calc Starting 07/28/2018, serum creatinine ba sed estimated GFR (eGFR) will be calculated using the Chronic Kidney Dise [facility] Epidemiology Collaboration (CKD-EPI) equation. GFR Estimate If >90 >60 mL/min/{1.73_m2} 09/10/2019 9: 41 AM [facility] Comment: GFR Calc Starting 07/28/2018, serum creatinine ba sed estimated GFR (eGFR) will be calculated using the Chronic Kidney Dise [facility] Epidemiology Collaboration (CKD-EPI) equation. Calcium 9.4 8.5 - 10.1 09/10/2019 9:41 AM [facility] mg/dL [facility] Bilirubin Total 0.6 0.2 - 1.3 mg/dL 09/10/2019 9:48 AM [facility] Albumin 4.1 3.4 - 5.0 g/dL 09/10/2019 9:48 AM [facility] Protein Total 7.3 6.8 - 8.8 g/dL 09/10/2019 9:48 AM [facility] Alkaline Phosphatase 86 40 - 150 U/L 09/10/2019 9:48 AM [facility] ALT 25 0 - 70 U/L 09/10/2019 9:48 AM [facility] AST 14 0 - 45 U/L 09/10/2019 9:48 AM [facility] Specimen Anatomical Collection Method Collection Time Receive d Time (Source) Location / / Volume Laterality Blood specimen 09/09/2019 8:26 AM 020 8:27 (specimen) AUTOMATIC SERGING MACHINE OPERATOR AM AUTOMATIC SERGING MACHINE OPERATOR Noah Gill MD LAB - BLOOD ORDERABLES Performing Organization Address City/State/ZIP Code Phon e Number [facility] [address] [address] [facility] [address] [facility] [place] [address] [facility] [address] [address], U [phone] CBC with platelets (09/09/2019 8:26 AM AUTOMATIC SERGING MACHINE OPERATOR) P athologist Signature WBC 7.8 4.0 - 11.0 09/09/2019 [facility] 10e9/L 10:23 AM [facility] RBC Count 5.20 4.4 - 5.9 09/09/2019 [facility] 10e12/L 10:23 AM [facility] Hemoglobin 15.1 13.3 - 09/09/2019 [facility] 17.7 g/dL 10:23 AM [facility] Hematocrit 45.1 40.0 - 09/09/2019 [facility] 53.0 % 10:23 AM [facility] MCV 87 78 - 100 09/09/2019 [facility] fl 10:23 AM [facility] MCH 29.0 26.5 - 09/09/2019 [facility] 33.0 pg 10:23 AM [facility] MCHC 33.5 31.5 - 09/09/2019 [facility] 36.5 g/dL 10:23 AM [facility] RDW 12.0 10.0 - 09/09/2019 [facility] 15.0 % 10:23 AM [facility] Platelet Count 238 150 - 450 09/09/2019 [facility] 10e9/L 10:23 AM [facility] Specimen Anatomical Collection Method Collection Time Receive d Time (Source) Location / / Volume Laterality Blood specimen 09/09/2019 8:26 AM 020 8:27 (specimen) AUTOMATIC SERGING MACHINE OPERATOR AM AUTOMATIC SERGING MACHINE OPERATOR Noah Gill MD LAB - BLOOD ORDERABLES Performing Organization Address City/State/ZIP Code Phon e Number [facility] [place] [address] ESR FUTURE anytime (09/09/2019 8:26 AM AUTOMATIC SERGING MACHINE OPERATOR) P athologist Signature Sed Rate 8 0 - 15 mm/h 09/09/2019 [facility] 10:35 AM [facility] Specimen Anatomical Collection Method Collection Time Receive d Time (Source) Location / / Volume Laterality Blood specimen 09/09/2019 8:26 AM 020 8:27 (specimen) AUTOMATIC SERGING MACHINE OPERATOR AM AUTOMATIC SERGING MACHINE OPERATOR Noah Gill MD LAB - BLOOD ORDERABLES Performing Organization Address City/[facility]/ZIP Code Phon e Number [facility] [place] [address] documented in this encounter Visit Diagnoses Diagnosis Psoriatic arthropathy (H) Psoriatic arthropathy Vitamin D deficiency Unspecified vitamin D deficiency Encounter for long-term (current) use of other medications documented in this encounter Care Teams Ribbon Lapper Tender Relationship Specialty Start Date End Date No Ref-Primary, Physician PCP - General 09/03/19 10/28/21 documented as of this encounter
--- OUTSIDE RECORDS SUMMARY | 2022-06-17 19:23 | XMS_ITS | Encounter Summary ---
:1975 Author Organization [place] Address [address] [place] [address] Care Team Providers Name Role Phone [facility]- Encounter Details Date Type Department Care Team Description 10/29/2021 [facility] [address] [facility] [place] [address] [phone] [place], [place] [address] (Wo rk) Social History [...] Laterality Volume Narrative 10/29/2021 3:48 PM CDT [facility] Procedure Note Limited Bedside ED Ultrasound [...] on filedocumented in this encounter Care Teams Concrete Journeyman Relationship Specialty Start Date End Date [facility] And PCP - General 10/29/21 [facility] [address] [place] [address] documented as of this encounter
--- OUTSIDE RECORDS SUMMARY | 2022-06-17 19:23 | XMS_ITS | Clinical Summary ---
:1975 Author Organization [facility] Address [address] [place] [address] Care Team Providers Name Role Phone Unavailable Primary Care Provider Unavailable Source Comments Patient records contain information from all sites at [facility]. For routine questions regarding patient records, call [phone] during business hours, M-F 8:00 AM - 5:00 PM Central Time. Record requests for emergency care only can be directed to [phone] at any time.[facility] Immunizations Name Administration Dates Next Due SARS-COV-2 [...] Address Type / Group [facility] [id number] 2020-Joshua [phone] [address] [address] [facility] [address] [place] [address]
--- OUTSIDE RECORDS SUMMARY | 2022-06-17 19:23 | XMS_ITS | Encounter Summary ---
:1975 Author Organization [place] Address [address] [place] [address] Care Team Providers Name Role Phone No Ref-Primary, Physician Primary Care Provider Reason for Visit Reason Comments [place] Encounter Details Date Type Department Care Team Description 10/17/2020 - Emergency [facility] Antony Naranjo, Sialadenitis 10/18/2020 [facility] Emergency Dep t [address] [facility] [place] [address] 54[address] [facility] [phone] [place], [place] [address] (Wo rk) Social History [...] with No / Unsure 10/18/2020 12:00 AM STUNNER someone who was confirmed or suspected to have Coronavirus / COVID-19? documented as of this encounter Last Filed Vital Signs Vital Sign Reading Time Taken Comments Blood Pressure 159/105 10/17/2020 9:20 PM STUNNER Pulse 100 10/17/2020 9:20 PM STUNNER Temperature 36.3 ??C (97.3 ??F) 10/17/2020 9:20 PM STUNNER Respiratory Rate 18 10/17/2020 9:20 PM STUNNER Oxygen Saturation 95% 10/17/2020 9:20 PM STUNNER Inhaled Oxygen Concentration - - Weight 102.1 kg (225 lb) 10/17/2020 9:20 PM STUNNER Height 190.5 cm (6' 3) 10/17/2020 9:20 PM STUNNER Body Mass Index 28.12 10/17/2020 9:20 PM STUNNER documented in this encounter Discharge Instructions Discharge InstructionsGoAntony self MD - 10/17/2020 11:56 PM STUNNER Please use ice or heat to the right jaw. Suck on salivary stimulants like lemon drops. Use nonsteroidal anti-inflammatories like ibuprofen if you see worsening redness or swelling in the right jaw or return to the emergency room to consider imaging. NER AttachmentsThe following attachments cannot be sent through Care Everywhere. Salivary Gland Swelling, Uncertain Cause (Peruvian)Neck, Local Lymph Node Swelling in the, No Antibiotic Treatment (Peruvian)documented in this encounter Medications at Time of Discharge Medication Sig Dispensed Refills Start Date End Date APREMILAST PO Take 1 tablet by mouth 2 0 times daily Blinded study drug from [facility], Dr Karen Mathew ibuprofen Take 800 mg by mouth 0 (ADVIL,MOTRIN) 800 MG every morning tablet documented as of this encounter ED Notes Rufus Iraheta RN - 10/17/2020 9:19 PM CST Here for concern of lump/swelling to behind/below right ear about 45 minutes ago. ABCs intact. NER Antony Naranjo MD - 10/17/2020 9:12 PM [...] to me. Antony Naranjo MD 10/18/20 0443 NER documented in this encounter Plan of Treatment Not on filedocumented as of this encounter Visit Diagnoses Diagnosis Sialadenitis Sialoadenitis documented in this encounter Care Teams Platform Power Technician Relationship Specialty Start Date End Date No Ref-Primary, Physician PCP - General 09/03/19 10/28/21 documented as of this encounter
--- OUTSIDE RECORDS SUMMARY | 2022-06-17 19:23 | XMS_ITS | Encounter Summary ---
:1975 Author Organization [place] Address [address] [place] [address] Care Team Providers Name Role Phone No Ref-Primary, Physician Primary Care Provider [phone] Encounter Details Date Type Department Care Team [...] with No / Unsure 10/18/2020 12:00 AM SALES OPERATIONS someone who was confirmed or suspected to have Coronavirus / COVID-19? documented as of this encounter Plan of Treatment Not on filedocumented as of this encounter Visit Diagnoses Not on filedocumented in this encounter Care Teams Neuro Ophthalmologist Relationship Specialty Start Date End Date No Ref-Primary, Physician PCP - General 09/03/19 10/28/21 documented as of this encounter
--- OUTSIDE RECORDS SUMMARY | 2022-06-17 19:23 | XMS_ITS | Encounter Summary ---
:1975 Author Organization [place] Address [address] [place] [address] Care Team Providers Name Role Phone [facility] And Primary Care [facility] [...] on filedocumented in this encounter Care Teams Hospital Plan Administrator Relationship Specialty Start Date End Date [facility] And PCP - General 10/29/21 [facility]- [address] [place] [address] documented as of this encounter
--- OUTSIDE RECORDS SUMMARY | 2022-06-17 19:23 | XMS_ITS | Encounter Summary ---
:1975 Author Organization [place] Address [address] [place] [address] Care Team Providers Name Role Phone [facility] And Primary [facility] Clinics- Reason for Visit Reason Comments Call Back Encounter Details Date Type Department Care Team Description 11/10/2021 Emergency [facility] Christopher Mojica, Cellulitis of right [place] [facility] t DO elbow [address] [facility] [place] [address] [address] [facility] [place] [facility] [phone] [place], [place] [phone] (Wo rk) Social History Tobacco Use Types [...] 2 times daily Blinded study drug from [facility], Dr Karen Mathew COSENT[employer] SENSOREADY, [...] day indicated cobblestoning consistent with cellulitis on jdcfw-eh-ldif ultrasound. The wound created while attempting aspiration [...] right elbow L03.113 Christopher Mojica DO 11/10/2021 [facility] EMERGENCY DEPT Christopher Mojica DO [...] elbow documented in this encounter Care Teams Ruby Software Developer Relationship Specialty Start Date End Date [facility] And PCP - General 10/29/21 [facility]- [address] [place] [address] documented as of this encounter
--- OUTSIDE RECORDS SUMMARY | 2022-06-17 19:23 | XMS_ITS | Encounter Summary ---
:1975 Author Organization [place] Address [address] [place] [address] Care Team Providers Name Role Phone No Ref-Primary, Physician Primary Care Provider [facility] And Primary Care Pro[facility] velvet Clinics- Encounter [...] in contact with Yes 09/10/2021 6:09 PM LAYDOWN MACHINE OPERATOR someone who was confirmed or suspected to have Coronavirus / COVID-19? documented as of this encounter Plan of Treatment Not on filedocumented as of this encounter Visit Diagnoses Not on filedocumented in this encounter Care Teams Last Model Department Supervisor Relationship Specialty Start Date End Date No Ref-Primary, Physician PCP - General 09/03/19 10/28/21 [facility] And PCP - General 10/29/21 [facility] [address] [place] [address] documented as of this encounter
--- OUTSIDE RECORDS SUMMARY | 2022-06-17 19:23 | XMS_ITS | Encounter Summary ---
:1975 Author Organization [place] Address [address] [place] [address] Care Team Providers Name Role Phone [facility] And Primary Care [facility] Clinics- Reason for Visit Reason Onset Date Comments Results 11/07/2021 Encounter Details Date Type Department Care Team Description 11/07/2021 Telephone [facility] Chadwick Rutherford sa, RN Results Emergency Dept [address] [place] [phone] Social History Tobacco Use Types Packs/Day Years [...] Rutherford RN - 11/07/2021 3:07 PM CDT [facility] Emergency Department Lab result notification: Reason for call Synovial fluid culture Lab Result [facility] Emergency Dept discharge antibiotic prescribed: Clindamycin (Cleocin) 300 mg PO capsule, 1 capsule (300 mg) by mouth 3 times daily for 10 days Incision and Drainage performed in [facility] Emergency Dept [Yes or No]: aspiration Recommendations in treatment per [facility] ED Lab Result culture protocol ED visit [...] or other concerning symptom's. Florencia Rutherford RN [facility] l [facility] Emergency Dept Lab Result RN Copy of Lab result Synovial fluid Aerobic Bacterial Culture Routine Order: [id number] Status: Preliminary result ?? Visible to patient: [...] on filedocumented in this encounter Care Teams Fiscal Services Manager Relationship Specialty Start Date End Date [facility] And PCP - General 10/29/21 [facility]- [address] [place] [address] documented as of this encounter
--- OUTSIDE RECORDS SUMMARY | 2022-06-17 19:23 | XMS_ITS | Encounter Summary ---
:1975 Author Organization [place] Address [address] [place] [address] Care Team Providers Name Role Phone [facility] And Primary Care [facility] Clinics- Encounter Details Date Type Department [...] on filedocumented in this encounter Care Teams Metabolic Specialist Relationship Specialty Start Date End Date [facility] And PCP - General 10/29/21 [facility]- [address] [place] [address] documented as of this encounter
--- OUTSIDE RECORDS SUMMARY | 2022-06-17 19:23 | XMS_ITS | Encounter Summary ---
:1975 Author Organization [place] Address [address] [place] [address] Care Team Providers Name Role Phone [facility] And Primary Care [facility] Clinics- Encounter Details Date Type Department Care [...] on filedocumented in this encounter Care Teams Acds Block 1 Operator Relationship Specialty Start Date End Date [facility] And PCP - General 10/29/21 [facility]- [address] [place] [address] documented as of this encounter
--- OUTSIDE RECORDS SUMMARY | 2022-06-17 19:23 | XMS_ITS | Encounter Summary ---
:1975 Author Organization [place] Address [address] [place] [address] Care Team Providers Name Role Phone [facility] And [facility] Clinics- Reason for Visit Reason Comments Wound Check Encounter Details Date Type Department Care Team Description 10/29/2021 Emergency [facility] joe Graham MD [facility] [address] [place], [place] [phone] Cellulitis of right [place] [facility] t Antony Hughes MD [facility] [address] [facility] [address] [place] [phone] upper extremity [address] [place] [address] Social History Tobacco Use Types Packs/Day Years [...] Supervision Note I evaluated this patient with [facility]. Briefly, the patient presented with ~24 hours [...] extremity L03.113 Chintan Davis MD [facility], [facility] Emergency Department History Chief Complaint: Wound [...] of fluids and IVantibiotics. Impression & Plan [facility] Diagnoses: None Medical Decision Making: Felix is a 46-year-old male who presents for evaluation of right elbow pain and erythema. Please seeHPI and physical exam for full details. Differential diagnosis included gout, septic bursitis, cellulitis, MRSA cellulitis, abscess, necrotizing fasciiitis etc. Pgitq-ty-oqwx ultrasound was negative for abscess or bursitis. [...] for 7 days Aura Oscar PA-C 10/29/21 4602 Aura Oscar PA-C 10/29/21 1614 Chintan Davis [...] Laterality Volume Narrative 10/29/2021 3:48 PM CDT [facility] Procedure Note Limited Bedside ED Ultrasound [...] Code Phon e Number [facility] [place] [place] [phone] [facility], Room D297 (ABNORMAL) iStat Gases (lactate) [...] Code Phon e Number [place] [address] Care Lab [address] Lab (1st floor, no room number) (ABNORMAL) CBC with platelets and differential (10/29/2021 3:21 PM CDT) [facility] Method Time Signature WBC Count 12.2 (H) [...] City/State/ZIP Code Phon [place] [address] Care Lab [address] Lab (1st floor, no room number) [...] Code Phon e Number [facility] [place] [place] [address] [facility], Room D297 Basic metabolic panel (10/29/2021 [...] and gender (Abdulkadir et al., NEJM, DOI: 10.1056/[id number]) Specimen Anatomical Collection Method / Collection Time Recei cuco Time (Source) Location / Volume Laterality Blood STRUCTURE OF LEFT Venipuncture / 10/29/2021 3:21 10/29 3:27 UPPER LIMB / Unknown PM CDT PM CDT Unknown Aura Oscar PA-C LAB - BLOOD ORDERABLES Performing Organization Address City/State/ZIP Code Phon [place] [phone] Care Lab [address] Lab [...] gram documented in this encounter Care Teams Outside Sales Engineer Relationship Specialty Start Date End Date [facility] And PCP - General 10/29/21 [facility]- [address] [place] [address] documented as of this encounter
--- OUTSIDE RECORDS SUMMARY | 2022-06-17 19:23 | XMS_ITS | Encounter Summary ---
:1975 Author Organization [facility] Address [address] [place] [address] Care Team Providers Name Role Phone Unavailable Primary Care Provider Unavailable Reason for Referral Specialty Diagnoses / Procedures Referred By Contact Refer red To Contact RST [facility] [address] [place], [place] [address] Referral ID Status Reason Start Date Expiration Date Visits Requ ested Visits Authorized Encounter Details Date Type Department Care Team Description 04/24/[address] [facility] er For COVID-19 Medicine, [facility] Vaccine I [facility], (P rimary Dx) in [facility] [address] [place] [address] Social History Tobacco Use Types Packs/Day [...]
--- OUTSIDE RECORDS SUMMARY | 2022-06-17 19:23 | XMS_ITS | Encounter Summary ---
:1975 Author Organization [place] Address [address] [place] [address] Care Team Providers Name Role Phone [facility], [facility] And Primary Care [facility] Clinics- Reason for Visit Reason Onset Date Comments Results 11/10/2021 culture Encounter Details Date Type Department Care Team Description 11/10/2021 Telephone [facility] César Rutledge RN Results (culture) Emergency Dept [address] [place] [phone] Social History Tobacco Use Types Packs/Day Years [...] Rutledge RN - 11/10/2021 4:11 PM [facility]T [facility] Lab result notification: [place] ED lab result protocol used Culture Protocol Reason for call Notify of lab results, assess symptoms, review ED providers recommendations/discharge instructions (if necessary) and advise per ED lab result f/u protocol Lab Result Final Synovial fluid Aerobic Bacterial Culture (specimen - elbow, right) report on 11/09/21 [facility] Emergency Dept discharge antibiotic prescribed: Clindamycin (Cleocin) 300 mg PO capsule, 1 capsule (300 mg) by mouth 3 times daily for 10 days #1. Bacteria, Staphylococcus aureus, ??is [SUSCEPTIBLE] to antibiotic. Incision and Drainage performed in the [place] ED: aspiration Recommendations in treatment per [facility] ED lab result culture protocol Information [...] olecranon bursitis, likely septic Miscellaneous information NA press machine operator (Patient???s current Symptoms), include time called. 5:19A [...] Antibiotic start date: 11/06/21 RN Recommendations/Instructions per [place] ED lab result protocol 5:46P - Patient [...] follow-up Questions asked: YES César Rutledge RN [facility] [employer] [facility] Emergency Dept Lab Result RN # [phone] Copy of Lab result Synovial fluid Aerobic Bacterial Culture Routine Order: [id number] Status: Final result ?? Visible to patient: [...] on filedocumented in this encounter Care Teams Stock Chaser Relationship Specialty Start Date End Date [facility] And PCP - General 10/29/21 [facility]- [address] [place] [address] documented as of this encounter
--- OUTSIDE RECORDS SUMMARY | 2022-06-17 19:23 | XMS_ITS | Encounter Summary ---
:1975 Author Organization [place] Address [address] [place] [address] Care Team Providers Name Role Phone Bharat Yañez Primary Care Provider Encounter Details Date Type Department Care Team Description 08/24/2019 Orders Only [facility] Noah Gill, Psoria tic arthropathy (H) (Primary Dx); Clinic Jamie KELLER Vitamin D deficiency; Laboratory [facility] Encounter for long-term (cur rent) use of other medications [facility], [address] [facility] [address] [place], [place] [address] [place], [place] [phone] Social History Tobacco Use Types Packs/Day Years [...] medications documented in this encounter Care Teams Mainframe Applications Developer Relationship Specialty Start Date End Date Bharat Yañez PCP - General Family Practice 04/30/16 09/02/19 documented as of this encounter
--- OUTSIDE RECORDS SUMMARY | 2022-06-17 19:23 | XMS_ITS | Encounter Summary ---
:1975 Author Organization [place] Address [address] [place] [address] Care Team Providers Name Role Phone Bharat [...] on filedocumented in this encounter Care Teams Erisa Attorney Relationship Specialty Start Date End Date Bharat Yañez PCP - General Family Practice 04/30/16 09/02/19 documented as of this encounter
--- OUTSIDE RECORDS SUMMARY | 2022-06-17 19:23 | XMS_ITS | Encounter Summary ---
:1975 Author Organization [place] Address [address] [place] [address] Care Team Providers Name Role Phone No Ref-Primary, Physician Primary Care Provider Reason for Visit Reason Comments Chest Pain Encounter Details Date Type Department Care Team Description 09/10/2021 Emergency [facility] Giovany Brito hest pain, [facility] Emergency Dep shandra Alaniz MD unspecified type [address] [facility] [place], [place] [address] [address] [phone] [address] [place], [place] [address] (Wo rk) Social History Tobacco Use Types Packs/Day Years Used Date Smoking Tobacco: Every Day Cigarettes 0.5 Alcohol Use Standard Drinks/Week Comments Yes 0 (1 standard drink = 0.6 oz pure alcoho l) occasionally Sex Assigned at Date Recorded Not on file COVID-19 Exposure Response Date Recorded In the last month, have you been in contact with Yes 09/10/2021 6:09 PM FAMILY NURSE PRACTITIONER someone who was confirmed or suspected to have Coronavirus / COVID-19? documented as of this encounter Last Filed Vital Signs Vital Sign Reading Time Taken Comments Blood Pressure 135/94 09/10/2021 7:33 PM FAMILY NURSE PRACTITIONER Pulse 78 09/10/2021 7:45 PM FAMILY NURSE PRACTITIONER Temperature 36.6 ??C (97.8 ??F) 09/10/2021 6:10 PM FAMILY NURSE PRACTITIONER Respiratory Rate 20 09/10/2021 7:45 PM FAMILY NURSE PRACTITIONER Oxygen Saturation 96% 09/10/2021 7:45 PM FAMILY NURSE PRACTITIONER Inhaled Oxygen Concentration - - Weight 102.1 kg (225 lb) 09/10/2021 6:10 PM FAMILY NURSE PRACTITIONER Height 188 cm (6' 2) 09/10/2021 6:10 PM FAMILY NURSE PRACTITIONER Body Mass Index 28.89 09/10/2021 6:10 PM FAMILY NURSE PRACTITIONER documented in this encounter Discharge Instructions AttachmentsThe following attachments cannot be sent through Care Everywhere. Chest Pain, Uncertain Cause (Puerto Rican)documented in this encounter Medications at Time of Discharge Medication Sig Dispensed Refills Start Date End Date APREMILAST PO Take 1 tablet by mouth 2 0 times daily Blinded study drug from [facility], Dr Karen Mathew ibuprofen Take [...] as well. Pt. Hypertensive, OVSS on RA. LY NURSE PRACTITIONER Giovany Brito MD - 09/10/2021 6:04 PM [...] to EKG dated 04/30/2016 Rate 72 bpm. NJ interval 136 ms. QRS duration 90 ms. [...] statements to me. Giovany Brito MD 09/10/211955 LY NURSE PRACTITIONER documented in this encounter Plan of Treatment Not on filedocumented as of this encounter Procedures Procedure Name Priority Date/Time Associated Comments Diagnosis EKG 12-LEAD, TRACING STAT 09/10/2021 6:45 PM R esults for this ONLY FAMILY NURSE PRACTITIONER procedure are i n the results section. XR CHEST 2 VIEWS STAT 09/10/2021 6:40 PM Resul ts for this FAMILY NURSE PRACTITIONER procedure are i n the results section. EXTRA TUBE STAT 09/10/2021 6:25 PM Results f or this FAMILY NURSE PRACTITIONER procedure are i n the results section. EXTRA RED TOP TUBE STAT 09/10/2021 6:25 PM Res ults for this FAMILY NURSE PRACTITIONER procedure are i n the results section. EXTRA BLUE TOP TUBE STAT 09/10/2021 6:25 PM Re sults for this FAMILY NURSE PRACTITIONER procedure are i n the results section. CBC WITH PLATELETS STAT 09/10/2021 6:25 PM Res ults for this AND DIFFERENTIAL FAMILY NURSE PRACTITIONER procedure a re in the results section. CBC WITH PLATELETS & STAT 09/10/2021 6:25 PM R esults for this DIFFERENTIAL FAMILY NURSE PRACTITIONER procedure are i n the results section. TROPONIN I STAT 09/10/2021 6:25 PM Results f or this FAMILY NURSE PRACTITIONER procedure are i n the results section. CRP INFLAMMATION STAT 09/10/2021 6:25 PM Resul ts for this FAMILY NURSE PRACTITIONER procedure are i n the results section. BASIC METABOLIC PANEL STAT 09/10/2021 6:25 PM Results for this FAMILY NURSE PRACTITIONER procedure are i n the results section. documented in this encounter Results EKG 12-lead, tracing only (09/10/2021 6:45 PM FAMILY NURSE PRACTITIONER) [facility] gist Method Time Signature Systolic Blood mmHg RADIOLOGY Pressure RESULTS Diastolic Blood mmHg RADIOLOGY Pressure RESULTS Ventricular Rate 72 BPM RADIOLOGY RESULTS Atrial Rate 72 BPM RADIOLOGY RESULTS NJ Interval 136 ms RADIOLOGY RESULTS QRS Duration 90 ms RADIOLOGY RESULTS QT 370 ms RADIOLOGY RESULTS QTc 405 ms RADIOLOGY RESULTS P [place] 56 degrees RADIOLOGY RESULTS R AXIS 43 degrees RADIOLOGY RESULTS T [place] 29 degrees RADIOLOGY RESULTS Interpretation Sinus rhythm RADIOLOGY ECG Normal ECG RESULTS When compared with ECG of 01-MAY-2016 07:12, Right bundle branch block is no longer Present Confirmed by - EMERGENCY TUCKER Clara PHYSICIAN ([id number]), news video editor JOE BERMEO ([id number]) on 09/11/2021 7:38:28 AM Specimen Anatomical Collection Method Collection Time Receive d Time (Source) Location / / Volume Laterality 09/10/2021 6:45 PM 7:38 FAMILY NURSE PRACTITIONER AM FAMILY NURSE PRACTITIONER Giovany Brito MD ECG ORDERABLES Performing Organization Address City/State/ZIP Code Phon e Number RADIOLOGY RESULTS XR Chest 2 Views (09/10/2021 6:40 PM FAMILY NURSE PRACTITIONER) Anatomical Region Laterality Modality Chest Digital Radiography Specimen (Source) Anatomical Collection Method Collection Time Re ceived Time Location / / Volume Laterality 09/10/2021 6:40 PM FAMILY NURSE PRACTITIONER Impressions 09/10/2021 6:44 PM FAMILY NURSE PRACTITIONER IMPRESSION: Negative chest. Narrative 09/10/2021 6:44 PM FAMILY NURSE PRACTITIONER EXAM: XR CHEST 2 VW LOCATION: [facility] DATE/TIME: 09/10/2021 6:40 PM INDICATION: chest pain COMPARISON: 04/30/2016 Procedure Note Chintan Medina MD - 09/10/2021Formatt ing of this note might be different from the original. EXAM: XR CHEST 2 VW LOCATION: [facility] DATE/TIME: 09/10/2021 6:40 PM INDICATION: chest pain COMPARISON: 04/30/2016 IMPRESSION: Negative chest. Giovany Brito MD IMG DIAGNOSTIC IMAGING ORDERABLES Extra Red Top Tube (09/10/2021 6:25 PM FAMILY NURSE PRACTITIONER) P athologist Signature Hold Specimen JIC 09/10/2021 [facility] 7:31 PM FAMILY NURSE PRACTITIONER Specimen Anatomical Collection Method / Collection Time Recei cuco Time (Source) Location / Volume Laterality Blood STRUCTURE OF RIGHT Venipuncture / 09/10/2021 6:25 /08/2021 6:30 UPPER LIMB / Unknown PM FAMILY NURSE PRACTITIONER PM FAMILY NURSE PRACTITIONER Unknown Giovany Brito MD LAB - BLOOD ORDERABLES Performing Organization Address City/State/[place] [address] Care [facility] [address] Lab (1st floor, no room number) Extra Blue Top Tube (09/10/2021 6:25 PM FAMILY NURSE PRACTITIONER) P athologist Signature Hold Specimen JIC 09/10/2021 [facility] 7:31 PM FAMILY NURSE PRACTITIONER Specimen Anatomical Collection Method / Collection Time Recei cuco Time (Source) Location / Volume Laterality Blood STRUCTURE OF RIGHT Venipuncture / 09/10/2021 6:25 08/13 6:30 UPPER LIMB / Unknown PM FAMILY NURSE PRACTITIONER PM FAMILY NURSE PRACTITIONER Unknown Giovany Brito MD LAB - BLOOD ORDERABLES Performing Organization Address City/[facility]/ZIP Code Phon [place] [address] Care Lab [address] Lab (1st floor, no room number) CBC with platelets and differential (09/10/2021 6:25 PM FAMILY NURSE PRACTITIONER) Analysis Performed At Patho logist Time Signature WBC Count 10.9 4.0 - 11.0 09/10/2021 [facility] 10e3/uL 6:33 PM FAMILY NURSE PRACTITIONER RBC Count 4.87 4.40 - 09/10/2021 [facility] 5.90 6:33 PM FAMILY NURSE PRACTITIONER 10e6/uL Hemoglobin 14.5 13.3 - 09/10/2021 [facility] 17.7 g/dL 6:33 PM FAMILY NURSE PRACTITIONER Hematocrit 42.4 40.0 - 09/10/2021 [facility] 53.0 % 6:33 PM FAMILY NURSE PRACTITIONER MCV 87 78 - 100 09/10/2021 [facility] fL 6:33 PM FAMILY NURSE PRACTITIONER MCH 29.8 26.5 - 09/10/2021 [facility] 33.0 pg 6:33 PM FAMILY NURSE PRACTITIONER MCHC 34.2 31.5 - 09/10/2021 [facility] 36.5 g/dL 6:33 PM FAMILY NURSE PRACTITIONER RDW 11.7 10.0 - 09/10/2021 [facility] 15.0 % 6:33 PM FAMILY NURSE PRACTITIONER Platelet Count 232 150 - 450 09/10/2021 [facility] 10e3/uL 6:33 PM FAMILY NURSE PRACTITIONER % Neutrophils 54 % 09/10/2021 [facility] 6:33 PM FAMILY NURSE PRACTITIONER % Lymphocytes 30 % 09/10/2021 [facility] 6:33 PM FAMILY NURSE PRACTITIONER % Monocytes 10 % 09/10/2021 [facility] 6:33 PM FAMILY NURSE PRACTITIONER % Eosinophils 4 % 09/10/2021 [facility] 6:33 PM FAMILY NURSE PRACTITIONER % Basophils 1 % 09/10/2021 [facility] 6:33 PM FAMILY NURSE PRACTITIONER % Immature 1 % 09/10/2021 [facility] Granulocytes 6:33 PM FAMILY NURSE PRACTITIONER NRBCs per 100 WBC 0 <1 /100 09/10/2021 [facility] RY 6:33 PM FAMILY NURSE PRACTITIONER Absolute 6.0 1.6 - 8.3 09/10/2021 [facility] Neutrophils 10e3/uL 6:33 PM FAMILY NURSE PRACTITIONER Absolute 3.3 0.8 - 5.3 09/10/2021 [facility] Lymphocytes 10e3/uL 6:33 PM FAMILY NURSE PRACTITIONER Absolute 1.0 0.0 - 1.3 09/10/2021 [facility] Monocytes 10e3/uL 6:33 PM FAMILY NURSE PRACTITIONER Absolute 0.4 0.0 - 0.7 09/10/2021 [facility] Eosinophils 10e3/uL 6:33 PM FAMILY NURSE PRACTITIONER Absolute 0.1 0.0 - 0.2 09/10/2021 [facility] Basophils 10e3/uL 6:33 PM FAMILY NURSE PRACTITIONER Absolute Immature 0.1 <=0.4 09/10/2021 [facility] RY Granulocytes 10e3/uL 6:33 PM FAMILY NURSE PRACTITIONER Absolute NRBCs 0.0 10e3/uL 09/10/2021 [facility] 6:33 PM FAMILY NURSE PRACTITIONER Specimen Anatomical Collection Method / Collection Time Recei cuco Time (Source) Location / Volume Laterality Blood STRUCTURE OF RIGHT Venipuncture / 09/10/2021 6:25 /3 08/2021 6:30 UPPER LIMB / Unknown PM FAMILY NURSE PRACTITIONER PM FAMILY NURSE PRACTITIONER Unknown Giovany Brito MD LAB - BLOOD ORDERABLES Performing Organization Address City/State/ZIP Code Phon [place] Number [place] [phone] Care Lab [address] Lab (1st floor, no room number) CRP inflammation (09/10/2021 6:25 PM FAMILY NURSE PRACTITIONER) Analysis Performed At Patho logist Time Signature CRP Inflammation <2.9 0.0 - 8.0 09/10/2021 [facility] Y mg/L 6:52 PM FAMILY NURSE PRACTITIONER Specimen Anatomical Collection Method / Collection Time Recei cuco Time (Source) Location / Volume Laterality Blood STRUCTURE OF RIGHT Venipuncture / 09/10/2021 6:25 /08/2021 6:30 UPPER LIMB / Unknown PM FAMILY NURSE PRACTITIONER PM FAMILY NURSE PRACTITIONER Unknown Giovany Brito MD LAB - BLOOD ORDERABLES Performing Organization Address City/State/ZIP Code Phon e Number [place] [phone] Care Lab [address] Lab (1st floor, no room number) Troponin I (09/10/2021 6:25 PM FAMILY NURSE PRACTITIONER) P athologist Signature Troponin I High 5 <79 ng/L 09/10/2021 [facility] Sensitivity 6:54 PM FAMILY NURSE PRACTITIONER Comment: This Troponin-I result was obta ined using a Siemens Dimension Dix High Sensitivity Troponin-I assay (TNIH). Eff ective 07/03/21, nine labs/sites in the [facility] switched from a Siemens Dix Contemporary Troponin I assay (CTNI) to a Siemens Dix High-Sensitivity Troponi n I assay (TNIH). Specimen Anatomical Collection Method / Collection Time Recei cuco Time (Source) Location / Volume Laterality Blood STRUCTURE OF RIGHT Venipuncture / 09/10/2021 6:25 08/13 6:30 UPPER LIMB / Unknown PM FAMILY NURSE PRACTITIONER PM FAMILY NURSE PRACTITIONER Unknown Giovany Brito MD LAB - BLOOD ORDERABLES Performing Organization Address City/State/ZIP Code Phon [place] [phone] Care Lab [address] Lab (1st floor, no room number) (ABNORMAL) Basic metabolic panel (09/10/2021 6:25 PM FAMILY NURSE PRACTITIONER) Analysis Performed At Patho logist Time Signature Sodium 138 133 - 144 09/10/2021 LABORATORY mmol/L 6:52 PM FAMILY NURSE PRACTITIONER Potassium 4.0 3.4 - 5.3 09/10/2021 LABORATORY mmol/L 6:52 PM FAMILY NURSE PRACTITIONER Chloride 110 (H) 94 - 109 09/10/2021 LAB[facility] mmol/L 6:52 PM FAMILY NURSE PRACTITIONER Carbon Dioxide 23 20 - 32 09/10/2021 LABORATORY (CO2) mmol/L 6:52 PM FAMILY NURSE PRACTITIONER Anion Gap 5 3 - 14 09/10/2021 LAB[facility] mmol/L 6:52 PM FAMILY NURSE PRACTITIONER Urea Nitrogen 16 7 - 30 09/10/2021 LAB[facility]ATORY mg/dL 6:52 PM FAMILY NURSE PRACTITIONER Creatinine 0.75 0.66 - 09/10/2021 LAB[facility]ATORY 1.25 mg/dL 6:52 PM FAMILY NURSE PRACTITIONER Calcium 9.0 8.5 - 10.1 09/10/2021 LABORATORY mg/dL 6:52 PM FAMILY NURSE PRACTITIONER Glucose 101 (H) 70 - 99 09/10/2021 LABORATORY mg/dL 6:52 PM FAMILY NURSE PRACTITIONER GFR Estimate >90 >60 09/10/2021 LABORATORY mL/min/1.7 6:52 PM FAMILY NURSE PRACTITIONER 3m2 Comment: Effective July 31, 2021 eGF Rcr in adults is calculated using the 2020 CKD-EPI creatinine equation which includ es age and gender (Abdulkadir et al., NEJM, DOI: 10.1056/HYNNlj8128308) Specimen Anatomical Collection Method / Collection Time Recei cuco Time (Source) Location / Volume Laterality Blood STRUCTURE OF RIGHT Venipuncture / 09/10/2021 6:25 08/13 6:30 UPPER LIMB / Unknown PM FAMILY NURSE PRACTITIONER PM FAMILY NURSE PRACTITIONER Unknown Giovany Brito MD LAB - BLOOD ORDERABLES Performing Organization Address City/State/ZIP Code Ph[place] [phone] Care Lab [address] Lab (1st floor, no room number) documented in this encounter Visit Diagnoses Diagnosis Chest pain, unspecified type documented in this encounter Administered Medications Inactive Administered Medications - up to 3 most recent administrations Medication Order MAR Action Action Date Dose Rate Site lidocaine (viscous) (XYLOCAINE) 2 Given 09/10/2021 6:48 PM FAMILY NURSE PRACTITIONER 3 0 mLs % 15 mL, alum & mag hydroxide-simethicone (MAALOX) 15 mL GI Cocktail 30 mL, Oral, ONCE, On Fri09/10/21 at 1825, For 1 dose documented in this encounter Active and Recently Administered Medications Times are shown in FAMILY NURSE PRACTITIONER. Scheduled Medication Order 09/08/2021 09/09/2021 09/10/2021 lidocaine (viscous) (XYLOCAINE) 2 % 15 m L, alum & mag hydroxide-simethicone (MAALOX) 15 mL GI Cocktail (COMPLETED) 1 848 (Given - Provider: Madison Cruz RN) 30 mL, Oral, ONCE, On Fri09/10/21 at 1825, For 1 dose documented in this encounter Care Teams Change Management Coordinator Relationship Specialty Start Date End Date No Ref-Primary, Physician PCP - General 09/03/19 10/28/21 documented as of this encounter
--- OUTSIDE RECORDS SUMMARY | 2022-06-17 19:23 | XMS_ITS | Clinical Summary ---
:1975 Author Organization [facility] Address [address] [place], [place] [address]. [place] [address] Care Team Providers Name Role Phone [facility], [facility] And Primary Care Provi velvet Clinics- Allergies No known active allergies Medications Medication Sig Dispensed Refills Start Date End Date Status ibuprofen Take 800 mg by mouth 0 Active (ADVIL,MOTRIN) 800 every morning MG tablet APREMILAST PO Take 1 tablet by 0 Active mouth 2 times daily Blinded study drug from [facility], Dr Karen Mathew COSENTYX 0 10/25/2021 Active SENSOREADY, 300 MG, 150 MG/ML SOAJ Active Problems Problem Noted Date Ankylosing spondylitis lumbar region 09/11/2012 Overview: Formatting of this note might be differe nt from the original. 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 [...] 188 cm (6' 2) 09/10/2021 6:10 PM PIPELINE SUPERINTENDENT DIVISION Body Mass Index 28.89 09/10/2021 6:10 PM PIPELINE SUPERINTENDENT DIVISION Plan of Treatment Health Maintenance Due Date [...] ss Type Group BCBS BCBS OF [place] [id number] 2016-Joshua [phone] [address] [address] Indemnity t 0 ERIK HARDIN [id number] Advance Directives For more information, please contact: [phone] Latest Code Status on File Code Status Date Activated Date Inactivated Comments Full Code 04/30/2016 3:58 PM 05/01/2016 11:18 AM Care Teams Preparation Room Manager Relationship Specialty Start Date End Date [facility] And PCP - General 10/29/21 [facility]- [address] [place] [address]
--- OUTSIDE RECORDS SUMMARY | 2022-06-17 19:23 | XMS_ITS | Encounter Summary ---
:1975 Author Organization [place] Address [address] [place] [address] Care Team Providers Name Role Phone [facility] And Primary Care [facility] Clinics- Reason for Visit Reason Comments Elbow Pain Encounter Details Date Type Department Care Team Description 11/06/2021 Emergency [facility] Antony Naranjo Septic b ursitis of [facility] Emergency Dep t MD Geronimo elbow, right [address] [facility] [address] [phone] [place], [place] [address] (Wo rk) Social History [...] Body Mass Index 28.89 09/10/2021 6:10 PM MANAGER PATIENT documented in this encounter Discharge Instructions Discharge [...] cannot be sent through Care Everywhere. 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 Antony Naranjo MD 11/06/21 7535 documented in this encounter Miscellaneous Notes Result Encounter Note - Elgin Romero RN - 11/06/2021 5:32 PM CDT [facility] Emergency Dept discharge antibiotic prescribed: Clindamycin (Cleocin) 300 mg PO capsule, 1 capsule (300 mg) by mouth 3 times daily for 10 days Incision and Drainage performed in [facility] Emergency Dept [Yes or No]: aspiration Recommendations in treatment per [facility] ED Lab Result culture protocol Result Encounter Note - Elgin Romero RN - 11/06/2021 5:32 PM CDT Await final culture report per [facility] ED Lab Result protocol. Result Encounter Note - Elgin Romero RN - 11/06/2021 5:32 PM CDT Final Synovial fluid Aerobic Bacterial Culture (specimen - elbow, right) report on 11/09/21 [facility] Emergency Dept discharge antibiotic prescribed: Clindamycin (Cleocin) 300 mg PO capsule, 1 capsule (300 mg) by mouth 3 times daily for 10 days #1. Bacteria, Staphylococcus aureus, is [SUSCEPTIBLE] to antibiotic. Incision and Drainage performed in the [place] ED: aspiration Recommendations in treatment per [facility] ED lab result culture protocol documented [...] Bacterial Culture Routine (11/06/2021 5:11 PM CDT) [facility] Method Time Signature Culture 1+ Staphylococcus JEWELS [...] Code Phon e Number [facility] [place] [address] Diag. Lab [address] documented in this encounter Visit Diagnoses Diagnosis Septic bursitis of elbow, right documented in this encounter Active and Recently Administered Medications Care Teams Director Women Relationship Specialty Start Date End Date [facility] And PCP - General 10/29/21 [facility] [address] [place] [address] documented as of this encounter
--- OUTSIDE RECORDS SUMMARY | 2022-06-17 19:23 | XMS_ITS | Encounter Summary ---
:1975 Author Organization [facility] Address [address] [place] [address] Care Team Providers Name Role Phone No Ref-Primary, Physician Primary Care Provider [phone] Encounter Details Date Type Department Care Team [...] on filedocumented in this encounter Care Teams Dredge Boat Engineer Relationship Specialty Start Date End Date No Ref-Primary, Physician PCP - General 09/03/19 10/28/21 documented as of this encounter
--- OUTSIDE RECORDS SUMMARY | 2022-06-17 19:23 | XMS_ITS | Encounter Summary ---
:1975 Author Organization [place] Address [address] [place] [address] Care Team Providers Name Role Phone [facility] Primary [facility] Clinics- Encounter Details Date Type Department [...] on filedocumented in this encounter Care Teams Soybean Specialties Cook Relationship Specialty Start Date End Date [facility] And PCP - General 10/29/21 [facility]- [address] [place] [address] documented as of this encounter
--- OUTSIDE RECORDS SUMMARY | 2022-06-17 19:24 | XMS_ITS | Encounter Summary ---
:1975 Author Organization [place] Address [address] [place] [address] Care Team Providers Name Role Phone Bharat [...] on filedocumented in this encounter Care Teams Senior Cytotechnologist Relationship Specialty Start Date End Date Bharat Yañez PCP - General Family Practice 04/30/16 09/02/19 documented as of this encounter
--- OUTSIDE RECORDS SUMMARY | 2022-06-17 19:24 | XMS_ITS | Encounter Summary ---
:1975 Author Organization [place] Address [address] [place] [address] Care Team Providers Name Role Phone Bharat Yañez Primary Care Provider Encounter Details Date Type Department Care Team Description 08/14/2018 [facility] G Psoriasis; [address] [facility] Avitaminosis D; [place], [place] RHEUMATOLOGY Lipid disorder; [id number] Encounter for long-term (cur rent) use of medications; [phone] [address] Vitamin D deficiency E[place]K DAVIS [address] Social History Tobacco Use Types Packs/Day Years [...] AM Psoriasis R esults for this SCREENING DOPE WORKER procedure are i n the results section. LIPID PROFILE Routine 08/14/2018 8:10 AM Psoriasis Results for this DOPE WORKER Avitaminosis D procedure are in Lipid disorder the results Encounter for section. long-term (current) use of medications HEMOGLOBIN Routine 08/14/2018 8:10 AM Psoriasis Results for this DOPE WORKER Avitaminosis D procedure are in Lipid disorder the results Encounter for section. long-term (current) use of medications ERYTHROCYTE Routine 08/14/2018 8:10 AM Psoriasis Results for this SEDIMENTATION RATE DOPE WORKER Avitaminosis D procedure are in AUTO Lipid disorder the results Encounter for section. long-term (current) use of medications CRP INFLAMMATION Routine 08/14/2018 8:10 AM Psoriasis Results for this DOPE WORKER Avitaminosis D procedure are in Lipid disorder the results Encounter for section. long-term (current) use of medications CREATININE Routine 08/14/2018 8:10 AM Psoriasis Results for this DOPE WORKER Avitaminosis D procedure are in Lipid disorder the results Encounter for section. long-term (current) use of medications documented in this encounter Results (ABNORMAL) Vitamin D Deficiency (08/14/2018 8:10 AM DOPE WORKER) athologist Signature Vitamin D 77 (H) 20 - 75 08/14/2018 [facility] ug/L 1:[address] [facility] Comment: Season, race, dietary intake, and treatm ent affect the concentration of 02-gbwldyq-Cmlaepl D. Values may decreas e during winter [...] Volume Laterality 08/14/2018 8:10 AM 9 8:18 DOPE WORKER AM DOPE WORKER Karen Shrestha LAB - BLOOD ORDERABLES Performing Organization Address City/State/ZIP Code Phon e Number [facility] [address] [place], [place] [id number] [place] [address] CRP, inflammation (08/14/2018 8:10 AM DOPE WORKER) athologist Signature CRP Inflammation <2.9 0.0 - 8.0 08/14/2018 [place] mg/L 8:37 AM [facility] Specimen Anatomical Collection Method Collection Time Receive d Time (Source) Location / / Volume Laterality Blood specimen 08/14/2018 8:10 AM 019 8:18 (specimen) DOPE WORKER AM DOPE WORKER Karen Shrestha LAB - BLOOD ORDERABLES Performing Organization Address City/State/ZIP Code Phon e Number [facility] [address] [place] [address] [facility] [address] [phone] (ABNORMAL) Lipid Profile (Chol, Trig, HDL, LDL calc) (08/14/2018 8:10 AM DOPE WORKER) athologist Signature Cholesterol 248 (H) <200 mg/dL 08/14/2018 [place] 8:37 AM [facility] Comment: Desirable: <200 mg/dl Triglycerides 286 (H) <150 mg/dL 08/14/2018 8:37 AM [facility] Comment: Borderline high: ??150-199 mg/dl High: ? 200-499 mg/dl Very high: ? >499 mg/dl HDL Cholesterol 64 >39 mg/dL 08/14/2018 8:38 AM [facility] LDL Cholesterol 127 (H) <100 mg/dL 08/14/2018 8:38 AM [facility] Comment: Above desirable: ??100-129 mg/dl Borderline High: ??130-159 mg/dL High: ? 160-189 mg/dL Very high: ? >189 mg/dl Non HDL Cholesterol 184 (H) <130 mg/dL 08/14/2018 8:38 AM [facility] Comment: Above Desirable: ??130-159 mg/dl Borderline high: ??160-189 mg/dl High: ? 190-219 mg/dl Very high: ? >219 mg/dl Specimen Anatomical Collection Method Collection Time Receive d Time (Source) Location / / Volume Laterality Blood specimen 08/14/2018 8:10 AM 019 8:18 (specimen) DOPE WORKER AM DOPE WORKER Karen Shrestha LAB - BLOOD ORDERABLES Performing Organization Address City/[facility]/ZIP [facility] Phon e Number [facility] [address] [place], [place] [address] [facility] [address] [place], [place] [address], [facility] [phone] Hemoglobin (08/14/2018 8:10 AM DOPE WORKER) athologist Signature Hemoglobin 15.8 13.3 - 17.7 08/14/2018 [facility] g/dL 8:22 AM [facility] Specimen Anatomical Collection Method Collection Time Receive d Time (Source) Location / / Volume Laterality Blood specimen 08/14/2018 8:10 AM 019 8:18 (specimen) DOPE WORKER AM DOPE WORKER Karen Shrestha LAB - BLOOD ORDERABLES Performing Organization Address City/[facility] Phon e Number [facility] [address] [place], [place] [address] [facility] [address] [place], [place] [address], [facility] [phone] Creatinine (08/14/2018 8:10 AM DOPE WORKER) athologist Signature Creatinine 0.81 0.66 - 1.25 08/14/2018 [place] mg/dL 8:37 AM [facility] GFR Estimate >90 >60 08/14/2018 [place] mL/min/{1.7 8:37 AM [facility] 3_m2} HOSPITAL Comment: Non GFR Calc Starting 07/28/2018, serum creatinine ba sed estimated GFR (eGFR) will be calculated using the Chronic Kidney Dise ase Epidemiology Collaboration (CKD-EPI) equation. GFR Estimate If >90 >60 mL/min/{1.73_m2} 08/14/2018 8: 37 AM [facility] Comment: GFR Calc Starting 07/28/2018, serum creatinine ba sed estimated GFR (eGFR) will be calculated using the Chronic Kidney Dise ase Epidemiology Collaboration (CKD-EPI) equation. Specimen Anatomical Collection Method Collection Time Receive d Time (Source) Location / / Volume Laterality Blood specimen 08/14/2018 8:10 AM 019 8:18 (specimen) DOPE WORKER AM DOPE WORKER Karen Calvertta LAB - BLOOD ORDERABLES Performing Organization Address City/[facility]/ZIP [facility] Phon e Number [facility] [address] [place], [place] [address] [address], [facility] [phone] ESR: Erythrocyte sedimentation rate (08/14/2018 8:10 AM DOPE WORKER) P athologist Signature Sed Rate 8 0 - 15 mm/h 08/14/2018 [facility] 10:03 AM DOPE WORKER HOSPITAL Specimen Anatomical Collection Method Collection Time Receive d Time (Source) Location / / Volume Laterality Blood specimen 08/14/2018 8:10 AM 019 8:18 (specimen) DOPE WORKER AM DOPE WORKER Karen Shrestha LAB - BLOOD ORDERABLES Performing Organization Address City/[facility] Phon e Number [facility] [address] [place], [place] [address] [place] [address] [address] [place], [place] [address], [facility] [phone] documented in this encounter Visit Diagnoses Diagnosis 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
--- OUTSIDE RECORDS SUMMARY | 2022-06-17 19:24 | XMS_ITS | Encounter Summary ---
:1975 Author Organization [place] Address [address] [place] [address]. [place] [address] Care Team Providers Name Role Phone Unavailable Primary Care Provider Unavailable Reason for Referral Referral not Required - Closed Specialty Diagnoses / Procedures Referred By Contact Refer red To Contact Diagnoses Lumbar disc herniation Jacqueline Xiong [facility] [id number] [address] [place] [address] [address] [place] [address] Phone: Referral ID Status Reason Start Date Expiration Date Visits Requ ested Visits Authorized [id number] Closed 06/28/2010 06/28/2010 1 1 OR SOUND Reason for Visit Reason Comments Physical Blood Draw Labs. Patient is fasting. Encounter Details Date Type Department Care Team Description 06/28/2010 [facility] Routine general medical examination at a health care facility (Primary Dx); Clinic Jamie Hinojosa MD Fatigue; [place] [address] [address], [address] [place] [address] [place], [place] [phone] (Wo rk) [address] [phone] Social History Tobacco Use Types Packs/Day Years Used Date Smoking Tobacco: Every Day Cigarettes 0.5 Alcohol Use Standard Drinks/Week Comments Yes 0 (1 standard drink = 0.6 oz pure alcoho l) occasionally Sex Assigned at Date Recorded Not on file documented as of this encounter Last Filed Vital Signs Vital Sign Reading Time Taken Comments Blood Pressure 122/86 06/28/2010 8:13 AM EDITOR SOUND Pulse 82 06/28/2010 8:13 AM EDITOR SOUND Temperature 36.5 ??C (97.7 ??F) 06/28/2010 8:13 AM EDITOR SOUND Respiratory Rate 16 06/28/2010 8:13 AM EDITOR SOUND Oxygen Saturation 96% 06/28/2010 8:13 AM EDITOR SOUND Inhaled Oxygen Concentration - - Weight 104.7 kg (230 lb 12.8 oz) 06/28/2010 8:13 AM EDITOR SOUND Height 188.6 cm (6' 2.25) 06/28/2010 8:13 AM EDITOR SOUND Body Mass Index 29.43 06/28/2010 8:13 AM EDITOR SOUND documented in this encounter Progress Notes Jacqueline [...] CMA All Histories reviewed and updated in [facility]. ROS: C: NEGATIVE for fever, chills, change [...] panel 3. Lumbar disc herniation (722.10AT) ORTHO BRIM ROUNDER REFERRAL, methocarbamol (ROBAXIN) 750 MG tablet, tramadol (ULTRAM) 50 MG tablet Jacqueline Xiong [facility], [place] SOUND documented in this encounter Nursing Notes 06/28/2010 8:15 AM CST >> ORA CAMARGO [facility] Jun 28, 2010 8:19 AM Patient [...] Type Priority Associated Diagnoses Date/Ti me ORTHO BRIM ROUNDER REFERRAL Referral Routine Lumbar disc mik iation 07/04/2010 documented as of this encounter Procedures Procedure Name Priority Date/Time Associated Diagnosis Comme nts TSH WITH FREE T4 Routine 06/28/2010 8:57 AM Fatigue Resul ts for this REFLEX EDITOR SOUND procedure are i n the results section. LIPID REFLEX TO Routine 06/28/2010 8:57 AM Routine general Res ults for this DIRECT LDL PANEL EDITOR SOUND medical examination proc edure are in at a [facility] the results facility section. BASIC METABOLIC Routine 06/28/2010 8:57 AM Fatigue Result s for this PANEL EDITOR SOUND procedure are i n the results section. CBC WITH PLATELETS Routine 06/28/2010 8:57 AM Fatigue Res ults for this EDITOR SOUND procedure are i n the results section. documented in this encounter Results Basic metabolic panel (06/28/2010 8:57 AM EDITOR SOUND) athologist Signature Sodium 142 133 - 144 [place] [facility] mmol/L [facility]IC [facility] Potassium 4.5 3.4 - 5.3 [place] [facility] mmol/L [facility] Chloride 107 94 - 109 [place] mmol/L [facility] Carbon Dioxide 24 20 - 32 [facility] mmol/L CLINIC LAB Anion Gap 12 6 - 17 [facility] mmol/L CLINIC LAB Glucose 93 60 - 99 [place] mg/dL [facility]IC [facility] Urea Nitrogen 12 5 - 24 [place] [facility] mg/dL [facility] Creatinine 0.74 0.66 - [facility] 1.25 mg/dL CLINIC LAB Comment: New IDMS-traceable calibration beginning 12/10/07 GFR Estimate >90 >60 mL/min/1.7m2 [facility] GFR Estimate If Black >90 >60 mL/min/1.7m2 [facility] Calcium 9.0 8.5 - 10.4 mg/dL [place] [facility] N [facility] Specimen Anatomical Collection Method Collection Time Receive d Time (Source) Location / / Volume Laterality Blood specimen 06/28/2010 8:57 AM 010 8:59 (specimen) EDITOR SOUND AM EDITOR SOUND Jacuqeline Xiong MD LAB - BLOOD ORDERABLES Performing Organization Address City/[facility]/ZIP Code Phon e Number [facility] [address] [place] [address] [facility] CBC with platelets (06/28/2010 8:57 AM EDITOR SOUND) P athologist Signature WBC 8.8 4.0 - 11.0 [place] 10e9/L [facility] RBC Count 5.03 4.4 - 5.9 [place] 10e12/L [facility] Hemoglobin 14.8 13.3 - [facility] 17.7 g/dL [facility] Hematocrit 43.7 40.0 - [place] 53.0 % [facility] MCV 87 78 - 100 [facility] LAB MCH 29.4 26.5 - [facility] 33.0 pg [facility] MCHC 33.9 31.5 - [place] 36.5 g/dL [facility] RDW 11.8 10.0 - [place] 15.0 % [facility] Platelet Count 294 150 - 450 [place] 10e9/L [facility] LAB Specimen Anatomical Collection Method Collection Time Receive d Time (Source) Location / / Volume Laterality Blood specimen 06/28/2010 8:57 AM 010 8:59 (specimen) EDITOR SOUND AM EDITOR SOUND Jacqueline Xiong MD LAB - BLOOD ORDERABLES Performing Organization Address City/State/ZIP Code Phon e Number [facility] [address] [facility] LAB TSH with free T4 reflex (06/28/2010 8:57 AM EDITOR SOUND) athologist Signature TSH 0.78 0.4 - 5.0 [facility] mU/L [facility] LAB Specimen Anatomical Collection Method Collection Time Receive d Time (Source) Location / / Volume Laterality Blood specimen 06/28/2010 8:57 AM 010 8:59 (specimen) EDITOR SOUND AM EDITOR SOUND Jacqueline Xiong MD LAB - BLOOD ORDERABLES Performing Organization Address City/[facility]/ZIP Code Phon e Number [facility][1] [address] [place] [address] [facility] LAB (ABNORMAL) Lipid panel reflex to direct LDL (06/28/2010 8:57 AM EDITOR SOUND) athologist Signature Cholesterol 221 (H) 0 - 200 [facility] mg/dL CLINIC LAB Comment: LDL Cholesterol is the primary guide to therapy. The NCEP recommends further evaluation of: patients with cholesterol <200 mg/dL if additional risk factors are present, cholesterol >240 mg/dL, triglycerides >150 mg/dL, or HDL <40 mg/dL. Triglycerides 109 0 - 150 mg/dL [facility] HDL Cholesterol 54 40 - 110 mg/dL [facility] LDL Cholesterol Calculated 146 (H) 0 - 129 mg/dL [facility] Comment: LDL Cholesterol is the primary guide to therapy: LDL-cholesterol goal in high risk patients is <100 mg/dL and in very high risk patients is <70 mg/dL. VLDL-Cholesterol 22 0 - 30 mg/dL [facility] Cholesterol/HDL Ratio 4.1 0.0 - 5.0 [facility] Specimen Anatomical Collection Method Collection Time Receive d Time (Source) Location / / Volume Laterality Blood specimen 06/28/2010 8:57 AM 010 8:59 (specimen) EDITOR SOUND AM EDITOR SOUND Jacqueline Xiong MD LAB - BLOOD ORDERABLES Performing Organization Address City/State/ZIP Code Phon e Number [facility] [address] [place] [address] [facility] documented in this encounter Visit Diagnoses Diagnosis Routine general medical examination at a health care facility - Primary Fatigue Other malaise and fatigue Lumbar disc herniation Displacement of lumbar intervertebral di sc without myelopathy documented in this encounter
--- OUTSIDE RECORDS SUMMARY | 2022-06-17 19:24 | XMS_ITS | Encounter Summary ---
:[address] Address [address] [place] [address] Care Team Providers Name Role Phone Bharat Yañez Primary Care Provider Encounter Details Date Type Department Care Team Description 05/28/2018 Hospital Encounter [facility] Karen Shresthartjoe psoriatic arthritis (H); [facility] G Vitamin D deficiency; [address] [facility] Encounter for long-term (cur rent) use of medications [place], [place] RHEUMATOLOGY [phone] [address] [facility] [address] [place], [place] [id number] Social History Tobacco Use Types Packs/Day Years [...] 0 times daily Blinded study drug from [facility], Dr Karen Mathew ibuprofen Take [...] Rate 10 0 - 15 mm/h 05/28/2018 [facility] 7:54 AM CDT HOSPITAL Specimen Anatomical Collection Method Collection Time Receive d Time (Source) Location / / Volume Laterality Blood specimen 05/28/2018 7:24 AM 018 7:27 (specimen) CDT AM CDT Karen Shrestha LAB - BLOOD ORDERABLES Performing Organization Address City/[facility] Phon e Number Clara [facility] [address] [place], [place] [address] [facility] [address] [place], [place] [address] [place] [address] CBC with platelets (05/28/2018 7:24 AM CDT) athologist Signature WBC 7.1 4.0 - 11.0 05/28/2018 [facility] 10e9/L 7:36 AM [facility] RBC Count 5.24 4.4 - 5.9 05/28/2018 [facility] 10e12/L 7:36 AM [facility] Hemoglobin 15.0 13.3 - 05/28/2018 [facility] 17.7 g/dL 7:36 AM [facility] Hematocrit 46.3 40.0 - 05/28/2018 [facility] 53.0 % 7:36 AM [facility] MCV 88 78 - 100 05/28/2018 [facility] fl 7:36 AM [facility] MCH 28.6 26.5 - 05/28/2018 [facility] 33.0 pg 7:36 AM [facility] MCHC 32.4 31.5 - 05/28/2018 [facility] 36.5 g/dL 7:36 AM [facility] RDW 11.6 10.0 - 05/28/2018 [facility] 15.0 % 7:36 AM [facility] Platelet Count 244 150 - 450 05/28/2018 [facility] 10e9/L 7:36 AM [facility] Specimen Anatomical Collection Method Collection Time Receive d Time (Source) Location / / Volume Laterality Blood specimen 05/28/2018 7:24 AM 018 7:27 (specimen) CDT AM CDT Karen Shrestha LAB - BLOOD ORDERABLES Performing Organization Address City/[facility] Phon e Number M [facility] [address] [place], [place] [address] [facility] [address] [place], [place] [address], [facility] [phone] Albumin level (05/28/2018 7:24 AM CDT) athologist Signature Albumin 4.0 3.4 - 5.0 05/28/2018 [facility] g/dL 7:47 AM CDT HOSPITAL Specimen Anatomical Collection Method Collection Time Receive d Time (Source) Location / / Volume Laterality Blood specimen 05/28/2018 7:24 AM 018 7:27 (specimen) CDT AM CDT Karen Palmer Fady LAB - BLOOD ORDERABLES Performing Organization Address City/[facility]/ZIP [facility] Phon e Number [facility] [address] [place], [place] [address] [place] [address] [address] [place], [place] [address], [facility] [phone] Creatinine (05/28/2018 7:24 AM CDT) athologist Signature Creatinine 0.87 0.66 - 1.25 05/28/2018 [place] mg/dL 7:47 AM [facility] GFR Estimate >90 >60 05/28/2018 [place] mL/min/1.7m 7:[address] Comment: Non GFR Calc GFR Estimate If >90 >60 mL/min/1.7m2 05/28/2018 7:47 A [facility] Comment: GFR Calc Specimen Anatomical Collection Method Collection Time Receive d Time (Source) Location / / Volume Laterality Blood specimen 05/28/2018 7:24 AM 018 7:27 (specimen) CDT AM CDT Karen Calvertta LAB - BLOOD ORDERABLES Performing Organization Address [facility] Phon e Number [facility] [address] [place], [place] [address] [facility] [address] [place], [place] [address], [facility] [phone] AST (05/28/2018 7:24 AM CDT) athologist Signature AST 17 0 - 45 U/L 05/28/2018 [facility] 7:47 AM CDT HOSPITAL Specimen Anatomical Collection Method Collection Time Receive d Time (Source) Location / / Volume Laterality Blood specimen 05/28/2018 7:24 AM 018 7:27 (specimen) CDT AM CDT Karentonny Calvertta LAB - BLOOD ORDERABLES Performing Organization Address City/[facility] Phon e Number [facility] [address] [place], [place] [address] [place] [address] [address] [place] [id number], [facility] [phone] ALT (05/28/2018 7:24 AM CDT) athologist Signature ALT 35 0 - 70 U/L 05/28/2018 [facility] 7:47 AM CDT HOSPITAL Specimen Anatomical Collection Method Collection Time Receive d Time (Source) Location / / Volume Laterality Blood specimen 05/28/2018 7:24 AM 018 7:27 (specimen) CDT AM CDT Karen Palmer Calvertta LAB - BLOOD ORDERABLES Performing Organization Address City/[facility] Code Phon e Number [facility] [address] [place], [place] [address] [place] [address] [address] [place], [place] [address], [facility] [phone] CRP, inflammation (05/28/2018 7:24 AM CDT) athologist Signature CRP Inflammation <2.9 0.0 - 8.0 05/28/2018 [place] mg/L 7:47 AM CDT [facility] Specimen Anatomical Collection Method Collection Time Receive d Time (Source) Location / / Volume Laterality Blood specimen 05/28/2018 7:24 AM 018 7:27 (specimen) CDT AM CDT Karen Palmer Calvertta LAB - BLOOD ORDERABLES Performing Organization Address City/[facility] Phon e Number [facility] [address] [place], [place] [address] [facility] [address] [place], [place] [address], [facility] [phone] (ABNORMAL) Vitamin D Deficiency (05/28/2018 7:24 AM CDT) athologist Signature Vitamin D 18 (L) 20 - 75 05/28/2018 [facility] ug/L 3:26 PM CDT [place] [facility] Comment: Season, race, dietary intake, and treatm ent affect the concentration of 79-xyztdht-Tfankld D. Values may decreas e during winter [...] Organization Address City/State/ZIP Code Phon e Number [address] [address] [facility] Calcium (05/28/2018 7:24 AM CDT) athologist Signature Calcium 8.5 8.5 - 10.1 05/28/2018 [facility] mg/dL 7:47 AM CDT HOSPITAL Specimen Anatomical Collection Method Collection Time Receive d Time (Source) Location / / Volume Laterality Blood specimen 05/28/2018 7:24 AM 018 7:27 (specimen) CDT AM CDT Karen Shrestha LAB - BLOOD ORDERABLES Performing Organization Address City/State/ZIP Code Phon e Number [facility] [address] [place], [place] [address] [facility] [address] [place], [place] [address], [facility] [phone] documented in this encounter Visit Diagnoses Diagnosis Polyarticular psoriatic arthritis (H) Psoriatic arthropathy Vitamin D deficiency Unspecified vitamin D deficiency Encounter for long-term (current) use of medications Encounter for long-term (current) use of other medications documented in this encounter Care Teams Retail Client Solutions Analyst Relationship Specialty Start Date End Date Bharat Yañez PCP - General Family Practice 04/30/16 09/02/19 documented as of this encounter
--- OUTSIDE RECORDS SUMMARY | 2022-06-17 19:24 | XMS_ITS | Encounter Summary ---
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
--- OUTSIDE RECORDS SUMMARY | 2022-06-17 19:24 | XMS_ITS | Encounter Summary ---
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 residential use of drug ERYTHROCYTE Routine 01/13/2019 7:29 Polyarticular Results for this SEDIMENTATION RATE AM CDT psoriatic arthritis pr ocedure are in AUTO (H) the results Vitamin D defici ency section. 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 residential use of drug ALT Routine 01/13/2019 7:29 Polyarticular Results for this AM CDT psoriatic arthritis procedur e are in (H) the results Vitamin D defici ency section. 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 residential use of drug CBC WITH PLATELETS Routine 01/13/2019 7:29 Polyarticular Resul ts for this AM CDT psoriatic arthritis procedur e are in (H) the results Vitamin D defici ency section. residential use of drug documented in this encounter Results Vitamin D Deficiency (01/13/2019 7:29 AM CDT) P athologist Signature Vitamin D 25 20 - 75 01/13/2019 [facility] Deficiency ug/L 4:24 PM CDT [facility] Comment: Season, race, dietary intake, and treatm ent affect the concentration of 60-zjgtasb-Htfiild D. Values may decreas e during winter [...] Organization Address City/State/ZIP Code Phon e Number [id number] [place] [address] ESR: Erythrocyte sedimentation rate (01/13/2019 7:29 AM CDT) athologist Signature Sed Rate 8 0 - 15 mm/h 01/13/2019 [facility] 7:46 AM [facility] Specimen Anatomical Collection Method Collection Time Receive d Time (Source) Location / / Volume Laterality Blood specimen 01/13/2019 7:29 AM 7:30 (specimen) CDT AM CDT Noah Gill MD LAB - BLOOD ORDERABLES Performing Organization Address City/[facility]/ZIP [facility] Phon e Number M [facility] [address], [place] [address] [facility] [address] [place], [place] [address], [facility] [phone] CRP, inflammation (01/13/2019 7:29 AM CDT) athologist Signature CRP Inflammation <2.9 0.0 - 8.0 01/13/2019 [place] mg/L 7:51 AM [facility] Specimen Anatomical Collection Method Collection Time Receive d Time (Source) Location / / Volume Laterality Blood specimen 01/13/2019 7:29 AM 019 7:30 (specimen) CDT AM CDT Noah Gill MD LAB - BLOOD ORDERABLES Performing Organization Address City/[facility]/ZIP Code Phon e Number M [facility] [address], [place] [address] [facility] [address] [place], [place] [address] 7[facility] [phone] Creatinine (01/13/2019 7:29 AM CDT) athologist Signature Creatinine 0.82 0.66 - 1.25 01/13/2019 [place] mg/dL 7:51 AM [facility] GFR Estimate >90 >60 01/13/2019 [place] mL/min/{1.7 7:51 AM [facility] 3_m2} HOSPITAL Comment: Non GFR Calc Starting 07/28/2018, serum creatinine ba sed estimated GFR (eGFR) will be calculated using the [facility] Epidemiology Collaboration (CKD-EPI) equation. GFR Estimate If >90 >60 mL/min/{1.73_m2} 01/13/2019 7: 51 AM [facility] Comment: GFR Calc Starting 07/28/2018, serum creatinine ba sed estimated GFR (eGFR) will be calculated using the Chronic Kidney Dise [facility] Epidemiology Collaboration (CKD-EPI) equation. Specimen Anatomical Collection Method Collection Time Receive d Time (Source) Location / / Volume Laterality Blood specimen 01/13/2019 7:29 AM 019 7:30 (specimen) CDT AM CDT Noah Gill MD LAB - BLOOD ORDERABLES Performing Organization Address City/State/ZIP Code Phon e Number M [place] [address], [place] [address] [facility] [address] [place], [place] [address] [facility] [phone] CBC with platelets (01/13/2019 7:29 AM CDT) athologist Signature WBC 8.7 4.0 - 11.0 01/13/2019 [place] 10e9/L 7:32 AM [facility] RBC Count 5.38 4.4 - 5.9 01/13/2019 [place] 10e12/L 7:32 AM [facility] Hemoglobin 16.1 13.3 - 01/13/2019 [place] 17.7 g/dL 7:32 AM [facility] Hematocrit 48.9 40.0 - 01/13/2019 [place] 53.0 % 7:32 AM [facility] MCV 91 78 - 100 01/13/2019 [facility] fl 7:32 AM [facility] MCH 29.9 26.5 - 01/13/2019 [facility] 33.0 pg 7:32 AM [facility] MCHC 32.9 31.5 - 01/13/2019 [facility] 36.5 g/dL 7:32 AM [facility] RDW 12.1 10.0 - 01/13/2019 [facility] 15.0 % 7:32 AM [facility] Platelet Count 232 150 - 450 01/13/2019 [place] 10e9/L 7:32 AM [facility] Specimen Anatomical Collection Method Collection Time Receive d Time (Source) Location / / Volume Laterality Blood specimen 01/13/2019 7:29 AM 019 7:30 (specimen) CDT AM CDT Noah Gill MD LAB - BLOOD ORDERABLES Performing Organization Address City/[facility]/ZIP [facility] Phon e Number [facility] [address], [place] [address] [facility] [address] [place], [place] [address], [facility] [phone] Calcium (01/13/2019 7:29 AM CDT) P athologist Signature Calcium 8.7 8.5 - 10.1 01/13/2019 [facility] mg/dL 7:51 AM T HOSPITAL Specimen Anatomical Collection Method Collection Time Receive d Time (Source) Location / / Volume Laterality Blood specimen 01/13/2019 7:29 AM 019 7:30 (specimen) CDT AM CDT Noah Gill MD LAB - BLOOD ORDERABLES Performing Organization Address City/State/ZIP [facility] Phon e Number [facility] [address], [place] [address] [facility] [address] [place], [place] [address], [facility] [phone] AST (01/13/2019 7:29 AM CDT) P athologist Signature AST 15 0 - 45 U/L 01/13/2019 [facility] 7:51 AM CDT HOSPITAL Specimen Anatomical Collection Method Collection Time Receive d Time (Source) Location / / Volume Laterality Blood specimen 01/13/2019 7:29 AM 019 7:30 (specimen) CDT AM CDT Noah Gill MD LAB - BLOOD ORDERABLES Performing Organization Address City/[facility]/ZIP Code Phon e Number [facility] [address], [place] [address] [facility] [address] [place], [place] [address], [facility] [phone] ALT (01/13/2019 7:29 AM CDT) P athologist Signature ALT 25 0 - 70 U/L 01/13/2019 [facility] 7:51 AM CDT HOSPITAL Specimen Anatomical Collection Method Collection Time Receive d Time (Source) Location / / Volume Laterality Blood specimen 01/13/2019 7:29 AM 019 7:30 (specimen) CDT AM CDT Noah Gill MD LAB - BLOOD ORDERABLES Performing Organization Address City/[facility]/ZIP Code Phon e Number [facility] [address], [place] [address] [facility] [address] [place], [place] [address], [facility] [phone] Albumin level (01/13/2019 7:29 AM CDT) P athologist Signature Albumin 4.0 3.4 - 5.0 01/13/2019 [facility] g/dL 7:51 AM CDT HOSPITAL Specimen Anatomical Collection Method Collection Time Receive d Time (Source) Location / / Volume Laterality Blood specimen 01/13/2019 7:29 AM 019 7:30 (specimen) CDT AM CDT Noah Gill MD LAB - BLOOD ORDERABLES Performing Organization Address City/[facility]/ZIP Code Phon e Number M [facility] [address], [place] [address] [facility] [address] [place], [place] [address], [place] [phone] documented in this encounter Visit Diagnoses Diagnosis Polyarticular psoriatic arthritis (H) Psoriatic arthropathy Vitamin D deficiency Unspecified vitamin D deficiency residential use of drug Encounter for long-term (current) use of other medications documented in this encounter Care Teams Timber Hand Relationship Specialty Start Date End Date Bharat Yañez PCP - General Family Practice 04/30/16 09/02/19 documented as of this encounter
--- OUTSIDE RECORDS SUMMARY | 2022-06-17 19:24 | XMS_ITS | Encounter Summary ---
:1975 Author Organization [place] Address [address] [place] [address] Care Team Providers Name Role Phone Bharat [...] on filedocumented in this encounter Care Teams Optical Goods Drilling Machine Operator Relationship Specialty Start Date End Date Bharat Yañez PCP - General Family Practice 04/30/16 09/02/19 documented as of this encounter
--- OUTSIDE RECORDS SUMMARY | 2022-06-17 19:24 | XMS_ITS | Encounter Summary ---
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 10:[address] [facility] Comment: Desirable: <200 mg/dl Triglycerides 98 <150 mg/dL 05/05/2019 10:00 AM [facility] Comment: Fasting specimen HDL Cholesterol 53 >39 mg/dL 05/05/2019 10:02 AM [facility] LDL Cholesterol 138 (H) <100 mg/dL 05/05/2019 10:02 AM [facility] Comment: Above desirable: ??100-129 mg/dl Borderline High: ??130-159 mg/dL High: ? 160-189 mg/dL Very high: ? >189 mg/dl Non HDL Cholesterol 158 (H) <130 mg/dL 05/05/2019 10:02 AM [facility] Comment: Above Desirable: ??130-159 mg/dl Borderline high: ??160-189 mg/dl High: ? 190-219 mg/dl Very high: ? >219 mg/dl Specimen Anatomical Collection Method Collection Time Receive d Time (Source) Location / / Volume Laterality Blood specimen 05/04/2019 7:52 AM 019 7:57 (specimen) CDT AM CDT Karen Shrestha LAB - BLOOD ORDERABLES Performing Organization Address City/State/ZIP Code Phon e Number [facility] [address] [place] [address] Hemoglobin A1c (05/04/2019 7:52 AM CDT) P athologist Signature Hemoglobin A1C 5.1 0 - 5.6 % 05/04/2019 [facility] 8:55 AM CDT [facility] Comment: Normal <5.7% Prediabetes 5.7-6.4% ??Diab etes 6.5% or higher - adopted from ADA consensus guidelines. Specimen Anatomical Collection Method Collection Time Receive d Time (Source) Location / / Volume Laterality Blood specimen 05/04/2019 7:52 AM 019 7:57 (specimen) CDT AM CDT Karen Shrestha LAB - BLOOD ORDERABLES Performing Organization Address City/State/ZIP Code Phon e Number [facility] [address] [place] [address] Testosterone Free and Total FUTURE anytime (05/04/2019 7:52 AM CDT) Analysis Performed At Patho logist Time Signature Testosterone 587 240 - 950 05/06/2019 [facility] ng/dL 10:26 AM T [facility] Comment: This test was developed and its performa nce characteristics determined by the [facility], ??Special Chemistry Laboratory. It has not been cleared or approved by the FDA. The laboratory is regulated under CLIA as qualified to perform high-comple xity testing. This test is used for clinical purposes. It should not be rega rded as investigational or for research. Sex Hormone Binding 32 11 - 80 nmol/L 05/05/2019 8:52 AM [facility] Globulin T [facility] Free Testosterone 12.88 4.7 - 24.4 05/06/2019 10:26 AM U [facility] Calculated ng/dL T [facility] Specimen Anatomical Collection Method Collection Time Receive d Time (Source) Location / / Volume Laterality Blood specimen 05/04/2019 7:52 AM 019 7:57 (specimen) [facility] LAB - BLOOD ORDERABLES Performing Organization Address City/State/ZIP Code Phon e Number [facility] [address] [place], [place] [id number] [place] [address] documented in this encounter Visit Diagnoses Diagnosis [...] medications documented in this encounter Care Teams Weft Straightener Relationship Specialty Start Date End Date Bharat Yañez PCP - General Family Practice 04/30/16 09/02/19 documented as of this encounter
--- OUTSIDE RECORDS SUMMARY | 2022-06-17 19:24 | XMS_ITS | Encounter Summary ---
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 Values may decreas e during winter [...] - BLOOD ORDERABLES Performing Organization Address City/[facility]/ZIP [facility] Phon e Number [address] CRP inflammation (05/04/2019 7:52 AM CDT) Analysis Performed At Path logist Time Signature CRP Inflammation <2.9 0.0 - 8.0 05/04/2019 [place] F mg/L 7:24 PM CDT [facility] Specimen Anatomical Collection Method Collection Time Receive d Time (Source) Location / / Volume Laterality Blood specimen 05/04/2019 7:52 AM 019 7:57 (specimen) CDT AM CDT Karen Shrestha LAB - BLOOD ORDERABLES Performing Organization Address City/[facility] Code Phon e Number [address] (ABNORMAL) Comprehensive metabolic panel (BMP + Alb, Alk Phos, ALT, AST, Total. Bili, TP) (05/04/2019 7:52 AM CDT) Analysis Performed At [facility] Time Signature Sodium 139 133 - 144 05/05/2019 [facility] mmol/L 9:08 AM CDT [facility] Potassium 4.3 3.4 - 5.3 05/05/2019 [facility] mmol/L 9:08 AM CDT [facility] Chloride 110 (H) 94 - 109 05/05/2019 [facility] mmol/L 9:08 AM CDT [facility] Carbon Dioxide 23 20 - 32 05/05/2019 [facility] mmol/L 9:54 AM CDT [facility] Anion Gap 6 3 - 14 05/05/2019 [facility] mmol/L 9:54 AM CDT [facility] Glucose 80 70 - 99 05/05/2019 [facility] mg/dL 9:54 AM CDT [facility] Comment: Fasting specimen Urea Nitrogen 16 7 - 30 mg/dL 05/05/2019 9:54 AM [facility] Creatinine 0.78 0.66 - 1.25 mg/dL 05/05/2019 9:54 AM [facility] GFR Estimate >90 >60 05/05/2019 9:54 AM [facility] mL/min/{1.73_m2} [place] Comment: Non GFR Calc Starting 07/28/2018, serum creatinine ba sed estimated GFR (eGFR) will be calculated using the Chronic Kidney Dise [facility] Epidemiology Collaboration (CKD-EPI) equation. GFR Estimate If >90 >60 mL/min/{1.73_m2} 05/05/2019 9: 54 AM [facility] Comment: GFR Calc Starting 07/28/2018, serum creatinine ba sed estimated GFR (eGFR) will be calculated using the Chronic Kidney Dise [facility] Epidemiology Collaboration (CKD-EPI) equation. Calcium 8.7 8.5 - 10.1 05/05/2019 9:54 AM [facility] mg/dL [facility] Bilirubin Total 0.6 0.2 - 1.3 mg/dL 05/05/2019 10:00 A M [facility] Albumin 4.2 3.4 - 5.0 g/dL 05/05/2019 10:00 AM [facility] Protein Total 7.3 6.8 - 8.8 g/dL 05/05/2019 10:00 AM F [facility] Alkaline Phosphatase 99 40 - 150 U/L 05/05/2019 10:00 AM [facility] ALT 25 0 - 70 U/L 05/05/2019 10:00 AM [facility] AST 15 0 - 45 U/L 05/05/2019 10:00 AM [facility] Specimen Anatomical Collection Method Collection Time Receive d Time (Source) Location / / Volume Laterality Blood specimen 05/04/2019 7:52 AM 019 7:57 (specimen) CDT AM CDT Karen Shrestha LAB - BLOOD ORDERABLES Performing Organization Address City/State/ZIP Code Phon e Number [facility] [address] [place] [address] ESR FUTURE anytime (05/04/2019 7:52 AM CDT) athologist Signature Sed Rate 9 0 - 15 mm/h 05/04/2019 [facility] 8:55 AM CDT [facility] Specimen Anatomical Collection Method Collection Time Receive d Time (Source) Location / / Volume Laterality Blood specimen 05/04/2019 7:52 AM 019 7:57 (specimen) CDT AM CDT Karen Shrestha LAB - BLOOD ORDERABLES Performing Organization Address City/State/ZIP Code Phon e Number [facility] [place] [address] CBC with platelets (05/04/2019 7:52 AM CDT) athologist Signature WBC 8.6 4.0 - 11.0 05/04/2019 [place] 10e9/L 8:56 AM CDT [facility] RBC Count 5.03 4.4 - 5.9 05/04/2019 [place] 10e12/L 8:56 AM CDT [facility] Hemoglobin 15.1 13.3 - 05/04/2019 [place] 17.7 g/dL 8:56 AM CDT [facility] Hematocrit 44.0 40.0 - 05/04/2019 [place] 53.0 % 8:56 AM CDT [facility] MCV 88 78 - 100 05/04/2019 [place] 8:56 AM CDT [facility] MCH 30.0 26.5 - 05/04/2019 [place] 33.0 pg 8:56 AM CDT [facility] MCHC 34.3 31.5 - 05/04/2019 [place] 36.5 g/dL 8:56 AM CDT [facility] RDW 11.7 10.0 - 05/04/2019 [place] 15.0 % 8:56 AM CDT [facility] Platelet Count 248 150 - 450 05/04/2019 [place] 10e9/L 8:56 AM CDT [facility] Specimen Anatomical Collection Method Collection Time Receive d Time (Source) Location / / Volume Laterality Blood specimen 05/04/2019 7:52 AM 019 7:57 (specimen) CDT AM CDT Karen Chakraborty Fady LAB - BLOOD ORDERABLES Performing Organization Address City/State/ZIP Code Phon e Number [facility] [place] [address] Testosterone Free and Total FUTURE anytime (05/04/2019 7:52 AM CDT) Analysis Performed At Patho logist Time Signature Testosterone 587 240 - 950 05/06/2019 [facility] ng/dL 10:26 AM CDT [facility] Comment: This test was developed and its performa nce characteristics determined by the [facility], ??Special Chemistry Laboratory. It has not been cleared or approved by the FDA. The laboratory is regulated under CLIA as qualified to perform high-comple xity testing. This test is used for clinical purposes. It should not be rega rded as investigational or for research. Sex Hormone Binding 32 11 - 80 nmol/L 05/05/2019 8:52 AM [facility] Globulin CDT [facility] Free Testosterone 12.88 4.7 - 24.4 05/06/2019 10:26 AM [facility] Calculated ng/dL CDT [facility] Specimen Anatomical Collection Method Collection Time Receive d Time (Source) Location / / Volume Laterality Blood specimen 05/04/2019 7:52 AM 019 7:57 (specimen) CDT AM CDT Karen Chakraborty Fady LAB - BLOOD ORDERABLES Performing Organization Address City/State/ZIP Code Phon e Number [facility] [address] [place] [address] [facility] Hemoglobin A1c (05/04/2019 7:52 AM CDT) P athologist Signature Hemoglobin A1C 5.1 0 - 5.6 % 05/04/2019 [place] 8:55 AM CDT [facility] Comment: Normal <5.7% Prediabetes 5.7-6.4% ??Diab etes 6.5% or higher - adopted from ADA consensus guidelines. Specimen Anatomical Collection Method Collection Time Receive d Time (Source) Location / / Volume Laterality Blood specimen 05/04/2019 7:52 AM 019 7:57 (specimen) CDT AM CDT Karen Shrestha LAB - BLOOD ORDERABLES Performing Organization Address City/[facility]/ZIP Code Phon e Number [facility] [place] [address] (ABNORMAL) Lipid panel reflex to direct LDL Fasting (05/04/2019 7:52 AM CDT) athologist Signature Cholesterol 211 (H) <200 mg/dL 05/05/2019 [facility] 10:00 AM T [facility] Comment: Desirable: <200 mg/dl Triglycerides 98 <150 mg/dL 05/05/2019 10:[address] [facility] Comment: Fasting specimen HDL Cholesterol 53 >39 mg/dL 05/05/2019 10:[address] [facility] LDL Cholesterol 138 (H) <100 mg/dL 05/05/2019 10:02 AM [facility] Calculated CDT [facility] Comment: Above desirable: ??100-129 mg/dl Borderline High: ??130-159 mg/dL High: ? 160-189 mg/dL Very high: ? >189 mg/dl Non HDL Cholesterol 158 (H) <130 mg/dL 05/05/2019 10:02 AM [facility] Comment: Above Desirable: ??130-159 mg/dl Borderline high: ??160-189 mg/dl High: ? 190-219 mg/dl Very high: ? 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
--- OUTSIDE RECORDS SUMMARY | 2022-06-17 19:24 | XMS_ITS | Encounter Summary ---
:1975 Author Organization [place] Address [address] [place] [address] Care Team Providers Name Role Phone Bharat Yañez Primary Care Provider Encounter Details Date Type Department Care Team Description 11/26/2018 [facility]; [facility] Vitamin D deficiency [address] [facility] [place] [address] [phone] [address] [place], [place] [id number] Social History Tobacco Use Types Packs/Day Years [...] 0 times daily Blinded study drug from Care [...] UNIVERSITY OF Deficiency ug/L 3:19 PM CDT [facility] Comment: Season, race, dietary intake, and treatm ent affect the concentration of 36-ujyscpb-Rdpayio D. Values may decreas e during winter [...] Organization Address City/State/ZIP Code Phon e Number [facility] [address] [place], [place] [id number] [place] [address] (ABNORMAL) Lipid Profile (Chol, Trig, HDL, LDL calc) (11/26/2018 7:15 AM CDT) P athologist Signature Cholesterol 238 (H) <200 mg/dL 11/26/2018 [facility] 7:36 AM CDT [facility] Comment: Desirable: <200 mg/dl Triglycerides 136 <150 mg/dL 11/26/2018 7:36 AM [facility] HDL Cholesterol 55 >39 mg/dL 11/26/2018 7:38 AM [facility] LDL Cholesterol 156 (H) <100 mg/dL 11/26/2018 7:38 AM [facility] Comment: Above desirable: ??100-129 mg/dl Borderline High: ??130-159 mg/dL High: ? 160-189 mg/dL Very high: ? >189 mg/dl Non HDL Cholesterol 183 (H) <130 mg/dL 11/26/2018 7:38 AM T [facility] Comment: Above Desirable: ??130-159 mg/dl Borderline high: ??160-189 mg/dl High: ? 190-219 mg/dl Very high: ? >219 mg/dl Specimen Anatomical Collection Method Collection Time Receive d Time (Source) Location / / Volume Laterality Blood specimen 11/26/2018 7:15 AM 019 7:17 (specimen) CDT AM CDT Karen Chakraborty Fady LAB - BLOOD ORDERABLES Performing Organization Address City/[facility]/ZIP [facility] Phon e Number M [facility] [address] [place], [place] [address] [facility] [address] [phone] Hemoglobin (11/26/2018 7:15 AM CDT) P athologist Signature Hemoglobin 15.3 13.3 - 17.7 11/26/2018 [facility] g/dL 7:22 AM CDT HOSPITAL Specimen Anatomical Collection Method Collection Time Receive d Time (Source) Location / / Volume Laterality Blood specimen 11/26/2018 7:15 AM 019 7:17 (specimen) CDT AM CDT Karen G Fady LAB - BLOOD ORDERABLES Performing Organization Address City/[facility]/ZIP [facility] Phon e Number M [facility] [address] [place] [address] [facility] [address] [place], [place] [address], [facility] [phone] CRP, inflammation (11/26/2018 7:15 AM CDT) athologist Signature CRP Inflammation <2.9 0.0 - 8.0 11/26/2018 [place] mg/L 7:36 AM [facility] Specimen Anatomical Collection Method Collection Time Receive d Time (Source) Location / / Volume Laterality Blood specimen 11/26/2018 7:15 AM 019 7:17 (specimen) CDT AM CDT Karen Calvertta LAB - BLOOD ORDERABLES Performing Organization Address City/[facility]/ZIP [facility] Phon ozzy Osman [facility] [address] [place], [place] [address] [facility] [address] [place], [place] [address], [facility] [phone] ESR FUTURE anytime (11/26/2018 7:15 AM CDT) athologist [facility] Sed Rate 10 0 - 15 mm/h 11/26/2018 [facility] 7:59 AM [facility] Specimen Anatomical Collection Method Collection Time Receive d Time (Source) Location / / Volume Laterality Blood specimen 11/26/2018 7:15 AM 019 7:17 (specimen) CDT AM CDT Karen G Fady LAB - BLOOD ORDERABLES Performing Organization Address City/[facility]/ZIP [facility] Phon e Dawson [facility] [address] [place], [place] [address] [facility] [address] [place], [place] [address], [facility] [phone] Creatinine (11/26/2018 7:15 AM CDT) athologist Signature Creatinine 0.73 0.66 - 1.25 11/26/2018 [facility] mg/dL 7:36 AM [facility] GFR Estimate >90 >60 11/26/2018 [facility] mL/min/{1.7 7:36 AM [facility] 3_m2[facility] Comment: Non GFR Calc Starting 07/28/2018, serum creatinine ba sed estimated GFR (eGFR) will be calculated using the Chronic Kidney Dise [facility] Epidemiology Collaboration (CKD-EPI) equation. GFR Estimate If >90 >60 mL/min/{1.73_m2} 11/26/2018 7: 36 AM [facility] Comment: GFR Calc Starting 07/28/2018, serum creatinine ba sed estimated GFR (eGFR) will be calculated using the Chronic Kidney Dise [facility] Epidemiology Collaboration (CKD-EPI) equation. Specimen Anatomical Collection Method Collection Time Receive d Time (Source) Location / / Volume Laterality Blood specimen 11/26/2018 7:15 AM 019 7:17 (specimen) CDT CDT Karen Shrestha LAB - BLOOD ORDERABLES Performing Organization Address City/State/ZIP Code Phon e Number M [address] [place] [address] [phone] documented in this encounter Visit Diagnoses Diagnosis Lipid disorder Unspecified disorder of lipoid metabolis m Vitamin D deficiency Unspecified vitamin D deficiency documented in this encounter Care Teams Management Liaison Relationship Specialty Start Date End Date Bharat Yañez PCP - General Family Practice 04/30/16 09/02/19 documented as of this encounter
--- OUTSIDE RECORDS SUMMARY | 2022-06-17 19:24 | XMS_ITS | Encounter Summary ---
:1975 Author Organization [place] Address [address] [place] [address] Care Team Providers Name Role Phone Bharat Yañez Primary Care Provider Encounter Details Date Type Department Care Team Description 06/02/2018 [facility] Psor[facility] (Primary Dx); [facility] Avitaminosis D; [address] RHEUMATOLOGY Lipid disorder; [place], [place] [address] [place] Encounter for long-term (current) use of medications [phone] [address] [place] [id number] Social History Tobacco Use Types Packs/Day Years Used Date Smoking Tobacco: Every Day Cigarettes 0.5 Alcohol Use Standard Drinks/Week Comments Yes 0 (1 standard drink = 0.6 oz pure alcoho l) occasionally Sex Assigned at Date Recorded Not on file documented as of this encounter Plan of Treatment Not on filedocumented as of this encounter Results ESR: Erythrocyte sedimentation rate (08/14/2018 8:10 AM STEAM TRAP WORKER) athologist Signature Sed Rate 8 0 - 15 mm/h 08/14/2018 [facility] 10:03 AM STEAM TRAP WORKER [facility]OSPITAL Specimen Anatomical Collection Method Collection Time Receive d Time (Source) Location / / Volume Laterality Blood specimen 08/14/2018 8:10 AM 019 8:18 (specimen) STEAM TRAP WORKER AM STEAM TRAP WORKER Karen Shrestha LAB - BLOOD ORDERABLES Performing Organization Address City/State/[facility] Phon e Number Clara [facility] [address] [place], [place] [address] [place] [address] [address] [place], [place] [address], [facility] [phone] Creatinine (08/14/2018 8:10 AM STEAM TRAP WORKER) athologist Signature Creatinine 0.81 0.66 - 1.25 08/14/2018 [place] mg/dL 8:37 AM [facility] GFR Estimate >90 >60 08/14/2018 [place] mL/min/{1.7 8:37 AM [facility] 3_m2} [facility] Comment: Non GFR Calc Starting 07/28/2018, serum creatinine ba sed estimated GFR (eGFR) will be calculated using the Chronic Kidney Dise [facility] Epidemiology Collaboration (CKD-EPI) equation. GFR Estimate If >90 >60 mL/min/{1.73_m2} 08/14/2018 8: 37 AM [facility] Comment: GFR Calc Starting 07/28/2018, serum creatinine ba sed estimated GFR (eGFR) will be calculated using the Chronic Kidney Dise [facility] Epidemiology Collaboration (CKD-EPI) equation. Specimen Anatomical Collection Method Collection Time Receive d Time (Source) Location / / Volume Laterality Blood specimen 08/14/2018 8:10 AM 019 8:18 (specimen) STEAM TRAP WORKER AM STEAM TRAP WORKER Karentrent Shrestha LAB - BLOOD ORDERABLES Performing Organization Address City/[facility]/ZIP [facility] Phon e Dawson Elizabeth [facility] [address] [place], [place] [address] [place] [address] [address] [place], [place] [address], [facility] [phone] Hemoglobin (08/14/2018 8:10 AM STEAM TRAP WORKER) athologist Signature Hemoglobin 15.8 13.3 - 17.7 08/14/2018 [facility] g/dL 8:22 AM [facility] Specimen Anatomical Collection Method Collection Time Receive d Time (Source) Location / / Volume Laterality Blood specimen 08/14/2018 8:10 AM 019 8:18 (specimen) STEAM TRAP WORKER AM STEAM TRAP WORKER Karen Shrestha LAB - BLOOD ORDERABLES Performing Organization Address City/[facility]/ZIP Code Phon e Number M [facility] [address] [place], [place] [address] [facility] [address] [place], [place] [address] [phone] (ABNORMAL) Lipid Profile (Chol, Trig, HDL, LDL calc) (08/14/2018 8:10 AM STEAM TRAP WORKER) athologist Signature Cholesterol 248 (H) <200 mg/dL 08/14/2018 [place] 8:37 AM [facility] Comment: Desirable: <200 mg/dl Triglycerides 286 (H) <150 mg/dL 08/14/2018 8:37 AM [facility] Comment: Borderline high: ??150-199 mg/dl High: ? 200-499 mg/dl Very high: ? >499 mg/dl HDL Cholesterol 64 >39 mg/dL 08/14/2018 8:38 AM [facility] LDL Cholesterol 127 (H) <100 mg/dL 08/14/2018 8:38 AM [facility] Comment: Above desirable: ??100-129 mg/dl Borderline High: ??130-159 mg/dL High: ? 160-189 mg/dL Very high: ? >189 mg/dl Non HDL Cholesterol 184 (H) <130 mg/dL 08/14/2018 8:38 AM [facility] Comment: Above Desirable: ??130-159 mg/dl Borderline high: ??160-189 mg/dl High: ? 190-219 mg/dl Very high: ? >219 mg/dl Specimen Anatomical Collection Method Collection Time Receive d Time (Source) Location / / Volume Laterality Blood specimen 08/14/2018 8:10 AM 019 8:18 (specimen) STEAM TRAP WORKER AM STEAM TRAP WORKER Karen Calvertta LAB - BLOOD ORDERABLES Performing Organization Address City/[facility]/ZIP Code Phon e Number M [facility] [address] [place], [place] [address] [place] [address] [address] [place], [place] [address], [facility] [phone] CRP, inflammation (08/14/2018 8:10 AM STEAM TRAP WORKER) P athologist Signature CRP Inflammation <2.9 0.0 - 8.0 08/14/2018 [place] mg/L 8:37 AM [facility] Specimen Anatomical Collection Method Collection Time Receive d Time (Source) Location / / Volume Laterality Blood specimen 08/14/2018 8:10 AM 019 8:18 (specimen) STEAM TRAP WORKER AM STEAM TRAP WORKER Karen Shrestha LAB - BLOOD ORDERABLES Performing Organization Address City/State/ZIP Code Phon e Number Clara [facility] [address] [place], [place] [address] [place] [address] [address] [place], [place] [address], [facility] [phone] documented in this encounter Visit Diagnoses Diagnosis Psoriasis - Primary Other psoriasis Avitaminosis D Unspecified vitamin D deficiency Lipid disorder Unspecified disorder of lipoid metabolis m Encounter for long-term (current) use of medications Encounter for long-term (current) use of other medications documented in this encounter Care Teams Tester Equipment Relationship Specialty Start Date End Date Bharat Yañez PCP - General Family Practice 04/30/16 09/02/19 documented as of this encounter
--- OUTSIDE RECORDS SUMMARY | 2022-06-17 19:24 | XMS_ITS | Encounter Summary ---
:1975 Author Organization [place] Address [address] [place] [address] Care Team Providers Name Role Phone Bharat [...] on filedocumented in this encounter Care Teams Machine Bobbin Winder Relationship Specialty Start Date End Date Bharat Yañez PCP - General Family Practice 04/30/16 09/02/19 documented as of this encounter
--- OUTSIDE RECORDS SUMMARY | 2022-06-17 19:24 | XMS_ITS | Encounter Summary ---
:1975 Author Organization [place] Address [address] [place] [address] Care Team Providers Name Role Phone Bharat [...] on filedocumented in this encounter Care Teams Mc Kay Stitcher Relationship Specialty Start Date End Date Bharat Yañez PCP - General Family Practice 04/30/16 09/02/19 documented as of this encounter
--- OUTSIDE RECORDS SUMMARY | 2022-06-17 19:24 | XMS_ITS | Encounter Summary ---
:1975 Author Organization [place] Address [address] [place] [address] Care Team Providers Name Role Phone Bharat Yañez Primary Care Provider Encounter Details Date Type Department Care Team Description 03/09/2018 Orders Only [facility] Karen Shrestha Polyarticular psoriatic arthritis (H) (P rimary Dx); [facility] Vitamin D deficiency; [address] [facility] RHEUMATOLOGY Encounter for long-term (current) use of medications [place] [id number] [address] [address] [facility] [phone] [place], [place] [id number] Social History Tobacco Use Types Packs/Day Years [...] medications documented in this encounter Care Teams Front Office Supervisor Relationship Specialty Start Date End Date Bharat Yañez PCP - General Family Practice 04/30/16 09/02/19 documented as of this encounter
--- OUTSIDE RECORDS SUMMARY | 2022-06-17 19:24 | XMS_ITS | Encounter Summary ---
:1975 Author Organization [facility] Address [address] [place] [address] Care Team Providers Name Role Phone Bharat Yañez Primary Care Provider Reason for Visit Reason Comments Chest Pain Encounter Details Date Type Department Care Team Description 04/30/2016 - Emergency [facility] Shawn Gordon MD [facility] [address] [place], [place] [address] Chest pain, 05/01/2016 Reece Lind MD [address] [place] [address] unspecified type Dept [address] [place] [address] Social History Tobacco Use Types [...] Roblero PA-C - 05/01/2016 9:11 AM CDT [facility] Outpatient / Observation Unit Discharge Summary Felix [...] size. Impression IMPRESSION: No acute cardiopulmonary abnormality. FLAHS BURDEN MD CBC with platelets differential Result [...] ug/L Exercise Stress Echocardiogram Narrative Interpretation Summary [facility] Echocardiography Laboratory [address] [place] [address] Name: FELIX COPPOLA : 1975 Study Date: 05/01/2016 07:05 AM Age: 41 yrs Gender: Male Patient Location: [facility] Reason For Study: Chest Pain Ordering Physician: [...] 1:01 15 5 : / RPP : 30380: +---------+--------+ +------+ + :Recovery : 6:00 10 [...] with PCP in 7 days and with Forcer Maker if indicated. Follow-up Labs None Discharge Disposition: Discharged to home Discharge Medications: Discharge Medication List as of 05/01/2016 9:01 AM CONTINUE these medications which have NOT CHANGED Details ibuprofen (ADVIL,MOTRIN) 800 MG tablet Take 800 mg by mouth every morning, Historical APREMILAST PO Take 1 tablet by mouth 2 times daily Blinded study drug from [facility], Dr Karen Mathew, Historical Allergies: [...] times daily Blinded study drug from [facility], Dr Karen Mathew ibuprofen [...] times daily Blinded study drug from [facility], Dr Karen Mathew 04/30/2016 at am Yes Unknown, Entered By History Review of Systems: A Comprehensive greater than 10 system review of systems was carried out. Pertinent positives and negatives are noted above. Otherwise negative for contributory information. Physical Exam: Blood pressure 141/87, temperature 96.6 ??F (35.9 ??C), temperature source Oral, resp. rate 16, HjW866 %. Exam: GENERAL: Comfortable. PSYCH: pleasant, oriented, [...] 0.78 GFRESTIMATED >90Non GFR Calc GFRESTBLACK >90African Equatorial Guinean GFR Calc ARCHANA 9.0 Recent Labs Lab [...] and troponin results 9.Interpretation of rhythm per missile and missile checkout technician: NSR, HR 79 Is patient a [...] and troponin results 9.Interpretation of rhythm per missile and missile checkout technician: NSR, HR 79 ? Is patient [...] and troponin results 9.Interpretation of rhythm per missile and missile checkout technician: NSR, HR 79 ? Is patient [...] and troponin results 9.Interpretation of rhythm per missile and missile checkout technician: NSR, HR 79 ? Is patient [...] and troponin results 9.Interpretation of rhythm per missile and missile checkout technician: NSR, HR 79 Is patient a [...] bathroom, and call light is in place. motor vehicle salesperson: Yomaira Grewal RN - 04/30/2016 2:33 PM [...] age undetermined Abnormal ECG Rate 81 bpm. MT interval 140. QRS duration 140. QT/QTc 406/471. [...] and the provider's statements to me. 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 Sharp pain in left chest that radiated to left jaw and left elbow also noticed some lightheadedness. No SOB or nausea. CP 11/18. Went to [facility], given ASA 324 mg at clinic. Hx WPW, had ablation done in 1995. ABC intact. A&O x4. documented in this encounter Miscellaneous Notes Pharmacy-Admission Medication History - Valerie Curtis RPH - 04/30/2016 2:05 PM CDT Admission medication history interview status for this patient is complete. See [facility] admission navigator for allergy information, prior to admission medications and immunization status. Medication history interview source(s):Patient Medication history resources (including written lists, pill bottles, clinic record):None Primary pharmacy:[facility] Changes made to ADMISSIONS DEAN medication list: Added: ibuprofen, apremilast Deleted: methocarbamol tid prn, tramadol 50mg qhs prn Changed: --- Actions taken by pharmacist (provider contacted, etc): Phone rheumatology clinic. pt on blinded study med through [facility], dr Karen Matehw is his MD. Clinic number [phone]. Spoke to Jl Cota RN, pt is [...] times daily Blinded study drug from [facility], Dr Karen Mathew 04/30/2016 at [...] Narrative 05/01/2016 8:09 AM CDT Interpretation Summary [facility] Echocardiography Laboratory [address] [place] [address] Name: FELIX COPPOLA : 1975 Study Date: 05/01/2016 07:05 AM Age: 41 yrs Gender: Male Patient Location: [facility] Reason For Study: Chest Pain Ordering Physician: [...] ? 5 ?: ??/ RPP ?? : [id number]: ?+---------+-------- + +------+ + ?:Recovery : ??6:00 [...] be different from the original. Interpretation Summary [facility] Echocardiography Laboratory [address] [facility] [place] [address] Name: FELIX COPPOLA : 1975 Study Date: 05/01/2016 07:05 AM Age: 41 yrs Gender: Male Patient Location: [facility] Reason For Study: Chest Pain Ordering Physician: [...] 4 : 1:01 15 5 : / [facility] : [id number]: +---------+--------+ +------+- ---------+ :Recovery : 6:00 10 [...] hours x 2 (04/30/2016 8:17 PM CDT) [facility] Method Time Signature Troponin I ES <0.015 [...] Organization Address City/State/ZIP Code Phon e Number [facility] [address] [place], [place] [address] [facility] [address] [place], [place] [address], [facility] [phone] Troponin I - Now then in 4 hours x 2 (04/30/2016 4:25 PM CDT) [facility] Method Time Signature Troponin I ES <0.015 0.000 - [place] The 99th percentile for uppe r reference [...] LAB - BLOOD ORDERABLES Performing Organization Address City/[facility]/ZIP Code Phon e Number [facility] [address] [place], [place] [address] [facility] [address] [place], [place] [address], [facility] [phone] EKG 12-lead, tracing only (04/30/2016 4:06 PM CDT) [facility] Method Time Signature Interpretation ECG Click View RADIOLOGY Image link RESULTS to view waveform and result Specimen (Source) Anatomical Collection Method Collection Time Re ceived Time Location / / Volume Laterality 04/30/2016 4:06 PM CDT Juana EMMANUEL-Carolyn ECG ORDERABLES Performing Organization Address City/[facility]/ZIP [facility] Phon e Number RADIOLOGY RESULTS XR Chest [...] Comprehensive metabolic panel (04/30/2016 11:56 AM CDT) [facility] gist Method Time Signature Sodium 136 133 - 144 [place] mmol/L [facility] Potassium 3.7 3.4 - 5.3 [place] mmol/L [facility] Chloride 105 94 - 109 [place] mmol/L [facility] Carbon Dioxide 24 20 - 32 [place] mmol/L [facility] Anion Gap 7 3 - 14 [place] mmol/L [facility] Glucose 93 70 - 99 [place] mg/dL [facility] Urea Nitrogen 17 7 - 30 [place] mg/dL [facility] Creatinine 0.78 0.66 - [facility] 1.25 [facility] mg/dL HOSPITAL GFR Estimate >90 >60 [place] Non GFR Calc mL/min/1. [place] [address] [facility] GFR Estimate If >90 >60 [place] Black GFR Calc mL/min/1. RIDG ES 7m2 [facility] Calcium 9.0 8.5 - [place] 10.1 [facility] mg/dL [facility] Bilirubin Total 0.6 0.2 - 1.3 [place] mg/dL [facility] Albumin 4.1 3.4 - 5.0 [place] g/dL [facility] Protein Total 7.4 6.8 - 8.8 [place] g/dL [facility] Alkaline 82 40 - 150 [place] Phosphatase U/L [facility] ALT 35 0 - 70 [place] U/L [facility] AST 19 0 - 45 [place] U/L [facility] Specimen Anatomical Collection Method Collection Time Receive d Time (Source) Location / / Volume Laterality Blood specimen 04/30/2016 11:56 6 (specimen) AM CDT 12:12 PM CDT Shawn Gordon MD LAB - BLOOD ORDERABLES Performing Organization Address [facility] e Number [facility] [address] [place], [place] [address] [place] [address] [address] [place], [place] [address], [facility] [phone] Troponin I (04/30/2016 11:56 AM CDT) [facility] Method Time [facility] Troponin I ES <0.015 0.000 - [place] The 99th percentile for uppe r reference range is 0.045 ug/L. ??Troponin values in 0.045 [facility] the range of 0.045 - 0.120 ug/L may be associated wit h risks of adverse ug/L HOSPITAL clinical events. Specimen Anatomical Collection Method Collection Time Receive d Time (Source) Location / / Volume Laterality Blood specimen 04/30/2016 11:56 6 (specimen) AM CDT 12:12 PM CDT Shawn Gordon MD LAB - BLOOD ORDERABLES Performing Organization Address [facility] e Number [facility] [address] [place], [place] [address] [place] [address] [address] [place], [place] [address], [facility] [phone] CBC with platelets differential (04/30/2016 11:56 AM CDT) [facility] gist Method Time Signature WBC 7.8 4.0 - [place] 11.0 [facility] 109[facility] RBC Count 4.87 4.4 - 5.9 [place] 10e12/L [facility] Hemoglobin 14.3 13.3 - [place] 17.7 g/dL [facility] Hematocrit 42.5 40.0 - [place] 53.0 % [facility] MCV 87 78 - 100 [place] fl [facility] MCH 29.4 26.5 - [place] 33.0 pg [facility] MCHC 33.6 31.5 - [place] 36.5 g/dL [facility] RDW 11.6 10.0 - [place] 15.0 % [facility] Platelet Count 243 150 - [address] Diff Method Automated [facility] % Neutrophils 57.6 % [facility] % Lymphocytes 30.8 % [facility] % Monocytes 8.1 % [facility] % Eosinophils 2.6 % [facility] % Basophils 0.5 % [facility] % Immature 0.4 % [place] Granulocytes [facility] Nucleated RBCs 0 0 /100 [facility] Absolute 4.5 1.6 - 8.3 [place] Neutrophil [facility] Absolute 2.4 0.8 - 5.3 [place] Lymphocytes [address] [place] [address] Absolute 0.6 0.0 - 1.3 [place] Monocytes [address] [place] [address] Absolute 0.2 0.0 - 0.7 [place] Eosinophils [address] [place] [address] Absolute 0.0 0.0 - 0.2 [place] Basophils [address] [place] [address] Abs Immature 0.0 0 - 0.4 [place] Granulocytes [address] [place] [address] Absolute 0.0 [place] Nucleated RBC [facility] Specimen Anatomical Collection Method Collection Time Receive d Time (Source) Location / / Volume Laterality Blood specimen 04/30/2016 11:56 6 (specimen) AM CDT 12:12 PM CDT Shawn Gordon MD LAB - BLOOD ORDERABLES Performing Organization Address City/State/ZIP Code Phon e Number [facility] [address] [place] [address] [facility] [address] [place] [phone] [facility] [phone] EKG 12 lead (04/30/2016 11:42 AM CDT) [facility] gist Method Time Signature Interpretation ECG [...] 1810 (Given - Provider: Deandra Heller, FRANCIS) 4085 (Not Given - Provider: Cammie pacheco RN [...] hours). documented in this encounter Care Teams Revenue Accountant Relationship Specialty Start Date End Date Bharat Yañez PCP - General Family Practice 04/30/16 09/02/19 documented as of this encounter
--- OUTSIDE RECORDS SUMMARY | 2022-06-17 19:25 | XMS_ITS | Encounter Summary ---
:1975 Author Organization [email or web address] Address [address] [place] [address] Care Team Providers Name Role Phone Rigoberto Lira PA-C Primary Care Provider Encounter Details Date Type Department Care Team Description 02/18/2020 Orders Only Initial Department Provider, Isidro, [facility] MIKEL BACON MD [place], [place] [address] Interface provider [phone] [place] [address] Social History Tobacco Use Types Packs/Day Years [...] on filedocumented in this encounter Care Teams Patcher Bowling Ball Relationship Specialty Start Date End Date Rigoberto Lira PA-C PCP - General 04/11/16 [address] [place] [id number] documented as of this encounter
--- OUTSIDE RECORDS SUMMARY | 2022-06-17 19:25 | XMS_ITS | Encounter Summary ---
:1975 Author Organization [email or web address] Address [address] [place] [address] Care Team Providers Name Role Phone Veronique [...] on filedocumented in this encounter Care Teams Disease Case Manager Rn Relationship Specialty Start Date End Date Veronique Oneill MD PCP - General 02/17/07 10/02/[address] [place] [address] documented as of this encounter
--- OUTSIDE RECORDS SUMMARY | 2022-06-17 19:25 | XMS_ITS | Encounter Summary ---
:1975 Author Organization [facility] Address [address], [place] [address] Care Team Providers Name Role Phone Veronique Oneill MD Primary Care Provider Encounter Details Date Type Department Care Team Description [facility]/09[facility]2011 [facility] [place] [address] [address] [phone] [place], [place] [address] (Wo rk) Social History [...] Vital Signs: Reviewed and current in todays [facility] Health Profile Objective: Psyche: Patient is pleasant [...] on filedocumented in this encounter Care Teams Warehouse Delivery Manager Relationship Specialty Start Date End Date Veronique Oneill MD PCP - General 02/17/07 10/02/[address] [place] [address] documented as of this encounter
--- OUTSIDE RECORDS SUMMARY | 2022-06-17 19:25 | XMS_ITS | Encounter Summary ---
:1975 Author Organization [facility] Address [address] [place] [address] Care Team Providers Name Role Phone Rigoberto Lira PA-C Primary Care Provider Encounter Details Date Type Department Care Team Description 02/18/2020 Orders Only Initial Department Provider, Isidro, [facility] MIKEL BACON MD [place], [place] [address] Interface provider [phone] [place] [address] Social History Tobacco Use Types Packs/Day Years [...] on filedocumented in this encounter Care Teams Hand Laminator Relationship Specialty Start Date End Date Rigoberto Lira PA-C PCP - General 04/11/16 [address] [place] [id number] documented as of this encounter
--- OUTSIDE RECORDS SUMMARY | 2022-06-17 19:25 | XMS_ITS | Encounter Summary ---
:1975 Author Organization [facility] Address [address] [place] [address] Care Team Providers Name Role Phone Rigoberto Lira PA-C Primary Care Provider Encounter Details Date Type Department Care Team Description 10/03/2015 Imaging [facility] [address] [place] [address] Social History Tobacco Use Types Packs/Day Years [...] 11:28 AM Cough Resu lts for this GRADES 1 THROUGH 5 TEACHER procedure are i n the results section. documented in this encounter Results XR Chest 2 Views (10/03/2015 11:28 AM GRADES 1 THROUGH 5 TEACHER) Anatomical Region Laterality Modality Chest, Lung Other Specimen (Source) Anatomical Location Collection Method / Collectio n Time Received Time / Laterality Volume Narrative 10/03/2015 11:45 AM GRADES 1 THROUGH 5 TEACHER COMPARISON: ??None. FINDINGS: ??Two views were obtained. [...] Cough documented in this encounter Care Teams Director Of Clinical Trials Relationship Specialty Start Date End Date Rigoberto Lira PA-C PCP - General 10/03/15 04/10/16 [address] [place], [place] [address] documented as of this encounter
--- OUTSIDE RECORDS SUMMARY | 2022-06-17 19:25 | XMS_ITS | Encounter Summary ---
:1975 Author Organization [employer] Address [address] [place] [address] Care Team Providers Name Role Phone Veronique Oneill MD Primary Care Provider Reason for Visit Reason Comments Annual Exam Encounter Details Date Type Department Care Team Description 09/16/2012 Office Visit Rigoberto Marcelino, Annual physical exam (Primar y Dx); [address] Garrison PA-C Chronic low back pain; [address] [address] [address] Need for jyijycpupw-dszkwtg-ffypomrdf (T dap) vaccine; [phone] [address] [address] Screening cholesterol level; [phone] Screening for d iabetes mellitus (Work) Social [...] Comments Blood Pressure 128/78 09/16/2012 8:48 AM INDUSTRIAL COMMERCIAL GROUNDSKEEPER Pulse 56 09/16/2012 8:48 AM INDUSTRIAL COMMERCIAL GROUNDSKEEPER Temperature - - Respiratory Rate - - Oxygen Saturation - - Inhaled Oxygen Concentration - - Weight 109.8 kg (242 lb) 09/16/2012 8:48 AM INDUSTRIAL COMMERCIAL GROUNDSKEEPER Height 188 cm (6' 2) 09/16/2012 8:48 AM INDUSTRIAL COMMERCIAL GROUNDSKEEPER Body Mass Index 31.07 09/16/2012 8:48 AM INDUSTRIAL COMMERCIAL GROUNDSKEEPER documented in this encounter Patient Instructions Patient InstructionsDara Nova LPN - 09/16/2012 8:50 AM CST Patient Followup Plan: Provided patient with Healthy Weight Matters brochure. STRIAL COMMERCIAL GROUNDSKEEPER documented in this encounter Progress Notes Rigoberto Lira PA-C - 09/16/2012 9:21 AM CST Male Preventive Exam IMPRESSION: Encounter Diagnoses Name Primary? Annual physical exam Yes ??? Chronic low back pain ??? Need for tvxhrpwuei-dlhyqzb-zajwixrat (Tdap) vaccine ??? Screening cholesterol level ??? [...] He has a consult appointment with a [facility] dumpster operator on 10/15/2012, and was asked to get [...] pain - HLA B27; Future Need for letwzfljrn-drxhfcr-ceilllsxr (tdap) vaccine - Tdap (BOOSTRIX) Screening cholesterol [...] Lira PA-C Service: (none) Author Type: Physician Remedy Developer Filed: 09/16/12917 Note Time: 09/16/12917 Status: Written Flight Software Test Engineer: Rigoberto Lira PA-C (Physician Remedy Developer) Has been seeing a chiropractor for a few years now for his chronic back pain. Recently had a LS MRI,and the Radiologist found pathology suggestive of ankylosing spondylitis. He has a consult appointment with a non-[facility] dumpster operator on 10/15/2012, and was asked to get an HLA-B27 prior to his appointment. STRIAL COMMERCIAL GROUNDSKEEPER documented in this encounter Plan of Treatment Not on filedocumented as of this encounter Visit Diagnoses Diagnosis Annual physical exam - Primary Routine general medical examination at a health care facility Chronic low back pain Lumbago Need for yexucsesvr-cxiwwax-krtevbudw (T dap) vaccine Need for prophylactic vaccination with c ombined lrjfiqjsib-tsfkpep-hfphyphrh (DTP) vaccine Screening cholesterol level Screening for lipoid disorders Screening for diabetes mellitus documented in this encounter Care Teams Fan Blade Aligner Relationship Specialty Start Date End Date Veronique Oneill MD PCP - General 02/17/07 10/02/[address] [place] [address] documented as of this encounter
--- OUTSIDE RECORDS SUMMARY | 2022-06-17 19:25 | XMS_ITS | Encounter Summary ---
:1975 Author Organization [employer] Address [address] [place] [address] Care Team Providers Name Role Phone Otoniel Nevarez MD Primary Care Provider [phone] Reason for Visit Reason Onset Date Comments REFERRAL REQUEST 02/20/2005 Encounter Details Date Type Department Care Team Description 02/20/2005 Telephone [facility] Mikhail Alvarado MD REFERRAL REQUEST Practice [address] [address] [place] [address] [place], [place] [address] [phone] Social History Tobacco Use Types Packs/Day Years Used Date Smoking Tobacco: Every Day Cigarettes 0.5 13 Alcohol Use Standard Drinks/Week Comments Not Asked 0 (1 standard drink = 0.6 oz pure alcoho l) Sex Assigned at Date Recorded Not on file documented as of this encounter Nursing Notes 02/20/2005 11:59 PM CDT >> ELISE BALLESTEROS [facility] Feb 21, 2005 3:50 PM Pt returned call, informed he needs to sched appt with phys. before a referral is given for acupunct ure. Pt needs a sched'g order for acupuncture, and he will contact [facility] when ready to make appt. >> YELITZA VEGAS [facility] Feb 21, 2005 2:42 PM LM TO CALL CLINIC BACK FOR MESSAGE FROM >> YAKOV ALVARADO [facility] Feb 20, 2005 5:10 PM MOA please call and schedule clinic appointment. Last visit was in 11/12. Needs to be seen in clinic prior to any additional referrals. >> POPPY HOWELL FriFeb 20, 2005 1:38 PM Patient is requesting a referral to accupuncture at [facility] to see Awa Carlos as back pain and has been to PT documented in this encounter Plan of Treatment Not on filedocumented as of this encounter Visit Diagnoses Not on filedocumented in this encounter Care Teams Cascara Bark Cutter Relationship Specialty Start Date End Date Geri, Otoniel Orellana MD PCP - General 03/15/03 02/25/05 [facility] [place], [place] [address] documented as of this encounter
--- OUTSIDE RECORDS SUMMARY | 2022-06-17 19:25 | XMS_ITS | Encounter Summary ---
:1975 Author Organization [facility] Address [address] [place] [address] Care Team Providers Name Role Phone Veronique Oneill MD Primary Care Provider Encounter Details Date Type Department Care Team Description 01/14/2011 PN Conversion Only SUSAN CONVERSION Flavia Cid, [address] [place], [place] [id number] [place], [place] [address] (Wo rk) Social History [...] Direct LDL(If Needed) (01/14/2011 10:33 AM CDT) [facility] Method Time Signature Cholesterol 187 0 - [...] on filedocumented in this encounter Care Teams Travel Money Advisor Relationship Specialty Start Date End Date Veronique Oneill MD PCP - General 02/17/07 10/02/[address] [place] [address] documented as of this encounter
--- OUTSIDE RECORDS SUMMARY | 2022-06-17 19:25 | XMS_ITS | Encounter Summary ---
:1975 Author Organization [employer] Address [address] [place] [address] Care Team Providers Name Role Phone Veronique Oneill MD Primary Care Provider Encounter Details Date Type Department Care Team Description 09/16/2012 Lab Visit [facility] Chronic low back pain; [address] Screening cholesterol level; [place] [address] [facility] [phone] Social History Tobacco Use Types Packs/Day Years [...] 9:36 AM Screening for Results for this FISHING FLOATS ASSEMBLER diabetes mellitus procedure are in the results section. HLA B27 Routine 09/16/2012 9:36 AM Chronic low back Resul ts for this FISHING FLOATS ASSEMBLER pain procedure are i n the results section. LIPID PANEL AND Routine 09/16/2012 9:36 AM Screening Result s for this DIRECT LDL(IF FISHING FLOATS ASSEMBLER cholesterol level procedure are in NEEDED) the results section. documented in this encounter Results GLUCOSE (09/16/2012 9:36 AM FISHING FLOATS ASSEMBLER) athologist Signature Lab Glucose 87 60 - 100 HP CONVERSION mg/dL Specimen Anatomical Collection Method Collection Time Receive d Time (Source) Location / / Volume Laterality 09/16/2012 9:36 AM 3 3:51 FISHING FLOATS ASSEMBLER PM FISHING FLOATS ASSEMBLER Rigoberto Crow Soraya BRITT LAB_1 Performing Organization Address [facility] Code Phon e Number HP CONVERSION (ABNORMAL) Lipid Panel and Direct LDL(If Needed) (09/16/2012 9:36 AM FISHING FLOATS ASSEMBLER) Patholo gist Method Time Signature Cholesterol 196 [...] Volume Laterality 09/16/2012 9:36 AM 3 3:51 FISHING FLOATS ASSEMBLER PM FISHING FLOATS ASSEMBLER Rigoberto L Soraya BRITT LAB_1 Performing Organization Address [facility] Phon e Number HP CONVERSION (ABNORMAL) HLA B27 (09/16/2012 9:36 AM FISHING FLOATS ASSEMBLER) Analysis Performed At Patho logist Time Signature HLA B27 Positive (A) HP CONVERSION Comment: Reference range: ??Negative A positive HLA B27 is associated with an kylosing spondylitis. Note: ??This test was developed and its performance characteristics determined by [facility]. It has not been cleared or approved [...] Volume Laterality 09/16/2012 9:36 AM 3 1:35 FISHING FLOATS ASSEMBLER PM FISHING FLOATS ASSEMBLER Rigoberto Tristin Soraya BRITT LAB_1 Performing Organization Address [facility] Phon e Number HP CONVERSION documented in this encounter Visit Diagnoses Diagnosis Chronic low back pain Lumbago Screening cholesterol level Screening for lipoid disorders Screening for diabetes mellitus documented in this encounter Care Teams Tab Machine Operator Relationship Specialty Start Date End Date Veronique Oneill MD PCP - General 02/17/07 10/02/[address] [place] [address] documented as of this encounter
--- OUTSIDE RECORDS SUMMARY | 2022-06-17 19:25 | XMS_ITS | Clinical Summary ---
:1975 Author Organization [facility] Address [address] [place] [address] Care Team Providers Name Role Phone Rigoberto [...] for each transition of care or referral. [employer] Allergies No known active allergies Medications Medication Sig Dispensed Refills Start Date End Date Status MAXALT-MANAGER MILITARY [address] one tablet 6 [...] spondylitis lumbar region 09/11/2012 Overview: Followed by non-[facility] neuropsychology service director Disc disorder of lumbar region 01/09/2011 Overview: L5/S1 disc herniation no surgery ; Lumbar Disc Disorder NOS Last Assessment & Plan: Lumbar Disc Disorder NOS - Assessment & Plan Note by Rigoberto Lira PA-C at 09/16/12917 Author: Rigoberto Lira PA-C Service: (no ne) Author Type: Physician Steeler Filed: 09/16/12917 Note Time: 917 Status: Written Web Weaver: Rigoberto Lira PA-C (Physician Melinda gan) Has been seeing a chiropractor for a few years now for his chronic back pain. Recently had a LS MRI, and the Radiologist found pathology suggestive of ankylosing spondylitis. He has a consult appointmen t with a non-[facility] neuropsychology service director on , and was asked to get [...] 103.9 kg (229 lb) 10/03/2015 10:36 AM GOAT HERDER Height 188 cm (6' 2) 10/03/2015 10:36 AM GOAT HERDER Body Mass Index 29.4 10/03/2015 10:36 AM GOAT HERDER Plan of Treatment Health Maintenance Due Date [...] Phone Addre ss Type Group [place] [id number] 2020-Present [address] [address] [place] [address] (Work) [address] Felix Coppola Personal/Famil Self 1975 [address] [phone] [place], [place] (Work) [address] Felix Coppola Personal/Famil Self 1975 [address] [phone] [place], [place] (Work) [address] Felix Coppola Workers Comp Self 1975 [address] (Home) [address] [phone] [place], [place] (Work) [address] Care Teams Command And Control Systems Integrator Relationship Specialty Start Date End Date Rigoberto Lira PA-C PCP - General 04/11/16 [address] [place] [id number]
--- OUTSIDE RECORDS SUMMARY | 2022-06-17 19:25 | XMS_ITS | Encounter Summary ---
:1975 Author Organization [employer] Address [address] [place] [address] Care Team Providers Name Role Phone Ronen Alvarado MD Primary Care Provider Reason for Referral Specialty Diagnoses / Procedures Referred By Contact Refer red To Contact Ronen Alvarado M D [address] [place], [place] [address] Referral ID Status Reason Start Date Expiration Date Visits Requ ested Visits Authorized Reason for Visit Reason Comments REFERRAL REQUEST acupuncture for low back so reness for 2 months Encounter Details Date Type Department Care Team Description 03/05/2005 Office Visit [facility] Ronen Alvarado LO W BACK PAIN Practice MD (CHRONIC)>6 WEEKS [address] [facility] [address] (Primary Dx) [place] [address] [phone] Social History Tobacco Use Types Packs/Day Years [...] documented in this encounter Patient Instructions Patient Vagjitanjqum06/26/2005 9:20 AM CDT Rx Naproxen. Back care [...] y documented in this encounter Care Teams Hardware Trainer Relationship Specialty Start Date End Date Ronen Alvarado MD PCP - General 02/26/05 02/16/07 [address], [place] [address] documented as of this encounter
--- OUTSIDE RECORDS SUMMARY | 2022-06-17 19:25 | XMS_ITS | Encounter Summary ---
:1975 Author Organization [employer] Address [address] [place] [address] Care Team Providers Name Role Phone Ronen Alvarado MD Primary Care Provider Reason for Visit Reason Comments IMMUNIZATIONS Encounter Details Date Type Department Care Team Description 04/18/2006 Office Visit [facility], Adult Av Vacc for Viral Department Hepatitis (Primary Dx) [address] [place], [place] [address] Social History Tobacco Use [...] Primary documented in this encounter Care Teams Medical Library Assistant Relationship Specialty Start Date End Date Ronen Alvarado MD PCP - General 02/26/05 02/16/[address] [place] [address] documented as of this encounter
--- OUTSIDE RECORDS SUMMARY | 2022-06-17 19:25 | XMS_ITS | Encounter Summary ---
:1975 Author Organization [facility] Address [address] [place] [address] Care Team Providers Name Role Phone Ronen Alvarado MD Primary Care Provider Encounter Details Date Type Department Care Team Description 03/18/2006 Orders Only [facility] Unknown, Physician [address] [facility] [address] [place], [place] [address] [place] [address] [phone] (Wo rk) Social History Tobacco Use Types [...] on filedocumented in this encounter Care Teams Rn Building Relationship Specialty Start Date End Date Ronen Alvarado MD PCP - General 02/26/05 02/16/[address] [place] [address] documented as of this encounter
--- OUTSIDE RECORDS SUMMARY | 2022-06-17 19:25 | XMS_ITS | Encounter Summary ---
:1975 Author Organization [facility] Address [address] [place] [address] Care Team Providers Name Role Phone Veronique Oneill MD Primary Care Provider Encounter Details Date Type Department Care Team Description 01/08/2011 PN Conversion Only [place] CONVERSION [address] [address] Social History Tobacco Use Types Packs/Day Years [...] on filedocumented in this encounter Care Teams Insulation Applicator Relationship Specialty Start Date End Date Veronique Oneill MD PCP - General 02/17/07 10/02/[address] [place] [address] documented as of this encounter
--- OUTSIDE RECORDS SUMMARY | 2022-06-17 19:25 | XMS_ITS | Encounter Summary ---
:1975 Author Organization [facility] Address [address] [place] [address] Care Team Providers Name Role Phone Rigoberto Lira PA-C Primary Care Provider Reason for Visit Reason Comments Annual Exam Encounter Details Date Type Department Care Team Description 10/03/2015 Office Visit [facility] Rigoberto Lira, Annual physical exam (Primar y Dx); [address] PA-C Cough; [address] [place] [address] [address] Cutaneous skin tags [phone] [address] [place] [id number] Social History Tobacco Use Types Packs/Day Years [...] Comments Blood Pressure 132/82 10/03/2015 10:36 AM ANALYST GEOCHEMICAL PROSPECTING Pulse - - Temperature - - Respiratory Rate - - Oxygen Saturation - - Inhaled Oxygen Concentration - - Weight 103.9 kg (229 lb) 10/03/2015 10:36 AM ANALYST GEOCHEMICAL PROSPECTING Height 188 cm (6' 2) 10/03/2015 10:36 AM ANALYST GEOCHEMICAL PROSPECTING Body Mass Index 29.4 10/03/2015 10:36 AM ANALYST GEOCHEMICAL PROSPECTING documented in this encounter Progress Notes Rigoberto [...] diagnosed with Ankylosing spondylitis. He isfollowed by [facility] rheumatology, and feels much better on his [...] DESTRUCT BENIGN SKIN LESIONS UP TO 14 [id number] - Each of his skin tags is treated in two 10-second freeze-thaw cycles with liquid nitrogen. Discussed course of recovery from this type of procedure. Return for re-treatment as needed. Patient Active Problem List Diagnosis ??? Lumbar Disc Disorder NOS ??? Ankylosing spondylitis lumbar region (HRC) Discharged ambulatory and in stable condition. YST GEOCHEMICAL PROSPECTING documented in this encounter Plan of Treatment Not on filedocumented as of this encounter Visit Diagnoses Diagnosis Annual physical exam - Primary Routine general medical examination at a health care facility Cough Cutaneous skin tags Unspecified hypertrophic and atrophic co ndition of skin documented in this encounter Care Teams Line Assembler Aircraft Relationship Specialty Start Date End Date Rigoberto Lira PA-C PCP - General 10/03/15 04/10/[address] [place] [address] documented as of this encounter
--- OUTSIDE RECORDS SUMMARY | 2022-06-17 19:25 | XMS_ITS | Encounter Summary ---
:1975 Author Organization [facility] Address [address] [place] [address] Care Team Providers Name Role Phone Rigoberto Lira PA-C Primary Care Provider Encounter Details Date Type Department Care Team Description 02/09/2020 Orders Only Initial Department Provider, Isidro, [facility] MIKEL BACON MD [place], [place] [address] Interface provider [phone] [place] [address] Social History Tobacco Use Types Packs/Day Years [...] on filedocumented in this encounter Care Teams Bullet Maker Relationship Specialty Start Date End Date Rigoberto Lira PA-C PCP - General 04/11/16 [address] [place] [id number] documented as of this encounter
--- OUTSIDE RECORDS SUMMARY | 2022-06-17 19:25 | XMS_ITS | Encounter Summary ---
:1975 Author Organization [facility] Address [address] [place] [address] Care Team Providers Name Role Phone Ronen Alvarado MD Primary Care Provider Reason for Visit Reason Comments PE IMMUNIZATIONS Encounter Details Date Type Department Care Team Description 01/21/2007 Office Visit [facility] Veronique Oneill [facility] Care (Primary Dx); MD Ivan Romano; [address] [facility] [address] [place] [address] RD [place]; [place], [place] [address] Screening for Endocrine, Nutritional, Me tabolic and [...] athologist Signature Cholesterol 225 (H) <200 mg/dl [facility] Comment: Result should not be interpreted without the patient's history of cardiovascular risk factors. Triglyceride 160 <200 mg/dl [facility] HDL 43 >35 mg/dl [facility] LDL, Calc. 150 mg/dl [facility] Hours Fasting 12 hours [facility] Specimen Anatomical Collection Method Collection Time Receive d Time (Source) Location / / Volume Laterality 01/28/2007 8:18 AM 7 8:19 CDT AM CDT Veronique Oneill MD LAB_1 Performing Organization Address City/State/ZIP Code Phon e Number [facility] [phone] [facility] [address] [address] GLUCOSE - FASTING > 8 HRS FASTING (V77.1) (01/28/2007 8:18 AM CDT) P athologist Signature Glucose 96 70 - 100 [facility] mg/dl Hours Fasting 12 hours [facility] Specimen Anatomical Collection Method Collection Time Receive d Time (Source) Location / / Volume Laterality 01/28/2007 8:18 AM 7 8:19 CDT AM CDT Veronique Oneill MD LAB_1 Performing Organization Address City/State/ZIP Code Phon e Number [facility] [phone] [facility] [address] [address] documented in this encounter Visit [...] hepatitis documented in this encounter Care Teams Chronic Condition Nurse Relationship Specialty Start Date End Date Ronen Alvarado MD PCP - General 02/26/05 02/16/07 [address] [address] documented as of this encounter
--- OUTSIDE RECORDS SUMMARY | 2022-06-17 19:25 | XMS_ITS | Encounter Summary ---
:1975 Author Organization [facility] Address [address] [place] [address] Care Team Providers Name Role Phone Veronique Oneill MD Primary Care Provider Encounter Details Date Type Department Care Team Description 03/26/2006 Notes/Orders [facility] Ronen Alvarado [place] REEN FOR LIPID DISORDERS; Practice MD PREVENTIVE CARE EXAM [address] [place] [address] [place] [address] [phone] Social History Tobacco Use Types Packs/Day Years [...] cardiovascular risk factors. Triglyceride 190 <200 mg/dl [facility] HDL 45 >35 mg/dl [facility] LDL, Calc. 128 mg/dl [facility] Hours Fasting 12 hours [facility] Specimen Anatomical Collection Method Collection Time Receive d Time (Source) Location / / Volume Laterality 03/26/2006 8:47 AM 6 8:49 CDT AM CDT Ronen Alvarado MD LAB_1 Performing Organization Address City/State/ZIP Code Phon e Number [facility] [phone] [facility] [address] [address] documented in this encounter Visit Diagnoses Diagnosis Screening for lipoid disorders Routine general medical examination at [facility] Routine general medical examination at [facility] facility documented in this encounter Care Teams Net Application Support Specialist Relationship Specialty Start Date End Date Veronique Oneill MD PCP - General 02/17/07 10/02/[address] [place] [address] documented as of this encounter
--- OUTSIDE RECORDS SUMMARY | 2022-06-17 19:25 | XMS_ITS | Encounter Summary ---
:1975 Author Organization [employer] Address [address] [place] [address] Care Team Providers Name Role Phone Rigoberto Lira PA-C Primary Care Provider Reason for Visit Reason Comments Eye Problem Encounter Details Date Type Department Care Team Description 02/06/2021 Hospital Encounter [facility] [place] Christianson MD [place] [facility] [place] [facility] [address] [facility] [address] [address] [place], [place] [address] [address] [place], [place] [phone] [address] (Work) [phone] Social History Tobacco Use Types Packs/Day Years [...] 0 10/03/2015 MG tablet 2 times daily. MAXALT-CLINICAL LABORATORY SCIENTIST [address] one tablet 6 [...] injury. documented in this encounter Care Teams Ore Tester Relationship Specialty Start Date End Date Rigoberto Lira PA-C PCP - General 04/11/16 [address] [place] [address] documented as of this encounter
--- OUTSIDE RECORDS SUMMARY | 2022-06-17 19:25 | XMS_ITS | Encounter Summary ---
:1975 Author Organization [facility] Address [address] [place] [address] Care Team Providers Name Role Phone Yakov Alvarado MD Primary Care Provider Reason for Visit Reason Comments PE Encounter Details Date Type Department Care Team Description 03/18/[address] [facility] Yakov Alvarado, NE EVENTIVE CARE EXAM (Primary Dx); Practice MD SCREEN FOR LIPID DISORDERS; [address] [facility] [address] VACCINE FOR VIRAL HEPATITIS; [place], [place]ES[place]; [phone] MIGRAINE; [phone] LUMBAR DISC DIS PLACEMENT; (Work) ANOMALOUS AV [...] documented in this encounter Patient Instructions Patient Ljkqgnhfmgis07/08/2006 8:00 AM CDT EKG today. Fasting lipids in near future (requires 12 hour fast). Discussed the importance of: Low fat, high fiber diet, Regular exercise and weight loss. For migraine Maxalt REINSURANCE CLAIMS ANALYST tabs for Migraine and Vicodin for extreme LBP. Follow-up in 1 Years for preventive care and as needed for problems. 45 of the Smartest Diet Tips Ever By Top Dietitians of the [place] [employer] 1. Add just one fruit [...] It really works wonders. 16. Follow the Guamanian saying: Eat until you are eight tenths [...] different cans of beans and some diet Indonesian dressing. Eat this three-russell salad allweek. 29. [...] a garnish instead of a snack. The [place] [employer] RDs serve as media spokespersons or heads of specialty practice groups for the ADA. URL: http://articles.health.FanBoom.com/id/430355165/?HL1=7823 documented in this encounter Progress Notes 03/18/2006 [...] exercise and weight loss. For migraine Maxalt REINSURANCE CLAIMS ANALYST tabs for Migraine and Vicodin for extreme LBP. Follow-up in 1 Years for preventive care and as needed for problems. Yakov Alvarado MD 03/18/2006 documented in this encounter Plan of Treatment Not on filedocumented as of this encounter Results (ABNORMAL) Fasting Lipid Panel (03/26/2006 8:47 AM CDT) P athologist Signature Cholesterol 211 (H) <200 mg/dl [facility] Comment: Result should not be interpreted without the patient's history of cardiovascular risk factors. Triglyceride 190 <200 mg/dl [facility] HDL 45 >35 mg/dl [facility] LDL, Calc. 128 mg/dl [facility] Hours Fasting 12 hours [facility] Specimen Anatomical Collection Method Collection Time Receive d Time (Source) Location / / Volume Laterality 03/26/2006 8:47 AM 6 8:49 CDT AM CDT Yakov Alvarado MD LAB_1 Performing Organization Address City/State/ZIP Code Phon e Number [facility] [phone] [facility] [address] [address] documented in this encounter Visit Diagnoses Diagnosis Routine general medical examination at [facility] facility - Primary Routine [facility] Screening for lipoid disorders Need for prophylactic vaccination and in oculation against viral hepatitis OBESITY Obesity, unspecified MIGRAINE Migraine, unspecified, without mention o f intractable migraine without mention of status migrainosus Displacement of lumbar intervertebral di sc without myelopathy (HRC) Displacement of lumbar intervertebral di sc without myelopathy 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 [place] [address] documented as of this encounter
--- OUTSIDE RECORDS SUMMARY | 2022-06-17 19:25 | XMS_ITS | Encounter Summary ---
:1975 Author Organization [employer] Address [address] [place] [address] Care Team Providers Name Role Phone Rigoberto Lira PA-C Primary Care Provider Encounter Details Date Type Department Care Team Description 10/03/2015 Lab Visit [facility] Annual physical exam [address] [place] [address] Social History Tobacco Use Types Packs/Day Years [...] AM Annual physical exam Results for this BLADDER BLOWER procedure are i n the results section. LIPID PANEL AND Routine 10/03/2015 11:06 AM Annual physical ex am Results for this DIRECT LDL(IF BLADDER BLOWER procedure are in NEEDED) the results section. documented in this encounter Results (ABNORMAL) GLUCOSE (10/03/2015 11:06 AM BLADDER BLOWER) P athologist Signature Lab Glucose 102 (H) 60 - 100 HP CONVERSION mg/dL Specimen Anatomical Collection Method Collection Time Receive d Time (Source) Location / / Volume Laterality 10/03/2015 11:06 10/03/2015 2:32 AM BLADDER BLOWER PM BLADDER BLOWER Narrative HP CONVERSION - 10/03/2015 3:34 PM BLADDER BLOWER Performed at [facility], [address] [place] [address] CLIA number [id number] Rigoberto Lira PA-C LAB_1 Performing Organization Address [facility] Phon e Number HP CONVERSION (ABNORMAL) Lipid Panel and Direct LDL(If Needed) (10/03/2015 11:06 AM BLADDER BLOWER) [facility] gist Method Time Signature Cholesterol 223 (H) [...] Volume Laterality 10/03/2015 11:06 10/03/2015 2:32 AM BLADDER BLOWER PM BLADDER BLOWER Narrative HP CONVERSION - 10/03/2015 3:34 PM BLADDER BLOWER Performed at [facility], [facility] [address] [place] [address] CLIA number [id number] Rigoberto Lira PA-C LAB_1 Performing Organization Address [facility] Phon e Number HP CONVERSION documented in this encounter Visit Diagnoses Diagnosis Annual physical exam Routine general medical examination at a health care facility documented in this encounter Care Teams Account Services Representative Relationship Specialty Start Date End Date Rigoberto Lira PA-C PCP - General 10/03/15 04/10/16 [address] [place] [address] documented as of this encounter
--- OUTSIDE RECORDS SUMMARY | 2022-06-17 19:25 | XMS_ITS | Encounter Summary ---
:1975 Author Organization [facility] Address [address] [place] [address] Care Team Providers Name Role Phone Ronen Alvarado MD Primary Care Provider Encounter Details Date Type Department Care Team Description 01/28/2007 Orders Only [place] [facility] Screening for Endocrine, Nut ritional, Metabolic and Immunity Disorder; [address] [facility] [place]ES[place], [place] [address] Social History Tobacco Use [...] Veronique Oneill MD LAB_1 Performing Organization Address City/[facility]/ZIP Code Phon e Number [email or web address] [phone] [facility] [address] [place] [phone] GLUCOSE - FASTING > 8 HRS FASTING (V77.1) (01/28/2007 8:18 AM CDT) P athologist Signature Glucose 96 70 - 100 [facility] mg/dl Hours Fasting 12 hours [facility] Specimen Anatomical Collection Method Collection Time Receive d Time (Source) Location / / Volume Laterality 01/28/2007 8:18 AM 7 8:19 CDT AM CDT Veronique Oneill MD LAB_1 Performing Organization Address City/[facility] Phon e Number [facility] [phone] [phone] documented in this encounter Visit Diagnoses Diagnosis Screening for endocrine, nutritional, me tabolic and immunity disorder Screening for other and unspecified endo crine, nutritional, metabolic, and immunity disorders OBESITY Obesity, unspecified documented in this encounter Care Teams Newspaper Press Operator Apprentice Relationship Specialty Start Date End Date Ronen Alvarado MD PCP - General 02/26/05 02/16/[address] [place] [address] documented as of this encounter
--- OUTSIDE RECORDS SUMMARY | 2022-06-17 19:25 | XMS_ITS | Encounter Summary ---
:1975 Author Organization [facility] Address [address] [place] [address] Care Team Providers Name Role Phone Ronen Alvarado MD Primary Care Provider Reason for Visit Reason Comments ARM PAIN arm muscle strain from [facility] 06-04-05 W/C right arm Encounter Details Date Type Department Care Team Description 06/07/[address] [facility] Ronen Alvarado EL B/FOREARM/WRST Practice INJURY NOS (Primary [address] [facility] [address] Dx) [place] [id number] Social History Tobacco Use Types Packs/Day Years [...] documented in this encounter Patient Instructions Patient Jqrryefkgnie59/28/2005 11:20 AM CDT Avoid heavy lifting as [...] 120# lifted by right hand and arm. [place] pain in distal upper arm and elbow about an hour later. Seen at [facility] ER and X-ray taken was reported [...] Primary documented in this encounter Care Teams Mechanical Engineering Draftsperson Relationship Specialty Start Date End Date Ronen Alvarado MD PCP - General 02/26/05 02/16/[address] [place] [address] documented as of this encounter
--- OUTSIDE RECORDS SUMMARY | 2022-06-17 19:25 | XMS_ITS | Encounter Summary ---
:1975 Author Organization [facility] Address [address] [place] [address] Care Team Providers Name Role Phone Ronen [...] on filedocumented in this encounter Care Teams Curbing Stonecutter Relationship Specialty Start Date End Date Ronen Alvarado MD PCP - General 02/26/05 02/16/[address] [place] [address] documented as of this encounter
--- OUTSIDE RECORDS SUMMARY | 2022-06-17 19:26 | XMS_ITS | Encounter Summary ---
:1975 Author Organization [facility] Address [address] [place] [address] Care Team Providers Name Role Phone Otoniel Nevarez MD Primary Care Provider [phone] Encounter Details Date Type Department Care Team Description 11/15/2003 Office Visit [facility] [place] [facility]RON[facility] Practice [address] [address] [address] [place] [place] [address] [place], [place] [phone] [address] (Wo rk) Social History Tobacco Use [...] Tobacco Status reviewed? (see History Social-Substance) -YES washroom attendant offered? 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 Aspirin taken daily? -NO BP was taken on the RIGHT arm. BP cuff size used? -Adult Large Health Education given? -NO. Contact phone number [phone] (home) [phone] (work), alternate phone number- Yesenia HALEIGH Donohue [...] unspecified documented in this encounter Care Teams Web Developer Relationship Specialty Start Date End Date Otoniel Nevarez MD PCP - General 03/15/03 02/25/05 [facility] J[address]ensen [address] [place] [address] documented as of this encounter
--- OUTSIDE RECORDS SUMMARY | 2022-06-17 19:26 | XMS_ITS | Encounter Summary ---
:1975 Author Organization [facility] Address [address] [place] [address] Care Team Providers Name Role Phone Otoniel Nevarez MD Primary Care Provider [phone] Encounter Details Date Type Department Care Team Description 03/16/2003 Correspondence None Unknown, Physici an [facility]ICA [address] [place], [place] [address] (Wo rk) Social History Tobacco Use Types [...] on filedocumented in this encounter Care Teams Miniature Train Driver Relationship Specialty Start Date End Date Otoniel Nevarez MD PCP - General 03/15/03 02/25/[address] [place], [place] [address] documented as of this encounter
--- OUTSIDE RECORDS SUMMARY | 2022-06-17 19:26 | XMS_ITS | Encounter Summary ---
:1975 Author Organization [facility] Address [address] [place] [address] Care Team Providers Name Role Phone Veronique Oneill MD Primary Care Provider Encounter Details Date Type Department Care Team Description 10/27/2003 Therapy External to Ronen Alvarado MD [address] [place] [address] (Wo rk) Social History Tobacco Use Types Packs/Day Years Used Date Smoking Tobacco: Every Day Cigarettes 0.5 13 Alcohol Use Standard Drinks/Week Comments Not Asked 0 (1 standard drink = 0.6 oz pure alcoho l) Sex Assigned at Date Recorded Not on file documented as of this encounter Progress Notes Ronen Alvarado - 10/27/2003 12:00 AM MOLASSES COLORING OPERATOR SSES COLORING OPERATOR documented in this encounter Plan of Treatment Not on filedocumented as of this encounter Visit Diagnoses Not on filedocumented in this encounter Care Teams Military Technology Specialist Relationship Specialty Start Date End Date Veronique Oneill MD PCP - General 02/17/07 10/02/[address] [id number] documented as of this encounter
--- OUTSIDE RECORDS SUMMARY | 2022-06-17 19:26 | XMS_ITS | Encounter Summary ---
:1975 Author Organization [facility] Address [address], [place] [address] Care Team Providers Name Role Phone Otoniel Nevarez MD Primary Care Provider [phone] Encounter Details Date Type Department Care Team Description 05/04/2003 Office Visit [facility] Chris Cyr MD [facility] [address] [place] [address] [place] [address] [place] [address] [phone] (Wo rk) Social History Tobacco Use Types [...] on filedocumented in this encounter Care Teams Coil Tester Relationship Specialty Start Date End Date Otoniel Nevarez MD PCP - General 03/15/03 02/25/[address] [place] [address] documented as of this encounter
--- OUTSIDE RECORDS SUMMARY | 2022-06-17 19:26 | XMS_ITS | Encounter Summary ---
:1975 Author Organization [facility] [address] [facility] [place] [address] Care Team Providers Name Role Phone Veronique Oneill MD Primary Care Provider Encounter Details Date Type Department Care Team Description 12/22/2003 Therapy [facility] [place] [address] [place], [place] [address] [place] [address] [phone] (Wo rk) Social History Tobacco Use Types [...] on filedocumented in this encounter Care Teams Blister Packing Machine Tender Relationship Specialty Start Date End Date Veronique Oneill MD PCP - General 02/17/07 10/02/[address] [id number] documented as of this encounter
--- OUTSIDE RECORDS SUMMARY | 2022-06-17 19:26 | XMS_ITS | Encounter Summary ---
:1975 Author Organization [facility] Address [address] [place] [address] Care Team Providers Name Role Phone Otoniel Nevarez MD Primary Care Provider [phone] Encounter Details Date Type Department Care Team Description 10/10/2003 Correspondence None Unknown, Physici an [facility] [address] [place], [place] [address] (Wo rk) Social History Tobacco Use Types Packs/Day Years Used Date Smoking Tobacco: Every Day Cigarettes 0.5 13 Alcohol Use Standard Drinks/Week Comments Not Asked 0 (1 standard drink = 0.6 oz pure alcoho l) Sex Assigned at Date Recorded Not on file documented as of this encounter Progress Notes Unknown, Physician - 10/10/2003 12:00 AM CORPORATE TRAVEL EXPERT documented in this encounter Plan of Treatment Not on filedocumented as of this encounter Visit Diagnoses Not on filedocumented in this encounter Care Teams Cement Paver Relationship Specialty Start Date End Date Otoniel Nevarez MD PCP - General 03/15/03 02/25/[address] [place], [place] [address] documented as of this encounter
--- OUTSIDE RECORDS SUMMARY | 2022-06-17 19:26 | XMS_ITS | Encounter Summary ---
:1975 Author Organization [facility] [address], [place] [address] Care Team Providers Name Role Phone Otoniel Nevarez MD Primary Care Provider [phone] Encounter Details Date Type Department Care Team Description 08/23/2003 Telephone [facility] [place] [address] [address] [address] [address] [place], [place] [address] [place] [address] [phone] (Wo rk) Social History Tobacco Use Types [...] have films taken with him. P cc: AL MANAGER documented in this encounter Plan of Treatment Not on filedocumented as of this encounter Visit Diagnoses Not on filedocumented in this encounter Care Teams Gate Shear Operator Relationship Specialty Start Date End Date Otoniel Nevarez MD PCP - General 03/15/03 02/25/[address] [place] [address] Dr [address] [place] [address] documented as of this encounter
--- OUTSIDE RECORDS SUMMARY | 2022-06-17 19:26 | XMS_ITS | Encounter Summary ---
:1975 Author Organization Counts include 234 beds at the [facility] Address [address], [place] [address] Care Team Providers Name Role Phone Unavailable Primary Care Provider Unavailable Encounter Details Date Type Department Care Team Description 09/28/1999 Emergency [facility] Nish Cox MD [address] [facility] [address] Social History Tobacco Use Types Packs/Day Years Used Date Smoking Tobacco: Never Assessed Sex Assigned at Date Recorded Not on file documented as of this encounter ED Notes Nish Cox MD - 09/28/1999 12:01 AM CST ED Provider Notes signed by Nish Cox MD at 10/02/99 9063 Author: Nish Cox MD Service: (none) Author Type: Physician Filed: 11/28/10 1449 Note Time: 09/28/991924 Status: Signed Tool And Machine Maintainer: Nish Cox MD (Physician) NAME: FELIX COPE MR#: [id number] JOB: [id number] EMERGENCY CENTER REPORT - EPPA This is a Workers Compensation summary as well as ER visit. CHIEF COMPLAINT: Nose injury. HISTORY OF PRESENT ILLNESS: This 24-year-old man works at [employer] in [place]. He was bent over and when he [...] with full duties. DIAGNOSIS: NISH COX MD JLL:[id number] C: DOCUMENT: [id number] POWER CONSULTANT documented in this encounter Plan of Treatment Not on filedocumented as of this encounter Visit Diagnoses Not on filedocumented in this encounter
--- OUTSIDE RECORDS SUMMARY | 2022-06-17 19:26 | XMS_ITS | Encounter Summary ---
:1975 Author Organization [facility] Address [address] [place] [address] Care Team Providers Name Role Phone Otoniel Nevarez MD Primary Care Provider [phone] Encounter Details Date Type Department Care Team Description 03/16/2003 Office Visit [facility] Otoniel Nevarez GASTRKRISTIAN S/DUODEN NOS W/O HEMORRH; Practice MD Esteban LIPOMA NOS; [address] ABDOMINAL PAIN UNSPEC SITE [place], [place] [address] [facility] [address] [place], [place] [address] Social History Tobacco Use Types Packs/Day Years [...] Tobacco Status reviewed? (see History Social-Substance) -YES personal attendant offered? 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 Aspirin taken daily? -NO BP was taken on the RIGHT arm. BP cuff size used? -Adult Large Health Education given? -NO. Contact phone number [phone] (home) [phone] (work), alternate phone number . Ronaldo Hamilton, [place] 03/16/2003 1:18 PM Otoniel Nevarez - 03/16/2003 12:00 AM CDTS: New patient to [facility], initially here for PE. However, he wishes [...] as well as recheck of his labs. Faulk diet. P cc: documented in this encounter Plan of Treatment Not on filedocumented as of this encounter Visit Diagnoses Diagnosis Unspecified gastritis and gastroduodenit is without mention of hemorrhage Lipoma of unspecified site Abdominal pain, unspecified site documented in this encounter Care Teams Furniture Reproducer Relationship Specialty Start Date End Date Otoniel Nevarez MD PCP - General 03/15/03 02/25/[address] [place] [address] [place] [address] documented as of this encounter
--- OUTSIDE RECORDS SUMMARY | 2022-06-17 19:26 | XMS_ITS | Encounter Summary ---
:1975 Author Organization [facility] Address [address] [place] [address] Care Team Providers Name Role Phone Veronique Oneill MD Primary Care Provider Encounter Details Date Type Department Care Team Description 11/17/2003 Orders Only External to Unknown, Physici an [address] [place], [place] [address] (Wo rk) Social History Tobacco Use Types [...] on filedocumented in this encounter Care Teams Food Safety Specialist Relationship Specialty Start Date End Date Veronique Oneill MD PCP - General 02/17/07 10/02/[address] [place] [address] documented as of this encounter
--- OUTSIDE RECORDS SUMMARY | 2022-06-17 19:26 | XMS_ITS | Encounter Summary ---
:1975 Author Organization [facility] Address [address] [place] [address] Care Team Providers Name Role Phone Otoniel Nevarez MD Primary Care Provider [phone] Encounter Details Date Type Department Care Team Description 03/16/2003 Orders Only [facility] Ootniel Nevarez, [address] Keena Hernandez MD [place], [place] [address]77 [facility] [phone] [facility] [address] [place], [place] [address] (Wo rk) Social History [...] athologist Signature TSH 0.84 0.30 - 5.00 [facility] uIU/ml Thyroid Meds No [facility] Specimen Anatomical Collection Method Collection Time Receive d Time (Source) Location / / Volume Laterality 03/16/2003 1:43 PM 3 1:44 CDT PM CDT Otoniel Nevarez MD LAB_1 Performing Organization Address City/State/ZIP Code Phon e Number [facility] [phone] [facility] [address] [phone] HEMOGRAM/PLTS (03/16/2003 1:43 PM CDT) athologist Signature WBC 8.9 3.6 - 11.0 [facility] k/ul RBC 4.96 4.5 - 5.9 [facility] M/ul Hemoglobin 14.8 13.5 - 17.5 [facility] g/dl HCT 43.1 41.0 - 53.0 [facility] % MCV 86.8 80 - 100 fl [facility] MCH 29.8 26 - 34 pg [facility] MCHC 34.3 32 - 36 % [facility] RDW 12.3 11.5 - 14.5 [facility] % Platelets 258 150 - 450 [facility] k/ul Specimen Anatomical Collection Method Collection Time Receive d Time (Source) Location / / Volume Laterality 03/16/2003 1:43 PM 3 1:44 CDT PM CDT Otoniel Nevarez MD LAB_1 Performing Organization Address [facility] Phon e Number [facility] [employer] [phone] [facility] [address] [place] [phone] SODIUM (03/16/2003 1:43 PM CDT) athologist Signature Sodium 142 135 - 145 [facility] mmol/L Specimen Anatomical Collection Method Collection Time Receive d Time (Source) Location / / Volume Laterality 03/16/2003 1:43 PM 3 1:44 CDT PM CDT Otoniel Nevarez MD LAB_1 Performing Organization Address [facility] Phon e Number [facility] [phone] [facility] [address] [place] [phone] POTASSIUM (03/16/2003 1:43 PM CDT) athologist Signature Potassium 4.1 3.5 - 5.3 [facility] mmol/L Specimen Anatomical Collection Method Collection Time Receive d Time (Source) Location / / Volume Laterality 03/16/2003 1:43 PM 3 1:44 CDT PM CDT Otoniel Nevarez MD LAB_1 Performing Organization Address [facility] Phon e Number [facility] [employer] [phone] [facility] [address] [place] [address] [phone] GLUCOSE - RANDOM < 8HR FASTING) (03/16/2003 1:43 PM CDT) athologist Signature Glucose 114 65 - 115 [facility] mg/dl Hours Fasting 2 hours [facility] Specimen Anatomical Collection Method Collection Time Receive d Time (Source) Location / / Volume Laterality 03/16/2003 1:43 PM 3 1:44 CDT PM CDT Otoniel Nevarez MD LAB_1 Performing Organization Address [facility] Phon e Number [facility] [phone] [facility] [address] [place] [phone] CREATININE (03/16/2003 1:43 PM CDT) athologist Signature Creatinine 0.9 0.5 - 1.2 [facility] mg/dl Specimen Anatomical Collection Method Collection Time Receive d Time (Source) Location / / Volume Laterality 03/16/2003 1:43 PM 3 1:44 CDT PM CDT Otoniel Nevarez MD LAB_1 Performing Organization Address [facility] Phon e Number [facility] [employer] [phone] [phone] (ABNORMAL) CHOLESTEROL, TOTAL AND HDL (03/16/2003 1:43 PM CDT) Component Value Ref Test Analysis Performed At [facility] Range Method Time Signature Cholesterol 205 (H) <200 [facility] mg/dl Cholesterol Result should not be interpreted without [facility] the patient's history of cardiovascular risk factors. HDL 37 >35 [facility] mg/dl Specimen Anatomical Collection Method Collection Time Receive d Time (Source) Location / / Volume Laterality 03/16/2003 1:43 PM 3 1:44 CDT PM CDT Otoniel Nevarez MD LAB_1 Performing Organization Address [facility] Phon e Number [facility] [employer] [phone] [facility] [address] [place] [phone] BILIRUBIN, TOTAL & DIRECT (03/16/2003 1:43 PM CDT) athologist Signature Bilirubin, 0.8 0.2 - 1.2 [facility] Total mg/dl Bilirubin, 0.1 0.1 - 0.4 [facility] Direct mg/dl Specimen Anatomical Collection Method Collection Time Receive d Time (Source) Location / / Volume Laterality 03/16/2003 1:43 PM 3 1:44 CDT PM CDT Otoniel Nevarez MD LAB_1 Performing Organization Address [facility] Code Phon e Number [facility] [phone] [facility] [address] [place] [phone] AST (SGOT) (03/16/2003 1:43 PM CDT) P athologist Signature AST (SGOT) 20 <45 U/L [facility] Specimen Anatomical Collection Method Collection Time Receive d Time (Source) Location / / Volume Laterality 03/16/2003 1:43 PM 3 1:44 CDT PM CDT Otoniel Nevarez MD LAB_1 Performing Organization Address [facility] Phon e Number [facility] [employer] [phone] [phone] ALT (SGPT) (03/16/2003 1:43 PM CDT) P athologist Signature ALT (SGPT) 24 0 - 55 U/L [facility] Specimen Anatomical Collection Method Collection Time Receive d Time (Source) Location / / Volume Laterality 03/16/2003 1:43 PM 3 1:44 CDT PM CDT Otoniel Nevarez MD LAB_1 Performing Organization Address [facility] Code Phon e Number [facility] [phone] [phone] ALK P'TASE, TOTAL (03/16/2003 1:43 PM CDT) Analysis Performed At Patho logist Time Signature Alkaline 92 31 - 115 [facility] Phosphatase U/L Specimen Anatomical Collection Method Collection Time Receive d Time (Source) Location / / Volume Laterality 03/16/2003 1:43 PM 3 1:44 CDT PM CDT Otoniel Nevarez MD LAB_1 Performing Organization Address [facility] Phon e Number [facility] [phone] [facility] [address] [phone] (ABNORMAL) UA MICRO IF (03/16/2003 1:43 PM CDT) [facility] Method Time Signature Appr Yellow [facility] Appr [...] Otoniel Nevarez MD LAB_1 Performing Organization Address [facility] Phon e Number [facility] [employer] [phone] [facility] [address] [phone] documented in this encounter Visit Diagnoses Not on filedocumented in this encounter Care Teams Impregnator Relationship Specialty Start Date End Date Otoniel Nevarez MD PCP - General 03/15/03 02/25/05 [facility] [place], [place] [address] documented as of this encounter
--- OUTSIDE RECORDS SUMMARY | 2022-06-17 19:26 | XMS_ITS | Encounter Summary ---
:1975 Author Organization [employer] Address [address], [place] [address] Care Team Providers Name Role Phone Otoniel Nevarez MD Primary Care Provider [phone] Encounter Details Date Type Department Care Team Description 05/04/2003 Office Visit [facility] LOW ALESHIA K PAIN(ACUTE)<6 [place] (Primary Dx) [address] [place], [place] [address] Social History Tobacco Use [...] mistreated by someone important to you? -NO patron attendant offered -NOT APPLICABLE. Health Education given -NO. Primary provider: Otoniel Nevarez MD Contact phone number [phone] (home) [phone] (work) Alternate phone number n/a. No current prescriptions on file. No Known Drug Allergy Cindy Lowry RN 05/04/2003 6:25 PM Corbin Cyr 05/04/2003 12:00 AM CDTS. This 28 year old male is here for acute right back and low back and leg pain. 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 He developed slight low back pain [...] Primary documented in this encounter Care Teams Transit Mix Operator Relationship Specialty Start Date End Date Otoniel Nevarez MD PCP - General 03/15/03 02/25/[address] [place] [address] Dr [address] [place] [address] documented as of this encounter
--- OUTSIDE RECORDS SUMMARY | 2022-06-17 19:26 | XMS_ITS | Encounter Summary ---
:1975 Author Organization Formerly [facility] Address [address] [place] [address] Care Team Providers Name Role Phone Veronique Oneill MD Primary Care Provider Encounter Details Date Type Department Care Team Description 11/10/2003 Therapy External to Ronen Alvarado MD [address] [place] [address] (Wo rk) Social History Tobacco Use Types Packs/Day Years Used Date Smoking Tobacco: Every Day Cigarettes 0.5 13 Alcohol Use Standard Drinks/Week Comments Not Asked 0 (1 standard drink = 0.6 oz pure alcoho l) Sex Assigned at Date Recorded Not on file documented as of this encounter Progress Notes Ronen Alvarado - 11/10/2003 12:00 AM BRAND STRATEGY MANAGER D STRATEGY MANAGER documented in this encounter Plan of Treatment Not on filedocumented as of this encounter Visit Diagnoses Not on filedocumented in this encounter Care Teams Day Habilitation Specialist Relationship Specialty Start Date End Date Veronique Oneill MD PCP - General 02/17/07 10/02/[address] [id number] documented as of this encounter
--- OUTSIDE RECORDS SUMMARY | 2022-06-17 19:26 | XMS_ITS | Encounter Summary ---
:1975 Author Organization [facility] Address [address] [place] [address] Care Team Providers Name Role Phone Otoniel Nevarez MD Primary Care Provider [phone] Encounter Details Date Type Department Care Team Description 03/22/2003 Correspondence Rocío Wang [facility] Otoniel Nevarez LIPID RESULTS Practice MD [place]eb[place] [address] Rocío Wang [place] [address] [address] [place], [place] [address] (Wo rk) Social History [...] on filedocumented in this encounter Care Teams Boilermaker Welder Relationship Specialty Start Date End Date Otoniel Nevarez MD PCP - General 03/15/03 02/25/[address] [place] [address] [address] [place] [address] documented as of this encounter
--- OUTSIDE RECORDS SUMMARY | 2022-06-17 19:26 | XMS_ITS ---
:1975 Author Care Team Providers Name Role Phone Mika Grayson Primary Care Provider Unavailable Allergies Code Code System Name Reaction Severity Status Onset NKDA ? Medications None recorded. Problems None recorded. Procedures None recorded. Results Lab Results None recorded. Past Encounters 04/04/2021 Mika Grayson MD: [address] [facility] 13 [facility], [facility] [address], [place] [address], Ph. Social History Tobacco Smoking Status Heavy [...]
--- OUTSIDE RECORDS SUMMARY | 2022-06-17 19:26 | XMS_ITS | Encounter Summary ---
:1975 Author Organization [facility] Address [address] [place] [address] Care Team Providers Name Role Phone Otoniel Nevarez MD Primary Care Provider [phone] Encounter Details Date Type Department Care Team Description 06/03/2003 Office Visit [facility], IN TEGUMENT TISS SYMP Practice [facility] [address] [place] [address] [phone] Social History Tobacco Use Types Packs/Day Years [...] Tobacco Status reviewed? (see History Social-Substance) -YES hospital attendant offered? 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 Aspirin taken daily? -NO BP was taken on the RIGHT arm. BP cuff size used? -Adult Large Health Education given? -NO. Contact phone number [phone] (home) [phone] (work), alternate phone number . Yesenia Donohue LPN 06/03/2003 11:46 AM No current prescriptions on file. Ronen Alvarado - 06/03/2003 12:00 AM CDTChief Complaint: Skin changes. S. This gentleman who is originally from the [facility] has lived in this country for the last 7 years. Two or three years ago went on a vacation to [place], got quite a bit of sunburn including [...] tissues documented in this encounter Care Teams Stretching Machine Tender Frame Relationship Specialty Start Date End Date Otoniel Nevarez MD PCP - General 03/15/03 02/25/[address] [place] [id number] documented as of this encounter
--- OUTSIDE RECORDS SUMMARY | 2022-06-17 19:26 | XMS_ITS | Encounter Summary ---
:1975 Author Organization [facility] Address [address] [place] [address] Care Team Providers Name Role Phone Otoniel Nevarez MD Primary Care Provider [phone] Encounter Details Date Type Department Care Team Description 10/10/2003 Office Visit [facility], OLEG Mann BACK PAIN Practice MD (CHRONIC)>6 WEEKS [address] [place] [address] [phone] Social History Tobacco Use Types Packs/Day Years Used Date Smoking Tobacco: Every Day Cigarettes 0.5 13 Alcohol Use Standard Drinks/Week Comments Not Asked 0 (1 standard drink = 0.6 oz pure alcoho l) Sex Assigned at Date Recorded Not on file documented as of this encounter Last Filed Vital Signs Vital Sign Reading Time Taken Comments Blood Pressure 134/78 10/10/2003 4:50 PM NUCLEAR WEAPONS MECHANICAL SPECIALIST Pulse 92 10/10/2003 4:50 PM NUCLEAR WEAPONS MECHANICAL SPECIALIST Temperature - - Respiratory Rate - - Oxygen Saturation - - Inhaled Oxygen Concentration - - Weight 106.6 kg (235 lb) 10/10/2003 4:50 PM NUCLEAR WEAPONS MECHANICAL SPECIALIST Height - - Body Mass Index 30.58 03/16/2003 1:20 PM CDT documented in this encounter Progress Notes 10/10/2003 4:50 PM NUCLEAR WEAPONS MECHANICAL SPECIALIST Felix Coppola is here today for *ongoing low back pain..[facility] Are you having other pain today, that you want to discuss with the provider? -NO Do you need refills on any of your medications today? -NO Preventive Services up to date? no Immunizations up to date? -YES Do you ever feel physically threatened or emotionally afraid? -NOT ASKED Tobacco Status reviewed? (see History Social-Substance) -YES fuel attendant offered? 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 Aspirin taken daily? -NO BP was taken on the RIGHT arm. BP cuff size used? -Adult Large Health Education given? -NO. Contact phone number [phone] (home) [phone] (work), alternate phone number- Yeseniagamaliel Donohue LPN [...] 500 mg p.o. b.i.d. and refer to [facility] for physical therapy. Follow-up in a couple of weeks. If not markedly improved, will probably need imaging. P cc: EAR WEAPONS MECHANICAL SPECIALIST documented in this encounter Plan of Treatment Not on filedocumented as of this encounter Visit Diagnoses Diagnosis Other unspecified back disorder documented in this encounter Care Teams Research Hydrologist Relationship Specialty Start Date End Date Otoniel Nevarez MD PCP - General 03/15/03 02/25/[address] [place] [address] [address] [place] [address] documented as of this encounter
--- NOTE | 2022-07-02 08:59 | W.PM.SLEEP ---
Sleep Study Details Details Interpreting Provider: Stef Malone MD Date of Sleep Study: 06/17/22 Sleep Study Details: STUDY TYPE:? Home ? BMI:? 29.9 ORDERING PROVIDER:? John INDICATION:? Concerns about sleep apnea ? SLEEP SUMMARY:? 305.5 monitored minutes RESPIRATORY SUMMARY:? AHI 37.5 with minimal positional variation Low oxygen 78 13.3% of study oxygen less than 90%, 1.4% of study less than 85%, 0.1% of study less than 80% Snoring% 14.5 PERIODIC LIMB MOVEMENTS OF SLEEP:? Not recorded CARDIAC:? 60-101, mean 75.3 IMPRESSION:? Severe obstructive sleep apnea with significant desaturations RECOMMENDATION: Either in-lab titration versus AutoSet CPAP at pressure 4-17
== END 2022-06-17 19:21 | disposition home or self-care (01) ==
LOC: SLEEP 19:21
PROVIDERS: PCP Physician Assistant Medical; Visit Provider Otolaryngology
DX: G47.33 Obstructive sleep apnea (adult) (pediatric) (principal)
CPT/HCPCS: 95806

== ENCOUNTER 2023-07-01 19:22 | Outpatient (CLI) | payer BC, SELFPAY ==
--- OUTSIDE RECORDS SUMMARY | 2023-07-01 19:27 | XMS_ITS | Patient Health Record ---
Author Name Unknown Organization [facility] Address [address] [place] [address] [address] [place] [address] Care Team Providers Care Razor Grinder Name Role Phone Parth Singleton Primary Care Provider YawaKngy Unavailable [phone] FadyKaren lorenz Unavailable Unavailable ALLERGIES No Known Allergies REASON FOR REFERRAL No Information MEDICATIONS Medication SIG (Take, Route, Fr equency, Duration) Notes Start Date End Date Status Ibuprofen 800 MG 1 tablet with food o r milk as needed Orally BID Active Otezla 30 MG 1 tablet Orally Twice a day Active SOCIAL HISTORY Tobacco Use: Social History Observation Description Date Details (start date - stop date) Current Smoker NA - NA Sex Assigned At : Social History Observation Description Sex Assigned At Unknown Tobacco Use/Smoking: Question Answer Notes Are you a current smoker How often do you smoke cigarettes? every day How many cigarettes a day do you smoke? 11-20 Alcohol Screen Question Answer Notes Did you have a drink contain ing alcohol in the past year? Yes How often did you have a dri nk containing alcohol in the past year? Monthly or less (1 point) Points 1 Interpretation Negative PLAN OF TREATMENT No Information Insurance Providers Payer Name Payer Address Payer Phone Subscriber Number Group Number Insured Name Patient Relationship to Insured Coverage Start Date [facility]age End Date [facility] [address] [address] [place] [address] [id number] Felix Neely Self - patient is the insured 1 MEDICAL (GENERAL) HISTORY Medical History History ICD Code Arthritis
--- NOTE | 2023-07-15 08:54 | W.PM.SLEEP ---
Sleep Study Details Details Interpreting Provider: Faisal Date of Sleep Study: 07/01/23 Sleep Study Details: STUDY TYPE:? Home unattended ? BMI:? 31.5 ORDERING PROVIDER:Rodger Malone INDICATION:? I believe this is a follow-up study done with a dental appliance but I cannot find documentation in the chart of that. ? SLEEP SUMMARY:? 433 minutes monitored RESPIRATORY SUMMARY:? AHI 6.8, supine 4.9, left lateral 16.1 Low oxygen 68 7.3% of study oxygen less than 90% Snoring 0.3% PERIODIC LIMB MOVEMENTS OF SLEEP:? Not recorded during home study CARDIAC:? Range 55-97, mean 64.4 beats per minute IMPRESSION:? Mild obstructive sleep apnea with still significant desaturations. The patient was better in the supine position. RECOMMENDATION: Follow-up overnight oximetry is recommended. If the patient is using a dental appliance would advance it slightly. Would encourage supine sleep.
== END 2023-07-01 19:23 | disposition home or self-care (01) ==
PROVIDERS: PCP Physician Assistant Medical; Visit Provider Otolaryngology
DX: G47.33 Obstructive sleep apnea (adult) (pediatric) (principal)
CPT/HCPCS: 95806

== ENCOUNTER 2023-11-28 07:53 | Outpatient (CLI) | payer BC, SELFPAY ==
--- OUTSIDE RECORDS SUMMARY | 2023-12-01 07:56 | XMS_ITS | Clinical Summary ---
Author Name Unknown Organization [facility] Address [address] [place] [address] Care Team Providers Care Tourist Agent Name Role Phone [facility], [facility]- Primary Care Provider Allergies No known active allergies Medications Medication Sig Dispensed Refills Start Date End Date Status ibuprofen (ADVIL,MOTRIN) 800 MG tablet Take 800 mg by mouth every morning Active APREMILAST PO Take 1 tablet by mouth 2 times daily Blinded study drug from [facility], Dr Karen Mathew Active COSENTYX SENSOREADY, 300 MG, 150 MG/ML SOAJ 10/25/2021 Active Active Problems Problem Noted Date Diagnosed Date Ankylosing spondylitis lumbar region 09/11/2012 Overview: Followed by non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 ; ANOMALOUS AV EXCITATION (WPW) Immunizations Name Administration Dates Next Due COVID-19 MONOVALENT 12+ (Pfizer) 05/15/2021,04/11 Family History Medical History Relation Comments Unknown/Adopted No family hx of unknown Relation Status Comments Father car accident Maternal Grandfather Maternal Grandmother Mother Alive Paternal Grandfather Paternal Grandmother Social History Tobacco Use Types Packs/Day Years Used Date Smoking Tobacco: Every Day Cigarettes Alcohol Use Standard Drinks/Week Comments Yes 0 (1 standard drink = 0.6 oz pur e alcohol) occasionally Adolescent Education Answer Date Record ed Getting School Help Needed Not on file 05/28 Sex and Gender Information Value Date Recorded Sex Assigned at Not on file Gender Identity Not on file Sexual Orientation Not on file Last Filed Vital Signs Vital Sign Reading Time Taken Comments Blood Pressure 141/97 11/10/2021 8:00 PM CDT Pulse 83 11/10/2021 8:00 PM CDT Temperature 37.2 ??C (98.9 ??F) 11/10/2021 7:01 PM CD T Respiratory Rate 14 11/10/2021 8:00 PM CDT Oxygen Saturation 98% 11/10/2021 8:00 PM CDT Inhaled Oxygen Concentration - - Weight 102.1 kg (225 lb) 11/06/2021 3:07 PM CDT Height 188 cm (6' 2) 09/10/2021 6:10 PM DRILL PRESS OPERATOR HELPER Body Mass Index 28.89 09/10/2021 6:10 PM DRILL PRESS OPERATOR HELPER Plan of Treatment Health Maintenance Due Date Last Done Comments ADVANCE CARE PLANNING 1975 ANNUAL REVIEW OF HM ORDERS 1973 CT COLONOGRAPHY 1973 FIT 1975 FLEX SIG 1975 sDNA (Cologuard) 1975 Pneumococcal Vaccine: Pediatrics (0 to 5 Years) and At-Risk Patients (6 to 64 Years) (1 of 2 - PCV) 1979 COLONOSCOPY 1983 COLORECTAL CANCER SCREENING 1983 HIV SCREENING 02/18/1988 HEPATITIS C SCREENING 1991 ZOSTER IMMUNIZATION (1 of 2) 02/18/1992 YEARLY PREVENTIVE VISIT 06/28/2011 06/28/20, 01/21/2007, 03/18/2006 COVID-19 Vaccine (3 - Pfizer risk series) 06/12/2021 05/15/2021, 04/24/2021 DTAP/TDAP/TD IMMUNIZATION (2 - Td or Tdap) 09/16/2022 09/16/2012, 02/15/2003 INFLUENZA VACCINE (#1) 2023 05/16/2020, 2018 PHQ-2 (once per calendar year) 2023 LIPID 05/04/2024 05/04/2019, 11/09, 08/14/2018, Additional history exists GLUCOSE 10/29/2024 10/29/2021, 08/13, 09/09/2019, Additional history exists HEPATITIS B IMMUNIZATION Completed 007, 04/18/2006, 03/18/2006 HPV IMMUNIZATION Aged Out No longer e ligible based on patient's age to complete this topic IPV IMMUNIZATION Aged Out No longer e ligible based on patient's age to complete this topic MENINGITIS IMMUNIZATION Aged Out No l onger eligible based on patient's age to complete this topic RSV MONOCLONAL ANTIBODY Aged Out No l onger eligible based on patient's age to complete this topic Procedures Procedure Name Priority Date/Time Associated Diagnosis Comments BASIC METABOLIC PANEL STAT 10/29/2021 3:21 PM CDT LIPID REFLEX TO DIRECT LDL PANEL Routine 05/04/2019 7:52 AM CDT 3-oxo-5 alpha-steroid delta 4-dehydrogenase deficiency Screening for diabetes mellitus Disorder of lipoprotein and lipid metabolism from Last 3 Months or Most Recently Relevant to Health Maintenance Results * Basic metabolic panel (10/29/2021 3:21 PM CDT) Sodium 138 133 - 144 mmol/L 10/29/2021 3:48 PM CDT [facility] Potassium 3.8 3.4 - 5.3 mmol/L 10/29/2021 3:48 PM CDT [facility] Chloride 106 94 - 109 mmol/L 10/29/2021 3:48 PM CDT [facility] Carbon Dioxide (CO2) 23 20 - 32 mmol/L 10/29/2021 3:48 PM CDT [facility] Anion Gap 9 3 - 14 mmol/L 10/29/2021 3:48 PM CDT [facility] Urea Nitrogen 16 7 - 30 mg/dL 10/29/2021 3:48 PM CDT [facility] Creatinine 0.94 0.66 - 1.25 mg/dL 10/29/2021 3:48 PM CDT [facility] Calcium 8.8 8.5 - 10.1 mg/dL 10/29/2021 3:48 PM CDT [facility] Glucose 98 70 - 99 mg/dL 10/29/2021 3:48 PM CDT [facility] GFR Estimate >90 >60 mL/min/1.7 3m2 10/29/2021 3:48 PM CDT [facility] Comment:Effective July 122020 eGFRcr in adults is calculated using the 2020 CKD-EPI creatinine equation which includes age and gender (Abdulkadir et al., NEJM, DOI: 10.1056/IGHTut4860290) Blood STRUCTURE OF LEFT UPPER LIMB / Unknown Venipuncture / Unknown 10/29/2021 3:21 PM CDT 10/29/2021 3:27 PM CDT Aura Oscar PA-C LAB - BLOOD ORDERABL ES LABORATORY [facility] Acute Care Lab [address] Lab (1st floor, no room number) [place] [address], [facility] [phone] * (ABNORMAL) Lipid panel reflex to direct LDL Fasting (05/04/2019 7:52 AM CDT) Cholesterol 211(H) <200 mg/dL 05/05/2019 10:00 AM CDT [facility] Comment:Desirable: <200 mg/d l Triglycerides 98 <150 mg/dL 05/05/2019 10:00 AM CDT [facility] Comment:Fasting specimen HDL Cholesterol 53 >39 mg/dL 9 10:02 AM CDT [facility] LDL Cholesterol Calculated 138(H) <100 mg/dL 05/05/2019 10:02 AM CDT [facility] Comment: Above desirable: ??100-129 mg/dl Borderline High: ??130-159 mg/dL High: ? 160-189 mg/dL Very high: ? >189 mg/dl Non HDL Cholesterol 158(H) <130 mg/dL 05/05/2019 10:02 AM CDT [facility] Comment: Above Desirable: ??130-159 mg/dl Borderline high: ??160-189 mg/dl High: ? 190-219 mg/dl Very high: ? >219 mg/dl Blood specimen (specimen) 05/04/2019 7:52 AM CDT 05/04/2019 7:57 AM CDT Karen Shrestha LAB - BLOOD ORDERABL ES [facility] [address] [place] [address] from Last 3 Months or Most Recently Relevant to Health Maintenance Advance Directives For more information, please contact: [phone] * Full Code (Latest Code Status on File) Date Activated Date Inactivated Comments 04/30/2016 3:58 PM 05/01/2016 11:18 AM Care Teams Tourist Agent Relationship Specialty Start Date End Date [facility]- [address] [place] [address] PCP - General 10/29/21
--- OUTSIDE RECORDS SUMMARY | 2023-12-01 07:56 | XMS_ITS | Referral Summary ---
Author Name Unknown Organization [facility] Address [address] [place] [address] Care Team Providers Care Beauty Culturist Apprentice Name Role Phone [facility], [facility]- Primary Care Provider Allergies No known active allergies Medications Medication Sig Dispensed Refills Start Date End Date Status ibuprofen (ADVIL,MOTRIN) 800 MG tablet Take 800 mg by mouth every morning Active APREMILAST PO Take 1 tablet by mouth 2 times daily Blinded study drug from [facility], Dr Karen Mathew Active COSENTYX SENSOREADY, 300 MG, 150 MG/ML SOAJ 10/25/2021 Active Active Problems Problem Noted Date Diagnosed Date Ankylosing spondylitis lumbar region 09/11/2012 Overview: Followed by [facility] thermoforming operator Lumbar disc herniation 06/28/2010 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 ; ANOMALOUS AV EXCITATION (WPW) Immunizations Name Administration Dates Next Due COVID-19 MONOVALENT 12+ (Pfizer) 05/15/2021,04/11 Social History Tobacco Use Types Packs/Day Years [...] 188 cm (6' 2) 09/10/2021 6:10 PM BEER COOLER Body Mass Index 28.89 09/10/2021 6:10 PM BEER COOLER Plan of Treatment Not on file Procedures Procedure Name Priority Date/Time Associated Diagnosis [...] - 10.1 mg/dL 10/29/2021 3:48 PM CDT LABORATORY Glucose 98 70 - 99 mg/dL 10/29/2021 3:48 PM CDT LAB[facility] GFR Estimate >90 >60 mL/min/1.7 3m2 10/29/2021 3:48 PM CDT [facility] Comment:Effective July 122020 eGFRcr in adults is calculated using the 2020 CKD-EPI creatinine equation which includes age and gender (Abdulkadir et al., NE, DOI: 10.1056/MSLDba7058083) Blood STRUCTURE OF LEFT UPPER LIMB / Unknown Venipuncture / Unknown 10/29/2021 3:21 PM CDT 10/29/2021 3:27 PM CDT Aura Oscar PA-C LAB - BLOOD ORDERABL ES LABORATORY [facility] Acute Care Lab [address] Lab (1st floor, no room number) [place] [address] [phone] * (ABNORMAL) Lipid panel reflex to direct LDL Fasting (05/04/2019 7:52 AM CDT) Cholesterol 211(H) <200 mg/dL 05/05/2019 10:00 AM CDT [facility] Comment:Desirable: <200 mg/d l Triglycerides 98 <150 mg/dL 05/05/2019 10:00 AM CDT [facility] Comment:Fasting specimen HDL Cholesterol 53 >39 mg/dL 9 10:02 AM CDT [facility] LDL Cholesterol Calculated 138(H) <100 mg/dL 05/05/2019 10:02 AM CDT [facility] Comment: Above desirable: ??100-129 mg/dl Borderline High: ??130-159 mg/dL High: ? 160-189 mg/dL Very high: ? >189 mg/dl Non HDL Cholesterol 158(H) <130 mg/dL 05/05/2019 10:02 AM CDT [facility] Comment: Above Desirable: ??130-159 mg/dl Borderline high: ??160-189 mg/dl High: ? 190-219 mg/dl Very high: ? >219 mg/dl Blood specimen (specimen) 05/04/2019 7:52 AM CDT 05/04/2019 7:57 AM CDT Karen Shrestha LAB - BLOOD ORDERABL ES [facility] [address] [place] [address] from Last 3 Months or Most Recently Relevant to Health Maintenance Advance Directives For more information, please contact: [phone] * Full Code (Latest Code Status on File) Date Activated Date Inactivated Comments 04/30/2016 3:58 PM 05/01/2016 11:18 AM Care Teams Beauty Culturist Apprentice Relationship Specialty Start Date End Date [facility]- [address] [place] [address] PCP - General 10/29/21
--- OUTSIDE RECORDS SUMMARY | 2023-12-01 07:56 | XMS_ITS | Encounter Summary ---
Author Name Unknown Organization [facility] Address [address] [place] [address] Care Team Providers Care Gas Inspector Name Role Phone [facility]- Primary Care Provider Encounter Details Date Type Department Care Team (Late st Contact Info) Description 10/29/2021 Documentation Only INTERFACED REPORT Unknown, Provider Social History Tobacco Use Types Packs/Day Years Used Date Smoking Tobacco: Every Day Cigarettes Alcohol Use Standard Drinks/Week Comments Yes 0 (1 standard drink = 0.6 oz pur e alcohol) occasionally Sex and Gender Information Value Date Recorded Sex Assigned at Not on file Gender Identity Not on file Sexual Orientation Not on file COVID-19 Exposure Response Date Recorded In the last month, have you been in contact with someone who was confirmed or suspected to have Coronavirus / COVID-19? No / Unsure 10/29/2021 12:51 PM CDT documented as of this encounter Plan of Treatment Not on file documented as of this encounter Visit Diagnoses Not on filedocumented in this encounter Care Teams Gas Inspector Relationship Specialty Start Date End Date [facility]- [address] [place] [address] PCP - General 10/29/21 documented as of this encounter
--- OUTSIDE RECORDS SUMMARY | 2023-12-01 07:56 | XMS_ITS | Clinical Summary ---
Author Name Unknown Organization [facility] Address [address] [address] Care Team Providers Care Telecommunications Administrator Name Role Phone Rigoberto Lira PA-C Primary Care Provider [phone] Source Comments You are receiving this document as you are listed as the primary care provider,follow-up provider, or the patient has been referred to you for consultation.This is in compliance with the Medicare and[facility] Cent[facility] EHR Incentive Program,which states Providers who transition their patient to another setting of careor provider of care or refers their patient to another provider of care shouldprovide summary care record for each transition of care or referral. [facility] Allergies No known active allergies Medications Medication Sig Dispensed Refills Start Date End Date Status MAXALT-WOOD SCIENCE PROFESSOR 10 MG OR TBDPIndications:Migrai ne, unspecified, without mention of intractable migraine without mention of status migrainosus Place one tablet placed on the tongue at the onset of a headache. Allow it to dissolve, then swallow with saliva. May repeat with one tablet in 2 hours if headache recurs. 6 99 03/18/2006 Active VICODIN 5-500 MG OR TABS Take 1-2 tablets by mouth every 4-6 hours as needed for pain. Do not take more than 8 tablets in one day. Active ibuprofen (AKA MOTRIN) 800 MG tablet Take 800 mg by mouth 2 times daily. 10/03/2015 Active DRUG NOT IN COMPUTERIndications:ce lgene Take 1 Dose by mouth 2 times daily. Indications: celgene 10/03/2015 Active OTEZLA 30 MG TABS 01/23/2021 Active atorvastatin (LIPITOR) 20 MG tablet 11/13/2020 Active gemfibrozil (LOPID) 600 MG tablet 01/19/2021 Active erythromycin 5 MG/GM (0.5%) eye ointment Place 0.5 Inches into right eye every 6 hours. 3.5 g 02/06/2021 Active Active Problems Problem Noted Date Diagnosed Date Ankylosing spondylitis lumbar region 09/11/2012 Overview: Followed by non-[facility] silversmith apprentice Disc disorder of lumbar region 01/09/2011 Overview: L5/S1 disc herniation no surgery ; Lumbar Disc Disorder NOS Last Assessment & Plan: Lumbar Disc Disorder NOS - Assessment & Plan Note by Rigoberto Lira PA-C at 09/16/12917 Author: Rigoberto Lira PA-C Service: (none) Author Type: Physician Cooker Tender Filed: 09/16/12917 Note Time: 09/16/12917 Status: Written Roller Skate Assembler: Rigoberto Lira PA-C (Physician Cooker Tender) Has been seeing a chiropractor for a few years now for his chronic back pain. Recently had a LS MRI, and the Radiologist found pathology suggestive of ankylosing spondylitis. He has a consult appointment with a non-[facility] silversmith apprentice on 10/15/2012, and was asked to get an HLA-B27 prior to his appointment. Obesity 03/18/2006 Overview: Ht: 6' 1.75 Body Mass Index (BMI) 32.3 at 250 pounds on 03/18/2006. 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 ; ANOMALOUS AV EXCITATION (WPW) Immunizations Name Administration Dates Next Due HepB Adult (Engerix-B, 20+ y rs, 3 dose series) 01/21/2007,04/18/2006,03/18/2006 09/18/2006 TDAP (BOOSTRIX) 09/16/2012 Td 02/15/2003 Family History [...] Status Comments Father (Age 58) MVA in 200 5 Mother Alive Born 1948 Brother 1 Alive Born 1974 Brother 2 Alive Born 1978 Daughter 1 Alive Cristina, born 199 4 Daughter 2 Alive Camila, born 1 997 Maternal Aunt Other Social History Tobacco Use Types Packs/Day Years Used Date Smoking Tobacco: Every Day Cigarettes 0.5 13 Smokeless Tobacco: Never Comments:Smoking History Pac ks/day: Alcohol Use Standard Drinks/Week Comments Yes 5 (1 standard drink = 0.6 oz pur e alcohol) Sex and Gender Information Value Date Recorded Sex Assigned at Not on file Gender Identity Not on file Sexual Orientation Not on file Last Filed Vital Signs Vital Sign Reading Time Taken Comments Blood Pressure 141/87 02/06/2021 8:08 AM CDT Pulse 84 02/06/2021 8:08 AM CDT Temperature 36.8 ??C (98.2 ??F) 02/06/2021 8:08 AM CD T Respiratory Rate 20 02/06/2021 8:08 AM CDT Oxygen Saturation 97% 02/06/2021 8:08 AM CDT Inhaled Oxygen Concentration - - Weight 103.9 kg (229 lb) 10/03/2015 10:36 AM MEDICAL ASSOCIATE Height 188 cm (6' 2) 10/03/2015 10:36 AM MEDICAL ASSOCIATE Body Mass Index 29.4 10/03/2015 10:36 AM MEDICAL ASSOCIATE Plan of Treatment Health Maintenance Due Date Last Done Comments Colon Cancer Screening Plan Due 1973 Hep C Screening (Preventive Services) 1973 PSA Screening Discussion 1973 Pneumococcal (1 - PCV) 1979 HIV Screening (Preventive Services) 1989 Adult Preventive Visit 01/22/2008 01/21/2007, 2005 Cholesterol 10/03/2020 10/03/2015, 01/2013, 01/14/2011, Additional history exists DTaP/Tdap/Td (2 - Tdap) 09/16/2022 09/16/2012, 02/15 Zoster/Shingles (1 of 2) 2023 COVID-19 Vaccine (1 - season) 2023 Influenza (#1) 2023 HepB Completed 01/21/2007, 03/2006, 03/18/2006 HepA Aged Out No longer eligi ble based on patient's age to complete this topic Hib Aged Out No longer eligi ble based on patient's age to complete this topic IPV (Polio) Aged Out No longer eligi ble based on patient's age to complete this topic MCV4 Aged Out No longer eligi ble based on patient's age to complete this topic Procedures Procedure Name Priority Date/Time Associated Diagnosis Comments LIPID PANEL & DIRECT LDL (IF NEEDED) Routine 10/03/2015 11:06 AM MEDICAL ASSOCIATE Annual physical exam from Last 3 Months or Most Recently Relevant to Health Maintenance Results * (ABNORMAL) Lipid Panel and Direct LDL(If Needed) (10/03/2015 11:06 AM MEDICAL ASSOCIATE) Cholesterol 223(H) 0 - 199 mg/dL HP CONVERSION Triglycerides 150(H) 4 - 149 mg/dL HP CONVERSION HDL Cholesterol 50 >39 mg/dL HP CONVERSION Cholesterol/HDL Ratio Screen 4.5 HP CONVERSION LDL Calculated 143(H) 19 - 130 mg/dL HP CONVERSION Hours Fasting 12.0 HP CONVERSION 10/03/2015 11:0 6 AM MEDICAL ASSOCIATE 10/03/2015 2:32 PM MEDICAL ASSOCIATE Narrative HP CONVERSION - 10/03/2015 3:34 PM MEDICAL ASSOCIATE Performed at [facility], [address] [place] [address] CLIA number [id number] Rigoberto Lira PA-C LAB_1 HP CONVERSION from Last 3 Months or Most Recently Relevant to Health Maintenance Care Teams Telecommunications Administrator Relationship Specialty Start Date End Date Rigoberto Lira PA-C [address] [place] [address] PCP - General 04/11/16
--- OUTSIDE RECORDS SUMMARY | 2023-12-01 07:56 | XMS_ITS | Encounter Summary ---
Author Name Unknown Organization [facility] Address [address] [place] [address] Care Team Providers Care Process Consultant Name Role Phone No Ref-Primary, Physician Primary Care Provider [facility]- Primary Care Provider Encounter Details Date Type Department Care Team (Late st Contact Info) Description 09/10/2021 Documentation Only INTERFACED REPORT Unknown, [...] or suspected to have Coronavirus / COVID-19? Yes 09/10/2021 6:09 PM WATER FABRICATOR OPERATOR documented as of this encounter Plan of Treatment Not on file documented as of this encounter Visit Diagnoses Not on filedocumented in this encounter Care Teams Process Consultant Relationship Specialty Start Date End Date No Ref-Primary, Physician PCP - General 09/03/19 10/28/21 [facility]- [address] [place] [address] PCP - General 10/29/21 documented as of this encounter
--- OUTSIDE RECORDS SUMMARY | 2023-12-01 07:56 | XMS_ITS | Encounter Summary ---
Author Name Unknown Organization [facility] Address [address] [place] [address] Care Team Providers Care Horse Racing Manager Name Role Phone No Ref-Primary, Physician Primary Care Provider [facility]- Primary Care Provider Encounter Details Date Type Department Care Team (Late st Contact Info) Description 08/25/2021 [facility] Initial Department [facility] Social History Tobacco Use Types Packs/Day Years Used Date Smoking Tobacco: Every Day Cigarettes Alcohol Use Standard Drinks/Week Comments Yes 0 (1 standard drink = 0.6 oz pur e alcohol) occasionally Sex and Gender Information Value Date Recorded Sex Assigned at Not on file Gender Identity Not on file Sexual Orientation Not on file documented as of this encounter Plan of Treatment Not on file documented as of this encounter Visit Diagnoses Not on filedocumented in this encounter Care Teams Horse Racing Manager Relationship Specialty Start Date End Date No Ref-Primary, Physician PCP - General 09/03/19 10/28/21 [facility]- [address] [place] [address] PCP - General 10/29/21 documented as of this encounter
--- OUTSIDE RECORDS SUMMARY | 2023-12-01 07:57 | XMS_ITS | Data Portability ---
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 I do not believe that this is a surgical problem and recommend that this patient talk to his rheumatolgist as this pain is likely due to his ankylosing spondylitis. [email or web address] Not available 04/04/2021 16:29:05 Plan of Treatment Reminders Order Date Submit Date Provider Last Modified By Organization Details Last Modified Time Details Appointments None record ed. Lab None record ed. Referral None record ed. Procedures None record ed. Surgeries None record ed. Imaging None record ed. Medication Orders None record ed. Patient TargetsNo targets recorded. Patient Instructions Encounter Date Encounter Id Patient Instructions Last Modified By Organization Details Last Modified Time 04/04/2021 [id number] I discussed with the patient the clinical findings and reviewed the findings together. I do not believe that this is a surgical problem and recommend that this patient talk to his rheumatolgist as this pain is likely due to his previously diagnosed ankylosing spondylitis. Physical therapy to maintain the motion is recommended. This is not surgical disease and it shoulder be treated medically. 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 IS thoracic pain and right hip pain due to ankylosing spondylitis. See his rhematologist and PT [email or web address] Not available 04/04/2021 20:52:24 Reason for Referral None Reported. Results Created Date Observation Date Name Description Value Unit Range Abnormal Flag LastModifiedBy Organization Detail LastModifiedTime 02/02/20 21 MRI, lumba r spine , w/o contr ast No observ ation record ed. [email or web address] Not Available 11:19:50 Result Notes None recorded. Procedures Surgical History None recorded. Imaging Results Imaging Date Name Status LastModified by Organiz ation Details LastModified Time 02/01/2021 MRI, lumbar spine, w/o contrast completed [email or web address] Information not available 02/01/2021 11:19:50 Procedure Notes None recorded. Medical Equipment None Reported. Allergies No known drug allergies Vitals Date Recorded Body height Body mass index (BMI) Body weight Respiratory rate Body temperature Heart rate Oxygen saturation Oxygen saturation in Arterial blood by Pulse oximetry Systolic blood pressure Diastolic blood pressure Provider Name and Address Organization Details Last Updated DateTime 187.96 cm 28.2 kg/m2 66006.3 2 g 18 /min 98 [degF] 88 /min 95 % 95 % 123 mm[Hg] 82 mm[Hg] Mattie lowry [facility] 16:14:44 Social History Question Answer Notes LastModified by Organizat ion Details LastModified Time Tobacco Smoking Status Current Every Day Smoker Mattie lowry, [facility] 04/04/2021 16:09:41 How Much Tobacco Do You Smoke? 0.5 PPD [email or web address] Information not available 04/04/2021 Sex: Male Functional Status None recorded. Mental Status None recorded. Family History Relationship Description Onset Age of this Age Resolved Age Notes Father No current problems or disability Mother No current problems or disability Medical History Condition Response Diabetes N Cancer/Tumors N High Cholesterol Y Heart Murmur N Blood Clot N Stroke N Hypertension N Past Encounters Encounter ID Performer Location Encounter Start Date Encounter Closed Date Diagnosis/Indication Diagnosis SNOMED-CT Code [id number] Mika Grayson MD [facility] [address] [place] [id number] 04/04/2021 15:54:08 04/05/2021 15:29:23 Health Concerns Section Related Observation LastModified by Organization Detai ls LastModified Time None Recorded Concern Status LastModified by Organization Details LastModified Time None Recorded Advance Directives Directive None Recorded Payers Encounter Date Sequence Insurance Name Policy Number Policy Rooney Covered Member ID Rooney Member ID Guarantor Name 04/04/2021 1 [place] [id number] Felix Coppola [id number] Felix Coppola Notes Date Note Type Note Provider Name and Address Organization Details Recorded Time 04/04/2021 text/html HPI Notes: Back Pain Reported by patient. Location: cervical; thoracic; lumbar; pain radiating to the buttocks Quality: dull Severity: pain level 2/10 Associated Symptoms: no weak limbs; no numbness of the legs/feet; no tingling Prior Imaging: MRI Today nursing spent 25 minutes preparing to see the patient, obtaining and reviewing patients history, obtaining vital signs, entering medications, tests & procedures, educating the patient, coordinating care, and documenting this visit in [place]. Patient is a 46 yo male and his daughter Doris works here. He presents with chronic right sided back pain close to T9 laterally. He also presents with back pain closer to his shoulders but that comes and goes, he currently doesn't feel this pain. He reports his entire back feels stiff and he will have muscle spasms. He recently went to the ER for his pain. He works on [employer] and mostly sits at work. He reports he has not been to any physical therapy. He takes Ibuprofen to help with the pain. He carries a diangosis of ankylosing spondylitis and has been seeing a rhematologist on regular basis and he is on medicaiton for that. Mika Grayson MD [address], [place], [address], [place] - [facility] 04/04/2021 20:52:28
== END 2023-11-28 07:54 | disposition home or self-care (01) ==
LOC: NFLDREF 12-01 07:54
PROVIDERS: PCP Physician Assistant Medical; Referring Provider Physician Assistant Medical; Visit Provider Physician Assistant Medical
DX: Z13.228 Encounter for screening for other metabolic disorders (principal); Z13.220 Encounter for screening for lipoid disorders; Z12.5 Encounter for screening for malignant neoplasm of prostate; Z13.29 Encounter for screening for other suspected endocrine disorder; Z11.59 Encounter for screening for other viral diseases
CPT/HCPCS: 80053; 80061; 84443; 86703; 86803; G0103

== ENCOUNTER 2024-06-16 07:56 | Outpatient (CLI) | payer BC, SELFPAY ==
--- OUTSIDE RECORDS SUMMARY | 2024-06-17 11:17 | XMS_ITS | Referral Summary ---
Author Organization [facility] Address [address] [place] [address]. [place] [address] Care Team Providers Care Quarry Supervisor Dimension Stone Name Role Phone [facility]- Primary Care Provider Allergies No known active allergies Medications ibuprofen (ADVIL,MOTRIN) 800 MG tablet Take 800 mg by mouth every morning Active APREMILAST PO Take 1 tablet by mouth 2 times daily Blinded study drug from [facility], Dr Karen Mathew Active COSENTYX SENSOREADY, 300 MG, 150 MG/ML SOAJ 2 Active Active Problems Problem Noted Date Diagnosed Date Ankylosing spondylitis lumbar region 09/11/2012 Overview (10/29/2021): Followed by non-[facility] metallurgical inspector Lumbar disc herniation 06/28/2010 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 ; [...] Getting School Help Needed Not on file 10/18 /2023 Sex and Gender Information Value Date Recorded Sex Assigned at Not on file Legal Sex Male 5:10 AM CURTAIN MENDER Gender Identity Not on file Sexual Orientation [...] 188 cm (6' 2) 09/10/2021 6:10 PM CURTAIN MENDER Body Mass Index 28.89 09/10/2021 6:10 PM CURTAIN MENDER Plan of Treatment Not on file Procedures [...] - 1.25 mg/dL 10/29/2021 3:48 PM CDT LABORATORY Calcium 8.8 8.5 - 10.1 mg/dL 10/29/2021 3:48 PM CDT LABORATORY Glucose 98 70 - 99 mg/dL 10/29/2021 3:48 PM CDT RH LABORATORY GFR Estimate >90 >60 mL/min/1.7 3m2 10/29/2021 3:48 PM CDT LABORATORY Comment:Effective July 122020 eGFRcr in adults is calculated using the 2020 CKD-EPI creatinine equation which includes age and gender (Abdulkadir et al., NEJM, DOI: 10.1056/HRLNcv8630901) Blood STRUCTURE OF LEFT UPPER LIMB / Unknown Venipuncture / Unknown 10/29/2021 3:21 PM CDT 10/29/2021 3:27 PM CDT us Aura Oscar PA-C LAB - BLOOD ORDERABLES Final Re sult LABORATORY [facility] [address] Lab (1st floor, no room number) [place] [address], [facility] [phone] * (ABNORMAL) Lipid panel reflex to direct LDL Fasting (05/04/2019 7:52 AM CDT) Cholesterol 211(H) <200 mg/dL 05/05/2019 10:00 AM CDT [facility] Comment:Desirable: <200 mg/d l Triglycerides 98 <150 mg/dL 05/05/2019 10:00 AM CDT [facility] Comment:Fasting specimen HDL Cholesterol 53 >39 mg/dL 9 10:02 AM CDT [facility] LDL Cholesterol Calculated 138(H) <100 mg/dL 05/05/2019 10:02 AM CDT [facility] Comment: Above desirable: ??100-129 mg/dl Borderline High: ??130-159 mg/dL High: ? 160-189 mg/dL Very high: ? >189 mg/dl Non HDL Cholesterol 158(H) <130 mg/dL 05/05/2019 10:02 AM CDT [facility] Comment: Above Desirable: ??130-159 mg/dl Borderline high: ??160-189 mg/dl High: ? 190-219 mg/dl Very high: ? >219 mg/dl Blood specimen (specimen) 05/04/2019 7:52 AM CDT 05/04/2019 7:57 AM CDT us Karen Shrestha LAB - BLOOD ORDERABLES Final Res ult [facility] [address] [place] [address] from Last 3 Months or Most Recently Relevant to Health Maintenance [place] Advance Directives For more information, please contact: [phone] * Full Code (Latest Code Status on File) Date Activated Date Inactivated Comments 04/30/2016 3:58 PM 05/01/2016 11:18 AM Care Teams Quarry Supervisor Dimension Stone Relationship Specialty Start Date End Date [facility]- [address] [place] [address] PCP - General 10/29/21
--- OUTSIDE RECORDS SUMMARY | 2024-06-17 11:17 | XMS_ITS | Clinical Summary ---
Author Organization [facility] Address [address] [place] [address]. [place] [address] Care Team Providers Care Women'S Basketball Coach Name Role Phone [facility]- Primary Care Provider Allergies No known active allergies Medications ibuprofen (ADVIL,MOTRIN) 800 MG tablet Take 800 mg by mouth every morning Active APREMILAST PO Take 1 tablet by mouth 2 times daily Blinded study drug from [facility], Dr Karen Mathew Active COSENTYX SENSOREADY, 300 MG, 150 MG/ML SOAJ 2 Active Active Problems Problem Noted Date Diagnosed Date Ankylosing spondylitis lumbar region 09/11/2012 Overview (10/29/2021): Followed by non[facility] educational paraprofessional Lumbar disc herniation 06/28/2010 Anomalous atrioventricular excitation [...] on file Legal Sex Male 5:10 AM COATER ASSOCIATE Gender Identity Not on file Sexual Orientation [...] 188 cm (6' 2) 09/10/2021 6:10 PM COATER ASSOCIATE Body Mass Index 28.89 09/10/2021 6:10 PM COATER ASSOCIATE Plan of Treatment Health Maintenance Due [...] - Td or Tdap) 09/16/2022 09/16/2012, 02/15/2003 LUNG CANCER SCREENING 2023 PHQ-2 (once per calendar year) 2023 INFLUENZA VACCINE (#1) 2024 05/16/2020, 2018 LIPID 05/04/2024 05/04/2019, 11/09, 08/14/2018, Additional history exists GLUCOSE 10/29/2024 10/29/2021, 08/13, 09/09/2019, Additional history exists RSV VACCINE (1 - 1-dose 75+ series) 02/18/2048 HEPATITIS B IMMUNIZATION Completed 007, 04/18/2006, 03/18/2006 [...] and gender (Abdulkadir et al., [place], DOI: 10.1056/[id number]) Blood STRUCTURE OF LEFT UPPER LIMB / Unknown Venipuncture / Unknown 10/29/2021 3:21 PM CDT 10/29/2021 3:27 PM CDT us Aura Oscar PA-C LAB - BLOOD ORDERABLES Final Re sult LABORATORY [facility] [address] [facility] Lab (1st floor, no room number) [place] [address] [phone] * (ABNORMAL) Lipid panel reflex to direct LDL Fasting (05/04/2019 7:52 AM CDT) Cholesterol 211(H) <200 mg/dL 05/05/2019 10:00 AM CDT [facility] Comment:Desirable: <200 mg/d l Triglycerides 98 <150 mg/dL 05/05/2019 10:00 AM CDT [facility] Comment:Fasting specimen HDL Cholesterol 53 >39 mg/dL 9 10:02 AM CDT [facility] LDL Cholesterol Calculated 138(H) <100 mg/dL 05/05/2019 10:02 AM CDT [facility] Comment: Above desirable: ??100-129 mg/dl Borderline High: ??130-159 mg/dL High: ? 160-189 mg/dL Very high: ? >189 mg/dl Non HDL Cholesterol 158(H) <130 mg/dL 05/05/2019 10:02 AM CDT [facility] Comment: Above Desirable: ??130-159 mg/dl Borderline high: ??160-189 mg/dl High: ? 190-219 mg/dl Very high: ? >219 mg/dl Blood specimen (specimen) 05/04/2019 7:52 AM CDT 05/04/2019 7:57 AM CDT us Karen Shrestha LAB - BLOOD ORDERABLES Final Res ult [facility] [address] [place] [address] from Last 3 Months or Most Recently Relevant to Health Maintenance [place] Advance Directives For more information, please contact: [phone] * Full Code (Latest Code Status on File) Date Activated Date Inactivated Comments 04/30/2016 3:58 PM 05/01/2016 11:18 AM Care Teams Women'S Basketball Coach Relationship Specialty Start Date End Date [facility]- [address] [place] [address] PCP - General 10/29/21
--- OUTSIDE RECORDS SUMMARY | 2024-06-17 11:17 | XMS_ITS | Encounter Summary ---
Author Organization [facility] Address [address] [place] [address] Care Team Providers Care Customer Service Officer Name Role Phone No Ref-Primary, Physician Primary Care Provider [facility]- Primary Care Provider Encounter Details [...] on file Legal Sex Male 5:10 AM BEEF CATTLE GRAZIER Gender Identity Not on file Sexual Orientation Not on file COVID-19 Exposure Response Date Recorded In the last month, have you been in contact with someone who was confirmed or suspected to have Coronavirus / COVID-19? Yes 09/10/2021 6:09 PM BEEF CATTLE GRAZIER documented as of this encounter Plan of Treatment Not on file documented as of this encounter Visit Diagnoses Not on filedocumented in this encounter Care Teams Customer Service Officer Relationship Specialty Start Date End Date No Ref-Primary, Physician PCP - General 09/03/19 10/28/21 [facility]- [address] [place] [address] PCP - General 10/29/21 documented as of this encounter
--- OUTSIDE RECORDS SUMMARY | 2024-06-17 11:17 | XMS_ITS | Patient Health Record ---
Author Organization [facility] Address [address] [place] [address] [address] [place] [address] Care Team Providers Care Management Psychologist Name Role Phone Parth Singleton Primary Care Provider Bill Tidwell Unavailable [phone] Fady RETIRED, Karen Unavailable Unavailabl e Allergies No Known Allergies Reason For Referral No Information Medications Medication SIG (Take, Route, Fr equency, Duration) Notes Start Date End Date Status Ibuprofen 800 MG 1 tablet with food o r milk as needed Orally BID Active Otezla 30 MG 1 tablet Orally Twice a day Active Social History Tobacco Use: Social History Observation Description Date Details (start date - stop date) Current Smoker NA - NA Tobacco Use/Smoking: Question Answer Notes Are you [...] less (1 point) Points 1 Interpretation Negative Plan Of Treatment No Information Insurance Providers Payer Name Payer Address Payer Phone Subscriber Number Group Number Insured Name Patient Relationship to Insured Coverage Start Date Coverage End Date [facility] [address] [address] [place] [address] [id number] Felix Neely Self - patient is the insured 1 Medical (General) History Medical History History ICD Code Arthritis
--- OUTSIDE RECORDS SUMMARY | 2024-06-17 11:17 | XMS_ITS | Clinical Summary ---
Author Organization [facility] Address [address], [place] [address] Care Team Providers Care Demonstrator Sewing Techniques Name Role Phone Rigoberto Lira PA-C Primary Care Provider [phone] Source Comments You are receiving this document as you are listed as the primary care provider,follow-up provider, or the patient has been referred to you for consultation.This is in compliance with the Medicare and[facility] EHR Incentive Program,which states Providers who transition their patient to another setting of careor provider of care or refers their patient to another provider of care shouldprovide summary care record for each transition of care or referral. [facility] Allergies No known active allergies Medications Medication Sig Dispensed Refills Start Date End Date Status ibuprofen (AKA MOTRIN) 800 MG tablet Take 1 Tablet (800 mg) by mouth two times a day. 10/03/2015 Active COSENTYX UNOREADY 300 MG/2ML SOAJ Inject subcutaneously every 4 weeks. 01/20/2024 Active meclizine (ANTIVERT) 25 MG tablet SMARTSI.5-1 By Mouth Twice Daily 03/27/2024 Active topiramate (TOPAMAX) 50 MG tablet Take 1 Tablet (50 mg) by mouth two times a day. 03/26/2024 Active Active Problems Problem Noted Date Diagnosed Date Scalp laceration 01/20/2024 Fall from height of greater than 3 feet 01/20/20 24 Ankylosing spondylitis lumbar region 09/11/2012 Overview (03/14/2016): Followed by non-[facility] teaching manager Disc disorder of lumbar region 01/09/2011 Overview (04/02/2017): L5/S1 disc herniation no surgery ; Lumbar Disc Disorder NOS Assessment & Plan (06/07/2016 7:16 AM CDT): Lumbar Disc Disorder NOS - Assessment & Plan Note by Rigoberto Lira PA-C at 09/16/12917 Author: Rigoberto Lira PA-C Service: (none) Author Type: Physician Television Repairer Filed: 09/16/12917 Note Time: 09/16/12917 Status: Written Ratchet Setter: Rigoberto Lira PA-C (Physician Television Repairer) Has been seeing a chiropractor for a few years now for his chronic back pain. Recently had a LS MRI, and the Radiologist found pathology suggestive of ankylosing spondylitis. He has a consult appointment with a non-[facility] teaching manager on 10/15/2012, and was asked to get an HLA-B27 prior to his appointment. Obesity 03/18/2006 Overview (05/11/2015): Ht: 6' 1.75 Body Mass Index (BMI) 32.3 at 250 pounds on 03/18/2006. 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 ; ANOMALOUS AV EXCITATION (WPW) Encounters Date Type Department Care Team Description 04/01/2024 3:40 PM CDT Office Visit [facility] [address] [place] [address]. [place] [address] Breanna Garcia PA-C Fracture follow-up (Primary Dx) from Last 3 Months Immunizations Name Administration Dates Next Due HepB [...] Date Smoking Tobacco: Former Cigarettes 0.5 13 Smokeless Tobacco: Never Tobacco Cessation:Counseling Given: Not Answered Comments:Smoking History Packs/day: Alcohol Use Standard Drinks/Week Comments Not Currently 0 (1 standard drink = 0.6 oz pur e alcohol) occ PHQ-2 Answer Date Recorded PHQ-2 Score 0 01/29/2024 Sex and Gender Information Value Date Recorded Sex Assigned at Not on file Gender Identity Not on file Sexual Orientation Not on file Last Filed Vital Signs Vital Sign Reading Time Taken Comments Blood Pressure 118/98 02/05/2024 10:59 AM CDT Pulse 98 02/05/2024 10:59 AM CDT Temperature 36.7 ??C (98.1 ??F) 02/05/2024 10:59 AM C DT Respiratory Rate 19 01/21/2024 12:00 AM CDT Oxygen Saturation 94% 01/21/2024 12:10 AM CDT Inhaled Oxygen Concentration - - Weight 103.9 kg (229 lb) 02/05/2024 10:59 AM CDT Height 188 cm (6' 2) 02/05/2024 10:59 AM CDT Body Mass Index 29.4 02/05/2024 10:59 AM CDT Plan of Treatment Health Maintenance Due Date Last Done Comments Colon Cancer Screening Plan Due 1973 Diabetes Screening- (based on age and BMI) 1973 Hep C Screening (Preventive Services) 1973 PSA Screening Discussion 1973 HIV Screening (Preventive Services) 1989 Adult Preventive Visit 01/22/2008 01/21/2007, 2005 Cholesterol 10/03/2020 10/03/2015, 01/2013, 01/14/2011, Additional history exists DTaP/Tdap/Td (2 - Tdap) 09/16/2022 09/16/2012, 02/15 Zoster/Shingles (1 of 2) 2023 COVID-19 Vaccine (3 - season) 2024 05/15/2021, 04/24/2021 Influenza (#1) 2024 05/16/2020, 05/22/2019 HepB Completed 01/21/2007, 03/2006, 03/18/2006 HepA Aged Out No longer eligi ble based on patient's age to complete this topic Hib Aged Out No longer eligi ble based on patient's age to complete this topic IPV (Polio) Aged Out No longer eligi ble based on patient's age to complete this topic Infant RSV Aged Out No longer eligi ble based on patient's age to complete this topic MCV4 Aged Out No longer eligi ble based on patient's age to complete this topic Pneumococcal Aged Out No longer eligi ble based on patient's age to complete this topic Procedures Procedure Name Priority Date/Time Associated Diagnosis Comments LIPID PANEL & DIRECT LDL (IF NEEDED) Routine 10/03/2015 11:06 AM WILDLAND FIRE FIGHTER SPECIALIST Annual physical exam from Last 3 Months or Most Recently Relevant to Health Maintenance Results * (ABNORMAL) Lipid Panel and Direct LDL(If Needed) (10/03/2015 11:06 AM WILDLAND FIRE FIGHTER SPECIALIST) Cholesterol 223(H) 0 - 199 mg/dL HP CONVERSION Triglycerides 150(H) 4 - 149 mg/dL HP CONVERSION HDL Cholesterol 50 >39 mg/dL HP CONVERSION Cholesterol/HDL Ratio Screen 4.5 HP CONVERSION LDL Calculated 143(H) 19 - 130 mg/dL HP CONVERSION Hours Fasting 12.0 HP CONVERSION 10/03/2015 11:0 6 AM WILDLAND FIRE FIGHTER SPECIALIST 10/03/2015 2:32 PM WILDLAND FIRE FIGHTER SPECIALIST Narrative HP CONVERSION - 10/03/2015 3:34 PM WILDLAND FIRE FIGHTER SPECIALIST Performed at [facility]3], [address] [place] [address] CLIA number [id number] Rigoberto Lira PA-C LAB_1 HP CONVERSION from Last 3 Months or Most Recently Relevant to Health Maintenance Care Teams Demonstrator Sewing Techniques Relationship Specialty Start Date End Date Rigoberto Lira PA-C [address] [place], [place] [id number] PCP - General 04/11/16
--- OUTSIDE RECORDS SUMMARY | 2024-06-17 11:17 | XMS_ITS | Encounter Summary ---
Author Organization [facility] Address [address] [place] [address] Care Team Providers Care Transit Manager Name Role Phone No Ref-Primary, Physician Primary Care Provider [facility]- Primary Care Provider Encounter Details Date Type Department Care Team (Late st Contact Info) Description 08/25/2021 MyC Medical Advice Initial Department [facility] Social History Tobacco Use Types Packs/Day Years Used Date Smoking Tobacco: Every Day Cigarettes Alcohol Use Standard Drinks/Week Comments Yes 0 (1 standard drink = 0.6 oz pur e alcohol) occasionally Sex and Gender Information Value Date Recorded Sex Assigned at Not on file Legal Sex Male 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
--- OUTSIDE RECORDS SUMMARY | 2024-06-17 11:17 | XMS_ITS | Encounter Summary ---
Author Organization [facility] Address [address] [place] [address] Care Team Providers Care Producer Name Role Phone [facility]- Primary Care Provider Encounter Details Date Type [...] on file Legal Sex Male 5:10 AM BUSINESS MACHINE MECHANIC Gender Identity Not on file Sexual Orientation [...] on filedocumented in this encounter Care Teams Producer Relationship Specialty Start Date End Date [facility]- [address] [place] [address] PCP - General 10/29/21 documented as of this encounter
--- OUTSIDE RECORDS SUMMARY | 2024-06-17 11:17 | XMS_ITS | Encounter Summary ---
Author Organization [facility] Address [address] [place] [address] Care Team Providers Care Dirt Contractor Name Role Phone Rigoberto Lira PA-C Primary Care Provider Reason for Visit * Reason Comments FOLLOW-UP,FRACTURE Encounter Details Date Type Department Care Team (Late st Contact Info) Description 04/01/2024 3:40 PM CDT Office Visit [facility] [address] [place] [address]. [place] [address] Breanna Garcia PA-C [address] [place] [address] Fracture follow-up (Primary Dx) Social History Tobacco Use Types Packs/Day Years Used Date Smoking Tobacco: Former Cigarettes 0.5 13 Smokeless Tobacco: Never Comments:Smoking History Pac ks/day: Alcohol Use Standard Drinks/Week Comments Not Currently 0 (1 standard drink = 0.6 oz pur e alcohol) occ PHQ-2 Answer Date Recorded PHQ-2 Score 0 01/29/2024 Sex and Gender Information Value Date Recorded Sex Assigned at Not on file Gender Identity Not on file Sexual Orientation Not on file documented as of this encounter Patient Instructions * Patient Instructions* Breanna Garcia PA-C - 04/01/2024 3:40 PM CDT Reason for today's visit: F/u non-op left distal radius and ulnar styloid fracture, DOI 01/20/2024 Tests that you will need: none Treatment plan: can return to work unrestricted Follow up appointments: You will follow up with Breanna Garcia PA-C as needed. If you have any questions about your visit, your symptoms, your medication, your test results or itis not clear what your diagnosis or treatment plan is please contact me (via on-line services/e-mail) or call my office at [phone]. Your follow up appointment will be scheduled with one of the Orthopaedic Hand Surgery Department team members. This may be one of our physician assistants. They are always in direct communication with your physician. Thank you for continuing to trust us with your care. We are your partner. documented in this encounter Progress Notes * Breanna Garcia PA-C - 04/01/2024 3:40 PM CDT Diagnosis: Left distal radius and ulna fractures Date of Injury: 01/20/2024 Hand Dominance: Right Xrays needed next visit: none Follow up: p.r.n. CHIEF COMPLAINT: follow up non-op left wrist fracture HISTORY OF PRESENT ILLNESS: Felix Coppola is a 49 y.o. right hand dominant male seen in clinic for follow up of a non op left distal radius and ulna fracture. The patient was last seen in clinic on Mar 04, 2024 with the following treatment plan: Discontinue immobilization and initiate wrist AROM, use of wrist brace as needed for comfort, 5 lb lifting restriction, updated work note. Today the patient reports mild, intermittent discomfort rated a 2/10. Patient would like to return to work. No numbness or tingling. 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 PHYSICAL EXAMINATION: Estimated body mass index is 29.4 kg/m?? as calculated from the following: Height as of 02/05/24: 6' 2 (1.88 m). Weight as of 02/05/24: 229 lb (103.9 kg). He is a pleasant male, alert and oriented and in no acute distress. He is well dressed and well groomed with appropriate affect. PULMONARY: Breathing comfortably on room air. VASCULAR: 2+ radial pulse palpated and brisk capillary refill. MUSCULOSKELETAL: Exam of the left wrist shows none or minimal swelling. The patient can fully extend all digits and make a full composite fist touching all digits to the distal palmar crease. EPL andFPL are intact. There is no tenderness to palpation at the distal radius fracture site, thumb CMC, scaphoid, radiocarpal joint, SLL, DRUJ (no instability) ulnocarpal joint, or fovea. Left wrist rangeof motion is 80 degrees flexion, 90 on the right, 75 degrees extension, 75 on the right, 90 degreessupination and 90 degrees pronation. NEURO: Sensation is intact to light touch in the median, ulnar and radial nerve distributions. RESULTS REVIEW: None. ASSESSMENT: 1. Left distal radius and ulnar styloid fractures, 10 weeks out PLAN: Since the patient's last visit, they have shown improvement in their symptoms. He has been working on home range of motion exercises and strengthening of the hand. Clinically is doing very well. He would like to return to work unrestricted and I think this is reasonable. An updated work note was provided today. Plan for the patient to follow up as needed. If the patient has any new issues or concerns in the interim they are encouraged to call or return to clinic. The patient voiced understanding of the plan and all questions were answered. documented in this encounter Plan of Treatment Not on file documented as of this encounter Visit Diagnoses Diagnosis Fracture follow-up- Primary Treatment of healed fracture follow-up examination documented in this encounter Care Teams Dirt Contractor Relationship Specialty Start Date End Date Rigoberto Lira PA-C [address] [place] [address] PCP - General 04/11/16 documented as of this encounter
== END 2024-06-16 07:57 | disposition home or self-care (01) ==
LOC: NFLDREF 06-17 11:15
PROVIDERS: PCP Physician Assistant Medical; Referring Provider Physician Assistant Medical; Visit Provider Physician Assistant Medical
DX: E78.5 Hyperlipidemia, unspecified (principal)
CPT/HCPCS: 80061; 80076

== ENCOUNTER 2024-08-06 11:15 | Outpatient (RCR) | payer BC, SELFPAY ==
--- OUTSIDE RECORDS SUMMARY | 2024-07-30 12:46 | XMS_ITS | Patient Health Record ---
Author Organization [facility] Address [address] [place] [address] [address] [place] [address] Care Team Providers Care Naphthalene Operator Helper Name Role Phone Parth Singleton Primary Care Provider Bill Tidwell Unavailable [phone] Fady RETIRED, Karen Unavailable Unavailabl e Allergies [...] Insured Coverage Start Date Coverage End Date [facility] [address] [address] [place] [address] [phone] [id number] [phone] [id number] Felix Neely Self - patient is the insured 1 Medical (General) History Medical History History ICD Code Arthritis
--- OUTSIDE RECORDS SUMMARY | 2024-08-06 11:08 | XMS_ITS | Patient Health Record ---
Author Organization [facility] Address [address] [place] [address] [address] [place] [address] Care Team Providers Care Cat Wagon Operator Name Role Phone Parth Singleton Primary Care Provider Bill Tidwell Unavailable [phone] Fady RETIRED, Karen Unavailable Unavailabl e Allergies [...] Insured Coverage Start Date Coverage End Date [facility] [address] [address] [place] [address] [id number] [phone] [id number] Felix Neely Self - patient is the insured 1 Medical (General) History Medical History History ICD Code Arthritis
--- OUTSIDE RECORDS SUMMARY | 2024-08-06 11:09 | XMS_ITS | Data Portability ---
Author Organization [place] - [facility], [facility] Address [address] [place] [address] Assessment Encounter Date Assessment Date Assessment LastModified [...] By Organization Details Last Modified Time 04/04/2021 [id number] I discussed with the patient the clinical [...] 04/04/2021 20:52:24 Reason for Referral None Reported. Medical Equipment None Reported. Allergies No known drug allergies Vitals Date Recorded Body height Body mass index (BMI) Body weight Respiratory rate Body temperature Heart rate Oxygen saturation Oxygen saturation in Arterial blood by Pulse oximetry Systolic blood pressure Diastolic blood pressure Provider Name and Address Organization Details Last Updated DateTime 08/25/202 1 187.96 cm 28.2 kg/m2 32448.3 2 g 18 /min 98 [degF] 88 /min 95 % 95 % 123 mm[Hg] 82 mm[Hg] Mattie Mitchell [place] - [facility] 16:14:44 Social History Question Answer Notes LastModified by Organizat ion Details LastModified Time Tobacco Smoking Status Current Every Day Smoker Mattie [place], [place] - [facility] 04/04/2021 16:09:41 How Much Tobacco Do You Smoke? 0.5 PPD [email or web address] Information not available 04/04/2021 Sex: Male Functional Status None recorded. Mental Status None recorded. Family History Relationship Description Onset Age of this Age Resolved Age Notes LastModified by Organization Details LastModified Time Father No current problems or disability [email or web address] Not available 16:09:25 Mother No current problems or disability [email or web address] Not available 16:09:25 Medical History Condition Response Diabetes N Cancer/Tumors N High Cholesterol Y Heart Murmur N Blood Clot N Stroke N Hypertension N Past Encounters Encounter ID Performer Location Encounter Start Date Encounter Closed Date Diagnosis/Indication Diagnosis SNOMED-CT Code Diagnosis ICD10 Code [id number] Mika Grayson MD [facility] [place] [address] [place] [address] 04/04/2021 15:54:08 04/05/2021 15:29:23 Health Concerns Section Related Observation LastModified by Organization Detai ls LastModified Time None Recorded Concern Status LastModified by Organization Details LastModified Time None Recorded Advance Directives Directive None Recorded Payers Encounter Date Sequence Insurance Name Policy Number Policy Rooney Covered Member ID Rooney Member ID Guarantor Name 04/04/2021 1 [place] [id number] Felix Coppola [id number] Felix Coppola Notes Date Note Type Note Provider Name and Address Organization Details Recorded Time 04/04/2021 text/html Back PainReporte d bypatient.Location: cervical; thoracic; lumbar;pain radiating to the buttocks Quality:dull Severity:pain level 2/10 Associated Symptoms:no weak limbs; no numbness of the legs/feet; no tingling Prior Imaging:MRI Today nursing spent 25 minutes preparing to see the patient, obtaining and reviewing patients history, obtaining vital signs, entering medications, tests & procedures, educating the patient, coordinating care, and documenting this visit in [place]. Patient is a 46 yo male and [...] ER for his pain. He works on [employer] and mostly sits at work. He reports he has not been to any physical therapy. He takes Ibuprofen to help with the pain. He carries a diangosis of ankylosing spondylitis and has been seeing a rhematologist on regular basis and [facility]. Mika Grayson MD [address], [place], [address], [facility] - [facility] 04/04/2021 20:52:28
== END 2024-12-04 23:59 | disposition home or self-care (01) ==
PROVIDERS: PCP Physician Assistant Medical; Visit Provider Physician Assistant Medical
DX: M54.2 Cervicalgia (principal); F07.81 Postconcussional syndrome; H81.12 Benign paroxysmal vertigo, left ear; Z51.89 Encounter for other specified aftercare
CPT/HCPCS: 97110; 97140; 97162